=== PATIENT | male | born 1945 | race Caucasian/White ===

== ENCOUNTER → 2017-11-23 | Outpatient (CLI) | payer OTHER ==
[~2017-11-23] MED LIST: FLUMAZENIL 0.5 MG/5 ML VIAL. IV; LIDOCAINE WITH 8.4% SOD BICARB 3 ML DISP.SYRIN. IJ; MIDAZOLAM HCL/PF 5 MG/5 ML VIAL.; NALOXONE 0.4 MG/ML VIAL.; fentaNYL PF VIAL 250 MCG/5 ML VIAL
[2017-11-23 07:33] LABS: ADD MAN DIFF? NO
[2017-11-23 07:36] LABS: BASO # 0.1 x10^3/uL (0.0-0.2); BASO % 1 % (0-3); EOS # 0.5 x10^3/uL (0.0-0.7); EOS % 5 % (0-3); HEMATOCRIT 37.1 % (39.0-53.0); HEMOGLOBIN 12.4 g/dL (13.0-17.5); LYMPH # 2.4 x10^3/uL (1.0-4.8); LYMPH % 22 % (24-48); MEAN CORPUSCULAR HEMOGLOBIN 33 pg (25-35); MEAN CORPUSCULAR HGB CONC 34 g/dL (31-37); MEAN CORPUSCULAR VOLUME 97 fL (79-100); MONO # 1.2 x10^3/uL (0.0-1.1); MONO % 11 % (0-9); NEUT # 6.8 x10^3uL (1.8-7.7); NEUT % 62 % (31-73); PLATELET COUNT 284 x10^3/uL (140-400); RED BLOOD COUNT 3.82 x10^6/uL (4.30-5.70); RED CELL DISTRIBUTION WIDTH 13.6 % (11.5-14.5); WHITE BLOOD COUNT 10.9 x10^3/uL (4.0-11.0)
[2017-11-23 07:45] LABS: INR 1.2 (0.8-1.1); PROTHROMBIN TIME PATIENT 14.7 SEC (11.7-14.0)
[2017-11-23] MEDS: fentaNYL PF VIAL 250 MCG/5 ML VIAL IV (08:45)
[2017-11-23] MEDS: MIDAZOLAM HCL/PF 5 MG/5 ML VIAL. IV (08:45)
[2017-11-23] MEDS: LIDOCAINE WITH 8.4% SOD BICARB 3 ML DISP.SYRIN. IJ (08:45)
== END | disposition home or self-care (01) ==
LOC: INTRAD 06:39
DX: D47.2 Monoclonal gammopathy (principal); E78.00 Pure hypercholesterolemia, unspecified; I10 Essential (primary) hypertension; F17.200 Nicotine dependence, unspecified, uncomplicated; Z98.890 Other specified postprocedural states
CPT/HCPCS: 36415; 38222; 77012; 77075; 85025; 85610; 88184; 88185; 88237; 99152; J2250; J3010

== ENCOUNTER → 2018-01-09 | Outpatient (CLI) | payer OTHER | END | disposition home or self-care (01) | LOC: KCIC MAMMO 08:31 | DX: N63.20 Unspecified lump in the left breast, unspecified quadrant (principal) | CPT/HCPCS: 77066 ==

== ENCOUNTER → 2018-01-16 | Outpatient (CLI) | payer OTHER | END | disposition home or self-care (01) | LOC: KCIC 11:22 | DX: M16.12 Unilateral primary osteoarthritis, left hip (principal); M11.262 Other chondrocalcinosis, left knee; M25.462 Effusion, left knee | CPT/HCPCS: 73562 ==

== ENCOUNTER 2018-02-13 18:25 | Emergency (ER) | payer OTHER ==
[2018-02-13 20:45] LABS: ADD MAN DIFF? NO
[2018-02-13 20:51] LABS: BASO # 0.1 x10^3/uL (0.0-0.2); BASO % 1 % (0-3); EOS # 0.6 x10^3/uL (0.0-0.7); EOS % 4 % (0-3); HEMATOCRIT 36.9 % (39.0-53.0); HEMOGLOBIN 12.4 g/dL (13.0-17.5); LYMPH # 2.6 x10^3/uL (1.0-4.8); LYMPH % 18 % (24-48); MEAN CORPUSCULAR HEMOGLOBIN 32 pg (25-35); MEAN CORPUSCULAR HGB CONC 34 g/dL (31-37); MEAN CORPUSCULAR VOLUME 95 fL (79-100); MONO # 1.5 x10^3/uL (0.0-1.1); MONO % 10 % (0-9); NEUT # 9.7 x10^3uL (1.8-7.7); NEUT % 67 % (31-73); PLATELET COUNT 273 x10^3/uL (140-400); RED CELL DISTRIBUTION WIDTH 14.4 % (11.5-14.5); WHITE BLOOD COUNT 14.5 x10^3/uL (4.0-11.0)
[2018-02-13 20:58] LABS: ANION GAP 15 (6-14); BLOOD UREA NITROGEN 76 mg/dL (8-26); BUN/CREATININE RATIO 14 (6-20); CALCIUM 8.7 mg/dL (8.5-10.1); CARBON DIOXIDE 24 mmol/L (21-32); CHLORIDE 104 mmol/L (98-107); CREATININE 5.3 mg/dL (0.7-1.3); GFR 10.7; GLUCOSE 100 mg/dL (70-99); POTASSIUM 4.2 mmol/L (3.5-5.1); SODIUM 143 mmol/L (136-145)
[2018-02-13 21:03] LABS: ALBUMIN 3.3 g/dL (3.4-5.0); ALBUMIN/GLOBULIN RATIO 0.8 (1.0-1.7); ALK PHOS 138 U/L (46-116); ALT (SGPT) 33 U/L (16-63); AST (SGOT) 22 U/L (15-37); LIPASE 86 U/L (73-393); TOTAL BILIRUBIN 0.6 mg/dL (0.2-1.0); TOTAL PROTEIN 7.5 g/dL (6.4-8.2)
[2018-02-13] MEDS: DOCUSATE SODIUM 283 MG/5 ML ENEMA. PR ×2 (21:39→23:05)
[2018-02-13] MEDS: PEG 3350/NA SULF,BICARB,CL/KCL 4,000 ML SOLUTION. PO (22:32)
== END 2018-02-14 00:20 | disposition home or self-care (01) ==
LOC: ER 02-14 00:20
DX: K59.00 Constipation, unspecified (principal); I13.10 Hypertensive heart and chronic kidney disease without heart failure, with stage 1 through stage 4 chronic kidney disease, or unspecified chronic kidney disease; I25.2 Old myocardial infarction; N18.4 Chronic kidney disease, stage 4 (severe); E78.00 Pure hypercholesterolemia, unspecified; Z90.49 Acquired absence of other specified parts of digestive tract; Z95.5 Presence of coronary angioplasty implant and graft
CPT/HCPCS: 36415; 74022; 80053; 83690; 85025; 99285-25

== ENCOUNTER → 2018-04-16 | Outpatient (CLI) | payer OTHER | END | disposition home or self-care (01) | LOC: KCIC CT 09:58 | DX: N40.0 Benign prostatic hyperplasia without lower urinary tract symptoms (principal); M43.28 Fusion of spine, sacral and sacrococcygeal region; K80.80 Other cholelithiasis without obstruction; I13.10 Hypertensive heart and chronic kidney disease without heart failure, with stage 1 through stage 4 chronic kidney disease, or unspecified chronic kidney disease; N18.4 Chronic kidney disease, stage 4 (severe); E78.00 Pure hypercholesterolemia, unspecified | CPT/HCPCS: 74176 ==

== ENCOUNTER 2018-04-23 10:21 | Day surgery (SDC) | payer OTHER ==
[~2018-04-23 10:21] MED LIST changes: -FLUMAZENIL 0.5 MG/5 ML VIAL. IV; +LIDOCAINE 1% PF 2 ML VIAL. ID; -LIDOCAINE WITH 8.4% SOD BICARB 3 ML DISP.SYRIN. IJ; -MIDAZOLAM HCL/PF 5 MG/5 ML VIAL.; +MORPHINE SULFATE 2 MG/ML DISP.SYRIN. IV; -NALOXONE 0.4 MG/ML VIAL.; +ONDANSETRON PF 4 MG/2 ML VIAL. IV; +PROCHLORPERAZINE 10 MG/2 ML VIAL. IV; +fentaNYL PF VIAL 100 MCG/2 ML VIAL IV; -fentaNYL PF VIAL 250 MCG/5 ML VIAL
[2018-04-23] MEDS ORDERED: PROPOFOL 20 ML IV (10:51)
[2018-04-23] MEDS ORDERED: LIDOCAINE 2% PF Vial for OR 5 ML VIAL. (10:51)
[2018-04-23] MEDS ORDERED: ROCURONIUM 50 MG/5 ML VIAL. (10:52)
[2018-04-23] MEDS ORDERED: fentaNYL PF VIAL 100 MCG/2 ML VIAL (10:52)
[2018-04-23] MEDS ORDERED: DEXAMETHASONE SOD PHOS 20 MG/5 ML VIAL. (10:57)
[2018-04-23] MEDS ORDERED: ONDANSETRON PF 4 MG/2 ML VIAL. (10:57)
[2018-04-23] MEDS: IV NORMAL SALINE 1000ML BAG 1,000 ML IV (11:19)
[2018-04-23] MEDS ORDERED: EPINEPHrine 1 MG/ML VIAL (12:55)
[2018-04-23] MEDS: HEPARIN SODIUM 1,000 UNIT in IV NORMAL SALINE 100ML 100 ML IRR (12:58)
[2018-04-23] MEDS ORDERED: NEOSTIGMINE METHYLSULFATE 5 MG/5 ML SYRINGE. (13:21)
[2018-04-23] MEDS ORDERED: GLYCOPYRROLATE 1 MG/5 ML VIAL. (13:21)
[2018-04-23] MEDS ORDERED: DESFLURANE 31 TO 60 MINUTES IH (13:24)
[2018-04-23] MEDS: HYDROcodone/APAP 5/325MG 1 TAB TABLET PO (14:34)
== END 2018-04-23 15:47 | disposition home or self-care (01) ==
LOC: SURG 10:21
DX: I12.9 Hypertensive chronic kidney disease with stage 1 through stage 4 chronic kidney disease, or unspecified chronic kidney disease (principal); N18.4 Chronic kidney disease, stage 4 (severe); M19.90 Unspecified osteoarthritis, unspecified site; I25.10 Atherosclerotic heart disease of native coronary artery without angina pectoris; I25.2 Old myocardial infarction; G47.33 Obstructive sleep apnea (adult) (pediatric); N25.81 Secondary hyperparathyroidism of renal origin; Z90.49 Acquired absence of other specified parts of digestive tract; Z98.890 Other specified postprocedural states; Z79.82 Long term (current) use of aspirin; Z79.899 Other long term (current) drug therapy; Z80.3 Family history of malignant neoplasm of breast; Z80.41 Family history of malignant neoplasm of ovary; Z80.59 Family history of malignant neoplasm of other urinary tract organ; Z82.49 Family history of ischemic heart disease and other diseases of the circulatory system; Z87.891 Personal history of nicotine dependence; Z95.5 Presence of coronary angioplasty implant and graft; E78.00 Pure hypercholesterolemia, unspecified; Z72.89 Other problems related to lifestyle
CPT/HCPCS: 49324; A7015; J0171; J0690; J1100; J1644; J2405; J2704; J2710; J3010; J3490

== ENCOUNTER → 2018-04-23 | Outpatient (CLI) | payer OTHER | END | disposition home or self-care (01) | LOC: RAD 15:18 | DX: I13.10 Hypertensive heart and chronic kidney disease without heart failure, with stage 1 through stage 4 chronic kidney disease, or unspecified chronic kidney disease (principal); N18.3 Chronic kidney disease, stage 3 (moderate); E78.00 Pure hypercholesterolemia, unspecified; I25.2 Old myocardial infarction | CPT/HCPCS: 71046 ==

== ENCOUNTER 2018-08-25 10:28 | Emergency (ER) | payer OTHER ==
[~2018-08-25] VITALS: Ht 176.8 cm; Wt 79.4 kg
[~2018-08-25 10:28] MED LIST changes: +AMLO5TAB7 PO; +ASPI-630 PO; +ASPI325T8 PO; +ATOR20TA58 PO; +CALC200T3 PO; +CALC667T PO; +CINA30TA2 PO; +HYDR-971 PO; -LIDOCAINE 1% PF 2 ML VIAL. ID; +LOSA25TA5 PO; +METO25TA4 PO; +METO50TA6 PO; -MORPHINE SULFATE 2 MG/ML DISP.SYRIN. IV; -ONDANSETRON PF 4 MG/2 ML VIAL. IV; +PATI8.4P PO; -PROCHLORPERAZINE 10 MG/2 ML VIAL. IV; +SIMV20TA3 PO; +SODI650T PO; -fentaNYL PF VIAL 100 MCG/2 ML VIAL IV
--- NOTE | 2018-08-25 11:10 | PHYS DOC ---
Past Medical History Past Medical History: High Cholesterol, Heart Disease, Hypertension, [place], Renal Failure, Other Additional Past Medical Histor: abdominal stent for AAA, stent placement after NH Past Surgical History: Appendectomy Additional Past Surgical Histo: heart stent, AAA stent, orthoscopic knees Alcohol Use: None Drug Use: None Adult General Chief Complaint Chief Complaint: ELBOW PROBLEM HPI HPI Patient is a 72 year old mode presents to the ER for evaluation of right elbow pain. Patient reports mechanical fall 2 days ago in a grocery store. Patient reports progressive swelling and pain to right elbow. Patient reports decreased range of motion. Pain is sharp, 5-6 out of 10, worse with movement. No radiation. No distal numbness or tingling. Patient with history of end-stage renal disease on peritoneal dialysis. He lives with his spouse. no head trauma. Patient takes daily aspirin. Review of Systems Review of Systems Constitutional: Denies fever or chills [] Eyes: Denies change in visual acuity, redness, or eye pain [] HENT: Denies nasal congestion or sore throat [] Respiratory: Denies cough or shortness of breath [] Cardiovascular: no chest pain, no orthopnea, no lower extremity edema. GI: Denies abdominal pain, nausea, vomiting, bloody stools or diarrhea [] : Denies dysuria or hematuria [] Musculoskeletal: no back pain, right joint pain present. Integument: Denies rash or skin lesions [] Neurologic: Denies headache, focal weakness or sensory changes [] Endocrine: Denies polyuria or polydipsia [] All other systems were reviewed and found to be within normal limits, except as documented in this note. Allergies Allergies Allergies Coded Allergies Type Severity Reaction Last Updated Verified No Known Drug Allergies 04/23/18 No Physical Exam Physical Exam Constitutional: Well developed, well nourished, mild distress, appears stated age. HENT: Normocephalic, atraumatic, Eyes: PERRLA, EOMI, Neck: no stridor. [] Cardiovascular:Heart rate regular rhythm, no murmur [] Lungs & Thorax: Bilateral breath sounds clear to auscultation [] Abdomen: Bowel sounds normal, soft, no tenderness, no masses, no pulsatile masses. [] Skin: Warm, dry, no erythema, no rash. [] Extremities: moderate swelling to right elbow. Moderately decreased range of motion of right elbow secondary to pain. Distal range of motion of right wrist and hand intact. Radial pulse +2 out of 4. Hand motion intact with thumbs up, peace sign and a okay. Distal sensation intact Neurologic: Alert and oriented X 3, no focal deficits noted. [] Psychologic: Affect normal, judgement normal, mood normal. [] Current Patient Data Vital Signs Vital Signs Date Time Temp Pulse Resp B/P (MAP) Pulse Ox O2 Delivery O2 Flow Rate FiO2 08/25/18 10:40 97.6 64 18 150/72 (98) 99 Room Air 97.6 EKG EKG [] Radiology/Procedures Radiology/Procedures Elbow XR IMPRESSION: Thin cortical lucency of the distal humerus on the lateral view. Cannot exclude acute nondisplaced fracture. Consider CT for further evaluation. Electronically signed by: Doni Schulte MD (08/25/2018 11:42 AM) [facility][] Course & Med Decision Making Course & Med Decision Making Pertinent Labs and Imaging studies reviewed. (See chart for details) []1230: x-ray as above with questionable distal humerus fracture. Patient with swelling and decreased range of motion Will treat with splint and outpatient follow-up. Discussed x-ray radiology reading with the patient. Advised close PCP follow-up for outpatient ETT. Also referred to or so. Patient is declining narcotic in the ER. Will give short course of narcotics for pain control at home. Patient lives with his spouse and feels safe at home with the splint. post -splint exam with distal cap refill present and appropriate placement.. ER return precautions given. Patient verbalized understanding. All questions answered. Dragon Disclaimer Dragon Disclaimer This electronic medical record was generated, in whole or in part, using a voice recognition dictation system. Departure Departure Impression: Primary Impression: Elbow fracture Additional Impression: Humeral distal fracture Disposition: 01 HOME, SELF-CARE Referrals: MARISELA ARIZMENDI MD (PCP) RON [place] MD Patient Instructions: Cast or Splint Care, Elbow Fracture, Distal Humerus with [facility] Additional Instructions: Thank you for coming to [facility]. Please repeat the attached handouts. Please follow-up with your primary care physician. Return to the ER if your symptoms worsen or you have any other concerns.please take the pain medication as prescribed. You have a possible distal humerus fracture near your elbow. Please keep the splint on. You need a outpatient follow-up CT scan to confirm the fracture. Please follow-up with the referral orthopedist and your primary care doctor early next week. Scripts Hydrocodone/Apap 5-325 (NORCO 5-325 TABLET) 1 Each Tablet 1-2 EACH PO PRN Q6HRS PRN for PAIN, #15 as needed for pain Prov: BONG CUELLAR DO 08/25/18 Problem Qualifiers BONG CUELLAR DO Aug 25, 2018 11:10
--- NOTE | 2018-08-25 11:45 | RAD ---
RIGHT ELBOW AP LATERAL AND OBLIQUE Clinical Indication: RIGHT POSTERIOR ELBOW PAIN AFTER FALL X2 DAYS AGO. UNABLE TO FULLY EXTEND ARM Comparison: None. Findings: There is thin cortical lucency of the distal humerus on the lateral view. Question large joint effusion. No anterior sail sign is identified. Medial epicondyle enthesopathy. There is no radiopaque foreign body. There is mild soft tissue swelling posterior and medial to the elbow. IMPRESSION: Thin cortical lucency of the distal humerus on the lateral view. Cannot exclude acute nondisplaced fracture. Consider CT for further evaluation. Electronically signed by: Doni Schulte MD (08/25/2018 11:42 AM) [facility]
[2018-08-25] MEDS ORDERED: HYDR-971 PO (12:27)
[2018-08-25 13:57] VITALS: BP 178/80
== END 2018-08-25 14:20 | disposition home or self-care (01) ==
LOC: ER 10:28
DX: S42.441A Displaced fracture (avulsion) of medial epicondyle of right humerus, initial encounter for closed fracture (principal); I13.11 Hypertensive heart and chronic kidney disease without heart failure, with stage 5 chronic kidney disease, or end stage renal disease; N18.6 End stage renal disease; Z99.2 Dependence on renal dialysis; I25.2 Old myocardial infarction; E78.00 Pure hypercholesterolemia, unspecified; Z95.5 Presence of coronary angioplasty implant and graft; Z90.89 Acquired absence of other organs; Z98.890 Other specified postprocedural states; W18.39XA Other fall on same level, initial encounter; Y93.89 Activity, other specified; Y92.512 Supermarket, store or market as the place of occurrence of the external cause; Y99.8 Other external cause status
CPT/HCPCS: 29105; 73080; 99284-25

== ENCOUNTER → 2018-09-03 | Outpatient (CLI) | payer OTHER ==
[2018-08-25 13:57] VITALS: BP 178/80
--- NOTE | 2018-09-03 13:37 | KCIC ---
EXAM: CT RIGHT ELBOW DATE: 09/03/2018 11:30 AM COMPARISON: Radiographs 08/25/2018 INDICATION: Equivocal fracture on prior radiograph TECHNIQUE: Non-union protocol completed through the affected site without IV contrast. 2-D reformatted sagittal and coronal images were created at the CT console workstation. FINDINGS: The previously seen lucency seen on prior radiograph is not definitively identified on this CT and therefore is likely artifactual. No associated periosteal reaction or marrow sclerosis is seen to suggest evolving fracture. No significant elbow joint effusion is noted. Normal muscle bulk without fatty atrophy. IMPRESSION: 1. Lucency on prior radiograph through the distal humerus is not definitively seen on today's CT and therefore most likely artifactual. 2. No evidence for acute fracture or dislocation. No right elbow joint effusion. Electronically signed by: Troy Jamison MD (09/03/2018 1:33 PM) [facility]
--- NOTE | 2018-09-03 15:06 | KCIC ---
3 views of the right shoulder without comparison for shoulder pain. FINDINGS: There is no fracture, dislocation, or acute osseous abnormality of the right shoulder. Mild glenohumeral osteoarthritis is noted. There is also mild arthritis of the acromioclavicular joint. Numerous calcified granulomata are seen throughout the right lung. IMPRESSION: 1. No acute osseous abnormality of the right shoulder. 2. Osteoarthritis as described. Electronically signed by: Chin Reinoso MD (09/03/2018 3:03 PM) [facility]
== END | disposition home or self-care (01) ==
LOC: KCIC CT 11:16
PROVIDERS: ATTEND Nurse Practitioner Family
DX: M19.011 Primary osteoarthritis, right shoulder (principal); M25.521 Pain in right elbow
CPT/HCPCS: 73030; 73200

== ENCOUNTER → 2018-09-11 | Outpatient (CLI) | payer OTHER ==
[2018-08-25 13:57] VITALS: BP 178/80
--- NOTE | 2018-09-11 16:43 | KCIC ---
Indication: Bilateral wrist pain status post fall TECHNIQUE: Multiple views of the bilateral breasts COMPARISON: None FINDINGS: Left side: No acute fracture or dislocation. Mild distal radioulnar joint arthritis. No soft tissue abnormality. Right hand: No acute fracture or dislocation. No soft tissue abnormality. IMPRESSION: As above. Electronically signed by: Dallin Cosby DO (09/11/2018 4:39 PM) [facility]
== END | disposition home or self-care (01) ==
LOC: KCIC 11:29
PROVIDERS: ATTEND Nurse Practitioner Family
DX: M19.032 Primary osteoarthritis, left wrist (principal); W19.XXXD Unspecified fall, subsequent encounter
CPT/HCPCS: 73100

== ENCOUNTER 2019-01-14 14:28 | Inpatient (IN) | payer OTHER ==
[~2019-01-14] VITALS: Ht 177.8 cm; Wt 89.4 kg
[~2019-01-14 14:28] MED LIST changes: +AMLO5TAB10 PO; -AMLO5TAB7 PO; -CALC667T PO; +CALC667T4 PO; +HYDR-3164 PO; -HYDR-971 PO; -LOSA25TA5 PO; +LOSA25TA54 PO
[2019-01-14 14:57] LABS: BASO # 0.1 x10^3/uL (0.0-0.2); BASO % 1 % (0-3); EOS # 0.1 x10^3/uL (0.0-0.7); EOS % 1 % (0-3); HEMATOCRIT 31.4 % (39.0-53.0); HEMOGLOBIN 10.3 g/dL (13.0-17.5); LYMPH # 3.5 x10^3/uL (1.0-4.8); LYMPH % 21 % (24-48); MEAN CORPUSCULAR HEMOGLOBIN 33 pg (25-35); MEAN CORPUSCULAR HGB CONC 33 g/dL (31-37); MEAN CORPUSCULAR VOLUME 101 fL (79-100); MONO # 3.5 x10^3/uL (0.0-1.1); MONO % 21 % (0-9); NEUT # 9.4 x10^3uL (1.8-7.7); NEUT % 56 % (31-73); PLATELET COUNT 193 x10^3/uL (140-400); RED BLOOD COUNT 3.11 x10^6/uL (4.30-5.70); RED CELL DISTRIBUTION WIDTH 16.5 % (11.5-14.5); WHITE BLOOD COUNT 16.6 x10^3/uL (4.0-11.0)
[2019-01-14] MEDS: ONDANSETRON PF 4 MG/2 ML VIAL. IM ONE (15:00)
--- NOTE | 2019-01-14 15:23 | PHYS DOC ---
Past Medical History Past Medical History: High Cholesterol, Heart Disease, Hypertension, [place], Renal Failure, Other Additional Past Medical Histor: abdominal stent for AAA, stent placement after [place] Past Surgical History: Appendectomy Additional Past Surgical Histo: heart stent, AAA stent, orthoscopic knees, Peritoneal dialysis catheter. Alcohol Use: None Drug Use: None Adult General Chief Complaint Chief Complaint: HYPOTENSION HPI HPI Patient is a 73 year old ma patient with history of end stage renal disease on home peritoneal dialysis sent from his primary care physician office because of hypotension. Patient had episodes of dizziness since he was started on dialysis on June 2018 and was admitted at [facility] multiple times recently. Patient was seen by his primary care physician for posthospital follow -up and according to primary care physician had blood sugar of 52/34 with confusion and significant emergency room for evaluation. Patient is alert and oriented and denies chest pain, shortness of breath, focal neuro deficit, new weakness or changes in his condition. Patient complaining of nausea last night. Review of Systems Review of Systems Constitutional: Denies fever or chills , reports generalized weakness[] Eyes: Denies change in visual acuity, redness, or eye pain [] HENT: Denies nasal congestion or sore throat [] Respiratory: Denies cough or shortness of breath [] Cardiovascular: No additional information not addressed in HPI [] GI: Denies abdominal pain, nausea, vomiting, bloody stools or diarrhea [] : Denies dysuria or hematuria [] Musculoskeletal: Denies back pain or joint pain [] Integument: Denies rash or skin lesions [] Neurologic: Denies headache, focal weakness or sensory changes [] Endocrine: Denies polyuria or polydipsia [] All other systems were reviewed and found to be within normal limits, except as documented in this note. Current Medications Current Medications Current Medications Medications (Trade) Dose Ordered Sig/Conrad Start Time Stop Time Status Last Admin Dose Admin Ondansetron HCl (Zofran) 4 mg 1X ONCE 01/14/19 15:45 01/14/19 15:46 DC 01/14/19 15:47 4 MG Allergies Allergies Allergies Coded Allergies Type Severity Reaction Last Updated Verified No Known Drug Allergies 04/23/18 No Physical Exam Physical Exam Constitutional: Well developed, mild acute distress, non-toxic appearance. [] HENT: Normocephalic, atraumatic, oropharynx moist, no oral exudates, nose normal. [] Eyes: PERRLA, EOMI, conjunctiva normal, no discharge. [] Neck: Normal range of motion, no tenderness, supple, no stridor. [] Cardiovascular:Heart rate regular rhythm, no murmur [] Lungs & Thorax: Bilateral breath sounds clear to auscultation [] Abdomen: Bowel sounds normal, soft, no tenderness, no masses, no pulsatile masses. [] Skin: Warm, dry, no erythema, no rash. [] Back: No tenderness, no CVA tenderness. [] Extremities: No tenderness, no cyanosis, no clubbing, ROM intact, bilateral lower extremity 1+ edema[] Neurologic: Alert and oriented X 3, normal motor function, normal sensory function, no focal deficits noted. [] Psychologic: Affect normal, judgement normal, mood normal. [] Current Patient Data Vital Signs Vital Signs Date Time Temp Pulse Resp B/P (MAP) Pulse Ox O2 Delivery O2 Flow Rate FiO2 01/14/19 16:43 98.6 70 16 141/68 (92) 93 Room Air 98.6 Lab Values Laboratory Tests Test 01/14/19 14:44 01/14/19 15:30 White Blood Count 16.6 x10^3/uL (4.0-11.0) H Red Blood Count 3.11 x10^6/uL (4.30-5.70) L Hemoglobin 10.3 g/dL (13.0-17.5) L Hematocrit 31.4 % (39.0-53.0) L Mean Corpuscular Volume 101 fL (79-100) H Mean Corpuscular Hemoglobin 33 pg (25-35) Mean Corpuscular Hemoglobin Concent 33 g/dL (31-37) Red Cell Distribution Width 16.5 % (11.5-14.5) H Platelet Count 193 x10^3/uL (140-400) Neutrophils (%) (Auto) 56 % (31-73) Lymphocytes (%) (Auto) 21 % (24-48) L Monocytes (%) (Auto) 21 % (0-9) H Eosinophils (%) (Auto) 1 % (0-3) Basophils (%) (Auto) 1 % (0-3) Neutrophils # (Auto) 9.4 x10^3uL (1.8-7.7) H Lymphocytes # (Auto) 3.5 x10^3/uL (1.0-4.8) Monocytes # (Auto) 3.5 x10^3/uL (0.0-1.1) H Eosinophils # (Auto) 0.1 x10^3/uL (0.0-0.7) Basophils # (Auto) 0.1 x10^3/uL (0.0-0.2) Segmented Neutrophils % 60 % (35-66) Band Neutrophils % 2 % (0-9) Lymphocytes % 22 % (24-48) L Monocytes % 15 % (0-10) H Eosinophils % 1 % (0-5) Toxic Granulation Slight Platelet Estimate Adequate (ADEQUATE) Large Platelets Present Polychromasia Slight Poikilocytosis Mod Anisocytosis Slight Target Cells Few Segura-Tibes Bodies Devika Cells Present Acanthocytes (Spur Cells) Few Schistocytes Few Prothrombin Time 24.2 SEC (11.7-14.0) H Prothrombin Time INR 2.2 (0.8-1.1) H Sodium Level 133 mmol/L (136-145) L Potassium Level 3.6 mmol/L (3.5-5.1) Chloride Level 92 mmol/L (98-107) L Carbon Dioxide Level 19 mmol/L (21-32) L Anion Gap 22 (6-14) H Blood Urea Nitrogen 80 mg/dL (8-26) H Creatinine 13.6 mg/dL (0.7-1.3) H Estimated GFR (Cockcroft-Gault) 3.6 BUN/Creatinine Ratio 6 (6-20) Glucose Level 72 mg/dL (70-99) Calcium Level 8.7 mg/dL (8.5-10.1) Magnesium Level 2.3 mg/dL (1.8-2.4) Total Bilirubin 1.8 mg/dL (0.2-1.0) H Aspartate Amino Transferase (AST) 49 U/L (15-37) H Alanine Aminotransferase (ALT) 25 U/L (16-63) Alkaline Phosphatase 457 U/L (46-116) H Troponin I Quantitative 0.114 ng/mL (0.000-0.055) Total Protein 5.1 g/dL (6.4-8.2) L Albumin 1.8 g/dL (3.4-5.0) L Albumin/Globulin Ratio 0.5 (1.0-1.7) L Lipase 352 U/L (73-393) Laboratory Tests 01/14/19 14:44 Laboratory Tests 01/14/19 15:30 EKG EKG EKG interpreted by me. EKG at 1529 showed normal sinus rhythm at rate of 80, PVCs, low voltage QRS, T wave abnormality in anterior leads, no acute ST and T- wave abnormalities. Radiology/Procedures Radiology/Procedures [facility] [address] [place] [address] IMAGING REPORT Signed PATIENT: AUGUSTO WEEKS ACCOUNT: [id number] : 1945 LOCATION: ER AGE: 73 SEX: M EXAM STATUS: REG ER ORD. PHYSICIAN: RUSTY NICHOLS MD REASON: generalized weakness,hypotension. PROCEDURE: PORTABLE CHEST 1V EXAM: Chest, single view. HISTORY: Hypotension. COMPARISON: 04/23/2018 FINDINGS: A frontal view of the chest is obtained. There is no infiltrate, pleural effusion or pneumothorax. The heart is normal in size for portable technique. There are multiple calcified granulomas. There is lucency along the lateral right thorax due to a skinfold. IMPRESSION: No acute pulmonary finding. Electronically signed by: Julienne Camejo MD (01/14/2019 3:30 PM) [facility] DICTATED and SIGNED BY: JULIENNE CAMEJO MD DATE: 01/14/191528 Course & Med Decision Making Course & Med Decision Making Pertinent Labs and Imaging studies reviewed. (See chart for details) Evaluation of patient in ER showed 73-year-old male patient sent from primary care physician office because of hypertension. Patient had blood pressure of 70s over 40s without altered level of consciousness or fever or tachycardia. Patient had one episode of a small amount of vomiting in ER that improved with Zofran. Plan to admit patient to hospitalist consulted central office operator supervisor per request of primary care physician. Patient gave not have IV fluids while he was in ER. Dragon Disclaimer Dragon Disclaimer This electronic medical record was generated, in whole or in part, using a voice recognition dictation system. Departure Departure Impression: Primary Impression: Hypotension Additional Impressions: Chronic kidney disease with end stage renal failure on dialysis Nausea and vomiting Generalized weakness Disposition: 09 ADMITTED INPATIENT (at 1516) Admitting Physician: Kayla Brown (accepted admission at 1515) Condition: GUARDED Referrals: MARISELA ARIZMENDI MD (PCP) Problem Qualifiers RUSTY NICHOLS MD Jan 14, 2019 15:23
--- NOTE | 2019-01-14 15:33 | RAD ---
EXAM: Chest, single view. HISTORY: Hypotension. COMPARISON: 04/23/2018 FINDINGS: A frontal view of the chest is obtained. There is no infiltrate, pleural effusion or pneumothorax. The heart is normal in size for portable technique. There are multiple calcified granulomas. There is lucency along the lateral right thorax due to a skinfold. IMPRESSION: No acute pulmonary finding. Electronically signed by: Julienne Palacio MD (01/14/2019 3:30 PM) [place] [id number]
[2019-01-14] MEDS ORDERED: ONDANSETRON PF 4 MG/2 ML VIAL. IM ONE (15:45)
[2019-01-14] MEDS ORDERED: ONDANSETRON PF 4 MG/2 ML VIAL. IV ONE (15:45)
[2019-01-14 15:53] LABS: % BANDS 2 % (0-9); % EOS 1 % (0-5); % LYMPHS 22 % (24-48); % MONOS 15 % (0-10); % SEGS 60 % (35-66); PLT ESTIMATE ADEQUATE (ADEQUATE)
[2019-01-14 15:57] LABS: ANISOCYTOSIS SLIGHT; POIKILOCYTOSIS MOD; POLYCHROMASIA SLIGHT; TARGET CELLS FEW
[2019-01-14 15:58] LABS: ACANTHOCYTES FEW; SCHISTOCYTES FEW
[2019-01-14 15:59] LABS: BURR CELLS PRESENT; TOXIC GRANULATION SLIGHT
[2019-01-14 15:59] LABS: PROTHROMBIN TIME PATIENT 24.2 SEC (11.7-14.0)
[2019-01-14 16:31] LABS: ALBUMIN 1.8 g/dL (3.4-5.0); ALBUMIN/GLOBULIN RATIO 0.5 (1.0-1.7); CALCIUM 8.7 mg/dL (8.5-10.1); CREATININE 13.6 mg/dL (0.7-1.3); GFR 3.6; MAGNESIUM 2.3 mg/dL (1.8-2.4); POTASSIUM 3.6 mmol/L (3.5-5.1); TOTAL BILIRUBIN 1.8 mg/dL (0.2-1.0); TOTAL PROTEIN 5.1 g/dL (6.4-8.2)
--- NOTE | 2019-01-14 16:35 | EKG ---
[facility] [address] [place] [address] Test Date: 2019-01-14 Test Time: 15:29:06 Pat Name: AUGUSTO WEEKS Department: Room: Gender: M Nut Grinder: : 1945 Requested By: RUSTY NICHOLS Order Number: [id number] Reading MD: Laureano Glez MD Measurements Intervals [place] Rate: 80 P: 74 VT: 170 QRS: 42 QRSD: 94 T: 34 QT: 430 QTc: 500 Interpretive Statements SINUS RHYTHM PVC Electronically Signed On 01-15-2019 7:06:04 BILINGUAL MEDICAL ASSISTANT by Laureano Glez MD
--- NOTE | 2019-01-14 17:21 | HP ---
ADMIT DATE: 01/14/2019 CHIEF COMPLAINT: Hypotension, dizziness, nausea and vomiting. HISTORY OF PRESENT ILLNESS: The patient is a pleasant 73-year-old male who is on peritoneal dialysis. Basically, he has been at [facility] getting an opinion about his chronic diseases that seemed to be progressing. I think he saw his primary care doctor today, although I am not clear on that. Basically, his pressures were in the 50s. He was told to go to the ER. Here in the ER, his pressure is 78/40. I have discussed the case with the ER physician. The patient's is also here. She would like us to have admitted him and provide a second opinion as to why he is so symptomatic. He does describe his symptoms as agonizing and rated 10/10. We are going to admit the patient and consult Nephrology. PAST MEDICAL AND SURGICAL HISTORY: Hyperlipidemia, coronary artery disease, peritoneal dialysis secondary to end-stage renal disease, hypertension, myocardial infarction, abdominal stents for AAA, cardiac stent, appendectomy and orthopedic surgery on the knees. ALLERGIES: None. FAMILY HISTORY: Hypertension and diabetes. SOCIAL HISTORY: Does not drink, smoke or take drugs. He is . MEDICATIONS: Reviewed, please refer to the MRAD. He is on atorvastatin, metoprolol, amlodipine, losartan, aspirin, hydrocodone, calcium, sodium bicarbonate and Sensipar. REVIEW OF SYSTEMS: GENERAL: No history of weight change, weakness or fevers. SKIN: No bruising, hair changes or rashes. EYES: No blurred, double or loss of vision. NOSE AND THROAT: No history of nosebleeds, hoarseness or sore throat. HEART: No history of palpitations, chest pain or shortness of breath on exertion. LUNGS: Denies cough, hemoptysis, wheezing or shortness of breath. GASTROINTESTINAL: Denies changes in appetite, nausea, vomiting, diarrhea or constipation. GENITOURINARY: No history of frequency, urgency, hesitancy or nocturia. NEUROLOGIC: Complains of dizziness. Denies history of numbness, tingling, tremor or weakness. PSYCHIATRIC: No history of panic, anxiety or depression. ENDOCRINE: No history of heat or cold intolerance, polyuria or polydipsia. EXTREMITIES: Denies muscle weakness, joint pain, pain on walking or stiffness. PHYSICAL EXAMINATION: VITAL SIGNS: Temperature afebrile, pulse 98, respirations 18, blood pressure 78/44. GENERAL: He is alert, weak. His is present. HEART: Normal S1 and S2. LUNGS: Clear. ABDOMEN: Soft. EXTREMITIES: 1+ edema. SKIN: No rashes. ENDOCRINE: No thyromegaly. LYMPHATICS: No cervical nodes. HEMATOPOIETIC: No bruising. LABORATORY DATA: Electrolytes are pending. White count 16.6, hemoglobin 10.3 and platelets 193. DIAGNOSTIC DATA: Chest x-ray, no acute findings. ASSESSMENT AND PLAN: Hypotension, dizziness, leukocytosis, anemia, nausea, vomiting in an elderly male with the above noted comorbidities. The patient has been admitted. I consulted Nephrology. We are going to give him a gentle bolus of 500 mL of normal saline and see if that helps. Frequent labs, PT, OT and home meds. DVT prophylaxis. Full code. Prognosis is guarded. SIMONE BAIRD DO DR: IJEOMA/faraz JOB#: [id number] / [id number]
--- NOTE | 2019-01-14 18:20 | NUR ---
The patient, AUGUSTO WEEKS, 73 y/o, M admitted by SIMONE BAIRD III, DO, was given written information regarding hospital policies, unit procedures and contact persons. Valuables were checked and left with .
[2019-01-14 19:00] VITALS: BP 83/41
[2019-01-14] MEDS ORDERED: SEVE800T9 PO (20:39)
[2019-01-14] MEDS ORDERED: AMMO225L8 TP (20:39)
[2019-01-14] MEDS ORDERED: CALC500T31 PO (20:39)
[2019-01-14] MEDS ORDERED: TRIA15CR TP (20:39)
[2019-01-14] MEDS ORDERED: PANT40GR PO (20:39)
[2019-01-14] MEDS ORDERED: CALCIUM CARBON (20:44)
[2019-01-14 23:00] VITALS: BP 81/41
[2019-01-15 03:00] VITALS: BP 77/40
[2019-01-15 07:00] VITALS: BP 83/32
--- NOTE | 2019-01-15 08:37 | PDOC ---
PROGRESS NOTES Chief Complaint Chief Complaint Hypotension Dizziness Leukocytosis Anemia Nausea and vomiting History of Present Illness History of Present Illness 73-year-old male who is on peritoneal dialysis. Came to ED with blood pressures were in the 50s. In ED his pressure is 78/40. He does describe his symptoms as agonizing and rated 10/10. Feeling only slightly better. BP a bit better with gentle IVF. He is concerned about his heart murmur Plan: Abdominal pain - less likely to be peritonitis, possibly from his vomiting has diaphragmatic tension. Consulted nephrology ESRD on PD - he is anuric. Have d/w nephrology if IV contrast is necessary he would have to convert to HD temporarily in house Cardiology consulted for his murmur / Hypotension - might be ok for midodrine Vitals Vitals Vital Signs Date Time Temp Pulse Resp B/P (MAP) Pulse Ox O2 Delivery O2 Flow Rate FiO2 01/15/19 07:00 98.2 75 18 83/32 (49) 95 Room Air 98.2 Physical Exam General: Alert Lungs: Clear Labs LABS Laboratory Tests Test 01/14/19 14:44 01/14/19 15:30 01/15/19 01:30 White Blood Count 16.6 x10^3/uL (4.0-11.0) Red Blood Count 3.11 x10^6/uL (4.30-5.70) Hemoglobin 10.3 g/dL (13.0-17.5) Hematocrit 31.4 % (39.0-53.0) Mean Corpuscular Volume 101 fL (79-100) Mean Corpuscular Hemoglobin 33 pg (25-35) Mean Corpuscular Hemoglobin Concent 33 g/dL (31-37) Red Cell Distribution Width 16.5 % (11.5-14.5) Platelet Count 193 x10^3/uL (140-400) Neutrophils (%) (Auto) 56 % (31-73) Lymphocytes (%) (Auto) 21 % (24-48) Monocytes (%) (Auto) 21 % (0-9) Eosinophils (%) (Auto) 1 % (0-3) Basophils (%) (Auto) 1 % (0-3) Neutrophils # (Auto) 9.4 x10^3uL (1.8-7.7) Lymphocytes # (Auto) 3.5 x10^3/uL (1.0-4.8) Monocytes # (Auto) 3.5 x10^3/uL (0.0-1.1) Eosinophils # (Auto) 0.1 x10^3/uL (0.0-0.7) Basophils # (Auto) 0.1 x10^3/uL (0.0-0.2) Segmented Neutrophils % 60 % (35-66) Band Neutrophils % 2 % (0-9) Lymphocytes % 22 % (24-48) Monocytes % 15 % (0-10) Eosinophils % 1 % (0-5) Toxic Granulation Slight Platelet Estimate Adequate (ADEQUATE) Large Platelets Present Polychromasia Slight Poikilocytosis Mod Anisocytosis Slight Target Cells Few Segura-[place] Bodies [place] Cells Present Acanthocytes Few Schistocytes Few Prothrombin Time 24.2 SEC (11.7-14.0) Prothromb Time International Ratio 2.2 (0.8-1.1) Sodium Level 133 mmol/L (136-145) Potassium Level 3.6 mmol/L (3.5-5.1) Chloride Level 92 mmol/L (98-107) Carbon Dioxide Level 19 mmol/L (21-32) Anion Gap 22 (6-14) Blood Urea Nitrogen 80 mg/dL (8-26) Creatinine 13.6 mg/dL (0.7-1.3) Estimated GFR (Cockcroft-Gault) 3.6 BUN/Creatinine Ratio 6 (6-20) Glucose Level 72 mg/dL (70-99) Lactic Acid Level 7.4 mmol/L (0.4-2.0) 4.7 mmol/L (0.4-2.0) Calcium Level 8.7 mg/dL (8.5-10.1) Magnesium Level 2.3 mg/dL (1.8-2.4) Total Bilirubin 1.8 mg/dL (0.2-1.0) Aspartate Amino Transf (AST/SGOT) 49 U/L (15-37) Alanine Aminotransferase (ALT/SGPT) 25 U/L (16-63) Alkaline Phosphatase 457 U/L (46-116) Creatine Kinase 98 U/L (39-308) Creatine Kinase MB (Mass) 3.7 ng/mL (0.0-3.6) Creatine Kinase MB Relative Index 3.8 % (0-4) Troponin I Quantitative 0.114 ng/mL (0.000-0.055) ON-Toh-A-Type Natriuretic Peptide 42153 pg/mL (0-449) Total Protein 5.1 g/dL (6.4-8.2) Albumin 1.8 g/dL (3.4-5.0) Albumin/Globulin Ratio 0.5 (1.0-1.7) Lipase 352 U/L (73-393) Assessment and Plan Assessmemt and Plan Problems Medical Problems: (1) Chronic kidney disease with end stage renal failure on dialysis Status: Acute (2) Generalized weakness Status: Acute (3) Hypotension Status: Acute (4) Nausea and vomiting Status: Acute Comment Review of Relevant I have reviewed the following items ethan (where applicable) has been applied. Labs Laboratory Tests Test 01/14/19 14:44 01/14/19 15:30 01/15/19 01:30 White Blood Count 16.6 x10^3/uL (4.0-11.0) Red Blood Count 3.11 x10^6/uL (4.30-5.70) Hemoglobin 10.3 g/dL (13.0-17.5) Hematocrit 31.4 % (39.0-53.0) Mean Corpuscular Volume 101 fL (79-100) Mean Corpuscular Hemoglobin 33 pg (25-35) Mean Corpuscular Hemoglobin Concent 33 g/dL (31-37) Red Cell Distribution Width 16.5 % (11.5-14.5) Platelet Count 193 x10^3/uL (140-400) Neutrophils (%) (Auto) 56 % (31-73) Lymphocytes (%) (Auto) 21 % (24-48) Monocytes (%) (Auto) 21 % (0-9) Eosinophils (%) (Auto) 1 % (0-3) Basophils (%) (Auto) 1 % (0-3) Neutrophils # (Auto) 9.4 x10^3uL (1.8-7.7) Lymphocytes # (Auto) 3.5 x10^3/uL (1.0-4.8) Monocytes # (Auto) 3.5 x10^3/uL (0.0-1.1) Eosinophils # (Auto) 0.1 x10^3/uL (0.0-0.7) Basophils # (Auto) 0.1 x10^3/uL (0.0-0.2) Segmented Neutrophils % 60 % (35-66) Band Neutrophils % 2 % (0-9) Lymphocytes % 22 % (24-48) Monocytes % 15 % (0-10) Eosinophils % 1 % (0-5) Toxic Granulation Slight Platelet Estimate Adequate (ADEQUATE) Large Platelets Present Polychromasia Slight Poikilocytosis Mod Anisocytosis Slight Target Cells Few Segura-[place] Bodies [place] Cells Present Acanthocytes Few Schistocytes Few Prothrombin Time 24.2 SEC (11.7-14.0) Prothromb Time International Ratio 2.2 (0.8-1.1) Sodium Level 133 mmol/L (136-145) Potassium Level 3.6 mmol/L (3.5-5.1) Chloride Level 92 mmol/L (98-107) Carbon Dioxide Level 19 mmol/L (21-32) Anion Gap 22 (6-14) Blood Urea Nitrogen 80 mg/dL (8-26) Creatinine 13.6 mg/dL (0.7-1.3) Estimated GFR (Cockcroft-Gault) 3.6 BUN/Creatinine Ratio 6 (6-20) Glucose Level 72 mg/dL (70-99) Lactic Acid Level 7.4 mmol/L (0.4-2.0) 4.7 mmol/L (0.4-2.0) Calcium Level 8.7 mg/dL (8.5-10.1) Magnesium Level 2.3 mg/dL (1.8-2.4) Total Bilirubin 1.8 mg/dL (0.2-1.0) Aspartate Amino Transf (AST/SGOT) 49 U/L (15-37) Alanine Aminotransferase (ALT/SGPT) 25 U/L (16-63) Alkaline Phosphatase 457 U/L (46-116) Creatine Kinase 98 U/L (39-308) Creatine Kinase MB (Mass) 3.7 ng/mL (0.0-3.6) Creatine Kinase MB Relative Index 3.8 % (0-4) Troponin I Quantitative 0.114 ng/mL (0.000-0.055) PH-Eoo-R-Type Natriuretic Peptide 95423 pg/mL (0-449) Total Protein 5.1 g/dL (6.4-8.2) Albumin 1.8 g/dL (3.4-5.0) Albumin/Globulin Ratio 0.5 (1.0-1.7) Lipase 352 U/L (73-393) Laboratory Tests Test 01/14/19 14:44 01/14/19 15:30 01/15/19 01:30 White Blood Count 16.6 x10^3/uL (4.0-11.0) Red Blood Count 3.11 x10^6/uL (4.30-5.70) Hemoglobin 10.3 g/dL (13.0-17.5) Hematocrit 31.4 % (39.0-53.0) Mean Corpuscular Volume 101 fL (79-100) Mean Corpuscular Hemoglobin 33 pg (25-35) Mean Corpuscular Hemoglobin Concent 33 g/dL (31-37) Red Cell Distribution Width 16.5 % (11.5-14.5) Platelet Count 193 x10^3/uL (140-400) Neutrophils (%) (Auto) 56 % (31-73) Lymphocytes (%) (Auto) 21 % (24-48) Monocytes (%) (Auto) 21 % (0-9) Eosinophils (%) (Auto) 1 % (0-3) Basophils (%) (Auto) 1 % (0-3) Neutrophils # (Auto) 9.4 x10^3uL (1.8-7.7) Lymphocytes # (Auto) 3.5 x10^3/uL (1.0-4.8) Monocytes # (Auto) 3.5 x10^3/uL (0.0-1.1) Eosinophils # (Auto) 0.1 x10^3/uL (0.0-0.7) Basophils # (Auto) 0.1 x10^3/uL (0.0-0.2) Segmented Neutrophils % 60 % (35-66) Band Neutrophils % 2 % (0-9) Lymphocytes % 22 % (24-48) Monocytes % 15 % (0-10) Eosinophils % 1 % (0-5) Toxic Granulation Slight Platelet Estimate Adequate (ADEQUATE) Large Platelets Present Polychromasia Slight Poikilocytosis Mod Anisocytosis Slight Target Cells Few [place] Bodies [place] Cells Present Acanthocytes Few Schistocytes Few Prothrombin Time 24.2 SEC (11.7-14.0) Prothromb Time International Ratio 2.2 (0.8-1.1) Sodium Level 133 mmol/L (136-145) Potassium Level 3.6 mmol/L (3.5-5.1) Chloride Level 92 mmol/L (98-107) Carbon Dioxide Level 19 mmol/L (21-32) Anion Gap 22 (6-14) Blood Urea Nitrogen 80 mg/dL (8-26) Creatinine 13.6 mg/dL (0.7-1.3) Estimated GFR (Cockcroft-Gault) 3.6 BUN/Creatinine Ratio 6 (6-20) Glucose Level 72 mg/dL (70-99) Lactic Acid Level 7.4 mmol/L (0.4-2.0) 4.7 mmol/L (0.4-2.0) Calcium Level 8.7 mg/dL (8.5-10.1) Magnesium Level 2.3 mg/dL (1.8-2.4) Total Bilirubin 1.8 mg/dL (0.2-1.0) Aspartate Amino Transf (AST/SGOT) 49 U/L (15-37) Alanine Aminotransferase (ALT/SGPT) 25 U/L (16-63) Alkaline Phosphatase 457 U/L (46-116) Creatine Kinase 98 U/L (39-308) Creatine Kinase MB (Mass) 3.7 ng/mL (0.0-3.6) Creatine Kinase MB Relative Index 3.8 % (0-4) Troponin I Quantitative 0.114 ng/mL (0.000-0.055) MO-Ydj-J-Type Natriuretic Peptide 53685 pg/mL (0-449) Total Protein 5.1 g/dL (6.4-8.2) Albumin 1.8 g/dL (3.4-5.0) Albumin/Globulin Ratio 0.5 (1.0-1.7) Lipase 352 U/L (73-393) Medications Current Medications Ondansetron HCl (Zofran) 4 mg 1X ONCE IM ; Start 01/14/19 at 15:00; Stop at 15:01; Status Cancel Ondansetron HCl (Zofran) 4 mg 1X ONCE IM ; Start 01/14/19 at 15:45; Stop at 15:46; Status Cancel Ondansetron HCl (Zofran) 4 mg 1X ONCE IV Last administered on 01/14/19at 15:47; Start 01/14/19 at 15:45; Stop 01/14/19 at 15:46; Status DC Gentamicin Sulfate (Garamycin) 1 olu DAILY TP ; Start 01/15/19 at 09:00 Active Scripts Active [place] 5-325 Tablet (Acetaminophen/Hydrocodone Bitart) 1 Each Tablet 1-2 Each PO PRN Q6HRS PRN as needed for pain Reported [calcium carbon] Triamcinolone Acetonide 0.5% Cream (Triamcinolone Acetonide) 15 Gm Cream..g. 1 Olu TP BID Renvela (Sevelamer Carbonate) 800 Mg Tablet 2 Tab PO TID Protonix (Pantoprazole Sodium) 40 Mg Granpkt.dr 40 Mg PO DAILY Calcium Carbonate 500 Mg Tablet 5,000 Mg PO TIDWMEALS Skin Treatment (Ammonium Lactate) 225 Gm Lotion 225 Gm TP BID Aspirin 81 Mg Tab.chew 1 Tab PO DAILY Atorvastatin Calcium 20 Mg Tablet 1 Tab PO QHS Sodium Bicarbonate 650 Mg Tablet 1,950 Mg PO TIDWMEALS Vitals/I & O Vital Sign - Last 24 Hours 01/14/19 01/14/19 01/14/19 01/14/19 15:00 15:45 15:50 16:30 Pulse 94 82 81 82 Pulse Ox 98 97 100 100 01/14/19 01/14/19 01/14/19 01/14/19 16:43 19:00 20:00 23:00 Temp 98.6 98.0 98.3 98.6 98.0 98.3 Pulse 70 83 86 Resp 16 17 18 B/P (MAP) 141/68 (92) 83/41 (55) 81/41 (54) Pulse Ox 93 97 98 O2 Delivery Room Air Room Air Room Air Room Air 01/15/19 01/15/19 03:00 07:00 Temp 98.1 98.2 98.1 98.2 Pulse 83 75 Resp 18 18 B/P (MAP) 77/40 (52) 83/32 (49) Pulse Ox 96 95 O2 Delivery Room Air Room Air Intake and Output 01/14/19 01/14/19 01/15/19 15:00 23:00 07:00 Intake Total 30 ml Balance 30 ml RIFFEL,CHRISTOPHER S MD Jan 15, 2019 08:37
[2019-01-15] MEDS ORDERED: GENTAMICIN 0.1% TOPICAL OINTMENT 15GM TUBE. TP SCH (09:00)
[2019-01-15] MEDS: TRIAMCINOLONE ACETONIDE 0.1% TOPICAL CREAM 15GM TUBE. TP SCH ×2 (10:00→20:55)
[2019-01-15] MEDS: AMMONIUM LACTATE 12% TOPICAL LOTION 226GM BOTTLE. TP SCH ×2 (10:00→20:55)
--- NOTE | 2019-01-15 10:08 | PDOC2 ---
CONSULT Date of Consult Date of Consult DATE: 01/15/19 TIME: 09:41 Reason for Consult Reason for Consult: ESRD on PD Source Source: Chart review, Patient History of Present Illness Reason for Visit: Patient is a 73 year old ma patient with history of end stage renal disease on peritoneal dialysis (Dr. Tomlinson) sent from his primary care physician office because of hypotension. Patient had episodes of dizziness since he was started on dialysis on June 2018. He has been admitted at [facility] multiple times recently. Patient was seen by his primary care physician for posthospital follow-up with confusion He denies chest pain, shortness of breath, focal neuro deficit, new weakness or changes in his condition. Hew as having nausea, Vomiting x1 in ED Denies any abdominal pain , states PD fluid has been clear. No issues with PD. He doesnt have LBF When I asked him about the murmur - he reports he has seen a Card approx - 1 week back had JOANNA done as OP (doesnt remember name of Card)- states he has Aortic stenosis. Pt states his BP fluctuates a lot from very low to high. He denies taking any Antihypertensive s . He doesnt hv RRF Currently denies any complaints Current Problem List Problem List Problems Medical Problems: (1) Chronic kidney disease with end stage renal failure on dialysis Status: Acute (2) Generalized weakness Status: Acute (3) Hypotension Status: Acute (4) Nausea and vomiting Status: Acute Current Medications Current Medications Current Medications Ondansetron HCl (Zofran) 4 mg 1X ONCE IM ; Start 01/14/19 at 15:00; Stop at 15:01; Status Cancel Ondansetron HCl (Zofran) 4 mg 1X ONCE IM ; Start 01/14/19 at 15:45; Stop at 15:46; Status Cancel Ondansetron HCl (Zofran) 4 mg 1X ONCE IV Last administered on 01/14/19at 15:47; Start 01/14/19 at 15:45; Stop 01/14/19 at 15:46; Status DC Gentamicin Sulfate (Garamycin) 1 olu DAILY TP ; Start 01/15/19 at 09:00 Lactic Acid (Lac-Hydrin) 1 olu BID TP ; Start 01/15/19 at 10:00 Aspirin (Children'S Aspirin) 81 mg DAILY PO ; Start 01/15/19 at 10:00 Atorvastatin Calcium (Lipitor) 20 mg QHS PO ; Start 01/15/19 at 21:00 Calcium Carbonate/ Glycine (Oscal) 500 mg TIDWMEALS PO ; Start 01/15/19 at 12:00 Acetaminophen/ Hydrocodone Bitart (Lortab 5/325) 1 tab PRN Q6HRS PRN PO PAIN; Start 01/15/19 at 08:45 Sevelamer Carbonate (Renvela) 1,600 mg TID PO ; Start 01/15/19 at 09:00 Sodium Bicarbonate (Sodium Bicarbonate) 1,950 mg TIDWMEALS PO ; Start 01/15/19 at 12:00 Pantoprazole Sodium (Protonix) 40 mg DAILYAC PO ; Start 01/15/19 at 10:00 Triamcinolone Acetonide (Kenalog) 1 olu BID TP ; Start 01/15/19 at 10:00 Active Scripts Active [place] 5-325 Tablet (Acetaminophen/Hydrocodone Bitart) 1 Each Tablet 1-2 Each PO PRN Q6HRS PRN as needed for pain Reported [calcium carbon] Triamcinolone Acetonide 0.5% Cream (Triamcinolone Acetonide) 15 Gm Cream..g. 1 Olu TP BID Renvela (Sevelamer Carbonate) 800 Mg Tablet 2 Tab PO TID Protonix (Pantoprazole Sodium) 40 Mg Granpkt.dr 40 Mg PO DAILY Calcium Carbonate 500 Mg Tablet 5,000 Mg PO TIDWMEALS Skin Treatment (Ammonium Lactate) 225 Gm Lotion 225 Gm TP BID Aspirin 81 Mg Tab.chew 1 Tab PO DAILY Atorvastatin Calcium 20 Mg Tablet 1 Tab PO QHS Sodium Bicarbonate 650 Mg Tablet 1,950 Mg PO TIDWMEALS Allergies Allergies: Coded Allergies: No Known Drug Allergies (Unverified , 04/23/18) ROS Review of System As per HPI Physical Exam Physical Exam GEN: NAD HEEN: OM moist NECK: Supple CVS: S1S2 , Murmur ++ RESP: CTA Bilat, No use of acc Muscles GI: BS + ve, NT, PD catheter in Place : No CVA tenderness, No Suprapubic Tenderness, No [place] Neuro- AXOx 3, grossly normal Skin No rash Vital Signs Vital Signs Date Time Temp Pulse Resp B/P (MAP) Pulse Ox O2 Delivery O2 Flow Rate FiO2 01/15/19 07:00 98.2 75 18 83/32 (49) 95 Room Air 98.2 Assessment & Plan ESRD- On PD since Jun [address] Tomlinson No issues with PD , Check PD fluid for cell count No Vol Overload Continue as per Home prescription Hypotension- Chronic , Intermittent Lactic acid elevated, Alk Phos High, elevated WBC Abnormal peripheral smear noted Dw primary Aortic stenosis - Seen by card recently- JOANNA done- moderate Aortic stenosis Consult cardiology- Dw Dr. Holley Aortoiiliac stent graft is identified with the yurok aorta measuring 4.1 x 4.3 cm Discussed with Pt and Dr. Holley Labs Labs Laboratory Tests Test 01/14/19 14:44 01/14/19 15:30 01/15/19 01:30 White Blood Count 16.6 x10^3/uL (4.0-11.0) Red Blood Count 3.11 x10^6/uL (4.30-5.70) Hemoglobin 10.3 g/dL (13.0-17.5) Hematocrit 31.4 % (39.0-53.0) Mean Corpuscular Volume 101 fL (79-100) Mean Corpuscular Hemoglobin 33 pg (25-35) Mean Corpuscular Hemoglobin Concent 33 g/dL (31-37) Red Cell Distribution Width 16.5 % (11.5-14.5) Platelet Count 193 x10^3/uL (140-400) Neutrophils (%) (Auto) 56 % (31-73) Lymphocytes (%) (Auto) 21 % (24-48) Monocytes (%) (Auto) 21 % (0-9) Eosinophils (%) (Auto) 1 % (0-3) Basophils (%) (Auto) 1 % (0-3) Neutrophils # (Auto) 9.4 x10^3uL (1.8-7.7) Lymphocytes # (Auto) 3.5 x10^3/uL (1.0-4.8) Monocytes # (Auto) 3.5 x10^3/uL (0.0-1.1) Eosinophils # (Auto) 0.1 x10^3/uL (0.0-0.7) Basophils # (Auto) 0.1 x10^3/uL (0.0-0.2) Segmented Neutrophils % 60 % (35-66) Band Neutrophils % 2 % (0-9) Lymphocytes % 22 % (24-48) Monocytes % 15 % (0-10) Eosinophils % 1 % (0-5) Toxic Granulation Slight Platelet Estimate Adequate (ADEQUATE) Large Platelets Present Polychromasia Slight Poikilocytosis Mod Anisocytosis Slight Target Cells Few Segura-[place] Bodies [place] Cells Present Acanthocytes Few Schistocytes Few Prothrombin Time 24.2 SEC (11.7-14.0) Prothromb Time International Ratio 2.2 (0.8-1.1) Sodium Level 133 mmol/L (136-145) Potassium Level 3.6 mmol/L (3.5-5.1) Chloride Level 92 mmol/L (98-107) Carbon Dioxide Level 19 mmol/L (21-32) Anion Gap 22 (6-14) Blood Urea Nitrogen 80 mg/dL (8-26) Creatinine 13.6 mg/dL (0.7-1.3) Estimated GFR (Cockcroft-Gault) 3.6 BUN/Creatinine Ratio 6 (6-20) Glucose Level 72 mg/dL (70-99) Lactic Acid Level 7.4 mmol/L (0.4-2.0) 4.7 mmol/L (0.4-2.0) Calcium Level 8.7 mg/dL (8.5-10.1) Magnesium Level 2.3 mg/dL (1.8-2.4) Total Bilirubin 1.8 mg/dL (0.2-1.0) Aspartate Amino Transf (AST/SGOT) 49 U/L (15-37) Alanine Aminotransferase (ALT/SGPT) 25 U/L (16-63) Alkaline Phosphatase 457 U/L (46-116) Creatine Kinase 98 U/L (39-308) Creatine Kinase MB (Mass) 3.7 ng/mL (0.0-3.6) Creatine Kinase MB Relative Index 3.8 % (0-4) Troponin I Quantitative 0.114 ng/mL (0.000-0.055) IJ-Dnk-M-Type Natriuretic Peptide 80833 pg/mL (0-449) Total Protein 5.1 g/dL (6.4-8.2) Albumin 1.8 g/dL (3.4-5.0) Albumin/Globulin Ratio 0.5 (1.0-1.7) Lipase 352 U/L (73-393) Laboratory Tests Test 01/14/19 14:44 01/14/19 15:30 01/15/19 01:30 White Blood Count 16.6 x10^3/uL (4.0-11.0) Red Blood Count 3.11 x10^6/uL (4.30-5.70) Hemoglobin 10.3 g/dL (13.0-17.5) Hematocrit 31.4 % (39.0-53.0) Mean Corpuscular Volume 101 fL (79-100) Mean Corpuscular Hemoglobin 33 pg (25-35) Mean Corpuscular Hemoglobin Concent 33 g/dL (31-37) Red Cell Distribution Width 16.5 % (11.5-14.5) Platelet Count 193 x10^3/uL (140-400) Neutrophils (%) (Auto) 56 % (31-73) Lymphocytes (%) (Auto) 21 % (24-48) Monocytes (%) (Auto) 21 % (0-9) Eosinophils (%) (Auto) 1 % (0-3) Basophils (%) (Auto) 1 % (0-3) Neutrophils # (Auto) 9.4 x10^3uL (1.8-7.7) Lymphocytes # (Auto) 3.5 x10^3/uL (1.0-4.8) Monocytes # (Auto) 3.5 x10^3/uL (0.0-1.1) Eosinophils # (Auto) 0.1 x10^3/uL (0.0-0.7) Basophils # (Auto) 0.1 x10^3/uL (0.0-0.2) Segmented Neutrophils % 60 % (35-66) Band Neutrophils % 2 % (0-9) Lymphocytes % 22 % (24-48) Monocytes % 15 % (0-10) Eosinophils % 1 % (0-5) Toxic Granulation Slight Platelet Estimate Adequate (ADEQUATE) Large Platelets Present Polychromasia Slight Poikilocytosis Mod Anisocytosis Slight Target Cells Few Segura-Backus Bodies [place] Cells Present Acanthocytes Few Schistocytes Few Prothrombin Time 24.2 SEC (11.7-14.0) Prothromb Time International Ratio 2.2 (0.8-1.1) Sodium Level 133 mmol/L (136-145) Potassium Level 3.6 mmol/L (3.5-5.1) Chloride Level 92 mmol/L (98-107) Carbon Dioxide Level 19 mmol/L (21-32) Anion Gap 22 (6-14) Blood Urea Nitrogen 80 mg/dL (8-26) Creatinine 13.6 mg/dL (0.7-1.3) Estimated GFR (Cockcroft-Gault) 3.6 BUN/Creatinine Ratio 6 (6-20) Glucose Level 72 mg/dL (70-99) Lactic Acid Level 7.4 mmol/L (0.4-2.0) 4.7 mmol/L (0.4-2.0) Calcium Level 8.7 mg/dL (8.5-10.1) Magnesium Level 2.3 mg/dL (1.8-2.4) Total Bilirubin 1.8 mg/dL (0.2-1.0) Aspartate Amino Transf (AST/SGOT) 49 U/L (15-37) Alanine Aminotransferase (ALT/SGPT) 25 U/L (16-63) Alkaline Phosphatase 457 U/L (46-116) Creatine Kinase 98 U/L (39-308) Creatine Kinase MB (Mass) 3.7 ng/mL (0.0-3.6) Creatine Kinase MB Relative Index 3.8 % (0-4) Troponin I Quantitative 0.114 ng/mL (0.000-0.055) GV-Smx-H-Type Natriuretic Peptide 54534 pg/mL (0-449) Total Protein 5.1 g/dL (6.4-8.2) Albumin 1.8 g/dL (3.4-5.0) Albumin/Globulin Ratio 0.5 (1.0-1.7) Lipase 352 U/L (73-393) Review All relevant outside records, renal labs, imaging studies, telemetry/EKG's were reviewed. Images Images CT scan 2018-- 1. Liver is borderline enlarged measuring 19.8 cm in craniocaudal dimension. Consideration may be given for a Oskar's lobe. 2. Trace perihepatic ascites. Trace pericholecystic fluid with cholelithiasis. Correlate for signs and symptoms of acute cholecystitis. Further evaluation with HIDA may be of benefit as clinically warranted. 3. Aortobiiliac stent graft is identified with the yurok aorta measuring 4.1 x 4.3 cm. Noncontrast examination is limited in evaluation for endoleak. 4. No evidence for obstructive uropathy. 5. Mild prostatomegaly. Recommend correlation with prostate specific antigen. JUDSON GUZMAN MD Jan 15, 2019 10:08
[2019-01-15] MEDS: PANTOPRAZOLE 40 MG TABLET.DR. PO SCH (10:15)
[2019-01-15] MEDS: SEVELAMER CARBONATE 800 MG TABLET. PO SCH ×3 (10:15→20:53)
[2019-01-15] MEDS: ASPIRIN CHEWABLE 81 MG TABLET. PO SCH (10:15)
[2019-01-15] MEDS: HYDROcodone/APAP 5/325MG 1 TAB TABLET PO PRN (10:20)
--- NOTE | 2019-01-15 10:45 | NUR ---
SW following pt for anticipated dc needs. Chart reviewed. Pt lives at home with legal guardian and on PD. No SW/DC needs indicated at this time. Will continue to evaluate.
[2019-01-15 11:02] VITALS: BP 74/40
--- NOTE | 2019-01-15 11:47 | PDOC2 ---
ROSIE WELSH CONCRETE TILE MACHINE OPERATOR 01/15/19 1147: CARDIAC CONSULT DATE OF CONSULT Date of Consult DATE: 01/15/19 TIME: 11:33 REASON FOR CONSULT Reason for Consult: Hypotension REFERRING PHYSICIAN Referring Physician: Meche SOURCE Source: Chart review, Patient HISTORY OF PRESENT ILLNESS HISTORY OF PRESENT ILLNESS This is a pleasant 73 yo male admitted for complains of low BP. He was seen in her PCPs office where he was noted with BP manually of 52/30. He did lose about 800 ml per his PD yesterday per staff repor. He has been going in [facility] in the last 2 months with also noted hypotension and dizzy spells. He is significant for and was being evaluated for TAVR at [facility]. He was told that via JOANNA this was moderate rather than severe. He was discharge recently and still upon DC from [facility] he continues to have dizzy spells and low BP and has been getting worse. He also vomited last night with dark red but has been noting some blood in her mouth as she has been accidentally biting his tongue more lately. His BP meds have been totally discontinued due to his low BP. Presently he feels ok and on reverse Trendelenburg. No associated palpitations , vertigo. PAST MEDICAL HISTORY Cardiovascular: CAD, HTN, CA, Aortic stenosis, Other (AAA) Pulmonary: Other (DAVIDA with past CPAP) Musculoskeletal: Osteoarthritis Rheumatologic: Other (MGUS) Renal/: Chronic renal failure ( with PD use ), Benign prostatic enlarg. Endocrine: Hyperparathyroidism (secondary) Dermatology: Eczema PAST SURGICAL HISTORY Past Surgical History: Appendectomy, Arthroscopy (left knee), Other (AAA repair in 2005; back surgery, coronary stent placement in 2005) FAMILY HISTORY Family History noncontributory to CV SOCIAL HISTORY Smoke: Quit ALCOHOL: none Drugs: None Lives: with Family CURRENT MEDICATIONS CURRENT MEDICATIONS Current Medications Medications (Trade) Dose Ordered Sig/Conrad Route PRN Reason Start Time Stop Time Status Last Admin Dose Admin Ondansetron HCl (Zofran) 4 mg 1X ONCE IV 01/14/19 15:45 01/14/19 15:46 DC 01/14/19 15:47 Aspirin (Children'S Aspirin) 81 mg DAILY PO 01/15/19 10:00 01/15/19 10:15 Acetaminophen/ Hydrocodone Bitart (Lortab 5/325) 1 tab PRN Q6HRS PRN PO PAIN 01/15/19 08:45 01/15/19 10:20 Sevelamer Carbonate (Renvela) 1,600 mg TID PO 01/15/19 09:00 01/15/19 10:15 Pantoprazole Sodium (Protonix) 40 mg DAILYAC PO 01/15/19 10:00 01/15/19 10:15 ALLERGIES ALLERGIES: Coded Allergies: No Known Drug Allergies (Unverified , 04/23/18) ROS Review of System 14 point ROS evaluated with pertinent positives noted per HPI PHYSICAL EXAM General: Alert, Oriented X3, Cooperative, No acute distress HEENT: Atraumatic, Mucous membr. moist/pink Lungs: Clear to auscultation, Normal air movement Heart: Regular rate (SR), Other (CORINNE 5/6 systolic murmur ) Abdomen: Soft Extremities: No cyanosis, No edema Skin: No breakdown, No significant lesion Neuro: Normal speech, Sensation intact Psych/Mental Status: Mental status NL, Mood NL MUSCULOSKELETAL: Osteoarthritic changes both hands VITALS VITALS Vital Signs Date Time Temp Pulse Resp B/P (MAP) Pulse Ox O2 Delivery O2 Flow Rate FiO2 01/15/19 11:02 98.2 76 20 74/40 (51) 96 Room Air 98.2 LABS Lab: Laboratory Tests Test 01/14/19 14:44 01/14/19 15:30 01/15/19 01:30 01/15/19 08:45 White Blood Count 16.6 x10^3/uL (4.0-11.0) Red Blood Count 3.11 x10^6/uL (4.30-5.70) Hemoglobin 10.3 g/dL (13.0-17.5) Hematocrit 31.4 % (39.0-53.0) Mean Corpuscular Volume 101 fL (79-100) Mean Corpuscular Hemoglobin 33 pg (25-35) Mean Corpuscular Hemoglobin Concent 33 g/dL (31-37) Red Cell Distribution Width 16.5 % (11.5-14.5) Platelet Count 193 x10^3/uL (140-400) Neutrophils (%) (Auto) 56 % (31-73) Lymphocytes (%) (Auto) 21 % (24-48) Monocytes (%) (Auto) 21 % (0-9) Eosinophils (%) (Auto) 1 % (0-3) Basophils (%) (Auto) 1 % (0-3) Neutrophils # (Auto) 9.4 x10^3uL (1.8-7.7) Lymphocytes # (Auto) 3.5 x10^3/uL (1.0-4.8) Monocytes # (Auto) 3.5 x10^3/uL (0.0-1.1) Eosinophils # (Auto) 0.1 x10^3/uL (0.0-0.7) Basophils # (Auto) 0.1 x10^3/uL (0.0-0.2) Segmented Neutrophils % 60 % (35-66) Band Neutrophils % 2 % (0-9) Lymphocytes % 22 % (24-48) Monocytes % 15 % (0-10) Eosinophils % 1 % (0-5) Toxic Granulation Slight Platelet Estimate Adequate (ADEQUATE) Large Platelets Present Polychromasia Slight Poikilocytosis Mod Anisocytosis Slight Target Cells Few Seg[place] Bodies [place] Cells Present Acanthocytes Few Schistocytes Few Prothrombin Time 24.2 SEC (11.7-14.0) Prothromb Time International Ratio 2.2 (0.8-1.1) Sodium Level 133 mmol/L (136-145) Potassium Level 3.6 mmol/L (3.5-5.1) Chloride Level 92 mmol/L (98-107) Carbon Dioxide Level 19 mmol/L (21-32) Anion Gap 22 (6-14) Blood Urea Nitrogen 80 mg/dL (8-26) Creatinine 13.6 mg/dL (0.7-1.3) Estimated GFR (Cockcroft-Gault) 3.6 BUN/Creatinine Ratio 6 (6-20) Glucose Level 72 mg/dL (70-99) Lactic Acid Level 7.4 mmol/L (0.4-2.0) 4.7 mmol/L (0.4-2.0) 4.2 mmol/L (0.4-2.0) Calcium Level 8.7 mg/dL (8.5-10.1) Magnesium Level 2.3 mg/dL (1.8-2.4) Total Bilirubin 1.8 mg/dL (0.2-1.0) Aspartate Amino Transf (AST/SGOT) 49 U/L (15-37) Alanine Aminotransferase (ALT/SGPT) 25 U/L (16-63) Alkaline Phosphatase 457 U/L (46-116) Creatine Kinase 98 U/L (39-308) Creatine Kinase MB (Mass) 3.7 ng/mL (0.0-3.6) Creatine Kinase MB Relative Index 3.8 % (0-4) Troponin I Quantitative 0.114 ng/mL (0.000-0.055) 0.217 ng/mL (0.000-0.055) TD-Xww-V-Type Natriuretic Peptide 76567 pg/mL (0-449) Total Protein 5.1 g/dL (6.4-8.2) Albumin 1.8 g/dL (3.4-5.0) Albumin/Globulin Ratio 0.5 (1.0-1.7) Lipase 352 U/L (73-393) Lactate Dehydrogenase 222 U/L (85-227) ASSESSMENT/PLAN ASSESSMENT/PLAN 1. Hypotension: acidosis hypoalbuminemia, contributing 2. Vomiting/leukocytosis: GI eval 3. : Being considered for TAVR reportedly not a candidate due to moderate reading via JOANNA 4. Metabolic acidosis 5. Elevated troponin: peaked at 0.2, demand mediated, type 2 with above culprits. no CP nor SOA 6. Coagulopathy: INR 2.2 7. Macrocytic anemia 8. ESRD: PD 9. Protein malnutrition 10. CAD: stents in the past 11. Hx of HTN 12. Hx of AAA with repair Recommendations 1. TTE, PD and IVF per nephrology 2. Start on midodrine. Obtain last JOANNA record CARISSA URBINA MD 01/15/19 1414: CARDIAC CONSULT ASSESSMENT/PLAN ASSESSMENT/PLAN Pt. seen and examined. Agree with above BELL RINGER note. His dizziness appears to be more neuropathic in nature/orthostatic. He is off all his antihypertensives. Consider low dose midodrine. His symptoms do not appear to be related to his heart valve which by exam appears to be severely stenosed and by echo is moderate to severely stenosed. Defer valve w/u to his primary regional coordinator at [facility]. ROSIE WELSH APRN Jan 15, 2019 11:47 CARISSA URBINA MD Jan 15, 2019 14:14
[2019-01-15] MEDS: IPRATRPIUM/ALBUTEROL 0.5/2.5MG 3 ML NEBU. NEB SCH ×3 (11:58→19:40)
--- NOTE | 2019-01-15 13:21 | CARD ---
MR#: [id number] Date of Study: 01/15/2019 Ordering Physician: ROSIE WELSH, Referring Physician: SIMONE BAIRD Tech: Madiha Pringle RDCS APPROVED REPORT EXAM: Two-dimensional and M-mode echocardiogram with Doppler and color Doppler. Other Information Quality : Good INDICATION Aortic Valve Disease Hypotension 2D DIMENSIONS RVDd2.4 (2.9-3.5cm)Left Atrium(2D)3.8 (1.6-4.0cm) IVSd1.3 (0.7-1.1cm)Aortic Root(2D)3.4 (2.0-3.7cm) LVDd5.2 (3.9-5.9cm)LVOT Diameter2.0 (1.8-2.4cm) PWd1.1 (0.7-1.1cm)LVDs3.3 (2.5-4.0cm) FS (%) 37.7 %SV88.9 ml LVEF(%)67.4 (>50%) Aortic Valve AoV Peak Abhi.382.7cm/sAoV VTI89.0cm AO Peak GR.58.6mmHgLVOT VTI 25.71cm AO Mean GR.38mmHgAVA (VTI)0.99cm2 Mitral Valve MV E Ebvtlgds40.7cm/sMV DECEL [id number] MV A Ackcopie270.1cm/sE/A Ratio0.7 TDI Lateral E' P. V7.72cm/sMedial E' P. V5.21cm/s E/Lateral E'9.3E/Medial E'13.8 Tricuspid Valve TR P. Quyodsmi696kc/sRAP XOGFUJYF6psXq TR Peak Gr.89xsOlKABR10oqIi Pulmonary Vein S1 Pkfmnuek04.0cm/sS2 Ihqsvaxc92.82cm/s D2 Mnnqclif25.8cm/s LEFT VENTRICLE The left ventricle is normal size. There is mild concentric left ventricular hypertrophy. The left ve ntricular systolic function is normal and the ejection fraction is within normal range. The Ejection Fraction is 55-60%. There is normal LV segmental wall motion. Transmitral Doppler flow pattern is Gra de I-abnormal relaxation pattern. RIGHT VENTRICLE The right ventricle is normal size. The right ventricular systolic function is normal. ATRIA The left atrium is mildly dilated. The right atrium size is normal. The interatrial septum is intact with no evidence for an atrial septal defect or patent foramen ovale as noted on 2-D or Doppler imagi ng. AORTIC VALVE The aortic valve is severely calcified and displays decreased opening. Doppler and Color Flow reveale d trace aortic regurgitation. Calculated aortic valve area is 0.99 cm2 with maximum pressure gradient of 59 mmHg and mean pressure gradient of 38 mmHg. Doppler and color-flow analysis revealed severe ao rtic stenosis. MITRAL VALVE The mitral valve is calcified but opens well. There is no evidence of mitral valve prolapse. There is no mitral valve stenosis. Doppler and Color-flow revealed mild mitral regurgitation. TRICUSPID VALVE The tricuspid valve is normal in structure and function. Doppler and Color Flow revealed trace tricus pid regurgitation. There is mild pulmonary hypertension. The PA pressure was estimated at 39 mmHg. Th ere is no tricuspid valve stenosis. PULMONIC VALVE The pulmonic valve is not well visualized. Doppler and Color Flow revealed no pulmonic valvular regur gitation. There is no pulmonic valvular stenosis. GREAT VESSELS The aortic root is normal in size. The ascending aorta is not well seen. The IVC is normal in size an d collapses >50% with inspiration. PERICARDIAL EFFUSION There is no evidence of significant pericardial effusion. Critical Notification Critical Value: No <Conclusion> There is mild concentric left ventricular hypertrophy. The left ventricular systolic function is normal and the ejection fraction is within normal range. Th e Ejection Fraction is 55-60%. The aortic valve is severely calcified and displays decreased opening. Calculated aortic valve area i s 0.99 cm2 with maximum pressure gradient of 59 mmHg and mean pressure gradient of 38 mmHg. Doppler a nd color-flow analysis revealed severe aortic stenosis. Doppler and Color Flow revealed trace tricuspid regurgitation. There is mild pulmonary hypertension. The PA pressure was estimated at 39 mmHg. Signed by : Laureano Glez, Electronically Approved : 01/15/2019 13:20:27
--- NOTE | 2019-01-15 13:27 | PDOC2 ---
GI CONSULT Reason For Consult: Elevated bilirubin, dark tarry stools HPI: HPI: 73 y/o male sent to ER from PCP's office for hypotension. Seen today in his room w/ and son present. H/o aortic stenosis w/ recent hospitalization @ [facility] to [facility] for surgery. Details are unclear, but apparently he has been biting his cheeks accidentally while chewing since November. Has some bleeding sometimes. Vomited blood awhile ago (?before went to [facility]) and then recently had some nausea and vomited "black" yesterday. Since then, reports having 2-3 formed black stools yesterday and one this morning. H/o GERD controlled w/ pantoprazole QD. No dysphagia. Typically no n/v. No abd pain. No diarrhea or constipation. No hematochezia. Gradual decreased appetite over time. No weight loss. Asked about previous EGD - might have had JOANNA @ [facility] but his son said "they also said they'd do an upper GI." It's unclear whether this was performed and his suggests we check [facility] records. Had a colonoscopy at some point, recalls no significant findings. Says he was told he had gallstones @ [facility] but "they need to figure out my heart first." Denies pancreas or liver history. On past imaging here - cholelithiasis noted along w/ borderline hepatomegaly. Takes ASA. Labs: Hgb 10.3, MCV 101, RDW 16.5, INR 2.2, plt WNL, bili 1.8, AST 49, ALT 25, Alk Phos 547, elevated BNP and lactic acid, Cr 13.4 (ESRD on PD), BUN 80. PMH: PMH: CAD, HTN, LA, , AAA, DAVIDA, OA, ESRD, BPH, eczema, GERD, cholelithiasis partial omentectomy, appendectomy, AAA repair, left knee arthroscopy, back surgery, PD cath placement, bone marrow biopsy, coronary stent FH: Family History: No pertinent hx Social History: Smoke: Quit ALCOHOL: none Drugs: None ROS: GEN: Denies fevers, chills, sweats HEENT: Denies blurred vision, sore throat CV: Denies chest pain RESP: Denies shortness of air, cough GI: Per HPI : Denies hematuria, dysuria ENDO: Denies weight changes NEURO: Denies confusion, dizziness MSK: +weakness SKIN: Denies jaundice, pruritus Vitals: Vitals: Vital Signs Date Time Temp Pulse Resp B/P (MAP) Pulse Ox O2 Delivery O2 Flow Rate FiO2 01/15/19 12:01 97 Room Air 01/15/19 11:20 16 01/15/19 11:02 98.2 76 74/40 (51) 98.2 Labs: Labs: Laboratory Tests Test 01/14/19 14:44 01/14/19 15:30 01/15/19 01:30 01/15/19 08:45 White Blood Count 16.6 x10^3/uL (4.0-11.0) Red Blood Count 3.11 x10^6/uL (4.30-5.70) Hemoglobin 10.3 g/dL (13.0-17.5) Hematocrit 31.4 % (39.0-53.0) Mean Corpuscular Volume 101 fL (79-100) Mean Corpuscular Hemoglobin 33 pg (25-35) Mean Corpuscular Hemoglobin Concent 33 g/dL (31-37) Red Cell Distribution Width 16.5 % (11.5-14.5) Platelet Count 193 x10^3/uL (140-400) Neutrophils (%) (Auto) 56 % (31-73) Lymphocytes (%) (Auto) 21 % (24-48) Monocytes (%) (Auto) 21 % (0-9) Eosinophils (%) (Auto) 1 % (0-3) Basophils (%) (Auto) 1 % (0-3) Neutrophils # (Auto) 9.4 x10^3uL (1.8-7.7) Lymphocytes # (Auto) 3.5 x10^3/uL (1.0-4.8) Monocytes # (Auto) 3.5 x10^3/uL (0.0-1.1) Eosinophils # (Auto) 0.1 x10^3/uL (0.0-0.7) Basophils # (Auto) 0.1 x10^3/uL (0.0-0.2) Segmented Neutrophils % 60 % (35-66) Band Neutrophils % 2 % (0-9) Lymphocytes % 22 % (24-48) Monocytes % 15 % (0-10) Eosinophils % 1 % (0-5) Toxic Granulation Slight Platelet Estimate Adequate (ADEQUATE) Large Platelets Present Polychromasia Slight Poikilocytosis Mod Anisocytosis Slight Target Cells Few [place]ura[place] Bodies [place] Cells Present Acanthocytes Few Schistocytes Few Prothrombin Time 24.2 SEC (11.7-14.0) Prothromb Time International Ratio 2.2 (0.8-1.1) Sodium Level 133 mmol/L (136-145) Potassium Level 3.6 mmol/L (3.5-5.1) Chloride Level 92 mmol/L (98-107) Carbon Dioxide Level 19 mmol/L (21-32) Anion Gap 22 (6-14) Blood Urea Nitrogen 80 mg/dL (8-26) Creatinine 13.6 mg/dL (0.7-1.3) Estimated GFR (Cockcroft-Gault) 3.6 BUN/Creatinine Ratio 6 (6-20) Glucose Level 72 mg/dL (70-99) Lactic Acid Level 7.4 mmol/L (0.4-2.0) 4.7 mmol/L (0.4-2.0) 4.2 mmol/L (0.4-2.0) Calcium Level 8.7 mg/dL (8.5-10.1) Magnesium Level 2.3 mg/dL (1.8-2.4) Total Bilirubin 1.8 mg/dL (0.2-1.0) Aspartate Amino Transf (AST/SGOT) 49 U/L (15-37) Alanine Aminotransferase (ALT/SGPT) 25 U/L (16-63) Alkaline Phosphatase 457 U/L (46-116) Creatine Kinase 98 U/L (39-308) Creatine Kinase MB (Mass) 3.7 ng/mL (0.0-3.6) Creatine Kinase MB Relative Index 3.8 % (0-4) Troponin I Quantitative 0.114 ng/mL (0.000-0.055) 0.217 ng/mL (0.000-0.055) VE-Owq-W-Type Natriuretic Peptide 16303 pg/mL (0-449) Total Protein 5.1 g/dL (6.4-8.2) Albumin 1.8 g/dL (3.4-5.0) Albumin/Globulin Ratio 0.5 (1.0-1.7) Lipase 352 U/L (73-393) Lactate Dehydrogenase 222 U/L (85-227) Allergies: Coded Allergies: No Known Drug Allergies (Unverified , 04/23/18) Medications: Current Medications Medications (Trade) Dose Ordered Sig/Conrad Route PRN Reason Start Time Stop Time Status Last Admin Dose Admin Ondansetron HCl (Zofran) 4 mg 1X ONCE IV 01/14/19 15:45 01/14/19 15:46 DC 01/14/19 15:47 Aspirin (Children'S Aspirin) 81 mg DAILY PO 01/15/19 10:00 01/15/19 10:15 Acetaminophen/ Hydrocodone Bitart (Lortab 5/325) 1 tab PRN Q6HRS PRN PO PAIN 01/15/19 08:45 01/15/19 10:20 Sevelamer Carbonate (Renvela) 1,600 mg TID PO 01/15/19 09:00 01/15/19 10:15 Pantoprazole Sodium (Protonix) 40 mg DAILYAC PO 01/15/19 10:00 01/15/19 10:15 Albuterol/ Ipratropium (Duoneb) 3 ml RTQID NEB 01/15/19 12:00 01/15/19 11:58 Imaging: Imaging: CXR 01/14/19 IMPRESSION: No acute pulmonary finding. Echocardiogram pending PE: GEN: NAD, eating jello HEENT: Atraumatic, PERRL LUNGS: CTAB anteriorly HEART: RRR +loud murm ABD: NABS, S/ND/NT, PD cath left side EXTREMITY: No edema SKIN: No rashes, no jaundice NEURO/PSYCH: A & O 3 A/P: A/P: Hypotension, lactic acidosis ?coffee-ground emesis, black stools GERD - on PPI CRC screen - unclear timing Cholelithiasis Hepatomegaly - borderline on CT last year Macrocytic anemia, coagulopathy, elevated bili and Alk Phos CAD, , ESRD -- Check iron profile, also note orders for fecal occult. Agree w/ PPI. Will attempt to review [facility] records - ?recent EGD Check abd US. INA DAHL Jan 15, 2019 13:27
[2019-01-15] MEDS: CALCIUM CARBONATE 500 MG TABLET PO SCH ×2 (13:46→16:53)
[2019-01-15] MEDS: SODIUM BICARBONATE 650 MG TABLET. PO SCH ×2 (13:46→16:53)
[2019-01-15] MEDS: ACETAMINOPHEN 500 MG TABLET PO PRN (13:46)
[2019-01-15] MEDS: MIDODRINE 2.5 MG TABLET PO SCH ×2 (14:00→16:53)
[2019-01-15 15:09] VITALS: BP 104/51
--- NOTE | 2019-01-15 16:06 | NUR ---
[facility] JOANNA from 12/25/18: Left ventricular systolic function is normal. Estimated ejection fraction 60-65%. Right ventricular global systolic function is normal. No thrombus visualized in the left atrial appendage. A patent foramen ovale is not demonstrated by color Doppler. There is moderate aortic stenosis. The peak velocity is 3.96m/s. No other significant valvular abnormalities.
[2019-01-15 19:00] VITALS: BP 87/42
[2019-01-15] MEDS: ATORVASTATIN CALCIUM 20 MG TABLET PO SCH (20:53)
[2019-01-15 21:59] LABS: BF SOURCE PERIT DIALYSATE
[2019-01-15 22:00] LABS: BF CLARITY CLEAR; BF COLOR STRAW; BF RBC COUNT 31 /cmm (Not Established); BF WBC COUNT 3 /cmm (Not Established)
[2019-01-15 22:58] VITALS: BP 82/39
[2019-01-16 03:00] VITALS: BP 77/43
--- NOTE | 2019-01-16 05:25 | RAD ---
Complete abdominal ultrasound dated 01/15/2019. No comparison available. Clinical data indication: Elevated liver function test. FINDINGS: Liver is of somewhat heterogeneous increased echogenicity appears slightly nodular in contour. No apparent hepatic mass. Biliary tree normal in caliber. Common bile duct measures 5 mm. Gallbladder is collapsed and not well evaluated. Echogenic foci within the lumen consistent with small stones. There is suspected mild wall thickening measuring about 6 mm. Right kidney measures 10.1 cm in length. Left kidney measures 10.2 cm in length. Both kidneys are somewhat echogenic. No hydronephrosis. Spleen is homogeneous in echogenicity and measures about 12 cm longitudinal dimension. Limited visualized portions of pancreas aorta and IVC unremarkable. Small amount of ascites. IMPRESSION: 1. Heterogeneous increased echogenicity of the liver with nodular contour, suspicious for cirrhosis. 2. Small amount of ascites. 3. Cholelithiasis. 4. Diffuse gallbladder wall thickening, nonspecific. This could be a manifestation of hepatocellular disease. Cholecystitis considered less likely. Electronically signed by: Luis York MD (01/16/2019 5:21 AM) [facility]
[2019-01-16] MEDS: MIDODRINE 2.5 MG TABLET PO SCH ×2 (06:15→09:50)
[2019-01-16] MEDS: PANTOPRAZOLE 40 MG TABLET.DR. PO SCH (06:16)
[2019-01-16 07:00] VITALS: BP 88/45
[2019-01-16] MEDS: IPRATRPIUM/ALBUTEROL 0.5/2.5MG 3 ML NEBU. NEB SCH ×4 (07:21→19:33)
[2019-01-16] MEDS: SODIUM BICARBONATE 650 MG TABLET. PO SCH ×3 (08:00→16:52)
[2019-01-16] MEDS: GENTAMICIN 0.1% TOPICAL OINTMENT 15GM TUBE. TP SCH (09:00)
[2019-01-16] MEDS: TRIAMCINOLONE ACETONIDE 0.1% TOPICAL CREAM 15GM TUBE. TP SCH ×2 (09:00→20:25)
[2019-01-16] MEDS: AMMONIUM LACTATE 12% TOPICAL LOTION 226GM BOTTLE. TP SCH ×2 (09:00→20:25)
--- NOTE | 2019-01-16 09:45 | PDOC ---
SUBJECTIVE ROS Sleeping, Comfortable OBJECTIVE Vital Signs Vital Signs Date Time Temp Pulse Resp B/P (MAP) Pulse Ox O2 Delivery O2 Flow Rate FiO2 01/16/19 07:22 95 Room Air 01/16/19 07:00 98.4 74 18 88/45 (59) 98.4 I & 0 Intake and Output 01/16/19 07:00 Intake Total 780 ml Output Total 0 ml Balance 780 ml Intake Oral 780 ml Output Urine Total 0 ml # Bowel Movements 1 PHYSICAL EXAM Physical Exam GEN: NAD HEEN: OM moist NECK: Supple CVS: S1S2 , Murmur ++ RESP: CTA Bilat, No use of acc Muscles GI: BS + ve, NT, PD catheter in Place : No CVA tenderness, No Suprapubic Tenderness, No [place]eda Neuro- AXOx 3, grossly normal Skin No rash DIAGNOSIS/ASSESSMENT Assessment & Plan ESRD- On PD since Jun [address] Tomlinson No issues with PD ,no peritonitis No Vol Overload Continue as per Home prescription (UF [id number]) Hypotension- Chronic , Intermittent Lactic acid elevated, Alk Phos High, elevated WBC Abnormal peripheral smear noted ? consider CT(with Contrast if deemed necessary ) - defer to GI Aortic stenosis - Seen by card recently- JOANNA done- moderate Aortic stenosis Consult cardiology- Dw Dr. Holley Aortoiiliac stent graft is identified with the paimiut aorta measuring 4.1 x 4.3 cm Discussed with Pt and RN COMMENT/RELEVANT DATA Meds Current Medications Medications (Trade) Dose Ordered Sig/Conrad Start Time Stop Time Status Last Admin Dose Admin Acetaminophen (Tylenol) 1,000 mg PRN Q6HRS PRN 01/15/19 11:15 01/15/19 13:46 1,000 MG Acetaminophen/ Hydrocodone Bitart (Lortab 5/325) 1 tab PRN Q6HRS PRN 01/15/19 08:45 01/15/19 10:20 1 TAB Albuterol/ Ipratropium (Duoneb) 3 ml RTQID 01/15/19 12:00 01/16/19 07:21 3 ML Aspirin (Children'S Aspirin) 81 mg DAILY 01/15/19 10:00 01/15/19 10:15 81 MG Atorvastatin Calcium (Lipitor) 20 mg QHS 01/15/19 21:00 01/15/19 20:53 20 MG Calcium Carbonate/ Glycine (Oscal) 500 mg TIDWMEALS 01/15/19 12:00 01/15/19 16:53 500 MG Gentamicin Sulfate (Garamycin) 1 betty DAILY 01/16/19 09:00 Lactic Acid (Lac-Hydrin) 1 betty BID 01/15/19 10:00 01/15/19 20:55 1 BETTY Midodrine (Proamatine) 2.5 mg [id number] 01/15/19 14:00 01/16/19 06:15 2.5 MG Ondansetron HCl (Zofran) 4 mg 1X ONCE 01/14/19 15:45 01/14/19 15:46 DC 01/14/19 15:47 4 MG Pantoprazole Sodium (Protonix) 40 mg DAILYAC 01/15/19 10:00 01/16/19 06:16 40 MG Sevelamer Carbonate (Renvela) 1,600 mg TID 01/15/19 09:00 01/15/19 20:53 1,600 MG Sodium Bicarbonate (Sodium Bicarbonate) 1,950 mg TIDWMEALS 01/15/19 12:00 01/15/19 16:53 1,950 MG Triamcinolone Acetonide (Kenalog) 1 betty BID 01/15/19 10:00 01/15/19 20:55 1 BETTY Lab Laboratory Tests Test 01/15/19 12:40 01/15/19 17:00 01/15/19 17:55 Lactic Acid Level 3.2 mmol/L (0.4-2.0) 2.8 mmol/L (0.4-2.0) Troponin I Quantitative 0.218 ng/mL (0.000-0.055) Body Fluid Source Perit dialysate Body Fluid Color Straw Body Fluid Clarity Clear Body Fluid Nucleated Cells 3 /cmm (Not Established) Body Fluid Total RBCs Counted 31 /cmm (Not Established) Results All relevant outside records, renal labs, imaging studies, telemetry/EKG's were reviewed. JUDSON GUZMAN MD Jan 16, 2019 09:45
[2019-01-16] MEDS: SEVELAMER CARBONATE 800 MG TABLET. PO SCH ×3 (09:50→20:24)
[2019-01-16] MEDS: ACETAMINOPHEN 500 MG TABLET PO PRN (09:50)
[2019-01-16] MEDS: CALCIUM CARBONATE 500 MG TABLET PO SCH ×3 (09:50→16:49)
[2019-01-16] MEDS: ASPIRIN CHEWABLE 81 MG TABLET. PO SCH (09:51)
--- NOTE | 2019-01-16 10:40 | PDOC ---
CARDIO Progress Notes Date and Time Date of Service 01/16/2019 Time of Evaluation 1010 Subjective Subjective: No Chest Pain, No shortness of breath, No Palpitations, Other (got up OOB yesterday with no dizziness or feeling like passing out. ) Vitals Vitals Vital Signs Date Time Temp Pulse Resp B/P (MAP) Pulse Ox O2 Delivery O2 Flow Rate FiO2 01/16/19 09:50 74 88/45 01/16/19 07:22 95 Room Air 01/16/19 07:00 98.4 18 98.4 Weight Weight [ ] Input and Output Intake and Output Intake and Output 01/16/19 07:00 Intake Total 780 ml Output Total 0 ml Balance 780 ml Intake Oral 780 ml Output Urine Total 0 ml # Bowel Movements 1 Laboratory Labs Laboratory Tests Test 01/15/19 12:40 01/15/19 17:00 01/15/19 17:55 Lactic Acid Level 3.2 mmol/L (0.4-2.0) 2.8 mmol/L (0.4-2.0) Troponin I Quantitative 0.218 ng/mL (0.000-0.055) Body Fluid Source Perit dialysate Body Fluid Color Straw Body Fluid Clarity Clear Body Fluid Nucleated Cells 3 /cmm (Not Established) Body Fluid Total RBCs Counted 31 /cmm (Not Established) Microbiology Micro Microbiology 01/14/19 Blood Culture - Preliminary, Resulted NO GROWTH AFTER 1 DAY Physical Exam HEENT: Neck Supple W Full Motion Chest: Symmetric LUNGS: Clear to Auscultation Heart: S1S2, RRR (SR) Abdomen: Soft N/T, Other (distended) Extremities: No Calf Tenderness Neurology: alert, oriented, follow commands Assessment Assessment 1. Hypotension/presyncope: orthostasis with underlying acidosis/uremia/ hypoalbuminemia contributing. BP slightly improved with midodrine. 2. Vomiting/leukocytosis: none further 3. : Being considered for TAVR reportedly not a candidate due to moderate reading via JOANNA. Severe per f/u TTE 4. Metabolic acidosis 5. Elevated troponin: peaked at 0.2, demand mediated, type 2 with above culprits. no CP nor SOA 6. Coagulopathy: INR 2.2. Possible cirrhosis per sono. GI following 7. Macrocytic anemia 8. ESRD: PD 9. Protein malnutrition 10. CAD: stents in the past, clinically stable. 11. Hx of HTN 12. Hx of AAA with repair Recommendations 1. PD per nephrology. No antiHTN meds. Continue midodrine 2. Defer valve w/u to his primary rattling machine tender at [facility]. 3. Supportive care. ROSIE WELSH APRN Jan 16, 2019 10:40
[2019-01-16 11:00] VITALS: BP 65/32
[2019-01-16 12:12] LABS: HEMATOCRIT 25.8 % (39.0-53.0); HEMOGLOBIN 8.7 g/dL (13.0-17.5); RED BLOOD COUNT 2.57 x10^6/uL (4.30-5.70); RED CELL DISTRIBUTION WIDTH 15.7 % (11.5-14.5); WHITE BLOOD COUNT 17.2 x10^3/uL (4.0-11.0)
[2019-01-16 12:21] LABS: PROTHROMBIN TIME PATIENT 23.7 SEC (11.7-14.0)
--- NOTE | 2019-01-16 12:22 | PDOC ---
Subjective: Subjective: Doing okay - has been "sleeping like a log today." Objective: Objective: D/w RN - CT suggested. Vital Signs: Vital Signs Date Time Temp Pulse Resp B/P (MAP) Pulse Ox O2 Delivery O2 Flow Rate FiO2 01/16/19 11:11 Room Air 01/16/19 09:50 74 88/45 01/16/19 07:22 95 01/16/19 07:00 98.4 18 98.4 Labs: Laboratory Tests Test 01/15/19 12:40 01/15/19 17:00 01/15/19 17:55 01/16/19 12:00 Lactic Acid Level 3.2 mmol/L 2.8 mmol/L Troponin I Quantitative 0.218 ng/mL Body Fluid Source Perit dialysate Body Fluid Color Straw Body Fluid Clarity Clear Body Fluid Nucleated Cells 3 /cmm Body Fluid Total RBCs Counted 31 /cmm White Blood Count 17.2 x10^3/uL Red Blood Count 2.57 x10^6/uL Hemoglobin 8.7 g/dL Hematocrit 25.8 % Mean Corpuscular Volume 100 fL Mean Corpuscular Hemoglobin 34 pg Mean Corpuscular Hemoglobin Concent 34 g/dL Red Cell Distribution Width 15.7 % Platelet Count 140 x10^3/uL BLOOD CULTURE Preliminary NO GROWTH AFTER 1 DAY Imaging: Abd US IMPRESSION: 1. Heterogeneous increased echogenicity of the liver with nodular contour, suspicious for cirrhosis. 2. Small amount of ascites. 3. Cholelithiasis. 4. Diffuse gallbladder wall thickening, nonspecific. This could be a manifestation of hepatocellular disease. Cholecystitis considered less likely. Echo <Conclusion> There is mild concentric left ventricular hypertrophy. The left ventricular systolic function is normal and the ejection fraction is within normal range. The Ejection Fraction is 55-60%. The aortic valve is severely calcified and displays decreased opening. Calculated aortic valve area is 0.99 cm2 with maximum pressure gradient of 59 mmHg and mean pressure gradient of 38 mmHg. Doppler and color-flow analysis revealed severe aortic stenosis. Doppler and Color Flow revealed trace tricuspid regurgitation. There is mild pulmonary hypertension. The PA pressure was estimated at 39 mmHg. PE: GEN: NAD, was asleep LUNGS: room air HEART: RRR +murm ABD: non-tender, soft, PD cath NEURO/PSYCH: A & O 3 A/P: Hypotension, ESRD on PD ?coffee-ground emesis, black stools - no recurrence Anemia - iron studies c/w chronic disease Cirrhosis, elevated Alk Phos, coagulopathy -- ?PBC - AMA pending, await this. Continue PPI. INA DAHL Jan 16, 2019 12:22
[2019-01-16 12:34] LABS: CALCIUM 8.3 mg/dL (8.5-10.1); CREATININE 13.8 mg/dL (0.7-1.3); GFR 3.5; MAGNESIUM 2.5 mg/dL (1.8-2.4); POTASSIUM 3.6 mmol/L (3.5-5.1)
[2019-01-16] MEDS: MIDODRINE 5 MG TABLET PO SCH ×2 (14:22→16:49)
--- NOTE | 2019-01-16 14:25 | RAD ---
PQRS Compliance statement: One or more of the following individualized dose reduction techniques were utilized for this examination: 1. Automated exposure control. 2. Adjustment of the mA and/or kV according to patient size. 3. Use of iterative reconstruction technique. Indication:CIRRHOSIS, ? VARICES, NON CONTRAST PER ORDER, DIALYSIS PT, PRIOR SENT TECHNIQUE: CT abdomen none without IV contrast with multiplanar reformats. COMPARISON: 04/16/2018 FINDINGS: Limited evaluation of solid and vascular abdominal organs due to lack of IV contrast. Heart is normal in size. No pericardial or pleural effusion. Calcified pleural plaque is seen in the posterior right lower lobe. 3 mm nodule in the right middle lobe (series 2 image 2). Liver is not enlarged. No appreciable surface nodularity of the liver seen. Spleen is nonenlarged. Gallstones noted. Gallbladder nondistended. Noncontrast appearance of the pancreas is within normal limits. Left adrenal gland demonstrating diffuse thickening likely secondary to adenomatous hyperplasia. Right adrenal gland within normal limits. Small volume perihepatic ascites. Punctate nonobstructing right renal stone. No definite lesion in the left kidney measuring 1.7 cm, stable from previous exam. Tortuous abdominal aorta with aortobiiliac stent grafts. Minimal interval decrease in the size of infrarenal abdominal aortic aneurysm sac measuring 4.4 x 4.0 cm, previously 4.5 x 4.4 cm. No enlarged retroperitoneal lymph nodes. Visualized bowel is within normal limits. Tip of the dialysis catheter is in the right lower quadrant. Edema is seen in the ascending colon. No anterior abdominal wall varices seen. No significant perigastric or perisplenic varices. No suspicious bony lesion. Multilevel degenerative disc disease in the spine. IMPRESSION: Limited evaluation of vasculature and solid organs due to lack of IV contrast. 1. No appreciable morphologic changes of cirrhosis. 2. Small amount of perihepatic ascites, nonspecific. 3. Slight interval decrease in the size of infrarenal aneurysmal sac status post aortobiiliac stent grafts. 4. Cholelithiasis without imaging evidence of acute cholecystitis. Electronically signed by: Dallin Cosby DO (01/16/2019 2:22 PM) [id number]
[2019-01-16 15:00] VITALS: BP 69/40
--- NOTE | 2019-01-16 17:10 | PDOC ---
PROGRESS NOTES Chief Complaint Chief Complaint Hypotension Dizziness Leukocytosis Anemia Nausea and vomiting History of aortic stenosis: Being considered for TAVR reportedly not a candidate due to moderate reading via JOANNA. Severe per f/u TTE Metabolic acidosis Elevated troponin: peaked at 0.2, demand mediated, type 2 with above culprits. no CP nor SOA Coagulopathy: INR 2.2. Macrocytic anemia ESRD: PD Protein malnutrition CAD: stents in the past, clinically stable. Hx of HTN Hx of AAA with repair History of Present Illness History of Present Illness 73-year-old male who is on peritoneal dialysis. Came to ED with blood pressures were in the 50s. In ED his pressure is 78/40. Improved Feeling only slightly better. BP a bit better with gentle IVF. He is concerned about his heart murmur resassurance provided, faint murmur Plan: Abdominal pain - less likely to be peritonitis, possibly from his vomiting has diaphragmatic tension. No rebound tenderness non surgical abdomen. ESRD on PD - he is anuric. Have d/w nephrology if IV contrast is necessary he would have to convert to HD temporarily in house Cardiology consulted for his murmur 02/16 Hypotension - on midodrine Vitals Vitals Vital Signs Date Time Temp Pulse Resp B/P (MAP) Pulse Ox O2 Delivery O2 Flow Rate FiO2 01/16/19 16:49 76 65/32 01/16/19 11:11 Room Air 01/16/19 11:00 98.0 18 96 98.0 Physical Exam General: Alert Heart: Regular rate (SR), Other (CORINNE 5/6 systolic murmur ) Lungs: Clear Abdomen: Soft Extremities: No cyanosis, No edema Skin: No breakdown, No significant lesion Labs LABS Laboratory Tests Test 01/15/19 17:55 01/16/19 12:00 Body Fluid Source Perit dialysate Body Fluid Color Straw Body Fluid Clarity Clear Body Fluid Nucleated Cells 3 /cmm (Not Established) Body Fluid Total RBCs Counted 31 /cmm (Not Established) White Blood Count 17.2 x10^3/uL (4.0-11.0) Red Blood Count 2.57 x10^6/uL (4.30-5.70) Hemoglobin 8.7 g/dL (13.0-17.5) Hematocrit 25.8 % (39.0-53.0) Mean Corpuscular Volume 100 fL (79-100) Mean Corpuscular Hemoglobin 34 pg (25-35) Mean Corpuscular Hemoglobin Concent 34 g/dL (31-37) Red Cell Distribution Width 15.7 % (11.5-14.5) Platelet Count 140 x10^3/uL (140-400) Prothrombin Time 23.7 SEC (11.7-14.0) Prothromb Time International Ratio 2.1 (0.8-1.1) Sodium Level 137 mmol/L (136-145) Potassium Level 3.6 mmol/L (3.5-5.1) Chloride Level 96 mmol/L (98-107) Carbon Dioxide Level 25 mmol/L (21-32) Anion Gap 16 (6-14) Blood Urea Nitrogen 81 mg/dL (8-26) Creatinine 13.8 mg/dL (0.7-1.3) Estimated GFR (Cockcroft-Gault) 3.5 Glucose Level 112 mg/dL (70-99) Calcium Level 8.3 mg/dL (8.5-10.1) Magnesium Level 2.5 mg/dL (1.8-2.4) Troponin I Quantitative 0.203 ng/mL (0.000-0.055) Assessment and Plan Assessmemt and Plan Problems Medical Problems: (1) Chronic kidney disease with end stage renal failure on dialysis Status: Acute (2) Generalized weakness Status: Acute (3) Hypotension Status: Acute (4) Nausea and vomiting Status: Acute Comment Review of Relevant I have reviewed the following items ethan (where applicable) has been applied. Labs Laboratory Tests Test 01/15/19 01:30 01/15/19 08:45 01/15/19 12:40 01/15/19 17:00 Lactic Acid Level 4.7 mmol/L (0.4-2.0) 4.2 mmol/L (0.4-2.0) 3.2 mmol/L (0.4-2.0) 2.8 mmol/L (0.4-2.0) Iron Level 45 ug/dL (65-175) Total Iron Binding Capacity 169 ug/dL (250-450) Iron Saturation 27 % (15-34) Lactate Dehydrogenase 222 U/L (85-227) Troponin I Quantitative 0.217 ng/mL (0.000-0.055) 0.218 ng/mL (0.000-0.055) Test 01/15/19 17:55 01/16/19 12:00 Body Fluid Source Perit dialysate Body Fluid Color Straw Body Fluid Clarity Clear Body Fluid Nucleated Cells 3 /cmm (Not Established) Body Fluid Total RBCs Counted 31 /cmm (Not Established) White Blood Count 17.2 x10^3/uL (4.0-11.0) Red Blood Count 2.57 x10^6/uL (4.30-5.70) Hemoglobin 8.7 g/dL (13.0-17.5) Hematocrit 25.8 % (39.0-53.0) Mean Corpuscular Volume 100 fL (79-100) Mean Corpuscular Hemoglobin 34 pg (25-35) Mean Corpuscular Hemoglobin Concent 34 g/dL (31-37) Red Cell Distribution Width 15.7 % (11.5-14.5) Platelet Count 140 x10^3/uL (140-400) Prothrombin Time 23.7 SEC (11.7-14.0) Prothromb Time International Ratio 2.1 (0.8-1.1) Sodium Level 137 mmol/L (136-145) Potassium Level 3.6 mmol/L (3.5-5.1) Chloride Level 96 mmol/L (98-107) Carbon Dioxide Level 25 mmol/L (21-32) Anion Gap 16 (6-14) Blood Urea Nitrogen 81 mg/dL (8-26) Creatinine 13.8 mg/dL (0.7-1.3) Estimated GFR (Cockcroft-Gault) 3.5 Glucose Level 112 mg/dL (70-99) Calcium Level 8.3 mg/dL (8.5-10.1) Magnesium Level 2.5 mg/dL (1.8-2.4) Troponin I Quantitative 0.203 ng/mL (0.000-0.055) Laboratory Tests Test 01/15/19 17:55 01/16/19 12:00 Body Fluid Source Perit dialysate Body Fluid Color Straw Body Fluid Clarity Clear Body Fluid Nucleated Cells 3 /cmm (Not Established) Body Fluid Total RBCs Counted 31 /cmm (Not Established) White Blood Count 17.2 x10^3/uL (4.0-11.0) Red Blood Count 2.57 x10^6/uL (4.30-5.70) Hemoglobin 8.7 g/dL (13.0-17.5) Hematocrit 25.8 % (39.0-53.0) Mean Corpuscular Volume 100 fL (79-100) Mean Corpuscular Hemoglobin 34 pg (25-35) Mean Corpuscular Hemoglobin Concent 34 g/dL (31-37) Red Cell Distribution Width 15.7 % (11.5-14.5) Platelet Count 140 x10^3/uL (140-400) Prothrombin Time 23.7 SEC (11.7-14.0) Prothromb Time International Ratio 2.1 (0.8-1.1) Sodium Level 137 mmol/L (136-145) Potassium Level 3.6 mmol/L (3.5-5.1) Chloride Level 96 mmol/L (98-107) Carbon Dioxide Level 25 mmol/L (21-32) Anion Gap 16 (6-14) Blood Urea Nitrogen 81 mg/dL (8-26) Creatinine 13.8 mg/dL (0.7-1.3) Estimated GFR (Cockcroft-Gault) 3.5 Glucose Level 112 mg/dL (70-99) Calcium Level 8.3 mg/dL (8.5-10.1) Magnesium Level 2.5 mg/dL (1.8-2.4) Troponin I Quantitative 0.203 ng/mL (0.000-0.055) Microbiology 01/14/19 Blood Culture - Preliminary, Resulted NO GROWTH AFTER 2 DAYS Medications Current Medications Ondansetron HCl (Zofran) 4 mg 1X ONCE IM ; Start 01/14/19 at 15:00; Stop at 15:01; Status Cancel Ondansetron HCl (Zofran) 4 mg 1X ONCE IM ; Start 01/14/19 at 15:45; Stop at 15:46; Status Cancel Ondansetron HCl (Zofran) 4 mg 1X ONCE IV Last administered on 01/14/19at 15:47; Start 01/14/19 at 15:45; Stop 01/14/19 at 15:46; Status DC Gentamicin Sulfate (Garamycin) 1 olu DAILY TP ; Start 01/15/19 at 09:00; Stop 01/15/19 at 13:52; Status DC Lactic Acid (Lac-Hydrin) 1 olu BID TP Last administered on 01/15/19 20:55; Start 01/15/19 at 10:00 Aspirin (Children'S Aspirin) 81 mg DAILY PO Last administered on 01/16/19 09:51 ; Start 01/15/19 at 10:00 Atorvastatin Calcium (Lipitor) 20 mg QHS PO Last administered on 01/15/19 20:53 ; Start 01/15/19 at 21:00 Calcium Carbonate/ Glycine (Oscal) 500 mg TIDWMEALS PO Last administered on 01/16 16:49; Start 01/15/19 at 12:00 Acetaminophen/ Hydrocodone Bitart (Lortab 5/325) 1 tab PRN Q6HRS PRN PO MODERATE TO SEVERE PAIN Last administered on 01/15/19 10:20; Start 01/15/19 at 08 :45 Sevelamer Carbonate (Renvela) 1,600 mg TID PO Last administered on 01/16/19 14: 22; Start 01/15/19 at 09:00 Sodium Bicarbonate (Sodium Bicarbonate) 1,950 mg TIDWMEALS PO Last administered on 01/16/19 16:52; Start 01/15/19 at 12:00 Pantoprazole Sodium (Protonix) 40 mg DAILYAC PO Last administered on 01/16/19 06:16; Start 01/15/19 at 10:00 Triamcinolone Acetonide (Kenalog) 1 olu BID TP Last administered on 01/15/19 20 :55; Start 01/15/19 at 10:00 Albuterol/ Ipratropium (Duoneb) 3 ml RTQID NEB Last administered on 01/16/19 11 :11; Start 01/15/19 at 12:00 Acetaminophen (Tylenol) 1,000 mg PRN Q6HRS PRN PO mild pain Last administered on 01/16/19 09:50; Start 01/15/19 at 11:15 Midodrine (Proamatine) 2.5 mg [id number] PO Last administered on 01/16/19 09:50; Start 01/15/19 at 14:00; Stop 01/16/19 at 10:34; Status DC Gentamicin Sulfate (Garamycin) 1 olu DAILY TP ; Start 01/16/19 at 09:00 Midodrine (Proamatine) 5 mg [id number] PO Last administered on 01/16/19at 16:49; Start 01/16/19 at 13:00 Active Scripts Active [place] 5-325 Tablet (Acetaminophen/Hydrocodone Bitart) 1 Each Tablet 1-2 Each PO PRN Q6HRS PRN as needed for pain Reported [calcium carbon] Triamcinolone Acetonide 0.5% Cream (Triamcinolone Acetonide) 15 Gm Cream..g. 1 Olu TP BID Renvela (Sevelamer Carbonate) 800 Mg Tablet 2 Tab PO TID Protonix (Pantoprazole Sodium) 40 Mg Granpkt.dr 40 Mg PO DAILY Calcium Carbonate 500 Mg Tablet 5,000 Mg PO TIDWMEALS Skin Treatment (Ammonium Lactate) 225 Gm Lotion 225 Gm TP BID Aspirin 81 Mg Tab.chew 1 Tab PO DAILY Atorvastatin Calcium 20 Mg Tablet 1 Tab PO QHS Sodium Bicarbonate 650 Mg Tablet 1,950 Mg PO TIDWMEALS Vitals/I & O Vital Sign - Last 24 Hours 01/15/19 01/15/19 01/15/19 01/15/19 19:00 19:40 20:00 22:58 Temp 97.8 98.5 97.8 98.5 Pulse 72 76 Resp 18 18 B/P (MAP) 87/42 (57) 82/39 (53) Pulse Ox 97 94 O2 Delivery Room Air Room Air Room Air Room Air 01/16/19 01/16/19 01/16/19 01/16/19 03:00 06:15 07:00 07:22 Temp 98.4 98.4 98.4 98.4 Pulse 74 74 74 Resp 18 18 B/P (MAP) 77/43 (54) 77/43 88/45 (59) Pulse Ox 100 100 95 O2 Delivery Room Air Room Air Room Air 01/16/19 01/16/19 01/16/19 01/16/19 08:00 09:50 11:00 11:11 Temp 98.0 98.0 Pulse 74 76 Resp 18 B/P (MAP) 88/45 65/32 (43) Pulse Ox 96 O2 Delivery Room Air Room Air Room Air 01/16/19 01/16/19 14:22 16:49 Pulse 76 76 B/P (MAP) 65/32 65/32 Intake and Output 01/15/19 01/15/19 01/16/19 15:00 23:00 07:00 Intake Total 420 ml 360 ml 0 ml Output Total 0 ml Balance 420 ml 360 ml 0 ml Nutrition Consultation Dietary Evaluation: Recommendations by RD: Increase Calorie Intake, Protein supplementation Comments: Recommend vanilla Nepro milk shake @ lunch for increased calorie and protein intake as pt. has diminished appetite Expected Outcomes/Goals: P.O. intake to meet >75% estimated needs Malnutrition Findings: Body Fat Depletion (Non Severe: Mild Depletion Weight Status: Overweight NEGRO HILL MD Jan 16, 2019 17:10
[2019-01-16 19:00] VITALS: BP 102/34
[2019-01-16] MEDS: ATORVASTATIN CALCIUM 20 MG TABLET PO SCH (20:24)
[2019-01-16] MEDS: HYDROcodone/APAP 5/325MG 1 TAB TABLET PO PRN (20:25)
[2019-01-16 23:00] VITALS: BP 87/41
[2019-01-17] VITALS (18 sets, daily range): BP systolic 62–147; BP diastolic 30–114
[2019-01-17] MEDS: MIDODRINE 5 MG TABLET PO SCH ×4 (06:36→18:00)
[2019-01-17] MEDS: PANTOPRAZOLE 40 MG TABLET.DR. PO SCH (07:30)
[2019-01-17] MEDS: IPRATRPIUM/ALBUTEROL 0.5/2.5MG 3 ML NEBU. NEB SCH ×4 (07:56→19:58)
[2019-01-17] MEDS: CALCIUM CARBONATE 500 MG TABLET PO SCH ×3 (08:00→17:28)
[2019-01-17] MEDS: SODIUM BICARBONATE 650 MG TABLET. PO SCH ×3 (08:00→17:28)
--- NOTE | 2019-01-17 08:14 | NUR ---
Chart review done. Pt admitted w/ hypotension. Spoke w/ RN who feels BP continues to be too low at this time. However,feels pt weak and would benefit from PT/OT Eval and Treat once BP stabilizes. Please order when appropriate. Addendum: 01/17/19 at 0815 by IRA SHERMAN OT Amended: Links added.
[2019-01-17] MEDS: TRIAMCINOLONE ACETONIDE 0.1% TOPICAL CREAM 15GM TUBE. TP SCH ×2 (08:24→21:00)
[2019-01-17] MEDS: GENTAMICIN 0.1% TOPICAL OINTMENT 15GM TUBE. TP SCH ×2 (08:24→18:46)
[2019-01-17] MEDS: ASPIRIN CHEWABLE 81 MG TABLET. PO SCH (08:24)
[2019-01-17] MEDS: SEVELAMER CARBONATE 800 MG TABLET. PO SCH ×4 (08:24→20:35)
[2019-01-17] MEDS: AMMONIUM LACTATE 12% TOPICAL LOTION 226GM BOTTLE. TP SCH ×2 (08:25→21:00)
--- NOTE | 2019-01-17 08:25 | NUR ---
Nursing note: Pt experiencing change in mental status. A+O to self only, slow to respond, confused. Pt attempting to get out of bed, but forgets where he wanted to go. During breakfast, pt was unable to feed himself. this is a decline from yesterday. Pt was assisted with setting up his tray. Pt holding food inside cheek, difficult time swallowing. Pt then vomited. Tray removed from room. NPO as of now. Will contact provider for orders. Will continue to monitor.
--- NOTE | 2019-01-17 08:56 | NUR ---
SW following pt. Pt home from spouse. Rehab Screen recommends PT/OT eval and Tx order once BP is stabilized. Will continue to follow.
--- NOTE | 2019-01-17 13:49 | PDOC ---
SUBJECTIVE ROS Sleeping , opens eyes as per RN altered mental status. A+O to self only, slow to respond, confused. During breakfast, pt was unable to feed himself BP very low , was unable to do PD last night OBJECTIVE Vital Signs Vital Signs Date Time Temp Pulse Resp B/P (MAP) Pulse Ox O2 Delivery O2 Flow Rate FiO2 01/17/19 11:00 98.0 87 16 62/30 (41) 93 Room Air 98.0 I & 0 Intake and Output 01/17/19 07:00 Intake Total 900 ml Balance 900 ml Intake Oral 900 ml # Voids 2 PHYSICAL EXAM Physical Exam GEN: sleeping, opes eyes HEEN: OM moist NECK: Supple CVS: S1S2 , Murmur ++ RESP: CTA Bilat, No use of acc Muscles GI: BS + ve, NT, PD catheter in Place : No CVA tenderness, No Suprapubic Tenderness, No [place] Neuro- confused Skin No rash DIAGNOSIS/ASSESSMENT Assessment & Plan ESRD- On PD since Jun [address] Tomlinson No issues with PD ,no peritonitis No Vol Overload Continue as per Home prescription (UF [id number]) Held PD last night due to severe hypotension BMP not done, will order Hypotension- Chronic , Intermittent Lactic acid elevated, Alk Phos High, elevated WBC Abnormal peripheral smear noted CT without contrast done May need to work up for adrenal Insufficiency ,ID consult, rule out Amyloidosis Aortic stenosis - Seen by card as OP recently- JOANNA done- moderate Aortic stenosis Card on board Aortoiiliac stent graft is identified with the [place] aorta measuring 4.1 x 4.3 Discussed with RN COMMENT/RELEVANT DATA Meds Current Medications Medications (Trade) Dose Ordered Sig/Conrad Start Time Stop Time Status Last Admin Dose Admin Acetaminophen (Tylenol) 1,000 mg PRN Q6HRS PRN 01/15/19 11:15 01/16/19 09:50 1,000 MG Acetaminophen/ Hydrocodone Bitart (Lortab 5/325) 1 tab PRN Q6HRS PRN 01/15/19 08:45 01/16/19 20:25 1 TAB Albuterol/ Ipratropium (Duoneb) 3 ml RTQID 01/15/19 12:00 01/17/19 07:56 3 ML Aspirin (Children'S Aspirin) 81 mg DAILY 01/15/19 10:00 01/16/19 09:51 81 MG Atorvastatin Calcium (Lipitor) 20 mg QHS 01/15/19 21:00 01/16/19 20:24 20 MG Calcium Carbonate/ Glycine (Oscal) 500 mg TIDWMEALS 01/15/19 12:00 01/16/19 16:49 500 MG Gentamicin Sulfate (Garamycin) 1 betty DAILY 01/16/19 09:00 Lactic Acid (Lac-Hydrin) 1 betty BID 01/15/19 10:00 01/16/19 20:25 1 BETTY Midodrine (Proamatine) 5 mg [id number] 01/16/19 13:00 01/17/19 06:36 5 MG Ondansetron HCl (Zofran) 4 mg 1X ONCE 01/14/19 15:45 01/14/19 15:46 DC 01/14/19 15:47 4 MG Pantoprazole Sodium (Protonix) 40 mg DAILYAC 01/15/19 10:00 01/16/19 06:16 40 MG Sevelamer Carbonate (Renvela) 1,600 mg TID 01/15/19 09:00 01/16/19 20:24 1,600 MG Sodium Bicarbonate (Sodium Bicarbonate) 1,950 mg TIDWMEALS 01/15/19 12:00 01/16/19 16:52 1,950 MG Triamcinolone Acetonide (Kenalog) 1 betty BID 01/15/19 10:00 01/15/19 20:55 1 BETTY Lab Laboratory Tests Test 01/16/19 18:10 01/17/19 09:45 Lactic Acid Level 3.0 mmol/L (0.4-2.0) 12.3 mmol/L (0.4-2.0) Ammonia 181 mcmol/L (11-34) Results All relevant outside records, renal labs, imaging studies, telemetry/EKG's were reviewed. JUDSON GUZMAN MD Jan 17, 2019 13:49
[2019-01-17 13:59] LABS: CALCIUM 9.2 mg/dL (8.5-10.1); CREATININE 15.6 mg/dL (0.7-1.3); GFR 3.1; POTASSIUM 4.6 mmol/L (3.5-5.1)
--- NOTE | 2019-01-17 14:09 | PDOC ---
Objective: Objective: Reviewed chart, transferred to ICU. Vital Signs: Vital Signs Date Time Temp Pulse Resp B/P (MAP) Pulse Ox O2 Delivery O2 Flow Rate FiO2 01/17/19 11:00 98.0 87 16 62/30 (41) 93 Room Air 98.0 Labs: Laboratory Tests Test 01/16/19 18:10 01/17/19 09:45 Lactic Acid Level 3.0 mmol/L 12.3 mmol/L Ammonia 181 mcmol/L ANAEROBIC-AEROBIC CULTURE PENDING ANAEROBIC RES 1 PENDING AEROBIC CULT PENDING AEROBIC RES 1 PENDING GRAM STAIN Final Final report GRAM STAIN RES 1 Final Comment No white blood cells seen. GRAM STAIN RES 2 Final No organisms seen Performed at: [facility] - [facility] [id number] [facility] [address], [place], [place] [id number] Marine Reporter: ROBERT Hare MD, Phone: [phone] Imaging: HAND II CUTTER Bedside Swallow Eval Bedside swallow eval completed. See full rpt in interventions section. IMPRESSIONS: Functional oropharyngeal swallow. Unclear re: etiology of coughing incident. Would consider potential contribution of behavioral factors. Anticipate safe intake on rec'd diet. May require staff supervision at meals until mental status clears. RECOMMENDATIONS: Resume regular diet w/thin liquids. Staff supervision w/meals until mental status improves. Meds whole or crushed as carlito. DW RN Cat. CT abd IMPRESSION: Limited evaluation of vasculature and solid organs due to lack of IV contrast. 1. No appreciable morphologic changes of cirrhosis. 2. Small amount of perihepatic ascites, nonspecific. 3. Slight interval decrease in the size of infrarenal aneurysmal sac status post aortobiiliac stent grafts. 4. Cholelithiasis without imaging evidence of acute cholecystitis. PE: GEN: NAD LUNGS: room air HEART: +murm ABD: non-tender NEURO/PSYCH: probably confused A/P: Hypotension, , ESRD on PD, ACD Chronic liver disease, hyperammonemia - AMA pending -- ?PBC Ordered lactulose. Continue support. INA DAHL Jan 17, 2019 14:09
--- NOTE | 2019-01-17 14:12 | PDOC ---
CARDIOLOGY PROGRESS NOTE SUBJECTIVE: Overnight has had significant hypotension. Midodrine has not improved BP. Possible sepsis syndrome developing but no clear source identified. OBJECTIVE: Vital SIgns: Vital Signs Date Time Temp Pulse Resp B/P (MAP) Pulse Ox O2 Delivery O2 Flow Rate FiO2 01/17/19 11:00 98.0 87 16 62/30 (41) 93 Room Air 98.0 I & O Intake and Output 01/17/19 07:00 Intake Total 900 ml Balance 900 ml Intake Oral 900 ml # Voids 2 Objective: Gen: He is somnolent and confused. Normal heart tones. Lungs with rhonchi soft abdomen no edema. appears volume depleted. non-focal neuro exam CURRENT MEDICATIONS: aspirin, atorvastatin DIAGNOSTIC TESTING: Labs reviewed. Lactate markedly elevated, ? due to hypotension and renal failure versus sepsis ASSESSMENT: 1. Severe aortic stenosis. 2. Hypotension - DDx is broad but this appears to be mostly neurogenic, cannot rule out some component of valvular disease. ?adrenal insufficiency versus amyloid (per nephro) PLAN: 1. Would recommend transfer to ICU, start pressor therapy, improve BP and consider PD/HD 2. Further w/u for amyloid/adrenal insuff per PCP and nephrology 3. ID has been consulted per nephrology 4. Discussed with Dr. Nowak. She has spoken to primary nephro at [facility]. Supportive care. CARISSA URBINA MD Jan 17, 2019 14:12
--- NOTE | 2019-01-17 14:39 | NUR ---
Pt transferred to ICU room 116 for hypotension, per cardiology. Report called to ICU nurse Jayson. Family notified. Provider notified.
[2019-01-17] MEDS ORDERED: DEXTROSE 50% 25 GM / 50ML DISP.SYRIN. IV ONE ×3 (14:45→17:15)
[2019-01-17] MEDS: NOREPINEPHRIN 8MG/250ML PREMIX 250 ML IV PRN (14:45)
[2019-01-17] MEDS ORDERED: PIP/TAZO PER PHARMACY MC PRN (16:00)
[2019-01-17 16:01] LABS: BASO # 0.1 x10^3/uL (0.0-0.2); BASO % 1 % (0-3); EOS % 0 % (0-3); HEMATOCRIT 31.9 % (39.0-53.0); HEMOGLOBIN 10.1 g/dL (13.0-17.5); LYMPH # 1.8 x10^3/uL (1.0-4.8); LYMPH % 10 % (24-48); MEAN CORPUSCULAR HEMOGLOBIN 34 pg (25-35); MEAN CORPUSCULAR HGB CONC 32 g/dL (31-37); MEAN CORPUSCULAR VOLUME 105 fL (79-100); MONO # 1.3 x10^3/uL (0.0-1.1); MONO % 7 % (0-9); NEUT % 82 % (31-73); PLATELET COUNT 141 x10^3/uL (140-400); RED BLOOD COUNT 3.03 x10^6/uL (4.30-5.70); RED CELL DISTRIBUTION WIDTH 17.8 % (11.5-14.5); WHITE BLOOD COUNT 18.2 x10^3/uL (4.0-11.0)
[2019-01-17 16:10] LABS: CALCIUM 9.5 mg/dL (8.5-10.1); POTASSIUM 3.9 mmol/L (3.5-5.1)
[2019-01-17] MEDS: PIPERACILLIN/TAZOBACTAM 2.25 GM in IV NORMAL SALINE 50ML 50 ML IV SCH ×2 (16:20→23:37)
[2019-01-17] MEDS: LACTULOSE 20 GM/30 ML SOLUTION. PO SCH ×2 (16:20→20:35)
[2019-01-17 16:25] LABS: ALBUMIN 1.6 g/dL (3.4-5.0); ALBUMIN/GLOBULIN RATIO 0.4 (1.0-1.7); TOTAL PROTEIN 5.4 g/dL (6.4-8.2)
[2019-01-17] MEDS: IV DEXTROSE 5 %-0.45 % NACL 1,000 ML IV SCH (16:30)
--- NOTE | 2019-01-17 16:31 | NUR ---
Call received from Nemesio in the lab for critical lactic acid of 18.1. Results given to Jayson CEDILLO to notify doctor
[2019-01-17 17:47] LABS: % BANDS 5 % (0-9); % LYMPHS 5 % (24-48); % MONOS 2 % (0-10); % SEGS 88 % (35-66)
[2019-01-17 17:48] LABS: PLT ESTIMATE ADEQUATE (ADEQUATE)
[2019-01-17 17:52] LABS: TARGET CELLS FEW
[2019-01-17 17:53] LABS: ACANTHOCYTES MOD; BURR CELLS MOD; OVALOCYTES FEW; SCHISTOCYTES OCC
[2019-01-17 17:54] LABS: ANISOCYTOSIS SLIGHT; POIKILOCYTOSIS SLIGHT; POLYCHROMASIA MOD
[2019-01-17] MEDS ORDERED: IV NORMAL SALINE 1000ML BAG 1,000 ML IV ONE (18:00)
[2019-01-17] MEDS ORDERED: VANCOMYCIN 2 GM in IV NORMAL SALINE 500ML BAG 500 ML IV ONE (18:00)
--- NOTE | 2019-01-17 18:13 | PDOC ---
Infectious Disease Note Vital Signs: Vital Signs Vital Signs Date Time Temp Pulse Resp B/P (MAP) Pulse Ox O2 Delivery O2 Flow Rate FiO2 01/17/19 11:00 98.0 87 16 62/30 (41) 93 Room Air 98.0 Medications: Inpatient Meds: Current Medications Medications (Trade) Dose Ordered Sig/Conrad Start Time Stop Time Status Last Admin Dose Admin Acetaminophen (Tylenol) 1,000 mg PRN Q6HRS PRN 01/15/19 11:15 01/16/19 09:50 1,000 MG Acetaminophen/ Hydrocodone Bitart (Lortab 5/325) 1 tab PRN Q6HRS PRN 01/15/19 08:45 01/16/19 20:25 1 TAB Albuterol/ Ipratropium (Duoneb) 3 ml RTQID 01/15/19 12:00 01/17/19 07:56 3 ML Aspirin (Children'S Aspirin) 81 mg DAILY 01/15/19 10:00 01/16/19 09:51 81 MG Atorvastatin Calcium (Lipitor) 20 mg QHS 01/15/19 21:00 01/16/19 20:24 20 MG Calcium Carbonate/ Glycine (Oscal) 500 mg TIDWMEALS 01/15/19 12:00 01/16/19 16:49 500 MG Dextrose (Dextrose 50%-Water Syringe) 25 gm 1X ONCE 01/17/19 17:15 01/17/19 17:16 DC 01/17/19 17:14 25 GM Dextrose/Sodium Chloride 1,000 ml @ 50 mls/hr Q20H 01/17/19 16:30 01/17/19 16:30 50 MLS/HR Gentamicin Sulfate (Garamycin) 1 betty DAILY 01/16/19 09:00 Lactic Acid (Lac-Hydrin) 1 betty BID 01/15/19 10:00 01/16/19 20:25 1 BETTY Lactulose (Lactulose) 20 gm TID 01/17/19 14:15 01/17/19 16:20 20 GM Midodrine (Proamatine) 5 mg [id number] 01/16/19 13:00 01/17/19 06:36 5 MG Norepinephrine Bitartrate 250 ml @ 1.875 mls/ hr CONT PRN 01/17/19 14:30 01/17/19 14:45 9.375 MLS/HR Ondansetron HCl (Zofran) 4 mg 1X ONCE 01/14/19 15:45 01/14/19 15:46 DC 01/14/19 15:47 4 MG Pantoprazole Sodium (Protonix) 40 mg DAILYAC 01/15/19 10:00 01/16/19 06:16 40 MG Piperacillin Sod/ Tazobactam Sod (Zosyn Per Pharmacy) 1 each PRN DAILY PRN 01/17/19 16:00 Piperacillin Sod/ Tazobactam Sod 2.25 gm/Sodium Chloride 50 ml @ 100 mls/hr Q8HRS 01/17/19 17:00 01/17/19 16:20 100 MLS/HR Sevelamer Carbonate (Renvela) 1,600 mg TID 01/15/19 09:00 01/16/19 20:24 1,600 MG Sodium Bicarbonate (Sodium Bicarbonate) 1,950 mg TIDWMEALS 01/15/19 12:00 01/16/19 16:52 1,950 MG Sodium Chloride 1,000 ml @ 1,000 mls/hr 1X ONCE 01/17/19 18:00 01/17/19 18:59 01/17/19 17:00 1,000 MLS/HR Triamcinolone Acetonide (Kenalog) 1 ebtty BID 01/15/19 10:00 01/15/19 20:55 1 BETTY Vancomycin HCl (Vanco Per Pharmacy) 1 each PRN DAILY PRN 01/17/19 18:00 Vancomycin HCl 2 gm/Sodium Chloride 500 ml @ 250 mls/hr 1X ONCE 01/17/19 18:00 01/17/19 19:59 Labs: Lab Laboratory Tests Test 01/17/19 09:45 01/17/19 15:13 01/17/19 15:40 01/17/19 16:01 Sodium Level 138 mmol/L (136-145) 137 mmol/L (136-145) Potassium Level 4.6 mmol/L (3.5-5.1) 3.9 mmol/L (3.5-5.1) Chloride Level 96 mmol/L (98-107) 95 mmol/L (98-107) Carbon Dioxide Level 17 mmol/L (21-32) 12 mmol/L (21-32) Anion Gap 25 (6-14) 30 (6-14) Blood Urea Nitrogen 94 mg/dL (8-26) 96 mg/dL (8-26) Creatinine 15.6 mg/dL (0.7-1.3) 16.0 mg/dL (0.7-1.3) Estimated GFR (Cockcroft-Gault) 3.1 3.0 Glucose Level 51 mg/dL (70-99) 90 mg/dL (70-99) Lactic Acid Level 12.3 mmol/L (0.4-2.0) 18.1 mmol/L (0.4-2.0) Calcium Level 9.2 mg/dL (8.5-10.1) 9.5 mg/dL (8.5-10.1) Ammonia 181 mcmol/L (11-34) Glucose (Fingerstick) 64 mg/dL (70-99) 54 mg/dL (70-99) White Blood Count 18.2 x10^3/uL (4.0-11.0) Red Blood Count 3.03 x10^6/uL (4.30-5.70) Hemoglobin 10.1 g/dL (13.0-17.5) Hematocrit 31.9 % (39.0-53.0) Mean Corpuscular Volume 105 fL (79-100) Mean Corpuscular Hemoglobin 34 pg (25-35) Mean Corpuscular Hemoglobin Concent 32 g/dL (31-37) Red Cell Distribution Width 17.8 % (11.5-14.5) Platelet Count 141 x10^3/uL (140-400) Neutrophils (%) (Auto) 82 % (31-73) Lymphocytes (%) (Auto) 10 % (24-48) Monocytes (%) (Auto) 7 % (0-9) Eosinophils (%) (Auto) 0 % (0-3) Basophils (%) (Auto) 1 % (0-3) Neutrophils # (Auto) 15.0 x10^3uL (1.8-7.7) Lymphocytes # (Auto) 1.8 x10^3/uL (1.0-4.8) Monocytes # (Auto) 1.3 x10^3/uL (0.0-1.1) Eosinophils # (Auto) 0.0 x10^3/uL (0.0-0.7) Basophils # (Auto) 0.1 x10^3/uL (0.0-0.2) Segmented Neutrophils % 88 % (35-66) Band Neutrophils % 5 % (0-9) Lymphocytes % 5 % (24-48) Monocytes % 2 % (0-10) Platelet Estimate Adequate (ADEQUATE) Large Platelets Occ Giant Platelets Polychromasia Mod Poikilocytosis Slight Anisocytosis Slight Microcytosis Target Cells Few Ovalocytes Few [place] Cells Mod Acanthocytes Mod Schistocytes Occ BUN/Creatinine Ratio 6 (6-20) Total Bilirubin 2.0 mg/dL (0.2-1.0) Aspartate Amino Transf (AST/SGOT) 84 U/L (15-37) Alanine Aminotransferase (ALT/SGPT) 27 U/L (16-63) Alkaline Phosphatase 549 U/L (46-116) Total Protein 5.4 g/dL (6.4-8.2) Albumin 1.6 g/dL (3.4-5.0) Albumin/Globulin Ratio 0.4 (1.0-1.7) Test 01/17/19 17:02 01/17/19 17:46 Glucose (Fingerstick) 60 mg/dL (70-99) 106 mg/dL (70-99) Objective: Assessment: Pt seen and examined IMP: Hypotension Lactic acidosis ,Leucocytosis ? sepsis vs noninfectious Hypoglycemia Aortic stenosis ESRD on PD Abn LFTs, hyperammonemia Metabolic encephalopathy Plan: Plan of Care Empiric renal dosing of zosyn. IV Vanc per pharmacy F/U C/S Cont supportive care F/U Labs in am D/W RN Thank you KAJAL CHOW MD Jan 17, 2019 18:13
--- NOTE | 2019-01-17 18:54 | PDOC ---
PROGRESS NOTES Chief Complaint Chief Complaint Hypotension which was somewhat improved early in the day but continued to trenc down to levels where he has been before Lactic acid elevation without evidence of toxicity Severe hypoglycemia Dizziness Leukocytosis Anemia of chronic disease Nausea and vomiting History of aortic stenosis: Being considered for TAVR reportedly not a candidate due to moderate reading via JOANNA. Severe per f/u TTE Metabolic acidosis Elevated troponin: peaked at 0.2, demand mediated, type 2 with above culprits. no CP nor SOA Coagulopathy: INR 2.2. Macrocytic anemia ESRD: PD moderate to severe Protein malnutrition CAD: stents in the past, clinically stable. Hx of HTN Hx of AAA with repair History of Present Illness History of Present Illness Patient little bit more lethargic compared to yesterday. The patient seems to be uremic since he did not have peritoneal dialysis due to hypotension. Transient elevation off blood pressure was comforting at the beginning of the day but unfortunately the patient continued to trend down and he is a lactic acid was 12 unlikely this is an infectious problem patient is not experiencing cough abdominal pain think about spontaneous bacterial peritonitis abdomen exam is. Benign no other source of infection is appreciated. Patient did have a hypoglycemic event which could have played also a role in his lethargy. Patient moved to the ICU for higher level of care Vitals Vitals Vital Signs Date Time Temp Pulse Resp B/P (MAP) Pulse Ox O2 Delivery O2 Flow Rate FiO2 01/17/19 15:00 97.3 102 16 124/52 (76) Nasal Cannula 2.0 97.3 01/17/19 11:00 93 Physical Exam General: No acute distress, Other (somewhat lethargic but still responding to questions appropriately during my encounter) Heart: Regular rate (SR), Other (CORINNE 5/6 systolic murmur ) Lungs: Clear Abdomen: Soft Extremities: No cyanosis, No edema Skin: No breakdown, No significant lesion Labs LABS Laboratory Tests Test 01/17/19 09:45 01/17/19 15:13 01/17/19 15:40 01/17/19 16:01 Sodium Level 138 mmol/L (136-145) 137 mmol/L (136-145) Potassium Level 4.6 mmol/L (3.5-5.1) 3.9 mmol/L (3.5-5.1) Chloride Level 96 mmol/L (98-107) 95 mmol/L (98-107) Carbon Dioxide Level 17 mmol/L (21-32) 12 mmol/L (21-32) Anion Gap 25 (6-14) 30 (6-14) Blood Urea Nitrogen 94 mg/dL (8-26) 96 mg/dL (8-26) Creatinine 15.6 mg/dL (0.7-1.3) 16.0 mg/dL (0.7-1.3) Estimated GFR (Cockcroft-Gault) 3.1 3.0 Glucose Level 51 mg/dL (70-99) 90 mg/dL (70-99) Lactic Acid Level 12.3 mmol/L (0.4-2.0) 18.1 mmol/L (0.4-2.0) Calcium Level 9.2 mg/dL (8.5-10.1) 9.5 mg/dL (8.5-10.1) Ammonia 181 mcmol/L (11-34) Glucose (Fingerstick) 64 mg/dL (70-99) 54 mg/dL (70-99) White Blood Count 18.2 x10^3/uL (4.0-11.0) Red Blood Count 3.03 x10^6/uL (4.30-5.70) Hemoglobin 10.1 g/dL (13.0-17.5) Hematocrit 31.9 % (39.0-53.0) Mean Corpuscular Volume 105 fL (79-100) Mean Corpuscular Hemoglobin 34 pg (25-35) Mean Corpuscular Hemoglobin Concent 32 g/dL (31-37) Red Cell Distribution Width 17.8 % (11.5-14.5) Platelet Count 141 x10^3/uL (140-400) Neutrophils (%) (Auto) 82 % (31-73) Lymphocytes (%) (Auto) 10 % (24-48) Monocytes (%) (Auto) 7 % (0-9) Eosinophils (%) (Auto) 0 % (0-3) Basophils (%) (Auto) 1 % (0-3) Neutrophils # (Auto) 15.0 x10^3uL (1.8-7.7) Lymphocytes # (Auto) 1.8 x10^3/uL (1.0-4.8) Monocytes # (Auto) 1.3 x10^3/uL (0.0-1.1) Eosinophils # (Auto) 0.0 x10^3/uL (0.0-0.7) Basophils # (Auto) 0.1 x10^3/uL (0.0-0.2) Segmented Neutrophils % 88 % (35-66) Band Neutrophils % 5 % (0-9) Lymphocytes % 5 % (24-48) Monocytes % 2 % (0-10) Platelet Estimate Adequate (ADEQUATE) Large Platelets Occ Giant Platelets Polychromasia Mod Poikilocytosis Slight Anisocytosis Slight Microcytosis Target Cells Few Ovalocytes Few [place] Cells Mod Acanthocytes Mod Schistocytes Occ BUN/Creatinine Ratio 6 (6-20) Total Bilirubin 2.0 mg/dL (0.2-1.0) Aspartate Amino Transf (AST/SGOT) 84 U/L (15-37) Alanine Aminotransferase (ALT/SGPT) 27 U/L (16-63) Alkaline Phosphatase 549 U/L (46-116) Total Protein 5.4 g/dL (6.4-8.2) Albumin 1.6 g/dL (3.4-5.0) Albumin/Globulin Ratio 0.4 (1.0-1.7) Test 01/17/19 17:02 01/17/19 17:46 Glucose (Fingerstick) 60 mg/dL (70-99) 106 mg/dL (70-99) Assessment and Plan Assessmemt and Plan Problems Medical Problems: (1) Chronic kidney disease with end stage renal failure on dialysis Status: Acute (2) Generalized weakness Status: Acute (3) Hypotension Status: Acute (4) Nausea and vomiting Status: Acute Comment Review of Relevant I have reviewed the following items ethan (where applicable) has been applied. Labs Laboratory Tests Test 01/16/19 12:00 01/16/19 18:10 01/17/19 09:45 01/17/19 15:13 White Blood Count 17.2 x10^3/uL (4.0-11.0) Red Blood Count 2.57 x10^6/uL (4.30-5.70) Hemoglobin 8.7 g/dL (13.0-17.5) Hematocrit 25.8 % (39.0-53.0) Mean Corpuscular Volume 100 fL (79-100) Mean Corpuscular Hemoglobin 34 pg (25-35) Mean Corpuscular Hemoglobin Concent 34 g/dL (31-37) Red Cell Distribution Width 15.7 % (11.5-14.5) Platelet Count 140 x10^3/uL (140-400) Prothrombin Time 23.7 SEC (11.7-14.0) Prothromb Time International Ratio 2.1 (0.8-1.1) Sodium Level 137 mmol/L (136-145) 138 mmol/L (136-145) Potassium Level 3.6 mmol/L (3.5-5.1) 4.6 mmol/L (3.5-5.1) Chloride Level 96 mmol/L (98-107) 96 mmol/L (98-107) Carbon Dioxide Level 25 mmol/L (21-32) 17 mmol/L (21-32) Anion Gap 16 (6-14) 25 (6-14) Blood Urea Nitrogen 81 mg/dL (8-26) 94 mg/dL (8-26) Creatinine 13.8 mg/dL (0.7-1.3) 15.6 mg/dL (0.7-1.3) Estimated GFR (Cockcroft-Gault) 3.5 3.1 Glucose Level 112 mg/dL (70-99) 51 mg/dL (70-99) Calcium Level 8.3 mg/dL (8.5-10.1) 9.2 mg/dL (8.5-10.1) Magnesium Level 2.5 mg/dL (1.8-2.4) Troponin I Quantitative 0.203 ng/mL (0.000-0.055) Lactic Acid Level 3.0 mmol/L (0.4-2.0) 12.3 mmol/L (0.4-2.0) Ammonia 181 mcmol/L (11-34) Glucose (Fingerstick) 64 mg/dL (70-99) Test 01/17/19 15:40 01/17/19 16:01 01/17/19 17:02 01/17/19 17:46 White Blood Count 18.2 x10^3/uL (4.0-11.0) Red Blood Count 3.03 x10^6/uL (4.30-5.70) Hemoglobin 10.1 g/dL (13.0-17.5) Hematocrit 31.9 % (39.0-53.0) Mean Corpuscular Volume 105 fL (79-100) Mean Corpuscular Hemoglobin 34 pg (25-35) Mean Corpuscular Hemoglobin Concent 32 g/dL (31-37) Red Cell Distribution Width 17.8 % (11.5-14.5) Platelet Count 141 x10^3/uL (140-400) Neutrophils (%) (Auto) 82 % (31-73) Lymphocytes (%) (Auto) 10 % (24-48) Monocytes (%) (Auto) 7 % (0-9) Eosinophils (%) (Auto) 0 % (0-3) Basophils (%) (Auto) 1 % (0-3) Neutrophils # (Auto) 15.0 x10^3uL (1.8-7.7) Lymphocytes # (Auto) 1.8 x10^3/uL (1.0-4.8) Monocytes # (Auto) 1.3 x10^3/uL (0.0-1.1) Eosinophils # (Auto) 0.0 x10^3/uL (0.0-0.7) Basophils # (Auto) 0.1 x10^3/uL (0.0-0.2) Segmented Neutrophils % 88 % (35-66) Band Neutrophils % 5 % (0-9) Lymphocytes % 5 % (24-48) Monocytes % 2 % (0-10) Platelet Estimate Adequate (ADEQUATE) Large Platelets Occ Giant Platelets Polychromasia Mod Poikilocytosis Slight Anisocytosis Slight Microcytosis Target Cells Few Ovalocytes Few [place] Cells Mod Acanthocytes Mod Schistocytes Occ Sodium Level 137 mmol/L (136-145) Potassium Level 3.9 mmol/L (3.5-5.1) Chloride Level 95 mmol/L (98-107) Carbon Dioxide Level 12 mmol/L (21-32) Anion Gap 30 (6-14) Blood Urea Nitrogen 96 mg/dL (8-26) Creatinine 16.0 mg/dL (0.7-1.3) Estimated GFR (Cockcroft-Gault) 3.0 BUN/Creatinine Ratio 6 (6-20) Glucose Level 90 mg/dL (70-99) Lactic Acid Level 18.1 mmol/L (0.4-2.0) Calcium Level 9.5 mg/dL (8.5-10.1) Total Bilirubin 2.0 mg/dL (0.2-1.0) Aspartate Amino Transf (AST/SGOT) 84 U/L (15-37) Alanine Aminotransferase (ALT/SGPT) 27 U/L (16-63) Alkaline Phosphatase 549 U/L (46-116) Total Protein 5.4 g/dL (6.4-8.2) Albumin 1.6 g/dL (3.4-5.0) Albumin/Globulin Ratio 0.4 (1.0-1.7) Glucose (Fingerstick) 54 mg/dL (70-99) 60 mg/dL (70-99) 106 mg/dL (70-99) Laboratory Tests Test 01/17/19 09:45 01/17/19 15:13 01/17/19 15:40 01/17/19 16:01 Sodium Level 138 mmol/L (136-145) 137 mmol/L (136-145) Potassium Level 4.6 mmol/L (3.5-5.1) 3.9 mmol/L (3.5-5.1) Chloride Level 96 mmol/L (98-107) 95 mmol/L (98-107) Carbon Dioxide Level 17 mmol/L (21-32) 12 mmol/L (21-32) Anion Gap 25 (6-14) 30 (6-14) Blood Urea Nitrogen 94 mg/dL (8-26) 96 mg/dL (8-26) Creatinine 15.6 mg/dL (0.7-1.3) 16.0 mg/dL (0.7-1.3) Estimated GFR (Cockcroft-Gault) 3.1 3.0 Glucose Level 51 mg/dL (70-99) 90 mg/dL (70-99) Lactic Acid Level 12.3 mmol/L (0.4-2.0) 18.1 mmol/L (0.4-2.0) Calcium Level 9.2 mg/dL (8.5-10.1) 9.5 mg/dL (8.5-10.1) Ammonia 181 mcmol/L (11-34) Glucose (Fingerstick) 64 mg/dL (70-99) 54 mg/dL (70-99) White Blood Count 18.2 x10^3/uL (4.0-11.0) Red Blood Count 3.03 x10^6/uL (4.30-5.70) Hemoglobin 10.1 g/dL (13.0-17.5) Hematocrit 31.9 % (39.0-53.0) Mean Corpuscular Volume 105 fL (79-100) Mean Corpuscular Hemoglobin 34 pg (25-35) Mean Corpuscular Hemoglobin Concent 32 g/dL (31-37) Red Cell Distribution Width 17.8 % (11.5-14.5) Platelet Count 141 x10^3/uL (140-400) Neutrophils (%) (Auto) 82 % (31-73) Lymphocytes (%) (Auto) 10 % (24-48) Monocytes (%) (Auto) 7 % (0-9) Eosinophils (%) (Auto) 0 % (0-3) Basophils (%) (Auto) 1 % (0-3) Neutrophils # (Auto) 15.0 x10^3uL (1.8-7.7) Lymphocytes # (Auto) 1.8 x10^3/uL (1.0-4.8) Monocytes # (Auto) 1.3 x10^3/uL (0.0-1.1) Eosinophils # (Auto) 0.0 x10^3/uL (0.0-0.7) Basophils # (Auto) 0.1 x10^3/uL (0.0-0.2) Segmented Neutrophils % 88 % (35-66) Band Neutrophils % 5 % (0-9) Lymphocytes % 5 % (24-48) Monocytes % 2 % (0-10) Platelet Estimate Adequate (ADEQUATE) Large Platelets Occ Giant Platelets Polychromasia Mod Poikilocytosis Slight Anisocytosis Slight Microcytosis Target Cells Few Ovalocytes Few Devika Cells Mod Acanthocytes Mod Schistocytes Occ BUN/Creatinine Ratio 6 (6-20) Total Bilirubin 2.0 mg/dL (0.2-1.0) Aspartate Amino Transf (AST/SGOT) 84 U/L (15-37) Alanine Aminotransferase (ALT/SGPT) 27 U/L (16-63) Alkaline Phosphatase 549 U/L (46-116) Total Protein 5.4 g/dL (6.4-8.2) Albumin 1.6 g/dL (3.4-5.0) Albumin/Globulin Ratio 0.4 (1.0-1.7) Test 01/17/19 17:02 01/17/19 17:46 Glucose (Fingerstick) 60 mg/dL (70-99) 106 mg/dL (70-99) Microbiology 01/14/19 Blood Culture - Preliminary, Resulted NO GROWTH AFTER 3 DAYS 01/15/19 Anaerobic/Aerobic Culture, Resulted Pending 01/15/19 Anaerobic Culture Result 1 (LAURIE), Resulted Pending 01/15/19 Aerobic Culture, Resulted Pending 01/15/19 Aerobic Culture Result 1 (LAURIE), Resulted Pending 01/15/19 Gram Stain - Final, Resulted 01/15/19 Gram Stain Result 1 (LAURIE) - Final, Resulted 01/15/19 Gram Stain Result 2 (LAURIE) - Final, Resulted Medications Current Medications Ondansetron HCl (Zofran) 4 mg 1X ONCE IM ; Start 01/14/19 at 15:00; Stop at 15:01; Status Cancel Ondansetron HCl (Zofran) 4 mg 1X ONCE IM ; Start 01/14/19 at 15:45; Stop at 15:46; Status Cancel Ondansetron HCl (Zofran) 4 mg 1X ONCE IV Last administered on 01/14/19at 15:47; Start 01/14/19 at 15:45; Stop 01/14/19 at 15:46; Status DC Gentamicin Sulfate (Garamycin) 1 olu DAILY TP ; Start 01/15/19 at 09:00; Stop 01/15/19 at 13:52; Status DC Lactic Acid (Lac-Hydrin) 1 olu BID TP Last administered on 01/16/19at 20:25; Start 01/15/19 at 10:00 Aspirin (Children'S Aspirin) 81 mg DAILY PO Last administered on 01/16/19at 09:51 ; Start 01/15/19 at 10:00 Atorvastatin Calcium (Lipitor) 20 mg QHS PO Last administered on 01/16/19at 20:24 ; Start 01/15/19 at 21:00 Calcium Carbonate/ Glycine (Oscal) 500 mg TIDWMEALS PO Last administered on 01/16at 16:49; Start 01/15/19 at 12:00 Acetaminophen/ Hydrocodone Bitart (Lortab 5/325) 1 tab PRN Q6HRS PRN PO MODERATE TO SEVERE PAIN Last administered on 01/16/19 20:25; Start 01/15/19 at 08 :45 Sevelamer Carbonate (Renvela) 1,600 mg TID PO Last administered on 01/16/19 20: 24; Start 01/15/19 at 09:00 Sodium Bicarbonate (Sodium Bicarbonate) 1,950 mg TIDWMEALS PO Last administered on 01/16/19 16:52; Start 01/15/19 at 12:00 Pantoprazole Sodium (Protonix) 40 mg DAILYAC PO Last administered on 01/16/19 06:16; Start 01/15/19 at 10:00 Triamcinolone Acetonide (Kenalog) 1 olu BID TP Last administered on 01/15/19 20 :55; Start 01/15/19 at 10:00 Albuterol/ Ipratropium (Duoneb) 3 ml RTQID NEB Last administered on 01/17/19 07 :56; Start 01/15/19 at 12:00 Acetaminophen (Tylenol) 1,000 mg PRN Q6HRS PRN PO mild pain Last administered on 01/16/19 09:50; Start 01/15/19 at 11:15 Midodrine (Proamatine) 2.5 mg [id number] PO Last administered on 01/16/19 09:50; Start 01/15/19 at 14:00; Stop 01/16/19 at 10:34; Status DC Gentamicin Sulfate (Garamycin) 1 olu DAILY TP Last administered on 01/17/19 18: 46; Start 01/16/19 at 09:00 Midodrine (Proamatine) 5 mg [id number] PO Last administered on 01/17/19 06:36; Start 01/16/19 at 13:00 Lactulose (Lactulose) 20 gm TID PO Last administered on 01/17/19 16:20; Start 01/17/19 at 14:15 Norepinephrine Bitartrate 250 ml @ 1.875 mls/ hr CONT PRN IV SEE I/O RECORD Last administered on 01/17/19 14:45; Start 01/17/19 at 14:30 Dextrose (Dextrose 50%-Water Syringe) 25 gm 1X ONCE IV Last administered on 3/ 7/19at 14:45; Start 01/17/19 at 14:45; Stop 01/17/19 at 14:46; Status DC Dextrose (Dextrose 50%-Water Syringe) 25 gm 1X ONCE IV Last administered on 01/17/19at 15:15; Start 01/17/19 at 15:30; Stop 01/17/19 at 15:31; Status DC Piperacillin Sod/ Tazobactam Sod (Zosyn Per Pharmacy) 1 each PRN DAILY PRN MC SEE COMMENTS; Start 01/17/19 at 16:00 Piperacillin Sod/ Tazobactam Sod 2.25 gm/Sodium Chloride 50 ml @ 100 mls/hr Q8HRS IV Last administered on 01/17/19at 16:20; Start 01/17/19 at 17:00 Dextrose/Sodium Chloride 1,000 ml @ 50 mls/hr Q20H IV Last administered on 01/17at 16:30; Start 01/17/19 at 16:30 Dextrose (Dextrose 50%-Water Syringe) 25 gm 1X ONCE IV Last administered on 01/17/19at 17:14; Start 01/17/19 at 17:15; Stop 01/17/19 at 17:16; Status DC Vancomycin HCl (Vanco Per Pharmacy) 1 each PRN DAILY PRN MC SEE COMMENTS; Start 01/17/19 at 18:00 Sodium Chloride 1,000 ml @ 1,000 mls/hr 1X ONCE IV Last administered on at 17:00; Start 01/17/19 at 18:00; Stop 01/17/19 at 18:59 Vancomycin HCl 2 gm/Sodium Chloride 500 ml @ 250 mls/hr 1X ONCE IV ; Start 01/17/19 at 18:00; Stop 01/17/19 at 19:59 Active Scripts Active [place] 5-325 Tablet (Acetaminophen/Hydrocodone Bitart) 1 Each Tablet 1-2 Each PO PRN Q6HRS PRN as needed for pain Reported [calcium carbon] Triamcinolone Acetonide 0.5% Cream (Triamcinolone Acetonide) 15 Gm Cream..g. 1 Olu TP BID Renvela (Sevelamer Carbonate) 800 Mg Tablet 2 Tab PO TID Protonix (Pantoprazole Sodium) 40 Mg Granpkt.dr 40 Mg PO DAILY Calcium Carbonate 500 Mg Tablet 5,000 Mg PO TIDWMEALS Skin Treatment (Ammonium Lactate) 225 Gm Lotion 225 Gm TP BID Aspirin 81 Mg Tab.chew 1 Tab PO DAILY Atorvastatin Calcium 20 Mg Tablet 1 Tab PO QHS Sodium Bicarbonate 650 Mg Tablet 1,950 Mg PO TIDWMEALS Vitals/I & O Vital Sign - Last 24 Hours 01/16/19 01/16/19 01/16/19 01/16/19 19:00 19:34 20:00 20:25 Temp 98.0 98.0 Pulse 106 Resp 20 18 B/P (MAP) 102/34 (56) Pulse Ox 96 O2 Delivery Room Air Room Air Room Air Room Air 01/16/19 01/16/19 01/17/19 01/17/19 23:00 23:00 03:07 06:36 Temp 98.0 98.0 97.9 98.0 98.0 97.9 Pulse 76 76 75 75 Resp 20 20 20 B/P (MAP) 87/41 (56) 87/41 (56) 69/39 (49) 69/39 Pulse Ox 98 98 93 O2 Delivery Room Air Room Air Room Air 01/17/19 01/17/19 01/17/19 01/17/19 07:00 07:56 08:00 11:00 Temp 98.2 98.0 98.2 98.0 Pulse 80 87 Resp 16 16 B/P (MAP) 147/114 (125) 62/30 (41) Pulse Ox 97 93 O2 Delivery Room Air Room Air Room Air Room Air 01/17/19 15:00 Temp 97.3 97.3 Pulse 102 Resp 16 B/P (MAP) 124/52 (76) O2 Delivery Nasal Cannula O2 Flow Rate 2.0 Intake and Output 01/16/19 01/16/19 01/17/19 14:59 22:59 06:59 Intake Total 600 ml 300 ml Balance 600 ml 300 ml Nutrition Consultation Dietary Evaluation: Recommendations by RD: Increase Calorie Intake, Protein supplementation Comments: Recommend vanilla Nepro milk shake @ lunch for increased calorie and protein intake as pt. has diminished appetite Expected Outcomes/Goals: P.O. intake to meet >75% estimated needs Malnutrition Findings: Body Fat Depletion (Non Severe: Mild Depletion Weight Status: Overweight NEGRO HILL MD Jan 17, 2019 18:54
--- NOTE | 2019-01-17 19:00 | NUR ---
Patient transfer from [facility] at 1445 for hypotension and AMS. Telephone report received from Abimbola Cardoza. Patient arrived to floor SBP in the 60's levo started at 5mcg/min and titrated up to 10mcg/min to keep MAP greater than 65. Patient was also hypoglycemic, blood sugar didn't register on glucometer. Administered a total of 4 ampules of 50% dextrose and started D5 0.45 NS to run at 55ml/hr. Patients 1000hr lactic acid was 12. Sepsis protocol was initiated, blood cultures x2 along with repeat lactic acid. ID was consulted and ordered ABX. Decision was made by nephrology not to do fluid resuscitation bc of ESRD. Repeat lactic was 18, notified ID, orders received.
[2019-01-17] MEDS: VANCOMYCIN PER PHARMACY MC PRN (20:20)
--- NOTE | 2019-01-17 20:21 | NUR ---
Pharmacy Vancomycin Dosing Note S:Consulted to monitor and dose vancomycin started 01/17/19. O:ABTS,AUGUSTO Guevara is a 73 year old M with sepsis. Height: 5 feet, 10 inches Weight: 79.9 kg Dosing Weight: Other Antibiotics: ZOSYN 2.25G IV Q8HRS LABS: Last BUN: 96 Last Creatinine: 16 Creatinine Clearance: ESRD on PD Last WBC: 18.2 Last Procalcitonin: - Tmax (past 24 hours): 99.2 Microbiology: PD FLUID CX: PENDING I/O: 780/output not documented; 2 voids A: Patient requires vancomycin for sepsis, goal level 15-20 mcg/ml. He is ESRD on PD, however PD was held last night due to hypotension. He is currently admitted to ICU requiring pressors. Will give loading dose tonight and reassess timing of level tomorrow when his status is more known. P: 1. Give Vancomycin 2000 mg IV x 1 dose 2. Follow up level to be determined by dialysis plan on 01/18/19 3. Pharmacy will continue to monitor, follow and adjust therapy as needed. EDWARD MCGRATH RPH, 01/17/192020
[2019-01-17] MEDS: MICAFUNGIN 100 MG in IV DEXTROSE 5% 100ML 100 ML IV SCH (20:35)
[2019-01-17] MEDS: ATORVASTATIN CALCIUM 20 MG TABLET PO SCH (21:06)
[2019-01-18] VITALS (37 sets, daily range): BP systolic 72–161; BP diastolic 36–110
[2019-01-18] MEDS: NOREPINEPHRIN 8MG/250ML PREMIX 250 ML IV PRN ×4 (01:16→23:09)
[2019-01-18] MEDS: PIPERACILLIN/TAZOBACTAM 2.25 GM in IV NORMAL SALINE 50ML 50 ML IV SCH ×3 (06:30→21:38)
[2019-01-18] MEDS: IV NORMAL SALINE 1000ML BAG 1,000 ML IV SCH ×2 (06:45→11:24)
[2019-01-18] MEDS: MIDODRINE 5 MG TABLET PO SCH ×3 (07:00→18:00)
[2019-01-18] MEDS ORDERED: DEXTROSE 50% 25 GM / 50ML DISP.SYRIN. IV ONE ×5 (07:00→17:45)
[2019-01-18 07:16] LABS: BASO # 0.1 x10^3/uL (0.0-0.2); BASO % 0 % (0-3); EOS # 0.2 x10^3/uL (0.0-0.7); EOS % 1 % (0-3); HEMATOCRIT 32.3 % (39.0-53.0); HEMOGLOBIN 10.8 g/dL (13.0-17.5); LYMPH # 2.4 x10^3/uL (1.0-4.8); LYMPH % 9 % (24-48); MEAN CORPUSCULAR HEMOGLOBIN 34 pg (25-35); MEAN CORPUSCULAR HGB CONC 33 g/dL (31-37); MEAN CORPUSCULAR VOLUME 102 fL (79-100); MONO # 4.2 x10^3/uL (0.0-1.1); MONO % 15 % (0-9); NEUT # 21.7 x10^3uL (1.8-7.7); NEUT % 76 % (31-73); PLATELET COUNT 134 x10^3/uL (140-400); RED BLOOD COUNT 3.16 x10^6/uL (4.30-5.70); RED CELL DISTRIBUTION WIDTH 17.3 % (11.5-14.5); WHITE BLOOD COUNT 28.6 x10^3/uL (4.0-11.0)
[2019-01-18 07:25] LABS: PROTHROMBIN TIME PATIENT 27.7 SEC (11.7-14.0)
[2019-01-18] MEDS: PANTOPRAZOLE 40 MG TABLET.DR. PO SCH (07:30)
[2019-01-18 07:43] LABS: CALCIUM 9.5 mg/dL (8.5-10.1); CREATININE 14.8 mg/dL (0.7-1.3); GFR 3.3; POTASSIUM 4.2 mmol/L (3.5-5.1)
[2019-01-18 07:48] LABS: ALBUMIN 1.6 g/dL (3.4-5.0); ALBUMIN/GLOBULIN RATIO 0.4 (1.0-1.7); TOTAL BILIRUBIN 2.3 mg/dL (0.2-1.0); TOTAL PROTEIN 5.4 g/dL (6.4-8.2)
--- NOTE | 2019-01-18 07:50 | PDOC ---
Infectious Disease Note Subjective: Subjective pt condition has further deteriorated now on levophed at 22 mcg,BP around 90's on O2 2L/NC worsening leucocytosis at 28 K lactic acid still at 9 somewhat confused denies any complaints underwent PD last night denies any f/c/n/v/d/abdo pain//headache ROS: ROS limited D/W RN Vital Signs: Vital Signs Vital Signs Date Time Temp Pulse Resp B/P (MAP) Pulse Ox O2 Delivery O2 Flow Rate FiO2 01/18/19 06:00 105 14 90/55 (67) 97 Nasal Cannula 2.0 01/18/19 04:00 99.9 99.9 Physical Exam: PHYSICAL EXAM GEN: sleeping, opens eyes ,answers a few questions HEENT no conjunc petechia, mild conjunc irritation NECK: Supple CVS: S1S2 , systolic murmur + RESP: clear bilaterally GI: BS + Nondistended, nontender, PD catheter in Place ,clear : No marcelino, no cva tenderness Neuro: Confused ,moves all 4 ext Derm: No gen rash PIV looks ok Medications: Inpatient Meds: Current Medications Medications (Trade) Dose Ordered Sig/Conrad Start Time Stop Time Status Last Admin Dose Admin Acetaminophen (Tylenol) 1,000 mg PRN Q6HRS PRN 01/15/19 11:15 01/16/19 09:50 1,000 MG Acetaminophen/ Hydrocodone Bitart (Lortab 5/325) 1 tab PRN Q6HRS PRN 01/15/19 08:45 01/16/19 20:25 1 TAB Albuterol/ Ipratropium (Duoneb) 3 ml RTQID 01/15/19 12:00 01/17/19 19:58 3 ML Aspirin (Children'S Aspirin) 81 mg DAILY 01/15/19 10:00 01/16/19 09:51 81 MG Atorvastatin Calcium (Lipitor) 20 mg QHS 01/15/19 21:00 01/17/19 21:06 20 MG Calcium Carbonate/ Glycine (Oscal) 500 mg TIDWMEALS 01/15/19 12:00 01/16/19 16:49 500 MG Dextrose (Dextrose 50%-Water Syringe) 25 gm 1X ONCE 01/18/19 07:00 01/18/19 07:08 DC Dextrose/Sodium Chloride 1,000 ml @ 50 mls/hr Q20H 01/17/19 16:30 01/17/19 16:30 50 MLS/HR Gentamicin Sulfate (Garamycin) 1 betty DAILY 01/16/19 09:00 01/17/19 18:46 1 BETTY Lactic Acid (Lac-Hydrin) 1 betty BID 01/15/19 10:00 01/16/19 20:25 1 BETTY Lactulose (Lactulose) 20 gm TID 01/17/19 14:15 01/17/19 20:35 20 GM Micafungin Sodium 100 mg/Dextrose 100 ml @ 100 mls/hr Q24H 01/17/19 20:00 01/17/19 20:35 100 MLS/HR Midodrine (Proamatine) 5 mg [id number] 01/16/19 13:00 01/17/19 06:36 5 MG Norepinephrine Bitartrate 250 ml @ 1.875 mls/ hr CONT PRN 01/17/19 14:30 01/18/19 01:16 28.125 MLS/HR Ondansetron HCl (Zofran) 4 mg 1X ONCE 01/14/19 15:45 01/14/19 15:46 DC 01/14/19 15:47 4 MG Pantoprazole Sodium (Protonix) 40 mg DAILYAC 01/15/19 10:00 01/16/19 06:16 40 MG Piperacillin Sod/ Tazobactam Sod (Zosyn Per Pharmacy) 1 each PRN DAILY PRN 01/17/19 16:00 Piperacillin Sod/ Tazobactam Sod 2.25 gm/Sodium Chloride 50 ml @ 100 mls/hr Q8HRS 01/17/19 17:00 01/18/19 06:30 100 MLS/HR Sevelamer Carbonate (Renvela) 1,600 mg TID 01/15/19 09:00 01/17/19 20:35 1,600 MG Sodium Bicarbonate (Sodium Bicarbonate) 1,950 mg TIDWMEALS 01/15/19 12:00 01/16/19 16:52 1,950 MG Sodium Chloride 1,000 ml @ 100 mls/hr Q10H 01/18/19 06:45 01/18/19 06:45 100 MLS/HR Triamcinolone Acetonide (Kenalog) 1 betty BID 3/5/19 10:00 01/15/19 20:55 1 BETTY Vancomycin HCl (Vanco Per Pharmacy) 1 each PRN DAILY PRN 01/17/19 18:00 01/17/19 20:20 1 EACH Vancomycin HCl 2 gm/Sodium Chloride 500 ml @ 250 mls/hr 1X ONCE 01/17/19 18:00 01/17/19 19:59 DC 01/17/19 18:50 250 MLS/HR Labs: Lab Laboratory Tests Test 01/17/19 09:45 01/17/19 15:13 01/17/19 15:40 01/17/19 16:01 Sodium Level 138 mmol/L (136-145) 137 mmol/L (136-145) Potassium Level 4.6 mmol/L (3.5-5.1) 3.9 mmol/L (3.5-5.1) Chloride Level 96 mmol/L (98-107) 95 mmol/L (98-107) Carbon Dioxide Level 17 mmol/L (21-32) 12 mmol/L (21-32) Anion Gap 25 (6-14) 30 (6-14) Blood Urea Nitrogen 94 mg/dL (8-26) 96 mg/dL (8-26) Creatinine 15.6 mg/dL (0.7-1.3) 16.0 mg/dL (0.7-1.3) Estimated GFR (Cockcroft-Gault) 3.1 3.0 Glucose Level 51 mg/dL (70-99) 90 mg/dL (70-99) Lactic Acid Level 12.3 mmol/L (0.4-2.0) 18.1 mmol/L (0.4-2.0) Calcium Level 9.2 mg/dL (8.5-10.1) 9.5 mg/dL (8.5-10.1) Ammonia 181 mcmol/L (11-34) Glucose (Fingerstick) 64 mg/dL (70-99) 54 mg/dL (70-99) White Blood Count 18.2 x10^3/uL (4.0-11.0) Red Blood Count 3.03 x10^6/uL (4.30-5.70) Hemoglobin 10.1 g/dL (13.0-17.5) Hematocrit 31.9 % (39.0-53.0) Mean Corpuscular Volume 105 fL (79-100) Mean Corpuscular Hemoglobin 34 pg (25-35) Mean Corpuscular Hemoglobin Concent 32 g/dL (31-37) Red Cell Distribution Width 17.8 % (11.5-14.5) Platelet Count 141 x10^3/uL (140-400) Neutrophils (%) (Auto) 82 % (31-73) Lymphocytes (%) (Auto) 10 % (24-48) Monocytes (%) (Auto) 7 % (0-9) Eosinophils (%) (Auto) 0 % (0-3) Basophils (%) (Auto) 1 % (0-3) Neutrophils # (Auto) 15.0 x10^3uL (1.8-7.7) Lymphocytes # (Auto) 1.8 x10^3/uL (1.0-4.8) Monocytes # (Auto) 1.3 x10^3/uL (0.0-1.1) Eosinophils # (Auto) 0.0 x10^3/uL (0.0-0.7) Basophils # (Auto) 0.1 x10^3/uL (0.0-0.2) Segmented Neutrophils % 88 % (35-66) Band Neutrophils % 5 % (0-9) Lymphocytes % 5 % (24-48) Monocytes % 2 % (0-10) Platelet Estimate Adequate (ADEQUATE) Large Platelets Occ Giant Platelets Polychromasia Mod Poikilocytosis Slight Anisocytosis Slight Microcytosis Target Cells Few Ovalocytes Few Devika Cells Mod Acanthocytes Mod Schistocytes Occ BUN/Creatinine Ratio 6 (6-20) Total Bilirubin 2.0 mg/dL (0.2-1.0) Aspartate Amino Transf (AST/SGOT) 84 U/L (15-37) Alanine Aminotransferase (ALT/SGPT) 27 U/L (16-63) Alkaline Phosphatase 549 U/L (46-116) Total Protein 5.4 g/dL (6.4-8.2) Albumin 1.6 g/dL (3.4-5.0) Albumin/Globulin Ratio 0.4 (1.0-1.7) Cortisol PM Sample 25.6 ug/dL (3.1-16.7) Test 01/17/19 17:02 01/17/19 17:46 01/17/19 19:59 01/18/19 06:55 Glucose (Fingerstick) 60 mg/dL (70-99) 106 mg/dL (70-99) 95 mg/dL (70-99) White Blood Count 28.6 x10^3/uL (4.0-11.0) Red Blood Count 3.16 x10^6/uL (4.30-5.70) Hemoglobin 10.8 g/dL (13.0-17.5) Hematocrit 32.3 % (39.0-53.0) Mean Corpuscular Volume 102 fL (79-100) Mean Corpuscular Hemoglobin 34 pg (25-35) Mean Corpuscular Hemoglobin Concent 33 g/dL (31-37) Red Cell Distribution Width 17.3 % (11.5-14.5) Platelet Count 134 x10^3/uL (140-400) Neutrophils (%) (Auto) 76 % (31-73) Lymphocytes (%) (Auto) 9 % (24-48) Monocytes (%) (Auto) 15 % (0-9) Eosinophils (%) (Auto) 1 % (0-3) Basophils (%) (Auto) 0 % (0-3) Neutrophils # (Auto) 21.7 x10^3uL (1.8-7.7) Lymphocytes # (Auto) 2.4 x10^3/uL (1.0-4.8) Monocytes # (Auto) 4.2 x10^3/uL (0.0-1.1) Eosinophils # (Auto) 0.2 x10^3/uL (0.0-0.7) Basophils # (Auto) 0.1 x10^3/uL (0.0-0.2) Prothrombin Time 27.7 SEC (11.7-14.0) Prothromb Time International Ratio 2.6 (0.8-1.1) Test 01/18/19 07:04 01/18/19 07:33 Glucose (Fingerstick) 66 mg/dL (70-99) 74 mg/dL (70-99) Objective: Assessment: Pt in multiorgan failure transferred to ICU on 01/17 Hypotension not responding to midodrine since admission , now worse Lactic acidosis ,Leucocytosis ? sepsis vs noninfectious ? source GI PD fluid neg ? ischemic colitis Hypoglycemia requiring D5 drip Severe Aortic stenosis ESRD on PD Abn LFTs, hyperammonemia Metabolic encephalopathy Anemia of ESRD Thrombocytopenia Plan: Plan of Care Empiric renal dosing of zosyn. 01/17 IV Vanc per pharmacy 01/17 Micafungin 01/17 CT Chest/abdo and pelvis with contrast Consider Gen Surgery consult , could be a component of ischemia F/U C/S F/U Labs in am Cont supportive care Condition critical D/W RN and KAJAL Campbell MD Jan 18, 2019 07:50
[2019-01-18] MEDS: SODIUM BICARBONATE 650 MG TABLET. PO SCH ×3 (08:00→17:00)
[2019-01-18] MEDS: CALCIUM CARBONATE 500 MG TABLET PO SCH ×3 (08:00→17:31)
[2019-01-18] MEDS: IPRATRPIUM/ALBUTEROL 0.5/2.5MG 3 ML NEBU. NEB SCH ×4 (08:07→19:44)
[2019-01-18] MEDS ORDERED: IOHEXOL 300 MG/ML 100ML VIAL. IV ONE (08:15)
[2019-01-18] MEDS ORDERED: CONTRAST GIVEN. MC PRN ×2 (08:15→12:00)
--- NOTE | 2019-01-18 08:26 | PDOC2 ---
CARMENCITABOLA Aldo CUSTOMS BROKER 01/18/19 0826: CONSULT Date of Consult Date of Consult DATE: 01/18/19 TIME: 08:20 Reason for Consult Reason for Consult: concern for ischemic bowel Referring Physician Referring Physician: Dr Brown Identification/Chief Complaint Chief Complaint hypotension Source Source: Chart review, Patient History of Present Illness Reason for Visit: Admitted with hypotension, multiple comorbidities --including CRF, HTN, NH, CAD Became increasingly hypotensive requiring pressor support, leukocytosis, lactic acidosis, confusion Denies abdominal pain on exam on lactulose-multiple stools yesterday Past Medical History Cardiovascular: CAD, HTN, NH, Aortic stenosis, Other (AAA) Pulmonary: Other (DAVIDA with past CPAP) Musculoskeletal: Osteoarthritis Rheumatologic: Other (MGUS) Renal/: Chronic renal failure ( with PD use ), Benign prostatic enlarg. Endocrine: Hyperparathyroidism (secondary) Dermatology: Eczema Past Surgical History Past Surgical History: Appendectomy, Arthroscopy (left knee), Other (AAA repair in 2005; back surgery, coronary stent placement in 2005) Family History Family History: Diabetes, Hypertension Social History Quit ALCOHOL: none Drugs: None Lives: with Family Current Problem List Problem List Problems Medical Problems: (1) Chronic kidney disease with end stage renal failure on dialysis Status: Acute (2) Generalized weakness Status: Acute (3) Hypotension Status: Acute (4) Nausea and vomiting Status: Acute Current Medications Current Medications Current Medications Ondansetron HCl (Zofran) 4 mg 1X ONCE IM ; Start 01/14/19 at 15:00; Stop at 15:01; Status Cancel Ondansetron HCl (Zofran) 4 mg 1X ONCE IM ; Start 01/14/19 at 15:45; Stop at 15:46; Status Cancel Ondansetron HCl (Zofran) 4 mg 1X ONCE IV Last administered on 01/14/19at 15:47; Start 01/14/19 at 15:45; Stop 01/14/19 at 15:46; Status DC Gentamicin Sulfate (Garamycin) 1 olu DAILY TP ; Start 01/15/19 at 09:00; Stop 01/15/19 at 13:52; Status DC Lactic Acid (Lac-Hydrin) 1 olu BID TP Last administered on 01/16/19at 20:25; Start 01/15/19 at 10:00 Aspirin (Children'S Aspirin) 81 mg DAILY PO Last administered on 01/16/19 09:51 ; Start 01/15/19 at 10:00 Atorvastatin Calcium (Lipitor) 20 mg QHS PO Last administered on 01/17/19 21:06 ; Start 01/15/19 at 21:00 Calcium Carbonate/ Glycine (Oscal) 500 mg TIDWMEALS PO Last administered on 01/16 16:49; Start 01/15/19 at 12:00 Acetaminophen/ Hydrocodone Bitart (Lortab 5/325) 1 tab PRN Q6HRS PRN PO MODERATE TO SEVERE PAIN Last administered on 01/16/19 20:25; Start 01/15/19 at 08 :45 Sevelamer Carbonate (Renvela) 1,600 mg TID PO Last administered on 01/17/19 20: 35; Start 01/15/19 at 09:00 Sodium Bicarbonate (Sodium Bicarbonate) 1,950 mg TIDWMEALS PO Last administered on 01/16/19 16:52; Start 01/15/19 at 12:00 Pantoprazole Sodium (Protonix) 40 mg DAILYAC PO Last administered on 01/16/19 06:16; Start 01/15/19 at 10:00 Triamcinolone Acetonide (Kenalog) 1 olu BID TP Last administered on 01/15/19 20 :55; Start 01/15/19 at 10:00 Albuterol/ Ipratropium (Duoneb) 3 ml RTQID NEB Last administered on 01/18/19 08 :07; Start 01/15/19 at 12:00 Acetaminophen (Tylenol) 1,000 mg PRN Q6HRS PRN PO mild pain Last administered on 01/16/19 09:50; Start 01/15/19 at 11:15 Midodrine (Proamatine) 2.5 mg [id number] PO Last administered on 01/16/19 09:50; Start 01/15/19 at 14:00; Stop 01/16/19 at 10:34; Status DC Gentamicin Sulfate (Garamycin) 1 olu DAILY TP Last administered on 01/17/19 18: 46; Start 01/16/19 at 09:00 Midodrine (Proamatine) 5 mg [id number] PO Last administered on 01/17/19 06:36; Start 01/16/19 at 13:00 Lactulose (Lactulose) 20 gm TID PO Last administered on 01/17/19 20:35; Start 01/17/19 at 14:15 Norepinephrine Bitartrate 250 ml @ 1.875 mls/ hr CONT PRN IV SEE I/O RECORD Last administered on 01/18/19 01:16; Start 01/17/19 at 14:30 Dextrose (Dextrose 50%-Water Syringe) 25 gm 1X ONCE IV Last administered on 14:45; Start 01/17/19 at 14:45; Stop 01/17/19 at 14:46; Status DC Dextrose (Dextrose 50%-Water Syringe) 25 gm 1X ONCE IV Last administered on 15:15; Start 01/17/19 at 15:30; Stop 01/17/19 at 15:31; Status DC Piperacillin Sod/ Tazobactam Sod (Zosyn Per Pharmacy) 1 each PRN DAILY PRN MC SEE COMMENTS; Start 01/17/19 at 16:00 Piperacillin Sod/ Tazobactam Sod 2.25 gm/Sodium Chloride 50 ml @ 100 mls/hr Q8HRS IV Last administered on 01/18/19 06:30; Start 01/17/19 at 17:00 Dextrose/Sodium Chloride 1,000 ml @ 50 mls/hr Q20H IV Last administered on 01/17 16:30; Start 01/17/19 at 16:30 Dextrose (Dextrose 50%-Water Syringe) 25 gm 1X ONCE IV Last administered on 01/17/19at 17:14; Start 01/17/19 at 17:15; Stop 01/17/19 at 17:16; Status DC Vancomycin HCl (Vanco Per Pharmacy) 1 each PRN DAILY PRN MC SEE COMMENTS Last administered on 01/17/19 20:20; Start 01/17/19 at 18:00 Sodium Chloride 1,000 ml @ 1,000 mls/hr 1X ONCE IV Last administered on 17:00; Start 01/17/19 at 18:00; Stop 01/17/19 at 18:59; Status DC Vancomycin HCl 2 gm/Sodium Chloride 500 ml @ 250 mls/hr 1X ONCE IV Last administered on 01/17/19at 18:50; Start 01/17/19 at 18:00; Stop 01/17/19 at 19:59; Status DC Micafungin Sodium 100 mg/Dextrose 100 ml @ 100 mls/hr Q24H IV Last administered on 01/17/19at 20:35; Start 01/17/19 at 20:00 Sodium Chloride 1,000 ml @ 100 mls/hr Q10H IV Last administered on 01/18/19at 06 :45; Start 01/18/19 at 06:45 Dextrose (Dextrose 50%-Water Syringe) 25 gm 1X ONCE IV Last administered on 01/18/19at 07:00; Start 01/18/19 at 07:00; Stop 01/18/19 at 07:08; Status DC Iohexol (Omnipaque 300 Mg/ml) 75 ml 1X ONCE IV ; Start 01/18/19 at 08:15; Stop 01/18/19 at 08:16; Status DC Info (CONTRAST GIVEN -- Rx MONITORING) 1 each PRN DAILY PRN MC SEE COMMENTS; Start 01/18/19 at 08:15; Stop 01/20/19 at 08:14 Active Scripts Active [place] 5-325 Tablet (Acetaminophen/Hydrocodone Bitart) 1 Each Tablet 1-2 Each PO PRN Q6HRS PRN as needed for pain Reported [calcium carbon] Triamcinolone Acetonide 0.5% Cream (Triamcinolone Acetonide) 15 Gm Cream..g. 1 Olu TP BID Renvela (Sevelamer Carbonate) 800 Mg Tablet 2 Tab PO TID Protonix (Pantoprazole Sodium) 40 Mg Granpkt.dr 40 Mg PO DAILY Calcium Carbonate 500 Mg Tablet 5,000 Mg PO TIDWMEALS Skin Treatment (Ammonium Lactate) 225 Gm Lotion 225 Gm TP BID Aspirin 81 Mg Tab.chew 1 Tab PO DAILY Atorvastatin Calcium 20 Mg Tablet 1 Tab PO QHS Sodium Bicarbonate 650 Mg Tablet 1,950 Mg PO TIDWMEALS Allergies Allergies: Coded Allergies: No Known Drug Allergies (Unverified , 04/23/18) ROS General: YES: Fatigue; No: Chills PSYCHOLOGICAL ROS: No: Anxiety, Depression Eyes: No Blurry vision, No Double vision HEENT: No: Heacaches, Sore Throat Hematological and Lymphatic: YES: Bleeding Problems, Brusing Respiratory: No: Cough, Shortness of breath Cardiovascular: No Chest Pain, No Palpitations Gastrointestinal: Yes Other (see hpi) Genitourinary: No Dysuria, No Hematuria Musculoskeletal: Yes Muscular Weakness; No Joint Pain Neurological: Yes Confusion; No Numbness/Tingling Skin: No Pruritus, No Rash Physical Exam General: Cooperative, No acute distress, Other (some confusion) HEENT: PERRLA, Mucous membr. moist/pink Lungs: Clear to auscultation, Normal air movement Heart: Normal S1, Normal S2 Abdomen: Soft, Other (mild TTP around Pd cath, no guarding or rebound, ND) Extremities: No cyanosis Skin: No rashes, No breakdown Neuro: Normal speech, Sensation intact Vitals VITALS Vital Signs Date Time Temp Pulse Resp B/P (MAP) Pulse Ox O2 Delivery O2 Flow Rate FiO2 01/18/19 06:00 105 14 90/55 (67) 97 Nasal Cannula 2.0 01/18/19 04:00 99.9 99.9 Labs Labs Laboratory Tests Test 01/16/19 12:00 01/16/19 18:10 01/17/19 09:45 01/17/19 15:13 White Blood Count 17.2 x10^3/uL (4.0-11.0) Red Blood Count 2.57 x10^6/uL (4.30-5.70) Hemoglobin 8.7 g/dL (13.0-17.5) Hematocrit 25.8 % (39.0-53.0) Mean Corpuscular Volume 100 fL (79-100) Mean Corpuscular Hemoglobin 34 pg (25-35) Mean Corpuscular Hemoglobin Concent 34 g/dL (31-37) Red Cell Distribution Width 15.7 % (11.5-14.5) Platelet Count 140 x10^3/uL (140-400) Prothrombin Time 23.7 SEC (11.7-14.0) Prothromb Time International Ratio 2.1 (0.8-1.1) Sodium Level 137 mmol/L (136-145) 138 mmol/L (136-145) Potassium Level 3.6 mmol/L (3.5-5.1) 4.6 mmol/L (3.5-5.1) Chloride Level 96 mmol/L (98-107) 96 mmol/L (98-107) Carbon Dioxide Level 25 mmol/L (21-32) 17 mmol/L (21-32) Anion Gap 16 (6-14) 25 (6-14) Blood Urea Nitrogen 81 mg/dL (8-26) 94 mg/dL (8-26) Creatinine 13.8 mg/dL (0.7-1.3) 15.6 mg/dL (0.7-1.3) Estimated GFR (Cockcroft-Gault) 3.5 3.1 Glucose Level 112 mg/dL (70-99) 51 mg/dL (70-99) Calcium Level 8.3 mg/dL (8.5-10.1) 9.2 mg/dL (8.5-10.1) Magnesium Level 2.5 mg/dL (1.8-2.4) Troponin I Quantitative 0.203 ng/mL (0.000-0.055) Lactic Acid Level 3.0 mmol/L (0.4-2.0) 12.3 mmol/L (0.4-2.0) Ammonia 181 mcmol/L (11-34) Glucose (Fingerstick) 64 mg/dL (70-99) Test 01/17/19 15:40 01/17/19 16:01 01/17/19 17:02 01/17/19 17:46 White Blood Count 18.2 x10^3/uL (4.0-11.0) Red Blood Count 3.03 x10^6/uL (4.30-5.70) Hemoglobin 10.1 g/dL (13.0-17.5) Hematocrit 31.9 % (39.0-53.0) Mean Corpuscular Volume 105 fL (79-100) Mean Corpuscular Hemoglobin 34 pg (25-35) Mean Corpuscular Hemoglobin Concent 32 g/dL (31-37) Red Cell Distribution Width 17.8 % (11.5-14.5) Platelet Count 141 x10^3/uL (140-400) Neutrophils (%) (Auto) 82 % (31-73) Lymphocytes (%) (Auto) 10 % (24-48) Monocytes (%) (Auto) 7 % (0-9) Eosinophils (%) (Auto) 0 % (0-3) Basophils (%) (Auto) 1 % (0-3) Neutrophils # (Auto) 15.0 x10^3uL (1.8-7.7) Lymphocytes # (Auto) 1.8 x10^3/uL (1.0-4.8) Monocytes # (Auto) 1.3 x10^3/uL (0.0-1.1) Eosinophils # (Auto) 0.0 x10^3/uL (0.0-0.7) Basophils # (Auto) 0.1 x10^3/uL (0.0-0.2) Segmented Neutrophils % 88 % (35-66) Band Neutrophils % 5 % (0-9) Lymphocytes % 5 % (24-48) Monocytes % 2 % (0-10) Platelet Estimate Adequate (ADEQUATE) Large Platelets Occ Giant Platelets Polychromasia Mod Poikilocytosis Slight Anisocytosis Slight Microcytosis Target Cells Few Ovalocytes Few Faxon Cells Mod Acanthocytes Mod Schistocytes Occ Sodium Level 137 mmol/L (136-145) Potassium Level 3.9 mmol/L (3.5-5.1) Chloride Level 95 mmol/L (98-107) Carbon Dioxide Level 12 mmol/L (21-32) Anion Gap 30 (6-14) Blood Urea Nitrogen 96 mg/dL (8-26) Creatinine 16.0 mg/dL (0.7-1.3) Estimated GFR (Cockcroft-Gault) 3.0 BUN/Creatinine Ratio 6 (6-20) Glucose Level 90 mg/dL (70-99) Lactic Acid Level 18.1 mmol/L (0.4-2.0) Calcium Level 9.5 mg/dL (8.5-10.1) Total Bilirubin 2.0 mg/dL (0.2-1.0) Aspartate Amino Transf (AST/SGOT) 84 U/L (15-37) Alanine Aminotransferase (ALT/SGPT) 27 U/L (16-63) Alkaline Phosphatase 549 U/L (46-116) Total Protein 5.4 g/dL (6.4-8.2) Albumin 1.6 g/dL (3.4-5.0) Albumin/Globulin Ratio 0.4 (1.0-1.7) Cortisol PM Sample 25.6 ug/dL (3.1-16.7) Glucose (Fingerstick) 54 mg/dL (70-99) 60 mg/dL (70-99) 106 mg/dL (70-99) Test 01/17/19 19:59 01/18/19 06:55 01/18/19 07:04 01/18/19 07:33 Glucose (Fingerstick) 95 mg/dL (70-99) 66 mg/dL (70-99) 74 mg/dL (70-99) White Blood Count 28.6 x10^3/uL (4.0-11.0) Red Blood Count 3.16 x10^6/uL (4.30-5.70) Hemoglobin 10.8 g/dL (13.0-17.5) Hematocrit 32.3 % (39.0-53.0) Mean Corpuscular Volume 102 fL (79-100) Mean Corpuscular Hemoglobin 34 pg (25-35) Mean Corpuscular Hemoglobin Concent 33 g/dL (31-37) Red Cell Distribution Width 17.3 % (11.5-14.5) Platelet Count 134 x10^3/uL (140-400) Neutrophils (%) (Auto) 76 % (31-73) Lymphocytes (%) (Auto) 9 % (24-48) Monocytes (%) (Auto) 15 % (0-9) Eosinophils (%) (Auto) 1 % (0-3) Basophils (%) (Auto) 0 % (0-3) Neutrophils # (Auto) 21.7 x10^3uL (1.8-7.7) Lymphocytes # (Auto) 2.4 x10^3/uL (1.0-4.8) Monocytes # (Auto) 4.2 x10^3/uL (0.0-1.1) Eosinophils # (Auto) 0.2 x10^3/uL (0.0-0.7) Basophils # (Auto) 0.1 x10^3/uL (0.0-0.2) Prothrombin Time 27.7 SEC (11.7-14.0) Prothromb Time International Ratio 2.6 (0.8-1.1) Sodium Level 137 mmol/L (136-145) Potassium Level 4.2 mmol/L (3.5-5.1) Chloride Level 94 mmol/L (98-107) Carbon Dioxide Level 18 mmol/L (21-32) Anion Gap 25 (6-14) Blood Urea Nitrogen 91 mg/dL (8-26) Creatinine 14.8 mg/dL (0.7-1.3) Estimated GFR (Cockcroft-Gault) 3.3 BUN/Creatinine Ratio 6 (6-20) Glucose Level 77 mg/dL (70-99) Lactic Acid Level 9.5 mmol/L (0.4-2.0) Calcium Level 9.5 mg/dL (8.5-10.1) Total Bilirubin 2.3 mg/dL (0.2-1.0) Aspartate Amino Transf (AST/SGOT) 294 U/L (15-37) Alanine Aminotransferase (ALT/SGPT) 71 U/L (16-63) Alkaline Phosphatase 457 U/L (46-116) Total Protein 5.4 g/dL (6.4-8.2) Albumin 1.6 g/dL (3.4-5.0) Albumin/Globulin Ratio 0.4 (1.0-1.7) Laboratory Tests Test 01/17/19 09:45 01/17/19 15:13 01/17/19 15:40 01/17/19 16:01 Sodium Level 138 mmol/L (136-145) 137 mmol/L (136-145) Potassium Level 4.6 mmol/L (3.5-5.1) 3.9 mmol/L (3.5-5.1) Chloride Level 96 mmol/L (98-107) 95 mmol/L (98-107) Carbon Dioxide Level 17 mmol/L (21-32) 12 mmol/L (21-32) Anion Gap 25 (6-14) 30 (6-14) Blood Urea Nitrogen 94 mg/dL (8-26) 96 mg/dL (8-26) Creatinine 15.6 mg/dL (0.7-1.3) 16.0 mg/dL (0.7-1.3) Estimated GFR (Cockcroft-Gault) 3.1 3.0 Glucose Level 51 mg/dL (70-99) 90 mg/dL (70-99) Lactic Acid Level 12.3 mmol/L (0.4-2.0) 18.1 mmol/L (0.4-2.0) Calcium Level 9.2 mg/dL (8.5-10.1) 9.5 mg/dL (8.5-10.1) Ammonia 181 mcmol/L (11-34) Glucose (Fingerstick) 64 mg/dL (70-99) 54 mg/dL (70-99) White Blood Count 18.2 x10^3/uL (4.0-11.0) Red Blood Count 3.03 x10^6/uL (4.30-5.70) Hemoglobin 10.1 g/dL (13.0-17.5) Hematocrit 31.9 % (39.0-53.0) Mean Corpuscular Volume 105 fL (79-100) Mean Corpuscular Hemoglobin 34 pg (25-35) Mean Corpuscular Hemoglobin Concent 32 g/dL (31-37) Red Cell Distribution Width 17.8 % (11.5-14.5) Platelet Count 141 x10^3/uL (140-400) Neutrophils (%) (Auto) 82 % (31-73) Lymphocytes (%) (Auto) 10 % (24-48) Monocytes (%) (Auto) 7 % (0-9) Eosinophils (%) (Auto) 0 % (0-3) Basophils (%) (Auto) 1 % (0-3) Neutrophils # (Auto) 15.0 x10^3uL (1.8-7.7) Lymphocytes # (Auto) 1.8 x10^3/uL (1.0-4.8) Monocytes # (Auto) 1.3 x10^3/uL (0.0-1.1) Eosinophils # (Auto) 0.0 x10^3/uL (0.0-0.7) Basophils # (Auto) 0.1 x10^3/uL (0.0-0.2) Segmented Neutrophils % 88 % (35-66) Band Neutrophils % 5 % (0-9) Lymphocytes % 5 % (24-48) Monocytes % 2 % (0-10) Platelet Estimate Adequate (ADEQUATE) Large Platelets Occ Giant Platelets Polychromasia Mod Poikilocytosis Slight Anisocytosis Slight Microcytosis Target Cells Few Ovalocytes Few Faxon Cells Mod Acanthocytes Mod Schistocytes Occ BUN/Creatinine Ratio 6 (6-20) Total Bilirubin 2.0 mg/dL (0.2-1.0) Aspartate Amino Transf (AST/SGOT) 84 U/L (15-37) Alanine Aminotransferase (ALT/SGPT) 27 U/L (16-63) Alkaline Phosphatase 549 U/L (46-116) Total Protein 5.4 g/dL (6.4-8.2) Albumin 1.6 g/dL (3.4-5.0) Albumin/Globulin Ratio 0.4 (1.0-1.7) Cortisol PM Sample 25.6 ug/dL (3.1-16.7) Test 01/17/19 17:02 01/17/19 17:46 01/17/19 19:59 01/18/19 06:55 Glucose (Fingerstick) 60 mg/dL (70-99) 106 mg/dL (70-99) 95 mg/dL (70-99) White Blood Count 28.6 x10^3/uL (4.0-11.0) Red Blood Count 3.16 x10^6/uL (4.30-5.70) Hemoglobin 10.8 g/dL (13.0-17.5) Hematocrit 32.3 % (39.0-53.0) Mean Corpuscular Volume 102 fL (79-100) Mean Corpuscular Hemoglobin 34 pg (25-35) Mean Corpuscular Hemoglobin Concent 33 g/dL (31-37) Red Cell Distribution Width 17.3 % (11.5-14.5) Platelet Count 134 x10^3/uL (140-400) Neutrophils (%) (Auto) 76 % (31-73) Lymphocytes (%) (Auto) 9 % (24-48) Monocytes (%) (Auto) 15 % (0-9) Eosinophils (%) (Auto) 1 % (0-3) Basophils (%) (Auto) 0 % (0-3) Neutrophils # (Auto) 21.7 x10^3uL (1.8-7.7) Lymphocytes # (Auto) 2.4 x10^3/uL (1.0-4.8) Monocytes # (Auto) 4.2 x10^3/uL (0.0-1.1) Eosinophils # (Auto) 0.2 x10^3/uL (0.0-0.7) Basophils # (Auto) 0.1 x10^3/uL (0.0-0.2) Prothrombin Time 27.7 SEC (11.7-14.0) Prothromb Time International Ratio 2.6 (0.8-1.1) Sodium Level 137 mmol/L (136-145) Potassium Level 4.2 mmol/L (3.5-5.1) Chloride Level 94 mmol/L (98-107) Carbon Dioxide Level 18 mmol/L (21-32) Anion Gap 25 (6-14) Blood Urea Nitrogen 91 mg/dL (8-26) Creatinine 14.8 mg/dL (0.7-1.3) Estimated GFR (Cockcroft-Gault) 3.3 BUN/Creatinine Ratio 6 (6-20) Glucose Level 77 mg/dL (70-99) Lactic Acid Level 9.5 mmol/L (0.4-2.0) Calcium Level 9.5 mg/dL (8.5-10.1) Total Bilirubin 2.3 mg/dL (0.2-1.0) Aspartate Amino Transf (AST/SGOT) 294 U/L (15-37) Alanine Aminotransferase (ALT/SGPT) 71 U/L (16-63) Alkaline Phosphatase 457 U/L (46-116) Total Protein 5.4 g/dL (6.4-8.2) Albumin 1.6 g/dL (3.4-5.0) Albumin/Globulin Ratio 0.4 (1.0-1.7) Test 01/18/19 07:04 01/18/19 07:33 Glucose (Fingerstick) 66 mg/dL (70-99) 74 mg/dL (70-99) Assessment/Plan Assessment/Plan hypotension, leukocytosis, confusion, lactic acidosis no abdominal findings on CT, benign abdominal exam multiple comorbidities will review with LOLITA Castillo MD 01/18/19 8832: CONSULT Assessment/Plan Assessment/Plan Patient seen and examined by me currently resting comfortably in bed just back from a CT scan is passing stool he denies any abdominal pain nausea or vomiting although was reported he did vomit once prior to going to CT scanner. His abdomen is soft nondistended with normal active bowel sounds nontender to palpation peroneal dialysis catheter in place no abdominal wall cellulitis. CT from yesterday was reviewed showed cholelithiasis no thickened bowel wall no dilated bowel no signs or symptoms of ischemic bowel. Metabolic acidosis likely due to his renal failure leukocytosis of unknown origin patient is afebrile. At this time and does not appear to be an intra-abdominal issue will follow up on repeated CT scan from today with contrast. Agree with Winifred assessment and plan BOLA TSE APRN Jan 18, 2019 08:26 LOLITA SANCHEZ MD Jan 18, 2019 09:14
[2019-01-18] MEDS: LACTULOSE 20 GM/30 ML SOLUTION. PO SCH (09:00)
[2019-01-18] MEDS: TRIAMCINOLONE ACETONIDE 0.1% TOPICAL CREAM 15GM TUBE. TP SCH ×2 (09:00→21:00)
[2019-01-18] MEDS: SEVELAMER CARBONATE 800 MG TABLET. PO SCH ×3 (09:00→21:00)
[2019-01-18] MEDS: ASPIRIN CHEWABLE 81 MG TABLET. PO SCH (09:00)
[2019-01-18] MEDS: AMMONIUM LACTATE 12% TOPICAL LOTION 226GM BOTTLE. TP SCH ×2 (09:00→21:00)
--- NOTE | 2019-01-18 09:12 | RAD ---
CT scan of the chest abdomen and pelvis with contrast 01/18/2019 CLINICAL HISTORY: Leukocytosis and lactic acidosis. TECHNIQUE: After the intravenous administration of 75 cc of Omnipaque 300, contiguous, 5 mm axial sections were obtained through the chest abdomen and pelvis. One or more of the following individualized dose reduction techniques were utilized for this study: 1. Automated exposure control. 2. Adjustment of the mA and/or kV according to patient size. 3. Use of iterative reconstruction technique. FINDINGS: Comparison is made to a portable chest radiograph dated 01/14/[address] scan of the abdomen dated 01/16/2019. Atherosclerotic calcification of the thoracic aorta and its branches is noted. The thoracic aorta is tortuous but tapers normally. Extensive coronary artery calcifications are seen. The heart is normal in size. Bilateral gynecomastia is noted. Calcified granulomas are seen scattered throughout both lungs. Calcified pleural plaques are seen posterior to the right lower lobe. Minimal dependent subsegmental atelectasis is seen involving both lungs. No pneumothorax or pleural effusion is seen. Areas of scarring are seen involving the apices of both lungs, right greater than left. No area of consolidation is noted. The liver is enlarged measuring 21.2 cm in length. The liver has a nodular contour and is heterogeneous suggestive of cirrhosis. The spleen is normal in size. The pancreas, right adrenal gland and kidneys are within normal limits. A 2.2 cm nodule is seen involving the left adrenal gland. This likely represents an adrenal adenoma. It is unchanged. Atherosclerotic calcification of the abdominal aorta is seen. The abdominal aorta is ectatic. A stent graft extends from the abdominal aorta to the common iliac arteries. A peritoneal dialysis catheter extends into the peritoneal space within the inferior pelvis. A [id number] amount of free fluid surrounds the liver. There is no evidence of bowel obstruction. Images through pelvis demonstrate the urinary bladder distended with urine. The prostate gland is enlarged likely related to BPH. A moderate amount of free fluid is seen within the pelvis. Degenerative changes are seen involving thoracic and throughout the lumbar spine and both hips. IMPRESSION: No acute abnormality is seen. Electronically signed by: Shoaib Willis MD (01/18/2019 9:09 AM) [id number]
--- NOTE | 2019-01-18 09:13 | CONS ---
DATE OF CONSULTATION: 01/17/2019 REFERRING PHYSICIAN: Dr. Amin. REASON FOR CONSULTATION: Sepsis. HISTORY OF PRESENT ILLNESS: A 73-year-old male with history of end-stage renal disease on home peritoneal dialysis, was sent from his primary care physician's office due to hypotension on 01/14/2019. The patient had episodes of dizziness, which had started since he was started on dialysis in 06/2018 and had been hospitalized at [facility] multiple times in the past. The patient was also found to have hypoglycemia with confusion. Did have some nausea prior to admission. GI was consulted. Cardiology is consulted due to aortic stenosis. The patient had PD fluid done, which showed 3 wbc's and 31 rbc's, otherwise clear. The patient had a white count on admission was elevated at 16.6 with hemoglobin of 10.3 and neutrophil percent of 56. The patient had a lactate, which was elevated at 7.4 and then came down to 2.8 on 01/15/2019, but then today was elevated at 12.3 and now is 18.1. The patient's blood sugar was 51. He is currently transferred to the ICU and received 500 mL bolus of IV fluids. He is awaiting a dialysis session. His sugars were still low at 64, so he is on D5W at this time. The patient had ammonia level done, which is elevated at 181. His LFTs are elevated at total bilirubin of 2.0, AST of 84, ALT 27, alkaline phosphatase of 549 and albumin is 1.6. Repeat Blood cultures are done, which are pending at this time. The patient states he does not make any urine. Chest x-ray on admission shows no acute cardiopulmonary abnormality. Ultrasound of the abdomen showed heterogenous increased echogenicity of the liver with nodular contour suspicious for cirrhosis, small amount of ascites, cholelithiasis, diffuse gallbladder wall thickening nonspecific. This could be a manifestation of hepatocellular disease. Cholecystitis is considered less likely. The patient had CT of the abdomen without contrast done yesterday, which showed no appreciable morphologic changes of cirrhosis, small amount of perihepatic ascites nonspecific, slight increase in infrarenal aneurysmal sac, status post aortobiiliac stent graft, cholelithiasis without changes suggestive of acute cholecystitis. The patient is not on any antibiotics .Due hypotension, confusion, lactic acidosis and leukocytosis there was a concern about ongoing sepsis, so ID has been consulted. Midodrine did not improve his blood pressure as above. Workup for adrenal insufficiency versus amyloidosis is pending at this time. Pt is seen in ICU. He is lethargic, sleepy but arousable. The patient denied any fevers, chills, headache,sore throat ,eye pain or ear pain, runny nose, nausea, vomiting abdominal pain , sob, cough, chest pain, chest pain with deep breathing. Apetite is ok. He denies taking any antibiotics before admission. He denies any recent procedure. He denies any recent travel. He denies any sick contact. Per chart he was recently dc from [facility].Pt was not able to give me any details. NO family is at bedside. D/W RN.Awaiting PD session this evening.Upon arrival to ICU he has been started on levophed 2 mcg. PAST MEDICAL HISTORY: Chronic kidney disease with end-stage renal disease on peritoneal dialysis, aortic stenosis, hyperlipidemia, coronary artery disease, hypertension, myocardial infarction, abdominal stents for AAA, cardiac stent, appendectomy, orthopedic surgery on the knees. REVIEW OF SYSTEMS: Negative for fevers, chills, nausea, vomiting, headache, runny nose, ear pain or drainage, neck pain, shortness of breath, cough, abdominal pain, nausea, vomiting, diarrhea, rash or joint pain. The patient is anuric. Denies being on any antibiotics prior to admission. SOCIAL HISTORY: Denies smoking, ETOH or illicit drug use. Lives with his . ALLERGIES: No known drug allergies. CURRENT MEDICATIONS: I started him on empiric IV Zosyn ,vancomycin per pharmacy just now,Micafungin.Also on Levophed, lactulose, midodrine, gentamicin , zinc sulfate ointment, Lipitor, albuterol, sodium carbonate, calcium carbonate, acetaminophen, triamcinolone acetonide, pantoprazole, aspirin, Lac-Hydrin, sevelamer and hydrocodone. PAST SURGICAL HISTORY: Partial omentectomy, appendectomy, AAA repair, left knee arthroscopy, back surgery, PD cath placement, bone marrow biopsy and coronary stent. FAMILY HISTORY: As per HPI. PHYSICAL EXAMINATION: VITAL SIGNS: Temperature 98, pulse 87, respiratory rate 16, blood pressure 162/30, oxygen saturation 93% on room air. Currently, the patient is on 2 liters O2. GENERAL: Alert, tired appearing male, cooperative, in no acute distress, slow in answering questions. HEENT: Normocephalic, atraumatic. Anicteric. Slight irritation of the eyelids. No purulence seen No conjunctival petechia. NECK: Supple. LUNGS: Clear bilaterally anteriorly. HEART: S1, S2. Loud systolic murmur. ABDOMEN: Soft and nontender. PD cath, left side, clear liquid. No rebound, no guarding. EXTREMITIES: No edema, no cyanosis. DERM: Warm, dry, no generalized rash. Multiple bruises in bilateral upper extremities. NEUROLOGIC: Alert and oriented x 3 and slow in answering questions. Grossly nonfocal. PIV looks ok LABORATORY DATA: WBC 18.2, hemoglobin 10.1, hematocrit 31.9, MCV 105, platelets 141, neutrophil 82%, bands 5, lymphocytes 5. Sodium 137, potassium 3.9, chloride 95, bicarbonate 12, BUN 96, creatinine 16 and glucose 54. Lactate 18.1, calcium 9.5, total bilirubin 2.0, AST 84, ALT 27, alkaline phosphatase 549, ammonia 181, albumin 1.6. Troponin 0.203. Peritoneal dialysis fluid nucleated cells 3, fluid total rbc's 31. INR 2.1. Micro blood culture 01/14/2019 negative so far. On 01/17/2019 done, peritoneal fluid, no WBC seen, negative. IMAGIN. Chest x-ray as above. 2. Ultrasound as above. 3. Abdominal CT as above. IMPRESSION: 1. Hypotension appears multifactorial with underlying severe aortic stenosis, end-stage renal disease on PD. Failed midodrine treatment.Cannot rule out underlying infection though there is no localizing signs of symptoms except for hypotension which he has had prior to this admission since last June 2018 when he was admitted to [facility] per pt, though he could not give me details.Abdominal CT done 01/16 noted. BC on admission negative from 01/14/2019. 2. Leukocytosis, rule out infection, could be reactive. 3. Lactic acidosis, very high level 4. End-stage renal disease, on PD. 5. Hyperlipidemia. 6. Metabolic acidosis. 7. Chronic liver disease, hyperammonemia. 8. AAA, status post stent. 9. Hypoglycemia. 10. Protein-calorie malnutrition. 11. Severe Aortic stenosis RECOMMENDATIONS: 1. We will start empiric Zosyn and IV vancomycin, renal dosing,Micafungin 2. Follow up labs in am and cultures/ susceptibility results.Cortisol is pending. 3. Renal team, Cardiology team, GI team is following. 4. May need further imaging if continues to have hypotension and lactic acidosis as could be from noninfectious etiology also including ischemic bowel Consider General surgery consult. 5. Condition Critical.Prognosis poor Discussed with RN. Thank you, Dr. Amin for consulting Infectious Disease to participate in this patient's care. If you have any questions, do not hesitate to contact me. KAJAL CHOW MD DR: KANDACE/faraz JOB#: [id number] / [id number] [place]
[2019-01-18] MEDS ORDERED: MIDAZOLAM HCL/PF 5 MG/5 ML VIAL. ONE (09:25)
[2019-01-18] MEDS ORDERED: fentaNYL PF VIAL 100 MCG/2 ML VIAL ONE (09:25)
[2019-01-18] MEDS ORDERED: fentaNYL PF VIAL 100 MCG/2 ML VIAL IV PRN (09:30)
[2019-01-18] MEDS ORDERED: MIDAZOLAM HCL/PF 5 MG/5 ML VIAL. IV ONE (09:30)
--- NOTE | 2019-01-18 10:00 | NUR ---
Procedure note: Versed 1mg and fent 50mcg IV given per order of Dr Kaba.
--- NOTE | 2019-01-18 10:14 | PDOC ---
SUBJECTIVE ROS Was Mildly confused this am but more alert as per RN OBJECTIVE Vital Signs Vital Signs Date Time Temp Pulse Resp B/P (MAP) Pulse Ox O2 Delivery O2 Flow Rate FiO2 01/18/19 08:05 99 Nasal Cannula 2.0 01/18/19 06:00 105 14 90/55 (67) 01/18/19 04:00 99.9 99.9 I & 0 Intake and Output 01/18/19 07:00 Intake Total 1119 ml Balance 1119 ml Intake Oral 0 ml IV Total 1119 ml # Bowel Movements 4 PHYSICAL EXAM Physical Exam GEN: NAD HEEN: OM moist NECK: Supple CVS: S1S2 , Murmur ++ RESP: CTA Bilat, No use of acc Muscles GI: BS + ve, NT, PD catheter in Place : No CVA tenderness, No Suprapubic Tenderness, No Ojeda Skin No rash DIAGNOSIS/ASSESSMENT Assessment & Plan ESRD- On PD since Jun [address] Tomlinson no peritonitis, No Vol Overload Continue as per Home prescription K Normal, Bicarb Mildly low, Monitor Hypotension- has been hospitalized and worked up at [facility] in past as well Not responding to midodrine Lactic acid elevated, Alk Phos High, elevated WBC CT with contrast this am , no acute findings ID consulted Consult Hem/onc-? Amyloidosis Aortic stenosis - Seen by card as OP recently- JOANNA done- moderate Aortic stenosis Card on board Aortoiiliac stent graft is identified with the hoopa aorta measuring 4.1 x 4.3 Discussed with RN, Primary, Dr. Treadwell and Dr. Tomlinson COMMENT/RELEVANT DATA Meds Current Medications Medications (Trade) Dose Ordered Sig/Conrad Start Time Stop Time Status Last Admin Dose Admin Acetaminophen (Tylenol) 1,000 mg PRN Q6HRS PRN 01/15/19 11:15 01/16/19 09:50 1,000 MG Acetaminophen/ Hydrocodone Bitart (Lortab 5/325) 1 tab PRN Q6HRS PRN 01/15/19 08:45 01/16/19 20:25 1 TAB Albuterol/ Ipratropium (Duoneb) 3 ml RTQID 01/15/19 12:00 01/18/19 08:07 3 ML Aspirin (Children'S Aspirin) 81 mg DAILY 01/15/19 10:00 01/16/19 09:51 81 MG Atorvastatin Calcium (Lipitor) 20 mg QHS 01/15/19 21:00 01/17/19 21:06 20 MG Calcium Carbonate/ Glycine (Oscal) 500 mg TIDWMEALS 01/15/19 12:00 01/16/19 16:49 500 MG Dextrose (Dextrose 50%-Water Syringe) 25 gm 1X ONCE 01/18/19 07:00 01/18/19 07:08 DC 01/18/19 07:00 25 GM Dextrose/Sodium Chloride 1,000 ml @ 50 mls/hr Q20H 01/17/19 16:30 01/17/19 16:30 50 MLS/HR Fentanyl Citrate (Fentanyl 2ml Vial) 100 mcg STK-MED ONCE 01/18/19 09:25 01/18/19 09:26 DC Gentamicin Sulfate (Garamycin) 1 betty DAILY 01/16/19 09:00 01/17/19 18:46 1 BETTY Info (CONTRAST GIVEN -- Rx MONITORING) 1 each PRN DAILY PRN 01/18/19 08:15 01/20/19 08:14 Iohexol (Omnipaque 300 Mg/ml) 75 ml 1X ONCE 01/18/19 08:15 01/18/19 08:16 DC Lactic Acid (Lac-Hydrin) 1 betty BID 01/15/19 10:00 01/16/19 20:25 1 BETTY Lactulose (Lactulose) 20 gm TID 01/17/19 14:15 01/17/19 20:35 20 GM Micafungin Sodium 100 mg/Dextrose 100 ml @ 100 mls/hr Q24H 01/17/19 20:00 01/17/19 20:35 100 MLS/HR Midazolam HCl (Versed) 5 mg STK-MED ONCE 01/18/19 09:25 01/18/19 09:26 DC Midodrine (Proamatine) 5 mg [id number] 01/16/19 13:00 01/17/19 06:36 5 MG Norepinephrine Bitartrate 250 ml @ 1.875 mls/ hr CONT PRN 01/17/19 14:30 01/18/19 09:14 41.25 MLS/HR Ondansetron HCl (Zofran) 4 mg 1X ONCE 01/14/19 15:45 01/14/19 15:46 DC 01/14/19 15:47 4 MG Pantoprazole Sodium (Protonix) 40 mg DAILYAC 01/15/19 10:00 01/16/19 06:16 40 MG Piperacillin Sod/ Tazobactam Sod (Zosyn Per Pharmacy) 1 each PRN DAILY PRN 01/17/19 16:00 Piperacillin Sod/ Tazobactam Sod 2.25 gm/Sodium Chloride 50 ml @ 100 mls/hr Q8HRS 01/17/19 17:00 01/18/19 06:30 100 MLS/HR Sevelamer Carbonate (Renvela) 1,600 mg TID 01/15/19 09:00 01/17/19 20:35 1,600 MG Sodium Bicarbonate (Sodium Bicarbonate) 1,950 mg TIDWMEALS 01/15/19 12:00 01/16/19 16:52 1,950 MG Sodium Chloride 1,000 ml @ 100 mls/hr Q10H 01/18/19 06:45 01/18/19 06:45 100 MLS/HR Triamcinolone Acetonide (Kenalog) 1 betty BID 01/15/19 10:00 01/15/19 20:55 1 BETTY Vancomycin HCl (Vanco Per Pharmacy) 1 each PRN DAILY PRN 01/17/19 18:00 01/17/19 20:20 1 EACH Vancomycin HCl 2 gm/Sodium Chloride 500 ml @ 250 mls/hr 1X ONCE 01/17/19 18:00 01/17/19 19:59 DC 01/17/19 18:50 250 MLS/HR Lab Laboratory Tests Test 01/17/19 15:13 01/17/19 15:40 01/17/19 16:01 01/17/19 17:02 Glucose (Fingerstick) 64 mg/dL (70-99) 54 mg/dL (70-99) 60 mg/dL (70-99) White Blood Count 18.2 x10^3/uL (4.0-11.0) Red Blood Count 3.03 x10^6/uL (4.30-5.70) Hemoglobin 10.1 g/dL (13.0-17.5) Hematocrit 31.9 % (39.0-53.0) Mean Corpuscular Volume 105 fL (79-100) Mean Corpuscular Hemoglobin 34 pg (25-35) Mean Corpuscular Hemoglobin Concent 32 g/dL (31-37) Red Cell Distribution Width 17.8 % (11.5-14.5) Platelet Count 141 x10^3/uL (140-400) Neutrophils (%) (Auto) 82 % (31-73) Lymphocytes (%) (Auto) 10 % (24-48) Monocytes (%) (Auto) 7 % (0-9) Eosinophils (%) (Auto) 0 % (0-3) Basophils (%) (Auto) 1 % (0-3) Neutrophils # (Auto) 15.0 x10^3uL (1.8-7.7) Lymphocytes # (Auto) 1.8 x10^3/uL (1.0-4.8) Monocytes # (Auto) 1.3 x10^3/uL (0.0-1.1) Eosinophils # (Auto) 0.0 x10^3/uL (0.0-0.7) Basophils # (Auto) 0.1 x10^3/uL (0.0-0.2) Segmented Neutrophils % 88 % (35-66) Band Neutrophils % 5 % (0-9) Lymphocytes % 5 % (24-48) Monocytes % 2 % (0-10) Platelet Estimate Adequate (ADEQUATE) Large Platelets Occ Giant Platelets Polychromasia Mod Poikilocytosis Slight Anisocytosis Slight Microcytosis Target Cells Few Ovalocytes Few Devika Cells Mod Acanthocytes Mod Schistocytes Occ Sodium Level 137 mmol/L (136-145) Potassium Level 3.9 mmol/L (3.5-5.1) Chloride Level 95 mmol/L (98-107) Carbon Dioxide Level 12 mmol/L (21-32) Anion Gap 30 (6-14) Blood Urea Nitrogen 96 mg/dL (8-26) Creatinine 16.0 mg/dL (0.7-1.3) Estimated GFR (Cockcroft-Gault) 3.0 BUN/Creatinine Ratio 6 (6-20) Glucose Level 90 mg/dL (70-99) Lactic Acid Level 18.1 mmol/L (0.4-2.0) Calcium Level 9.5 mg/dL (8.5-10.1) Total Bilirubin 2.0 mg/dL (0.2-1.0) Aspartate Amino Transf (AST/SGOT) 84 U/L (15-37) Alanine Aminotransferase (ALT/SGPT) 27 U/L (16-63) Alkaline Phosphatase 549 U/L (46-116) Total Protein 5.4 g/dL (6.4-8.2) Albumin 1.6 g/dL (3.4-5.0) Albumin/Globulin Ratio 0.4 (1.0-1.7) Cortisol PM Sample 25.6 ug/dL (3.1-16.7) Test 01/17/19 17:46 01/17/19 19:59 01/18/19 06:55 01/18/19 07:04 Glucose (Fingerstick) 106 mg/dL (70-99) 95 mg/dL (70-99) 66 mg/dL (70-99) White Blood Count 28.6 x10^3/uL (4.0-11.0) Red Blood Count 3.16 x10^6/uL (4.30-5.70) Hemoglobin 10.8 g/dL (13.0-17.5) Hematocrit 32.3 % (39.0-53.0) Mean Corpuscular Volume 102 fL (79-100) Mean Corpuscular Hemoglobin 34 pg (25-35) Mean Corpuscular Hemoglobin Concent 33 g/dL (31-37) Red Cell Distribution Width 17.3 % (11.5-14.5) Platelet Count 134 x10^3/uL (140-400) Neutrophils (%) (Auto) 76 % (31-73) Lymphocytes (%) (Auto) 9 % (24-48) Monocytes (%) (Auto) 15 % (0-9) Eosinophils (%) (Auto) 1 % (0-3) Basophils (%) (Auto) 0 % (0-3) Neutrophils # (Auto) 21.7 x10^3uL (1.8-7.7) Lymphocytes # (Auto) 2.4 x10^3/uL (1.0-4.8) Monocytes # (Auto) 4.2 x10^3/uL (0.0-1.1) Eosinophils # (Auto) 0.2 x10^3/uL (0.0-0.7) Basophils # (Auto) 0.1 x10^3/uL (0.0-0.2) Prothrombin Time 27.7 SEC (11.7-14.0) Prothromb Time International Ratio 2.6 (0.8-1.1) Sodium Level 137 mmol/L (136-145) Potassium Level 4.2 mmol/L (3.5-5.1) Chloride Level 94 mmol/L (98-107) Carbon Dioxide Level 18 mmol/L (21-32) Anion Gap 25 (6-14) Blood Urea Nitrogen 91 mg/dL (8-26) Creatinine 14.8 mg/dL (0.7-1.3) Estimated GFR (Cockcroft-Gault) 3.3 BUN/Creatinine Ratio 6 (6-20) Glucose Level 77 mg/dL (70-99) Lactic Acid Level 9.5 mmol/L (0.4-2.0) Calcium Level 9.5 mg/dL (8.5-10.1) Phosphorus Level 12.5 mg/dL (2.6-4.7) Total Bilirubin 2.3 mg/dL (0.2-1.0) Aspartate Amino Transf (AST/SGOT) 294 U/L (15-37) Alanine Aminotransferase (ALT/SGPT) 71 U/L (16-63) Alkaline Phosphatase 457 U/L (46-116) Total Protein 5.4 g/dL (6.4-8.2) Albumin 1.6 g/dL (3.4-5.0) Albumin/Globulin Ratio 0.4 (1.0-1.7) Test 01/18/19 07:33 Glucose (Fingerstick) 74 mg/dL (70-99) Results All relevant outside records, renal labs, imaging studies, telemetry/EKG's were reviewed. JUDSON GUZMAN MD Jan 18, 2019 10:14
[2019-01-18] MEDS ORDERED: IV NORMAL SALINE 500ML BAG 500 ML IV ONE ×3 (10:15→12:30)
--- NOTE | 2019-01-18 10:21 | NUR ---
SS following up with discharge planning. Pt transferred to ICU. Palliative Care consulted. No PT/OT at this time. SS will continue to follow for discharge planning.
--- NOTE | 2019-01-18 10:30 | RAD ---
Indication:CENTRAL LINE PLACEMENT TECHNIQUE:Portable AP chest X-ray COMPARISON:01/14/2019 FINDINGS: Interval placement of right IJ catheter with its tip in the right atrium. Heart is normal in size. Bilateral scattered calcified granulomas are seen. No pneumothorax or pleural effusion. Visualized bony thorax within normal limits. IMPRESSION: Tip of the right IJ catheter is slightly past cavoatrial junction. No pneumothorax. Electronically signed by: Dallin Cosby DO (01/18/2019 10:27 AM) [id number]
[2019-01-18 10:47] LABS: BASE EXCESS ABG -10 mmol/L (-3-3); HCO3 ABG 15 mmol/L (21-28); PCO2 ABG 28 mmHg (35-46); PO2 ABG 105 mmHg (65-108); SAT O2 ABG 96 % (92-99)
[2019-01-18] MEDS ORDERED: ONDANSETRON PF 4 MG/2 ML VIAL. IV PRN (11:00)
--- NOTE | 2019-01-18 11:04 | PDOC ---
Objective: Objective: Reviewed w/ RN - confused, having lots of stools. Vital Signs: Vital Signs Date Time Temp Pulse Resp B/P (MAP) Pulse Ox O2 Delivery O2 Flow Rate FiO2 01/18/19 10:44 99 Nasal Cannula 2.0 01/18/19 10:42 16 01/18/19 06:00 105 90/55 (67) 01/18/19 04:00 99.9 99.9 Labs: Laboratory Tests Test 01/17/19 15:13 01/17/19 15:40 01/17/19 16:01 01/17/19 17:02 Glucose (Fingerstick) 64 mg/dL 54 mg/dL 60 mg/dL White Blood Count 18.2 x10^3/uL Red Blood Count 3.03 x10^6/uL Hemoglobin 10.1 g/dL Hematocrit 31.9 % Mean Corpuscular Volume 105 fL Mean Corpuscular Hemoglobin 34 pg Mean Corpuscular Hemoglobin Concent 32 g/dL Red Cell Distribution Width 17.8 % Platelet Count 141 x10^3/uL Neutrophils (%) (Auto) 82 % Lymphocytes (%) (Auto) 10 % Monocytes (%) (Auto) 7 % Eosinophils (%) (Auto) 0 % Basophils (%) (Auto) 1 % Neutrophils # (Auto) 15.0 x10^3uL Lymphocytes # (Auto) 1.8 x10^3/uL Monocytes # (Auto) 1.3 x10^3/uL Eosinophils # (Auto) 0.0 x10^3/uL Basophils # (Auto) 0.1 x10^3/uL Segmented Neutrophils % 88 % Band Neutrophils % 5 % Lymphocytes % 5 % Monocytes % 2 % Platelet Estimate Adequate Large Platelets Occ Giant Platelets Polychromasia Mod Poikilocytosis Slight Anisocytosis Slight Microcytosis Target Cells Few Ovalocytes Few Dveika Cells Mod Acanthocytes Mod Schistocytes Occ Sodium Level 137 mmol/L Potassium Level 3.9 mmol/L Chloride Level 95 mmol/L Carbon Dioxide Level 12 mmol/L Anion Gap 30 Blood Urea Nitrogen 96 mg/dL Creatinine 16.0 mg/dL Estimated GFR (Cockcroft-Gault) 3.0 BUN/Creatinine Ratio 6 Glucose Level 90 mg/dL Lactic Acid Level 18.1 mmol/L Calcium Level 9.5 mg/dL Total Bilirubin 2.0 mg/dL Aspartate Amino Transf (AST/SGOT) 84 U/L Alanine Aminotransferase (ALT/SGPT) 27 U/L Alkaline Phosphatase 549 U/L Total Protein 5.4 g/dL Albumin 1.6 g/dL Albumin/Globulin Ratio 0.4 Cortisol PM Sample 25.6 ug/dL Test 01/17/19 17:46 01/17/19 19:59 01/18/19 06:55 01/18/19 07:04 Glucose (Fingerstick) 106 mg/dL 95 mg/dL 66 mg/dL White Blood Count 28.6 x10^3/uL Red Blood Count 3.16 x10^6/uL Hemoglobin 10.8 g/dL Hematocrit 32.3 % Mean Corpuscular Volume 102 fL Mean Corpuscular Hemoglobin 34 pg Mean Corpuscular Hemoglobin Concent 33 g/dL Red Cell Distribution Width 17.3 % Platelet Count 134 x10^3/uL Neutrophils (%) (Auto) 76 % Lymphocytes (%) (Auto) 9 % Monocytes (%) (Auto) 15 % Eosinophils (%) (Auto) 1 % Basophils (%) (Auto) 0 % Neutrophils # (Auto) 21.7 x10^3uL Lymphocytes # (Auto) 2.4 x10^3/uL Monocytes # (Auto) 4.2 x10^3/uL Eosinophils # (Auto) 0.2 x10^3/uL Basophils # (Auto) 0.1 x10^3/uL Prothrombin Time 27.7 SEC Prothromb Time International Ratio 2.6 Sodium Level 137 mmol/L Potassium Level 4.2 mmol/L Chloride Level 94 mmol/L Carbon Dioxide Level 18 mmol/L Anion Gap 25 Blood Urea Nitrogen 91 mg/dL Creatinine 14.8 mg/dL Estimated GFR (Cockcroft-Gault) 3.3 BUN/Creatinine Ratio 6 Glucose Level 77 mg/dL Lactic Acid Level 9.5 mmol/L Calcium Level 9.5 mg/dL Phosphorus Level 12.5 mg/dL Total Bilirubin 2.3 mg/dL Aspartate Amino Transf (AST/SGOT) 294 U/L Alanine Aminotransferase (ALT/SGPT) 71 U/L Alkaline Phosphatase 457 U/L Total Protein 5.4 g/dL Albumin 1.6 g/dL Albumin/Globulin Ratio 0.4 Test 01/18/19 07:33 Glucose (Fingerstick) 74 mg/dL Imaging: C/A/P CT IMPRESSION: No acute abnormality is seen. PE: having central line placed A/P: Leukocytosis, lactic acidosis Hypotension, , ESRD on PD, ACD Chronic liver disease, hyperammonemia - etiology unclear, AMA normal -- Can back off on lactulose w/ significant stooling. Will review w/ Dr. Zavala. INA DAHL Jan 18, 2019 11:04
[2019-01-18] MEDS ORDERED: LACTULOSE 20 GM/30 ML SOLUTION. PO PRN (11:15)
--- NOTE | 2019-01-18 11:20 | PDOC ---
PROGRESS NOTES Chief Complaint Chief Complaint Hypotension which was somewhat improved early in the day but continued to trend down to levels where he has been before Lactic acid elevation without evidence of toxicity Severe hypoglycemia Dizziness Leukocytosis Anemia of chronic disease Nausea and vomiting History of aortic stenosis: Being considered for TAVR reportedly not a candidate due to moderate reading via JOANNA. Severe per f/u TTE Metabolic acidosis Elevated troponin: peaked at 0.2, demand mediated, type 2 with above culprits. no CP nor SOA Coagulopathy: INR 2.2. Macrocytic anemia ESRD: PD (Cr of 14.8) moderate to severe Protein malnutrition CAD: stents in the past, clinically stable. Hx of HTN Hx of AAA with repair History of Present Illness History of Present Illness Patient was seen and examined in the ICU. Discussed with Dr. Nowak. Discussed with son and . Discussed with nurse. Per family, patient and family wish to put him DNR status. Patient is hypotensive, despite pressors, with systolic blood pressure 83-99. Central line placed - no pneumothorax per chest X ray. White count elevated at 28.6. Vitals Vitals Vital Signs Date Time Temp Pulse Resp B/P (MAP) Pulse Ox O2 Delivery O2 Flow Rate FiO2 01/18/19 10:44 99 Nasal Cannula 2.0 01/18/19 10:42 16 01/18/19 06:00 105 90/55 (67) 01/18/19 04:00 99.9 99.9 Physical Exam Physical Exam GEN: sleeping, opens eyes ,answers a few questions HEENT no conjunc petechia, mild conjunc irritation NECK: Supple CVS: S1S2 , systolic murmur + RESP: clear bilaterally GI: BS + Nondistended, nontender, PD catheter in Place ,clear : No marcelino, no cva tenderness Neuro: Confused ,moves all 4 ext Derm: No gen rash PIV looks ok General: severe distress, Other (confused) Heart: Normal S1, Normal S2 Lungs: Clear Abdomen: Normal bowel sounds, Soft, No masses Extremities: No clubbing, No cyanosis, No edema Skin: No rashes, No breakdown, No significant lesion Labs LABS Laboratory Tests Test 01/17/19 15:13 01/17/19 15:40 01/17/19 16:01 01/17/19 17:02 Glucose (Fingerstick) 64 mg/dL (70-99) 54 mg/dL (70-99) 60 mg/dL (70-99) White Blood Count 18.2 x10^3/uL (4.0-11.0) Red Blood Count 3.03 x10^6/uL (4.30-5.70) Hemoglobin 10.1 g/dL (13.0-17.5) Hematocrit 31.9 % (39.0-53.0) Mean Corpuscular Volume 105 fL (79-100) Mean Corpuscular Hemoglobin 34 pg (25-35) Mean Corpuscular Hemoglobin Concent 32 g/dL (31-37) Red Cell Distribution Width 17.8 % (11.5-14.5) Platelet Count 141 x10^3/uL (140-400) Neutrophils (%) (Auto) 82 % (31-73) Lymphocytes (%) (Auto) 10 % (24-48) Monocytes (%) (Auto) 7 % (0-9) Eosinophils (%) (Auto) 0 % (0-3) Basophils (%) (Auto) 1 % (0-3) Neutrophils # (Auto) 15.0 x10^3uL (1.8-7.7) Lymphocytes # (Auto) 1.8 x10^3/uL (1.0-4.8) Monocytes # (Auto) 1.3 x10^3/uL (0.0-1.1) Eosinophils # (Auto) 0.0 x10^3/uL (0.0-0.7) Basophils # (Auto) 0.1 x10^3/uL (0.0-0.2) Segmented Neutrophils % 88 % (35-66) Band Neutrophils % 5 % (0-9) Lymphocytes % 5 % (24-48) Monocytes % 2 % (0-10) Platelet Estimate Adequate (ADEQUATE) Large Platelets Occ Giant Platelets Polychromasia Mod Poikilocytosis Slight Anisocytosis Slight Microcytosis Target Cells Few Ovalocytes Few Granville Cells Mod Acanthocytes Mod Schistocytes Occ Sodium Level 137 mmol/L (136-145) Potassium Level 3.9 mmol/L (3.5-5.1) Chloride Level 95 mmol/L (98-107) Carbon Dioxide Level 12 mmol/L (21-32) Anion Gap 30 (6-14) Blood Urea Nitrogen 96 mg/dL (8-26) Creatinine 16.0 mg/dL (0.7-1.3) Estimated GFR (Cockcroft-Gault) 3.0 BUN/Creatinine Ratio 6 (6-20) Glucose Level 90 mg/dL (70-99) Lactic Acid Level 18.1 mmol/L (0.4-2.0) Calcium Level 9.5 mg/dL (8.5-10.1) Total Bilirubin 2.0 mg/dL (0.2-1.0) Aspartate Amino Transf (AST/SGOT) 84 U/L (15-37) Alanine Aminotransferase (ALT/SGPT) 27 U/L (16-63) Alkaline Phosphatase 549 U/L (46-116) Total Protein 5.4 g/dL (6.4-8.2) Albumin 1.6 g/dL (3.4-5.0) Albumin/Globulin Ratio 0.4 (1.0-1.7) Cortisol PM Sample 25.6 ug/dL (3.1-16.7) Test 01/17/19 17:46 01/17/19 19:59 01/18/19 06:55 01/18/19 07:04 Glucose (Fingerstick) 106 mg/dL (70-99) 95 mg/dL (70-99) 66 mg/dL (70-99) White Blood Count 28.6 x10^3/uL (4.0-11.0) Red Blood Count 3.16 x10^6/uL (4.30-5.70) Hemoglobin 10.8 g/dL (13.0-17.5) Hematocrit 32.3 % (39.0-53.0) Mean Corpuscular Volume 102 fL (79-100) Mean Corpuscular Hemoglobin 34 pg (25-35) Mean Corpuscular Hemoglobin Concent 33 g/dL (31-37) Red Cell Distribution Width 17.3 % (11.5-14.5) Platelet Count 134 x10^3/uL (140-400) Neutrophils (%) (Auto) 76 % (31-73) Lymphocytes (%) (Auto) 9 % (24-48) Monocytes (%) (Auto) 15 % (0-9) Eosinophils (%) (Auto) 1 % (0-3) Basophils (%) (Auto) 0 % (0-3) Neutrophils # (Auto) 21.7 x10^3uL (1.8-7.7) Lymphocytes # (Auto) 2.4 x10^3/uL (1.0-4.8) Monocytes # (Auto) 4.2 x10^3/uL (0.0-1.1) Eosinophils # (Auto) 0.2 x10^3/uL (0.0-0.7) Basophils # (Auto) 0.1 x10^3/uL (0.0-0.2) Prothrombin Time 27.7 SEC (11.7-14.0) Prothromb Time International Ratio 2.6 (0.8-1.1) Sodium Level 137 mmol/L (136-145) Potassium Level 4.2 mmol/L (3.5-5.1) Chloride Level 94 mmol/L (98-107) Carbon Dioxide Level 18 mmol/L (21-32) Anion Gap 25 (6-14) Blood Urea Nitrogen 91 mg/dL (8-26) Creatinine 14.8 mg/dL (0.7-1.3) Estimated GFR (Cockcroft-Gault) 3.3 BUN/Creatinine Ratio 6 (6-20) Glucose Level 77 mg/dL (70-99) Lactic Acid Level 9.5 mmol/L (0.4-2.0) Calcium Level 9.5 mg/dL (8.5-10.1) Phosphorus Level 12.5 mg/dL (2.6-4.7) Total Bilirubin 2.3 mg/dL (0.2-1.0) Aspartate Amino Transf (AST/SGOT) 294 U/L (15-37) Alanine Aminotransferase (ALT/SGPT) 71 U/L (16-63) Alkaline Phosphatase 457 U/L (46-116) Total Protein 5.4 g/dL (6.4-8.2) Albumin 1.6 g/dL (3.4-5.0) Albumin/Globulin Ratio 0.4 (1.0-1.7) Test 01/18/19 07:33 Glucose (Fingerstick) 74 mg/dL (70-99) Review of Systems Review of Systems Unable to obtain Assessment and Plan Assessmemt and Plan Problems Medical Problems: (1) Chronic kidney disease with end stage renal failure on dialysis Status: Acute (2) Generalized weakness Status: Acute (3) Hypotension Status: Acute (4) Nausea and vomiting Status: Acute Assessment: Hypotension which was somewhat improved early in the day but continued to trend down to levels where he has been before Lactic acid elevation without evidence of toxicity Meets SIRS criteria Severe hypoglycemia Dizziness Leukocytosis Anemia of chronic disease Nausea and vomiting History of aortic stenosis: Being considered for TAVR reportedly not a candidate due to moderate reading via JOANNA. Severe per f/u TTE Metabolic acidosis Elevated troponin: peaked at 0.2, demand mediated, type 2 with above culprits. no CP nor SOA Coagulopathy: INR 2.2. Macrocytic anemia ESRD: PD (Cr of 14.8) moderate to severe Protein malnutrition CAD: stents in the past, clinically stable. Hx of HTN Hx of AAA with repair Plan: Monitor in the ICU Pressors to stabilize blood pressure Micafungin, vancomycin, zosyn Appreciate subspecialty input Monitor vitals and labs DVT prophylaxis Prognosis guarded Total time 31 mintes Comment Review of Relevant I have reviewed the following items ethan (where applicable) has been applied. Labs Laboratory Tests Test 01/16/19 12:00 01/16/19 18:10 01/17/19 09:45 01/17/19 15:13 White Blood Count 17.2 x10^3/uL (4.0-11.0) Red Blood Count 2.57 x10^6/uL (4.30-5.70) Hemoglobin 8.7 g/dL (13.0-17.5) Hematocrit 25.8 % (39.0-53.0) Mean Corpuscular Volume 100 fL (79-100) Mean Corpuscular Hemoglobin 34 pg (25-35) Mean Corpuscular Hemoglobin Concent 34 g/dL (31-37) Red Cell Distribution Width 15.7 % (11.5-14.5) Platelet Count 140 x10^3/uL (140-400) Prothrombin Time 23.7 SEC (11.7-14.0) Prothromb Time International Ratio 2.1 (0.8-1.1) Sodium Level 137 mmol/L (136-145) 138 mmol/L (136-145) Potassium Level 3.6 mmol/L (3.5-5.1) 4.6 mmol/L (3.5-5.1) Chloride Level 96 mmol/L (98-107) 96 mmol/L (98-107) Carbon Dioxide Level 25 mmol/L (21-32) 17 mmol/L (21-32) Anion Gap 16 (6-14) 25 (6-14) Blood Urea Nitrogen 81 mg/dL (8-26) 94 mg/dL (8-26) Creatinine 13.8 mg/dL (0.7-1.3) 15.6 mg/dL (0.7-1.3) Estimated GFR (Cockcroft-Gault) 3.5 3.1 Glucose Level 112 mg/dL (70-99) 51 mg/dL (70-99) Calcium Level 8.3 mg/dL (8.5-10.1) 9.2 mg/dL (8.5-10.1) Magnesium Level 2.5 mg/dL (1.8-2.4) Troponin I Quantitative 0.203 ng/mL (0.000-0.055) Lactic Acid Level 3.0 mmol/L (0.4-2.0) 12.3 mmol/L (0.4-2.0) Ammonia 181 mcmol/L (11-34) Glucose (Fingerstick) 64 mg/dL (70-99) Test 01/17/19 15:40 01/17/19 16:01 01/17/19 17:02 01/17/19 17:46 White Blood Count 18.2 x10^3/uL (4.0-11.0) Red Blood Count 3.03 x10^6/uL (4.30-5.70) Hemoglobin 10.1 g/dL (13.0-17.5) Hematocrit 31.9 % (39.0-53.0) Mean Corpuscular Volume 105 fL (79-100) Mean Corpuscular Hemoglobin 34 pg (25-35) Mean Corpuscular Hemoglobin Concent 32 g/dL (31-37) Red Cell Distribution Width 17.8 % (11.5-14.5) Platelet Count 141 x10^3/uL (140-400) Neutrophils (%) (Auto) 82 % (31-73) Lymphocytes (%) (Auto) 10 % (24-48) Monocytes (%) (Auto) 7 % (0-9) Eosinophils (%) (Auto) 0 % (0-3) Basophils (%) (Auto) 1 % (0-3) Neutrophils # (Auto) 15.0 x10^3uL (1.8-7.7) Lymphocytes # (Auto) 1.8 x10^3/uL (1.0-4.8) Monocytes # (Auto) 1.3 x10^3/uL (0.0-1.1) Eosinophils # (Auto) 0.0 x10^3/uL (0.0-0.7) Basophils # (Auto) 0.1 x10^3/uL (0.0-0.2) Segmented Neutrophils % 88 % (35-66) Band Neutrophils % 5 % (0-9) Lymphocytes % 5 % (24-48) Monocytes % 2 % (0-10) Platelet Estimate Adequate (ADEQUATE) Large Platelets Occ Giant Platelets Polychromasia Mod Poikilocytosis Slight Anisocytosis Slight Microcytosis Target Cells Few Ovalocytes Few Devika Cells Mod Acanthocytes Mod Schistocytes Occ Sodium Level 137 mmol/L (136-145) Potassium Level 3.9 mmol/L (3.5-5.1) Chloride Level 95 mmol/L (98-107) Carbon Dioxide Level 12 mmol/L (21-32) Anion Gap 30 (6-14) Blood Urea Nitrogen 96 mg/dL (8-26) Creatinine 16.0 mg/dL (0.7-1.3) Estimated GFR (Cockcroft-Gault) 3.0 BUN/Creatinine Ratio 6 (6-20) Glucose Level 90 mg/dL (70-99) Lactic Acid Level 18.1 mmol/L (0.4-2.0) Calcium Level 9.5 mg/dL (8.5-10.1) Total Bilirubin 2.0 mg/dL (0.2-1.0) Aspartate Amino Transf (AST/SGOT) 84 U/L (15-37) Alanine Aminotransferase (ALT/SGPT) 27 U/L (16-63) Alkaline Phosphatase 549 U/L (46-116) Total Protein 5.4 g/dL (6.4-8.2) Albumin 1.6 g/dL (3.4-5.0) Albumin/Globulin Ratio 0.4 (1.0-1.7) Cortisol PM Sample 25.6 ug/dL (3.1-16.7) Glucose (Fingerstick) 54 mg/dL (70-99) 60 mg/dL (70-99) 106 mg/dL (70-99) Test 01/17/19 19:59 01/18/19 06:55 01/18/19 07:04 01/18/19 07:33 Glucose (Fingerstick) 95 mg/dL (70-99) 66 mg/dL (70-99) 74 mg/dL (70-99) White Blood Count 28.6 x10^3/uL (4.0-11.0) Red Blood Count 3.16 x10^6/uL (4.30-5.70) Hemoglobin 10.8 g/dL (13.0-17.5) Hematocrit 32.3 % (39.0-53.0) Mean Corpuscular Volume 102 fL (79-100) Mean Corpuscular Hemoglobin 34 pg (25-35) Mean Corpuscular Hemoglobin Concent 33 g/dL (31-37) Red Cell Distribution Width 17.3 % (11.5-14.5) Platelet Count 134 x10^3/uL (140-400) Neutrophils (%) (Auto) 76 % (31-73) Lymphocytes (%) (Auto) 9 % (24-48) Monocytes (%) (Auto) 15 % (0-9) Eosinophils (%) (Auto) 1 % (0-3) Basophils (%) (Auto) 0 % (0-3) Neutrophils # (Auto) 21.7 x10^3uL (1.8-7.7) Lymphocytes # (Auto) 2.4 x10^3/uL (1.0-4.8) Monocytes # (Auto) 4.2 x10^3/uL (0.0-1.1) Eosinophils # (Auto) 0.2 x10^3/uL (0.0-0.7) Basophils # (Auto) 0.1 x10^3/uL (0.0-0.2) Prothrombin Time 27.7 SEC (11.7-14.0) Prothromb Time International Ratio 2.6 (0.8-1.1) Sodium Level 137 mmol/L (136-145) Potassium Level 4.2 mmol/L (3.5-5.1) Chloride Level 94 mmol/L (98-107) Carbon Dioxide Level 18 mmol/L (21-32) Anion Gap 25 (6-14) Blood Urea Nitrogen 91 mg/dL (8-26) Creatinine 14.8 mg/dL (0.7-1.3) Estimated GFR (Cockcroft-Gault) 3.3 BUN/Creatinine Ratio 6 (6-20) Glucose Level 77 mg/dL (70-99) Lactic Acid Level 9.5 mmol/L (0.4-2.0) Calcium Level 9.5 mg/dL (8.5-10.1) Phosphorus Level 12.5 mg/dL (2.6-4.7) Total Bilirubin 2.3 mg/dL (0.2-1.0) Aspartate Amino Transf (AST/SGOT) 294 U/L (15-37) Alanine Aminotransferase (ALT/SGPT) 71 U/L (16-63) Alkaline Phosphatase 457 U/L (46-116) Total Protein 5.4 g/dL (6.4-8.2) Albumin 1.6 g/dL (3.4-5.0) Albumin/Globulin Ratio 0.4 (1.0-1.7) Laboratory Tests Test 01/17/19 15:13 01/17/19 15:40 01/17/19 16:01 01/17/19 17:02 Glucose (Fingerstick) 64 mg/dL (70-99) 54 mg/dL (70-99) 60 mg/dL (70-99) White Blood Count 18.2 x10^3/uL (4.0-11.0) Red Blood Count 3.03 x10^6/uL (4.30-5.70) Hemoglobin 10.1 g/dL (13.0-17.5) Hematocrit 31.9 % (39.0-53.0) Mean Corpuscular Volume 105 fL (79-100) Mean Corpuscular Hemoglobin 34 pg (25-35) Mean Corpuscular Hemoglobin Concent 32 g/dL (31-37) Red Cell Distribution Width 17.8 % (11.5-14.5) Platelet Count 141 x10^3/uL (140-400) Neutrophils (%) (Auto) 82 % (31-73) Lymphocytes (%) (Auto) 10 % (24-48) Monocytes (%) (Auto) 7 % (0-9) Eosinophils (%) (Auto) 0 % (0-3) Basophils (%) (Auto) 1 % (0-3) Neutrophils # (Auto) 15.0 x10^3uL (1.8-7.7) Lymphocytes # (Auto) 1.8 x10^3/uL (1.0-4.8) Monocytes # (Auto) 1.3 x10^3/uL (0.0-1.1) Eosinophils # (Auto) 0.0 x10^3/uL (0.0-0.7) Basophils # (Auto) 0.1 x10^3/uL (0.0-0.2) Segmented Neutrophils % 88 % (35-66) Band Neutrophils % 5 % (0-9) Lymphocytes % 5 % (24-48) Monocytes % 2 % (0-10) Platelet Estimate Adequate (ADEQUATE) Large Platelets Occ Giant Platelets Polychromasia Mod Poikilocytosis Slight Anisocytosis Slight Microcytosis Target Cells Few Ovalocytes Few [place]ville Cells Mod Acanthocytes Mod Schistocytes Occ Sodium Level 137 mmol/L (136-145) Potassium Level 3.9 mmol/L (3.5-5.1) Chloride Level 95 mmol/L (98-107) Carbon Dioxide Level 12 mmol/L (21-32) Anion Gap 30 (6-14) Blood Urea Nitrogen 96 mg/dL (8-26) Creatinine 16.0 mg/dL (0.7-1.3) Estimated GFR (Cockcroft-Gault) 3.0 BUN/Creatinine Ratio 6 (6-20) Glucose Level 90 mg/dL (70-99) Lactic Acid Level 18.1 mmol/L (0.4-2.0) Calcium Level 9.5 mg/dL (8.5-10.1) Total Bilirubin 2.0 mg/dL (0.2-1.0) Aspartate Amino Transf (AST/SGOT) 84 U/L (15-37) Alanine Aminotransferase (ALT/SGPT) 27 U/L (16-63) Alkaline Phosphatase 549 U/L (46-116) Total Protein 5.4 g/dL (6.4-8.2) Albumin 1.6 g/dL (3.4-5.0) Albumin/Globulin Ratio 0.4 (1.0-1.7) Cortisol PM Sample 25.6 ug/dL (3.1-16.7) Test 01/17/19 17:46 01/17/19 19:59 01/18/19 06:55 01/18/19 07:04 Glucose (Fingerstick) 106 mg/dL (70-99) 95 mg/dL (70-99) 66 mg/dL (70-99) White Blood Count 28.6 x10^3/uL (4.0-11.0) Red Blood Count 3.16 x10^6/uL (4.30-5.70) Hemoglobin 10.8 g/dL (13.0-17.5) Hematocrit 32.3 % (39.0-53.0) Mean Corpuscular Volume 102 fL (79-100) Mean Corpuscular Hemoglobin 34 pg (25-35) Mean Corpuscular Hemoglobin Concent 33 g/dL (31-37) Red Cell Distribution Width 17.3 % (11.5-14.5) Platelet Count 134 x10^3/uL (140-400) Neutrophils (%) (Auto) 76 % (31-73) Lymphocytes (%) (Auto) 9 % (24-48) Monocytes (%) (Auto) 15 % (0-9) Eosinophils (%) (Auto) 1 % (0-3) Basophils (%) (Auto) 0 % (0-3) Neutrophils # (Auto) 21.7 x10^3uL (1.8-7.7) Lymphocytes # (Auto) 2.4 x10^3/uL (1.0-4.8) Monocytes # (Auto) 4.2 x10^3/uL (0.0-1.1) Eosinophils # (Auto) 0.2 x10^3/uL (0.0-0.7) Basophils # (Auto) 0.1 x10^3/uL (0.0-0.2) Prothrombin Time 27.7 SEC (11.7-14.0) Prothromb Time International Ratio 2.6 (0.8-1.1) Sodium Level 137 mmol/L (136-145) Potassium Level 4.2 mmol/L (3.5-5.1) Chloride Level 94 mmol/L (98-107) Carbon Dioxide Level 18 mmol/L (21-32) Anion Gap 25 (6-14) Blood Urea Nitrogen 91 mg/dL (8-26) Creatinine 14.8 mg/dL (0.7-1.3) Estimated GFR (Cockcroft-Gault) 3.3 BUN/Creatinine Ratio 6 (6-20) Glucose Level 77 mg/dL (70-99) Lactic Acid Level 9.5 mmol/L (0.4-2.0) Calcium Level 9.5 mg/dL (8.5-10.1) Phosphorus Level 12.5 mg/dL (2.6-4.7) Total Bilirubin 2.3 mg/dL (0.2-1.0) Aspartate Amino Transf (AST/SGOT) 294 U/L (15-37) Alanine Aminotransferase (ALT/SGPT) 71 U/L (16-63) Alkaline Phosphatase 457 U/L (46-116) Total Protein 5.4 g/dL (6.4-8.2) Albumin 1.6 g/dL (3.4-5.0) Albumin/Globulin Ratio 0.4 (1.0-1.7) Test 01/18/19 07:33 Glucose (Fingerstick) 74 mg/dL (70-99) Microbiology 01/14/19 Blood Culture - Preliminary, Resulted NO GROWTH AFTER 3 DAYS 01/15/19 Anaerobic/Aerobic Culture, Resulted Pending 01/15/19 Anaerobic Culture Result 1 (LAURIE), Resulted Pending 01/15/19 Aerobic Culture, Resulted Pending 01/15/19 Aerobic Culture Result 1 (LAURIE), Resulted Pending 01/15/19 Gram Stain - Final, Resulted 01/15/19 Gram Stain Result 1 (LAURIE) - Final, Resulted 01/15/19 Gram Stain Result 2 (LAURIE) - Final, Resulted Medications Current Medications Ondansetron HCl (Zofran) 4 mg 1X ONCE IM ; Start 01/14/19 at 15:00; Stop at 15:01; Status Cancel Ondansetron HCl (Zofran) 4 mg 1X ONCE IM ; Start 01/14/19 at 15:45; Stop at 15:46; Status Cancel Ondansetron HCl (Zofran) 4 mg 1X ONCE IV Last administered on 01/14/19at 15:47; Start 01/14/19 at 15:45; Stop 01/14/19 at 15:46; Status DC Gentamicin Sulfate (Garamycin) 1 olu DAILY TP ; Start 01/15/19 at 09:00; Stop 01/15/19 at 13:52; Status DC Lactic Acid (Lac-Hydrin) 1 olu BID TP Last administered on 01/16/19 20:25; Start 01/15/19 at 10:00 Aspirin (Children'S Aspirin) 81 mg DAILY PO Last administered on 01/16/19 09:51 ; Start 01/15/19 at 10:00 Atorvastatin Calcium (Lipitor) 20 mg QHS PO Last administered on 01/17/19 21:06 ; Start 01/15/19 at 21:00 Calcium Carbonate/ Glycine (Oscal) 500 mg TIDWMEALS PO Last administered on 01/16 16:49; Start 01/15/19 at 12:00 Acetaminophen/ Hydrocodone Bitart (Lortab 5/325) 1 tab PRN Q6HRS PRN PO MODERATE TO SEVERE PAIN Last administered on 01/16/19 20:25; Start 01/15/19 at 08 :45 Sevelamer Carbonate (Renvela) 1,600 mg TID PO Last administered on 01/17/19 20: 35; Start 01/15/19 at 09:00 Sodium Bicarbonate (Sodium Bicarbonate) 1,950 mg TIDWMEALS PO Last administered on 01/16/19 16:52; Start 01/15/19 at 12:00 Pantoprazole Sodium (Protonix) 40 mg DAILYAC PO Last administered on 01/16/19 06:16; Start 01/15/19 at 10:00 Triamcinolone Acetonide (Kenalog) 1 olu BID TP Last administered on 01/15/19 20 :55; Start 01/15/19 at 10:00 Albuterol/ Ipratropium (Duoneb) 3 ml RTQID NEB Last administered on 01/18/19 08 :07; Start 01/15/19 at 12:00 Acetaminophen (Tylenol) 1,000 mg PRN Q6HRS PRN PO mild pain Last administered on 01/16/19 09:50; Start 01/15/19 at 11:15 Midodrine (Proamatine) 2.5 mg [id number] PO Last administered on 01/16/19 09:50; Start 01/15/19 at 14:00; Stop 01/16/19 at 10:34; Status DC Gentamicin Sulfate (Garamycin) 1 olu DAILY TP Last administered on 01/17/19 18: 46; Start 01/16/19 at 09:00 Midodrine (Proamatine) 5 mg [id number] PO Last administered on 01/17/19 06:36; Start 01/16/19 at 13:00 Lactulose (Lactulose) 20 gm TID PO Last administered on 01/17/19at 20:35; Start 01/17/19 at 14:15; Stop 01/18/19 at 11:06; Status DC Norepinephrine Bitartrate 250 ml @ 1.875 mls/ hr CONT PRN IV SEE I/O RECORD Last administered on 01/18/19 09:14; Start 01/17/19 at 14:30 Dextrose (Dextrose 50%-Water Syringe) 25 gm 1X ONCE IV Last administered on 14:45; Start 01/17/19 at 14:45; Stop 01/17/19 at 14:46; Status DC Dextrose (Dextrose 50%-Water Syringe) 25 gm 1X ONCE IV Last administered on 01/17/19at 15:15; Start 01/17/19 at 15:30; Stop 01/17/19 at 15:31; Status DC Piperacillin Sod/ Tazobactam Sod (Zosyn Per Pharmacy) 1 each PRN DAILY PRN [facility] SEE COMMENTS; Start 01/17/19 at 16:00 Piperacillin Sod/ Tazobactam Sod 2.25 gm/Sodium Chloride 50 ml @ 100 mls/hr Q8HRS IV Last administered on 01/18/19at 06:30; Start 01/17/19 at 17:00 Dextrose/Sodium Chloride 1,000 ml @ 50 mls/hr Q20H IV Last administered on 01/17 16:30; Start 01/17/19 at 16:30 Dextrose (Dextrose 50%-Water Syringe) 25 gm 1X ONCE IV Last administered on 17:14; Start 01/17/19 at 17:15; Stop 01/17/19 at 17:16; Status DC Vancomycin HCl (Vanco Per Pharmacy) 1 each PRN DAILY PRN MC SEE COMMENTS Last administered on 01/17/19at 20:20; Start 01/17/19 at 18:00 Sodium Chloride 1,000 ml @ 1,000 mls/hr 1X ONCE IV Last administered on at 17:00; Start 01/17/19 at 18:00; Stop 01/17/19 at 18:59; Status DC Vancomycin HCl 2 gm/Sodium Chloride 500 ml @ 250 mls/hr 1X ONCE IV Last administered on 01/17/19at 18:50; Start 01/17/19 at 18:00; Stop 01/17/19 at 19:59; Status DC Micafungin Sodium 100 mg/Dextrose 100 ml @ 100 mls/hr Q24H IV Last administered on 01/17/19at 20:35; Start 01/17/19 at 20:00 Sodium Chloride 1,000 ml @ 100 mls/hr Q10H IV Last administered on 01/18/19at 06 :45; Start 01/18/19 at 06:45 Dextrose (Dextrose 50%-Water Syringe) 25 gm 1X ONCE IV Last administered on 01/18/19at 07:00; Start 01/18/19 at 07:00; Stop 01/18/19 at 07:08; Status DC Iohexol (Omnipaque 300 Mg/ml) 75 ml 1X ONCE IV ; Start 01/18/19 at 08:15; Stop 01/18/19 at 08:16; Status DC Info (CONTRAST GIVEN -- Rx MONITORING) 1 each PRN DAILY PRN [facility] SEE COMMENTS; Start 01/18/19 at 08:15; Stop 01/20/19 at 08:14 Fentanyl Citrate (Fentanyl 2ml Vial) 50 mcg PRN Q2HR PRN IV PAIN Last administered on 01/18/19at 10:07; Start 01/18/19 at 09:30 Midazolam HCl (Versed) 5 mg 1X ONCE IV Last administered on 01/18/19at 10:05; Start 01/18/19 at 09:30; Stop 01/18/19 at 09:31; Status DC Midazolam HCl (Versed) 5 mg STK-MED ONCE .ROUTE ; Start 01/18/19 at 09:25; Stop 01/18/19 at 09:26; Status DC Fentanyl Citrate (Fentanyl 2ml Vial) 100 mcg STK-MED ONCE .ROUTE ; Start at 09:25; Stop 01/18/19 at 09:26; Status DC Sodium Chloride 500 ml @ 500 mls/hr 1X ONCE IV Last administered on 01/18/19at 10:34; Start 01/18/19 at 10:15; Stop 01/18/19 at 11:14 Dobutamine HCl/ Dextrose 250 ml @ 5.939 mls/ hr CONT PRN IV SEE I/O RECORD Last administered on 01/18/19at 10:34; Start 01/18/19 at 10:15 Ondansetron HCl (Zofran) 4 mg PRN Q6HRS PRN IV NAUSEA/VOMITING; Start 01/18/19 at 11:00 Lactulose (Lactulose) 20 gm PRN TID PRN PO confusion/elevated ammonia; Start at 11:15 Active Scripts Active [place] 5-325 Tablet (Acetaminophen/Hydrocodone Bitart) 1 Each Tablet 1-2 Each PO PRN Q6HRS PRN as needed for pain Reported [calcium carbon] Triamcinolone Acetonide 0.5% Cream (Triamcinolone Acetonide) 15 Gm Cream..g. 1 Olu TP BID Renvela (Sevelamer Carbonate) 800 Mg Tablet 2 Tab PO TID Protonix (Pantoprazole Sodium) 40 Mg Granpkt.dr 40 Mg PO DAILY Calcium Carbonate 500 Mg Tablet 5,000 Mg PO TIDWMEALS Skin Treatment (Ammonium Lactate) 225 Gm Lotion 225 Gm TP BID Aspirin 81 Mg Tab.chew 1 Tab PO DAILY Atorvastatin Calcium 20 Mg Tablet 1 Tab PO QHS Sodium Bicarbonate 650 Mg Tablet 1,950 Mg PO TIDWMEALS Vitals/I & O Vital Sign - Last 24 Hours 01/17/19 01/17/19 01/17/19 01/17/19 14:45 15:00 15:15 15:30 Temp 97.3 97.3 Pulse 102 110 112 Resp 16 B/P (MAP) 124/52 (76) 110/58 (75) 109/56 (73) O2 Delivery Nasal Cannula Nasal Cannula O2 Flow Rate 2.0 2.0 01/17/19 01/17/19 01/17/19 01/17/19 15:45 16:00 16:00 16:30 Temp 99.2 99.2 Pulse 114 110 112 Resp 18 20 B/P (MAP) 118/61 (80) 100/57 (71) 69/49 (56) Pulse Ox 100 100 O2 Delivery Nasal Cannula Nasal Cannula Nasal Cannula O2 Flow Rate 2.0 2.0 2.0 01/17/19 01/17/19 01/17/19 01/17/19 16:45 17:00 17:15 18:00 Pulse 106 108 112 106 Resp 18 20 20 18 B/P (MAP) 99/40 (59) 85/44 (58) 102/46 (64) 106/47 (66) Pulse Ox 100 92 100 100 O2 Delivery Nasal Cannula Nasal Cannula Nasal Cannula Nasal Cannula O2 Flow Rate 2.0 2.0 2.0 2.0 01/17/19 01/17/19 01/17/19 01/17/19 18:30 19:42 20:00 20:00 Temp 100.4 100.4 Pulse 112 108 Resp 18 15 B/P (MAP) 108/47 (67) 102/80 (87) Pulse Ox 100 100 92 O2 Delivery Nasal Cannula Nasal Cannula Nasal Cannula Nasal Cannula O2 Flow Rate 2.0 2.0 2.0 2.0 01/17/19 01/17/19 01/17/19 01/18/19 21:00 22:00 23:00 00:00 Temp 99.5 99.5 Pulse 112 108 104 101 Resp 12 16 15 13 B/P (MAP) 108/46 (66) 99/49 (66) 94/51 (65) 119/47 (71) Pulse Ox 98 97 99 99 O2 Delivery Nasal Cannula Nasal Cannula Nasal Cannula Nasal Cannula O2 Flow Rate 2.0 2.0 2.0 2.0 01/18/19 01/18/19 01/18/19 01/18/19 01:00 02:00 03:00 04:00 Temp 99.9 99.9 Pulse 102 96 100 101 Resp 14 16 20 24 B/P (MAP) 101/52 (68) 87/45 (59) 83/45 (58) 99/49 (66) Pulse Ox 100 99 96 98 O2 Delivery Nasal Cannula Nasal Cannula Nasal Cannula Nasal Cannula O2 Flow Rate 2.0 2.0 2.0 2.0 01/18/19 01/18/19 01/18/19 01/18/19 05:00 06:00 08:05 10:07 Pulse 106 105 Resp 15 14 16 B/P (MAP) 93/43 (60) 90/55 (67) Pulse Ox 98 97 99 O2 Delivery Nasal Cannula Nasal Cannula Nasal Cannula Nasal Cannula O2 Flow Rate 2.0 2.0 2.0 01/18/19 01/18/19 10:42 10:44 Resp 16 Pulse Ox 100 99 O2 Delivery Nasal Cannula Nasal Cannula O2 Flow Rate 2.0 2.0 Intake and Output 01/17/19 01/17/19 01/18/19 15:00 23:00 07:00 Intake Total 0 ml 1119 ml Balance 0 ml 1119 ml Nutrition Consultation Dietary Evaluation: Recommendations by RD: Increase Calorie Intake, Protein supplementation Comments: Recommend vanilla Nepro milk shake @ lunch for increased calorie and protein intake as pt. has diminished appetite Expected Outcomes/Goals: P.O. intake to meet >75% estimated needs Malnutrition Findings: Body Fat Depletion (Non Severe: Mild Depletion Weight Status: Overweight SIMONE BAIRD III DO Jan 18, 2019 11:19
--- NOTE | 2019-01-18 11:48 | NUR ---
OK to use central line per Dr Kaba
[2019-01-18] MEDS ORDERED: IOHEXOL 350 MG/ML 100 ML VIAL. IV ONE (12:00)
[2019-01-18] MEDS: IV DEXTROSE 5 %-0.45 % NACL 1,000 ML IV SCH (12:14)
--- NOTE | 2019-01-18 12:17 | PDOC ---
PULMONARY PROGRESS NOTES Vitals Vital Signs Date Time Temp Pulse Resp B/P (MAP) Pulse Ox O2 Delivery O2 Flow Rate FiO2 01/18/19 12:00 Nasal Cannula 2.0 01/18/19 10:44 99 01/18/19 10:42 16 01/18/19 06:00 105 90/55 (67) 01/18/19 04:00 99.9 99.9 Lungs: Clear Labs Laboratory Tests Test 01/16/19 18:10 01/17/19 09:45 01/17/19 15:13 01/17/19 15:40 Lactic Acid Level 3.0 mmol/L (0.4-2.0) 12.3 mmol/L (0.4-2.0) 18.1 mmol/L (0.4-2.0) Sodium Level 138 mmol/L (136-145) 137 mmol/L (136-145) Potassium Level 4.6 mmol/L (3.5-5.1) 3.9 mmol/L (3.5-5.1) Chloride Level 96 mmol/L (98-107) 95 mmol/L (98-107) Carbon Dioxide Level 17 mmol/L (21-32) 12 mmol/L (21-32) Anion Gap 25 (6-14) 30 (6-14) Blood Urea Nitrogen 94 mg/dL (8-26) 96 mg/dL (8-26) Creatinine 15.6 mg/dL (0.7-1.3) 16.0 mg/dL (0.7-1.3) Estimated GFR (Cockcroft-Gault) 3.1 3.0 Glucose Level 51 mg/dL (70-99) 90 mg/dL (70-99) Calcium Level 9.2 mg/dL (8.5-10.1) 9.5 mg/dL (8.5-10.1) Ammonia 181 mcmol/L (11-34) Glucose (Fingerstick) 64 mg/dL (70-99) White Blood Count 18.2 x10^3/uL (4.0-11.0) Red Blood Count 3.03 x10^6/uL (4.30-5.70) Hemoglobin 10.1 g/dL (13.0-17.5) Hematocrit 31.9 % (39.0-53.0) Mean Corpuscular Volume 105 fL (79-100) Mean Corpuscular Hemoglobin 34 pg (25-35) Mean Corpuscular Hemoglobin Concent 32 g/dL (31-37) Red Cell Distribution Width 17.8 % (11.5-14.5) Platelet Count 141 x10^3/uL (140-400) Neutrophils (%) (Auto) 82 % (31-73) Lymphocytes (%) (Auto) 10 % (24-48) Monocytes (%) (Auto) 7 % (0-9) Eosinophils (%) (Auto) 0 % (0-3) Basophils (%) (Auto) 1 % (0-3) Neutrophils # (Auto) 15.0 x10^3uL (1.8-7.7) Lymphocytes # (Auto) 1.8 x10^3/uL (1.0-4.8) Monocytes # (Auto) 1.3 x10^3/uL (0.0-1.1) Eosinophils # (Auto) 0.0 x10^3/uL (0.0-0.7) Basophils # (Auto) 0.1 x10^3/uL (0.0-0.2) Segmented Neutrophils % 88 % (35-66) Band Neutrophils % 5 % (0-9) Lymphocytes % 5 % (24-48) Monocytes % 2 % (0-10) Platelet Estimate Adequate (ADEQUATE) Large Platelets Occ Giant Platelets Polychromasia Mod Poikilocytosis Slight Anisocytosis Slight Microcytosis Target Cells Few Ovalocytes Few Lincoln Cells Mod Acanthocytes Mod Schistocytes Occ BUN/Creatinine Ratio 6 (6-20) Total Bilirubin 2.0 mg/dL (0.2-1.0) Aspartate Amino Transf (AST/SGOT) 84 U/L (15-37) Alanine Aminotransferase (ALT/SGPT) 27 U/L (16-63) Alkaline Phosphatase 549 U/L (46-116) Total Protein 5.4 g/dL (6.4-8.2) Albumin 1.6 g/dL (3.4-5.0) Albumin/Globulin Ratio 0.4 (1.0-1.7) Cortisol PM Sample 25.6 ug/dL (3.1-16.7) Test 01/17/19 16:01 01/17/19 17:02 3/7/19 17:46 01/17/19 19:59 Glucose (Fingerstick) 54 mg/dL (70-99) 60 mg/dL (70-99) 106 mg/dL (70-99) 95 mg/dL (70-99) Test 01/18/19 06:55 01/18/19 07:04 01/18/19 07:33 White Blood Count 28.6 x10^3/uL (4.0-11.0) Red Blood Count 3.16 x10^6/uL (4.30-5.70) Hemoglobin 10.8 g/dL (13.0-17.5) Hematocrit 32.3 % (39.0-53.0) Mean Corpuscular Volume 102 fL (79-100) Mean Corpuscular Hemoglobin 34 pg (25-35) Mean Corpuscular Hemoglobin Concent 33 g/dL (31-37) Red Cell Distribution Width 17.3 % (11.5-14.5) Platelet Count 134 x10^3/uL (140-400) Neutrophils (%) (Auto) 76 % (31-73) Lymphocytes (%) (Auto) 9 % (24-48) Monocytes (%) (Auto) 15 % (0-9) Eosinophils (%) (Auto) 1 % (0-3) Basophils (%) (Auto) 0 % (0-3) Neutrophils # (Auto) 21.7 x10^3uL (1.8-7.7) Lymphocytes # (Auto) 2.4 x10^3/uL (1.0-4.8) Monocytes # (Auto) 4.2 x10^3/uL (0.0-1.1) Eosinophils # (Auto) 0.2 x10^3/uL (0.0-0.7) Basophils # (Auto) 0.1 x10^3/uL (0.0-0.2) Prothrombin Time 27.7 SEC (11.7-14.0) Prothromb Time International Ratio 2.6 (0.8-1.1) Sodium Level 137 mmol/L (136-145) Potassium Level 4.2 mmol/L (3.5-5.1) Chloride Level 94 mmol/L (98-107) Carbon Dioxide Level 18 mmol/L (21-32) Anion Gap 25 (6-14) Blood Urea Nitrogen 91 mg/dL (8-26) Creatinine 14.8 mg/dL (0.7-1.3) Estimated GFR (Cockcroft-Gault) 3.3 BUN/Creatinine Ratio 6 (6-20) Glucose Level 77 mg/dL (70-99) Lactic Acid Level 9.5 mmol/L (0.4-2.0) Calcium Level 9.5 mg/dL (8.5-10.1) Phosphorus Level 12.5 mg/dL (2.6-4.7) Total Bilirubin 2.3 mg/dL (0.2-1.0) Aspartate Amino Transf (AST/SGOT) 294 U/L (15-37) Alanine Aminotransferase (ALT/SGPT) 71 U/L (16-63) Alkaline Phosphatase 457 U/L (46-116) Total Protein 5.4 g/dL (6.4-8.2) Albumin 1.6 g/dL (3.4-5.0) Albumin/Globulin Ratio 0.4 (1.0-1.7) Glucose (Fingerstick) 66 mg/dL (70-99) 74 mg/dL (70-99) Laboratory Tests Test 01/17/19 15:13 01/17/19 15:40 01/17/19 16:01 01/17/19 17:02 Glucose (Fingerstick) 64 mg/dL (70-99) 54 mg/dL (70-99) 60 mg/dL (70-99) White Blood Count 18.2 x10^3/uL (4.0-11.0) Red Blood Count 3.03 x10^6/uL (4.30-5.70) Hemoglobin 10.1 g/dL (13.0-17.5) Hematocrit 31.9 % (39.0-53.0) Mean Corpuscular Volume 105 fL (79-100) Mean Corpuscular Hemoglobin 34 pg (25-35) Mean Corpuscular Hemoglobin Concent 32 g/dL (31-37) Red Cell Distribution Width 17.8 % (11.5-14.5) Platelet Count 141 x10^3/uL (140-400) Neutrophils (%) (Auto) 82 % (31-73) Lymphocytes (%) (Auto) 10 % (24-48) Monocytes (%) (Auto) 7 % (0-9) Eosinophils (%) (Auto) 0 % (0-3) Basophils (%) (Auto) 1 % (0-3) Neutrophils # (Auto) 15.0 x10^3uL (1.8-7.7) Lymphocytes # (Auto) 1.8 x10^3/uL (1.0-4.8) Monocytes # (Auto) 1.3 x10^3/uL (0.0-1.1) Eosinophils # (Auto) 0.0 x10^3/uL (0.0-0.7) Basophils # (Auto) 0.1 x10^3/uL (0.0-0.2) Segmented Neutrophils % 88 % (35-66) Band Neutrophils % 5 % (0-9) Lymphocytes % 5 % (24-48) Monocytes % 2 % (0-10) Platelet Estimate Adequate (ADEQUATE) Large Platelets Occ Giant Platelets Polychromasia Mod Poikilocytosis Slight Anisocytosis Slight Microcytosis Target Cells Few Ovalocytes Few Devika Cells Mod Acanthocytes Mod Schistocytes Occ Sodium Level 137 mmol/L (136-145) Potassium Level 3.9 mmol/L (3.5-5.1) Chloride Level 95 mmol/L (98-107) Carbon Dioxide Level 12 mmol/L (21-32) Anion Gap 30 (6-14) Blood Urea Nitrogen 96 mg/dL (8-26) Creatinine 16.0 mg/dL (0.7-1.3) Estimated GFR (Cockcroft-Gault) 3.0 BUN/Creatinine Ratio 6 (6-20) Glucose Level 90 mg/dL (70-99) Lactic Acid Level 18.1 mmol/L (0.4-2.0) Calcium Level 9.5 mg/dL (8.5-10.1) Total Bilirubin 2.0 mg/dL (0.2-1.0) Aspartate Amino Transf (AST/SGOT) 84 U/L (15-37) Alanine Aminotransferase (ALT/SGPT) 27 U/L (16-63) Alkaline Phosphatase 549 U/L (46-116) Total Protein 5.4 g/dL (6.4-8.2) Albumin 1.6 g/dL (3.4-5.0) Albumin/Globulin Ratio 0.4 (1.0-1.7) Cortisol PM Sample 25.6 ug/dL (3.1-16.7) Test 01/17/19 17:46 01/17/19 19:59 01/18/19 06:55 01/18/19 07:04 Glucose (Fingerstick) 106 mg/dL (70-99) 95 mg/dL (70-99) 66 mg/dL (70-99) White Blood Count 28.6 x10^3/uL (4.0-11.0) Red Blood Count 3.16 x10^6/uL (4.30-5.70) Hemoglobin 10.8 g/dL (13.0-17.5) Hematocrit 32.3 % (39.0-53.0) Mean Corpuscular Volume 102 fL (79-100) Mean Corpuscular Hemoglobin 34 pg (25-35) Mean Corpuscular Hemoglobin Concent 33 g/dL (31-37) Red Cell Distribution Width 17.3 % (11.5-14.5) Platelet Count 134 x10^3/uL (140-400) Neutrophils (%) (Auto) 76 % (31-73) Lymphocytes (%) (Auto) 9 % (24-48) Monocytes (%) (Auto) 15 % (0-9) Eosinophils (%) (Auto) 1 % (0-3) Basophils (%) (Auto) 0 % (0-3) Neutrophils # (Auto) 21.7 x10^3uL (1.8-7.7) Lymphocytes # (Auto) 2.4 x10^3/uL (1.0-4.8) Monocytes # (Auto) 4.2 x10^3/uL (0.0-1.1) Eosinophils # (Auto) 0.2 x10^3/uL (0.0-0.7) Basophils # (Auto) 0.1 x10^3/uL (0.0-0.2) Prothrombin Time 27.7 SEC (11.7-14.0) Prothromb Time International Ratio 2.6 (0.8-1.1) Sodium Level 137 mmol/L (136-145) Potassium Level 4.2 mmol/L (3.5-5.1) Chloride Level 94 mmol/L (98-107) Carbon Dioxide Level 18 mmol/L (21-32) Anion Gap 25 (6-14) Blood Urea Nitrogen 91 mg/dL (8-26) Creatinine 14.8 mg/dL (0.7-1.3) Estimated GFR (Cockcroft-Gault) 3.3 BUN/Creatinine Ratio 6 (6-20) Glucose Level 77 mg/dL (70-99) Lactic Acid Level 9.5 mmol/L (0.4-2.0) Calcium Level 9.5 mg/dL (8.5-10.1) Phosphorus Level 12.5 mg/dL (2.6-4.7) Total Bilirubin 2.3 mg/dL (0.2-1.0) Aspartate Amino Transf (AST/SGOT) 294 U/L (15-37) Alanine Aminotransferase (ALT/SGPT) 71 U/L (16-63) Alkaline Phosphatase 457 U/L (46-116) Total Protein 5.4 g/dL (6.4-8.2) Albumin 1.6 g/dL (3.4-5.0) Albumin/Globulin Ratio 0.4 (1.0-1.7) Test 01/18/19 07:33 Glucose (Fingerstick) 74 mg/dL (70-99) Medications Active Scripts Medications Dose Route/Sig Max Daily Dose Days Date Category Dose Instructions [calcium carbon] 01/14/19 Reported Triamcinolone Acetonide 0.5% Cream (Triamcinolone Acetonide) 15 Gm Cream..g. 1 Olu TP BID 01/14/19 Reported Renvela (Sevelamer Carbonate) 800 Mg Tablet 2 Tab PO TID 01/14/19 Reported Protonix (Pantoprazole Sodium) [address] 40 Mg PO DAILY 01/14/19 Reported Calcium Carbonate 500 Mg Tablet 5,000 Mg PO TIDWMEALS 01/14/19 Reported Skin Treatment (Ammonium Lactate) 225 Gm Lotion 225 Gm TP BID 01/14/19 Reported Bison 5-325 Tablet (Acetaminophen/Hydrocodone Bitart) 1 Each Tablet 1-2 Each PO PRN Q6HRS PRN 08/25/18 Rx as needed for pain Aspirin 81 Mg Tab.chew 1 Tab PO DAILY 04/20/18 Reported Atorvastatin Calcium 20 Mg Tablet 1 Tab PO QHS 04/20/18 Reported Sodium Bicarbonate 650 Mg Tablet 1,950 Mg PO TIDWMEALS 11/23/17 Reported Impression . NOTE DICTATED D/W DR URBINA D/W FAMILY ON SEVERAL OCCASION SEE ORDER WILL RULE OUT PE RULE OUT ACUTE HEPATITIS JESSI WEIR MD Jan 18, 2019 12:17
[2019-01-18] MEDS: VASOPRESSIN 40 UNIT in IV DEXTROSE 5% 100ML 100 ML IV PRN (13:07)
--- NOTE | 2019-01-18 14:09 | NUR ---
At 1408, put levo gtt in IV spreadsheet as 130mcg/min instead of 30 mcg/min. At 1409, placed levo gtt in IV spreadsheet as 30mcg/min
[2019-01-18] MEDS ORDERED: LIDOCAINE WITH 8.4% SOD BICARB 3 ML DISP.SYRIN. ONE ×2 (15:39)
[2019-01-18] MEDS ORDERED: LIDOCAINE WITH 8.4% SOD BICARB 3 ML DISP.SYRIN. INJ ONE (15:45)
--- NOTE | 2019-01-18 15:52 | RAD ---
PQRS Compliance statement: One or more of the following individualized dose reduction techniques were utilized for this examination: 1. Automated exposure control. 2. Adjustment of the mA and/or kV according to patient size. 3. Use of iterative reconstruction technique. Indication:soa; eval for pe; Omni 350, 85ml TECHNIQUE: CT angiogram of the chest with IV contrast with multiplanar MIP reformats. COMPARISON:CT of chest from the same day earlier FINDINGS: Suboptimal PE study due to contrast bolus timing. No central or segmental filling defects in the pulmonary arteries. Evaluation of distal most subsegmental arteries is limited. No large saddle embolus. Mild atherosclerotic disease of the aortic arch and descending aorta. Heart is normal in size. No pericardial or pleural effusion. Coronary artery calcifications. Delayed that trace amount of emphysema is seen in the right neck base, nonspecific. No enlarged axillary, mediastinal or hilar adenopathy. Central airways are patent. Scattered bilateral calcified granulomas. Calcified pleural plaque is seen in the posterior right lower lobe with bibasilar dependent atelectasis. 5 mm subpleural nodular opacity in the right upper lobe (series 3 image 60). Please see dictation on CT abdomen pelvis from the same day for abdominal findings. No suspicious bony lesion. Right IJ catheter is seen with its tip in the SVC. IMPRESSION: 1. Slightly suboptimal PE study due to contrast bolus timing. No central or segmental PE. Evaluation of distal most subsegmental pulmonary arteries is limited. 2. No pneumonia or imaging evidence of acute pulmonary infarct. 3. 5 mm nodular opacity in the right upper lobe. Follow-up CT chest in 6 months without IV contrast recommended. Electronically signed by: Dallin Cosby DO (01/18/2019 3:49 PM) [id number]
--- NOTE | 2019-01-18 16:29 | RAD ---
Procedure: Ultrasound-guided placement of left internal jugular central venous catheter01/18/2019 4:25 PM Clinical Indication: dialysis Discussion: The risks and benefits of the procedure were discussed the patient and/or their public relations representative. Informed consent was obtained. A timeout procedure was performed. All elements of maximal sterile barrier technique including the use of a cap, mask, sterile gown, sterile gloves, large sterile sheet, appropriate hand hygiene, and 2% chlorhexidine for cutaneous antisepsis (or acceptable alternative antiseptic per current guidelines) were followed for this procedure. The patient was prepped and draped in the usual sterile fashion. Ultrasound interrogation of the left neck revealed patency and compressibility of the left internal jugular vein. A 21-gauge micropuncture was then used to gain access to this vein under ultrasound guidance. A hard copy ultrasound image was recorded. A guidewire was advanced centrally. 5 Somali sheath was placed. Over a wire following dilatation, a dual-lumen temporary dialysis catheter was advanced centrally. Catheter was found to flush and aspirate normally. Follow-up chest radiograph demonstrates tip at the cavoatrial junction. Catheter secured in place and a sterile dressing was applied. No immediate complications were identified. Impression: Successful ultrasound-guided placement of left internal jugular temporary dialysis catheter
--- NOTE | 2019-01-18 16:52 | PDOC ---
SARA COMBS [employer] 01/18/19 1651: CARDIO Progress Notes Date and Time Date of Service 01/18/19 Time of Evaluation 1215 Subjective Subjective: No Chest Pain, No shortness of breath, No Palpitations Vitals Vitals Vital Signs Date Time Temp Pulse Resp B/P (MAP) Pulse Ox O2 Delivery O2 Flow Rate FiO2 01/18/19 15:44 99 Nasal Cannula 2.0 01/18/19 14:00 116 16 103/47 (65) 01/18/19 12:00 99.2 99.2 Weight Weight [ ] Input and Output Intake and Output Intake and Output 01/18/19 07:00 Intake Total 1119 ml Balance 1119 ml Intake Oral 0 ml IV Total 1119 ml # Bowel Movements 4 Laboratory Labs Laboratory Tests Test 01/17/19 17:02 01/17/19 17:46 01/17/19 19:59 01/18/19 06:55 Glucose (Fingerstick) 60 mg/dL (70-99) 106 mg/dL (70-99) 95 mg/dL (70-99) White Blood Count 28.6 x10^3/uL (4.0-11.0) Red Blood Count 3.16 x10^6/uL (4.30-5.70) Hemoglobin 10.8 g/dL (13.0-17.5) Hematocrit 32.3 % (39.0-53.0) Mean Corpuscular Volume 102 fL (79-100) Mean Corpuscular Hemoglobin 34 pg (25-35) Mean Corpuscular Hemoglobin Concent 33 g/dL (31-37) Red Cell Distribution Width 17.3 % (11.5-14.5) Platelet Count 134 x10^3/uL (140-400) Neutrophils (%) (Auto) 76 % (31-73) Lymphocytes (%) (Auto) 9 % (24-48) Monocytes (%) (Auto) 15 % (0-9) Eosinophils (%) (Auto) 1 % (0-3) Basophils (%) (Auto) 0 % (0-3) Neutrophils # (Auto) 21.7 x10^3uL (1.8-7.7) Lymphocytes # (Auto) 2.4 x10^3/uL (1.0-4.8) Monocytes # (Auto) 4.2 x10^3/uL (0.0-1.1) Eosinophils # (Auto) 0.2 x10^3/uL (0.0-0.7) Basophils # (Auto) 0.1 x10^3/uL (0.0-0.2) Prothrombin Time 27.7 SEC (11.7-14.0) Prothromb Time International Ratio 2.6 (0.8-1.1) Sodium Level 137 mmol/L (136-145) Potassium Level 4.2 mmol/L (3.5-5.1) Chloride Level 94 mmol/L (98-107) Carbon Dioxide Level 18 mmol/L (21-32) Anion Gap 25 (6-14) Blood Urea Nitrogen 91 mg/dL (8-26) Creatinine 14.8 mg/dL (0.7-1.3) Estimated GFR (Cockcroft-Gault) 3.3 BUN/Creatinine Ratio 6 (6-20) Glucose Level 77 mg/dL (70-99) Lactic Acid Level 9.5 mmol/L (0.4-2.0) Calcium Level 9.5 mg/dL (8.5-10.1) Phosphorus Level 12.5 mg/dL (2.6-4.7) Total Bilirubin 2.3 mg/dL (0.2-1.0) Aspartate Amino Transf (AST/SGOT) 294 U/L (15-37) Alanine Aminotransferase (ALT/SGPT) 71 U/L (16-63) Alkaline Phosphatase 457 U/L (46-116) Total Protein 5.4 g/dL (6.4-8.2) Albumin 1.6 g/dL (3.4-5.0) Albumin/Globulin Ratio 0.4 (1.0-1.7) Procalcitonin 13.07 ng/mL (0.00-0.10) Test 01/18/19 07:04 01/18/19 07:33 01/18/19 14:07 Glucose (Fingerstick) 66 mg/dL (70-99) 74 mg/dL (70-99) Uric Acid 8.9 mg/dL (3.5-7.2) Hepatitis A IgM Antibody Nonreactive (Nonreactive) Hepatitis B Surface Antigen Nonreactive (Nonreactive) Hepatitis B Core IgM Antibody Nonreactive (Nonreactive) Hepatitis C IgG Antibody Nonreactive (Nonreactive) HIV (1&2) Antibody Screen Nonreactive (Nonreactive) Microbiology Micro Microbiology 01/17/19 Blood Culture - Preliminary, Resulted NO GROWTH AFTER 1 DAY 01/15/19 Anaerobic/Aerobic Culture, Resulted Pending 01/15/19 Anaerobic Culture Result 1 (LAURIE), Resulted Pending 01/15/19 Aerobic Culture - Preliminary, Resulted 01/15/19 Aerobic Culture Result 1 (LAURIE) - Preliminary, Resulted 01/15/19 Gram Stain - Final, Resulted 01/15/19 Gram Stain Result 1 (LAURIE) - Final, Resulted 01/15/19 Gram Stain Result 2 (LAURIE) - Final, Resulted Physical Exam HEENT: Neck Supple W Full Motion Chest: Symmetric LUNGS: Clear to Auscultation Heart: S1S2, RRR (SR), murmurs (3/6 systolic murmur ) Abdomen: Soft N/T, Other (distended) Extremities: No Calf Tenderness Neurology: alert, follow commands Assessment Assessment 1. Hypotension; requiring pressor support. s/p fluid bolus this am- BP responded well. On high-dose levo and dobutamine; pressure remains marginal and is tachy 2. Leukocytosis, lactic acidosis, ? sepsis. No clear source. CT abd/pelvis without acute findings 3. Aortic stenosis, severe 4. ESRD on PD; uremic 6. Liver disease, coagulopathy Recommendations Give additional fluid bolus D/c dobutamine. Start vasopressin. Hold statin with elevated LFTs Supportive care CARISSA URBINA MD 01/18/191817: CARDIO Progress Notes Plan Plan Patient seen and examined. Agree with above nurse practitioner note. Severe lactic acidosis and hypotension of unclear etiology without obvious source of infection. Although the patient does have significant aortic stenosis this does not appear to be the culprit of his significant hypotension and lactic acidosis. I had a long discussion today with the patient's family regarding various options to treatment. If a full thorough workup has not revealed any pathology and only residual issue is aortic stenosis and at that time could consider high- risk balloon aortic valvuloplasty but again this is unlikely to be the major continuing factor to his hypotension. We will follow along closely. SARA COMBS APRN Jan 18, 2019 16:51 CARISSA URBINA MD Jan 18, 2019 18:18
[2019-01-18] MEDS ORDERED: IOHEXOL 350 MG/ML 100 ML VIAL. ONE (17:00)
[2019-01-18 17:20] LABS: FIO2 ABG 28
--- NOTE | 2019-01-18 17:35 | RAD ---
Portable chest, 01/18/2019, 4:15 PM: HISTORY: Check central line placement Comparison is made to a study from earlier the same day at 9:58 AM. A left jugular dialysis type catheter has been inserted extending into the superior aspect of the right atrium.. A right jugular central venous catheter remains in place extending into the right atrium. The heart size is normal. There are scattered calcified granulomata in the lungs. No pulmonary consolidation is seen. There is no evidence of pneumothorax or pleural fluid. IMPRESSION: 1. A left jugular dialysis type catheter has been inserted extending into the superior aspect of the right atrium. 2. No other significant change since earlier in the day. Electronically signed by: Jorge A Cordova MD (01/18/2019 5:32 PM) [facility] [place]
[2019-01-18] MEDS: VANCOMYCIN PER PHARMACY MC PRN (17:48)
--- NOTE | 2019-01-18 18:37 | PDOC2 ---
PALLIATIVE CARE Palliative Care Note Palliative Care Consult requested by Dr. Brown to address goals of care. Medical Assessment per medical record Hypotension which was somewhat improved early in the day but continued to trend down to levels where he has been before Lactic acid elevation without evidence of toxicity Severe hypoglycemia Dizziness Leukocytosis Anemia of chronic disease Nausea and vomiting History of aortic stenosis: Being considered for TAVR reportedly not a candidate due to moderate reading via JOANNA. Severe per f/u TTE Metabolic acidosis Elevated troponin: peaked at 0.2, demand mediated, type 2 with above culprits. no CP nor SOA Coagulopathy: INR 2.2. Macrocytic anemia ESRD: PD (Cr of 14.8) moderate to severe Protein malnutrition CAD: stents in the past, clinically stable. Hx of HTN Hx of AAA with repair Spoke with patient's sons. Code Status; DNR/DNI Pressors x2 Plan family meeting Monday INA BLANCO Jan 18, 2019 18:37
[2019-01-18] MEDS: LACTOBACILLUS RHAMNOSUS GG 1 CAPSULE. PO SCH (21:00)
[2019-01-18] MEDS: MICAFUNGIN 100 MG in IV DEXTROSE 5% 100ML 100 ML IV SCH (21:38)
[2019-01-19] VITALS (24 sets, daily range): BP systolic 76–145; BP diastolic 40–103
[2019-01-19] MEDS: IV NORMAL SALINE 1000ML BAG 1,000 ML IV SCH ×3 (02:22→23:38)
--- NOTE | 2019-01-19 02:29 | NUR ---
Nursing Note: Pt bed alarm went off at 0130. Pt sitting at side of bed attempting to get up. Arterial line and Central Line pulled out. Pressure applied. Pt with bloody stool. 2 new PIV started in right arm. Pt continues to be maxed on levo and on vasopressin. Mitts applied. Will monitor closely.
[2019-01-19] MEDS: VASOPRESSIN 40 UNIT in IV DEXTROSE 5% 100ML 100 ML IV PRN ×2 (03:37→22:00)
--- NOTE | 2019-01-19 04:06 | CONS ---
DATE OF CONSULTATION: 01/18/2019 ATTENDING PHYSICIAN: Dr. Brown. REASON FOR CONSULTATION: The patient is seen in pulmonary consultation at the request of Dr. Brown for increasing shortness of air. HISTORY OF PRESENT ILLNESS: The patient is a 73-year-old male with history of end-stage renal disease, on home peritoneal dialysis, was referred to the Emergency Room from primary care doctor's office with hypotension. He was dizzy. He was recently started on dialysis in 06/2018. He was admitted to [facility] on multiple times. He was recently told that he has aortic stenosis. It appears that his aortic stenosis was not that severe. Medical management was recommended. The patient was admitted and initially found to have low blood sugar. He has been seen in consultation for hypotension by the Infectious Disease service. The thinking is that there are no overt signs of sepsis. He did have leukocytosis. He was started on empiric Zosyn and vancomycin. The patient is also being seen in consult by Surgery Department. He had a CT chest, abdomen and pelvis. Abdomen revealed no pathology. He continues to be hypotensive. I was called on him earlier today. I gave him some more fluids. I did start some low dose dobutamine. I also discussed the case with Dr. Glez. The patient is in distress. He is having periods of emesis. He was unable to provide any additional information. PAST MEDICAL HISTORY: Recent diagnosis of aortic stenosis; hypertension; previous myocardial infarction; renal failure, on peritoneal dialysis. PAST SURGICAL HISTORY: Previous abdominal stent for abdominal aortic aneurysm. He has had stent placement after his myocardial infarction, status post appendectomy, arthroscopic surgery and recent peritoneal dialysis catheter placement. ALLERGIES: No known drug allergies. REVIEW OF SYSTEMS: Unobtainable secondary to the patient's condition. CURRENT MEDICATIONS: List was reviewed. PHYSICAL EXAMINATION: VITAL SIGNS: The patient was on multiple pressors. Mean arterial pressure is less than 60. His heart rate was 105, T-max yesterday 100.4. HEENT: Eyes: The sclerae were nonicteric. NECK: Jugular venous distention could not be assessed secondary to body habitus. CHEST: Full expansion. LUNGS: Coarse breath sounds with no wheezes. CARDIOVASCULAR: Regular rate and rhythm with S1 and S2, no S3. ABDOMEN: Soft, nontender, nondistended. EXTREMITIES: No clubbing, cyanosis. Minimal edema. NEUROLOGIC: The patient was awake, alert, following commands. A detailed neuro exam was not performed. LABORATORY DATA: White count 28,000. INR was 2.6. Electrolytes were noted. BUN and creatinine were elevated. Lactic acid level was up to 9.5. It was 18, decreased to 9.5. AST and ALT were elevated. Albumin was markedly low at 1.8. Sodium was low when he presented. Troponin level had bumped up a bit. BNP was elevated. IMPRESSION: 1. Acute respiratory failure, multifactorial. 2. Hypotension. Suspect multifactorial secondary to volume depletion, aortic stenosis, possible sepsis. Rule out pulmonary embolism. 3. Aortic stenosis. Case discussed with Dr. Glez. 4. Renal failure, on peritoneal dialysis. 5. Peripheral vascular disease, status post aortobilateral iliac stent graft. 6. Elevated liver chemistries. 7. Coagulopathy. 8. Metabolic toxic encephalopathy. 9. Hyperlipidemia. 10. Gastroesophageal reflux. 12. Metabolic acidosis secondary to hypoperfusion, possibly sepsis. PLAN: 1. We will continue current support with IV fluids. 2. Pressors. 3. Follow Cardiology input. 4. Obtain CT angiogram to rule out PE. 5. Empiric antibiotics. I do appreciate the privilege in sharing the patient's care. Total cumulative critical care time of 50 minutes. JESSI WEIR MD DR: RICKY/faraz JOB#: [id number] / [id number]
[2019-01-19] MEDS: NOREPINEPHRIN 8MG/250ML PREMIX 250 ML IV PRN ×4 (04:36→22:01)
[2019-01-19 05:12] LABS: ALBUMIN 1.5 g/dL (3.4-5.0); ALBUMIN/GLOBULIN RATIO 0.4 (1.0-1.7); CALCIUM 9.1 mg/dL (8.5-10.1); CREATININE 12.5 mg/dL (0.7-1.3); GFR 3.9; POTASSIUM 3.6 mmol/L (3.5-5.1); TOTAL BILIRUBIN 2.4 mg/dL (0.2-1.0); TOTAL PROTEIN 5.1 g/dL (6.4-8.2)
[2019-01-19 05:19] LABS: BASO # 0.1 x10^3/uL (0.0-0.2); BASO % 0 % (0-3); EOS # 0.2 x10^3/uL (0.0-0.7); EOS % 1 % (0-3); HEMATOCRIT 31.7 % (39.0-53.0); HEMOGLOBIN 10.3 g/dL (13.0-17.5); LYMPH # 2.9 x10^3/uL (1.0-4.8); LYMPH % 9 % (24-48); MEAN CORPUSCULAR HEMOGLOBIN 33 pg (25-35); MEAN CORPUSCULAR HGB CONC 33 g/dL (31-37); MEAN CORPUSCULAR VOLUME 103 fL (79-100); MONO # 5.7 x10^3/uL (0.0-1.1); MONO % 18 % (0-9); NEUT # 23.1 x10^3uL (1.8-7.7); NEUT % 72 % (31-73); PLATELET COUNT 120 x10^3/uL (140-400); RED CELL DISTRIBUTION WIDTH 17.9 % (11.5-14.5)
[2019-01-19 05:20] LABS: MAGNESIUM 2.1 mg/dL (1.8-2.4)
[2019-01-19 05:28] LABS: PHOSPHORUS 10.3 mg/dL (2.6-4.7)
[2019-01-19 05:34] LABS: PROTHROMBIN TIME PATIENT 31.1 SEC (11.7-14.0)
[2019-01-19] MEDS: PIPERACILLIN/TAZOBACTAM 2.25 GM in IV NORMAL SALINE 50ML 50 ML IV SCH ×3 (05:53→21:37)
[2019-01-19] MEDS ORDERED: VANCOMYCIN RANDOM LEVEL. MC ONE (06:00)
--- NOTE | 2019-01-19 06:36 | PDOC ---
PULMONARY PROGRESS NOTES Subjective on levo, patrick, pulled his art line and central line, was agitated, now calm, sob better, no pain Vitals Vital Signs Date Time Temp Pulse Resp B/P (MAP) Pulse Ox O2 Delivery O2 Flow Rate FiO2 01/19/19 06:00 96 18 103/52 (69) 97 Room Air 01/19/19 04:00 98.8 98.8 01/19/19 04:00 2.0 Comments ros as mentioned as above, discussed w rn, other sys otherwise neg General: Alert HEENT: Other (nc at perrl nose throat clear neck no lad, no thyromegaly) Lungs: Crackles Cardiovascular: S1, S2 Abdomen: Soft, Non-tender Neuro Exam: Alert Extremities: No Edema Skin: Warm Labs Laboratory Tests Test 01/17/19 09:45 01/17/19 15:13 01/17/19 15:40 01/17/19 16:01 Sodium Level 138 mmol/L (136-145) 137 mmol/L (136-145) Potassium Level 4.6 mmol/L (3.5-5.1) 3.9 mmol/L (3.5-5.1) Chloride Level 96 mmol/L (98-107) 95 mmol/L (98-107) Carbon Dioxide Level 17 mmol/L (21-32) 12 mmol/L (21-32) Anion Gap 25 (6-14) 30 (6-14) Blood Urea Nitrogen 94 mg/dL (8-26) 96 mg/dL (8-26) Creatinine 15.6 mg/dL (0.7-1.3) 16.0 mg/dL (0.7-1.3) Estimated GFR (Cockcroft-Gault) 3.1 3.0 Glucose Level 51 mg/dL (70-99) 90 mg/dL (70-99) Lactic Acid Level 12.3 mmol/L (0.4-2.0) 18.1 mmol/L (0.4-2.0) Calcium Level 9.2 mg/dL (8.5-10.1) 9.5 mg/dL (8.5-10.1) Ammonia 181 mcmol/L (11-34) Glucose (Fingerstick) 64 mg/dL (70-99) 54 mg/dL (70-99) White Blood Count 18.2 x10^3/uL (4.0-11.0) Red Blood Count 3.03 x10^6/uL (4.30-5.70) Hemoglobin 10.1 g/dL (13.0-17.5) Hematocrit 31.9 % (39.0-53.0) Mean Corpuscular Volume 105 fL (79-100) Mean Corpuscular Hemoglobin 34 pg (25-35) Mean Corpuscular Hemoglobin Concent 32 g/dL (31-37) Red Cell Distribution Width 17.8 % (11.5-14.5) Platelet Count 141 x10^3/uL (140-400) Neutrophils (%) (Auto) 82 % (31-73) Lymphocytes (%) (Auto) 10 % (24-48) Monocytes (%) (Auto) 7 % (0-9) Eosinophils (%) (Auto) 0 % (0-3) Basophils (%) (Auto) 1 % (0-3) Neutrophils # (Auto) 15.0 x10^3uL (1.8-7.7) Lymphocytes # (Auto) 1.8 x10^3/uL (1.0-4.8) Monocytes # (Auto) 1.3 x10^3/uL (0.0-1.1) Eosinophils # (Auto) 0.0 x10^3/uL (0.0-0.7) Basophils # (Auto) 0.1 x10^3/uL (0.0-0.2) Segmented Neutrophils % 88 % (35-66) Band Neutrophils % 5 % (0-9) Lymphocytes % 5 % (24-48) Monocytes % 2 % (0-10) Platelet Estimate Adequate (ADEQUATE) Large Platelets Occ Giant Platelets Polychromasia Mod Poikilocytosis Slight Anisocytosis Slight Microcytosis Target Cells Few Ovalocytes Few Reinbeck Cells Mod Acanthocytes Mod Schistocytes Occ BUN/Creatinine Ratio 6 (6-20) Total Bilirubin 2.0 mg/dL (0.2-1.0) Aspartate Amino Transf (AST/SGOT) 84 U/L (15-37) Alanine Aminotransferase (ALT/SGPT) 27 U/L (16-63) Alkaline Phosphatase 549 U/L (46-116) Total Protein 5.4 g/dL (6.4-8.2) Albumin 1.6 g/dL (3.4-5.0) Albumin/Globulin Ratio 0.4 (1.0-1.7) Cortisol PM Sample 25.6 ug/dL (3.1-16.7) Test 01/17/19 17:02 01/17/19 17:46 01/17/19 19:59 01/18/19 06:55 Glucose (Fingerstick) 60 mg/dL (70-99) 106 mg/dL (70-99) 95 mg/dL (70-99) White Blood Count 28.6 x10^3/uL (4.0-11.0) Red Blood Count 3.16 x10^6/uL (4.30-5.70) Hemoglobin 10.8 g/dL (13.0-17.5) Hematocrit 32.3 % (39.0-53.0) Mean Corpuscular Volume 102 fL (79-100) Mean Corpuscular Hemoglobin 34 pg (25-35) Mean Corpuscular Hemoglobin Concent 33 g/dL (31-37) Red Cell Distribution Width 17.3 % (11.5-14.5) Platelet Count 134 x10^3/uL (140-400) Neutrophils (%) (Auto) 76 % (31-73) Lymphocytes (%) (Auto) 9 % (24-48) Monocytes (%) (Auto) 15 % (0-9) Eosinophils (%) (Auto) 1 % (0-3) Basophils (%) (Auto) 0 % (0-3) Neutrophils # (Auto) 21.7 x10^3uL (1.8-7.7) Lymphocytes # (Auto) 2.4 x10^3/uL (1.0-4.8) Monocytes # (Auto) 4.2 x10^3/uL (0.0-1.1) Eosinophils # (Auto) 0.2 x10^3/uL (0.0-0.7) Basophils # (Auto) 0.1 x10^3/uL (0.0-0.2) Prothrombin Time 27.7 SEC (11.7-14.0) Prothromb Time International Ratio 2.6 (0.8-1.1) Sodium Level 137 mmol/L (136-145) Potassium Level 4.2 mmol/L (3.5-5.1) Chloride Level 94 mmol/L (98-107) Carbon Dioxide Level 18 mmol/L (21-32) Anion Gap 25 (6-14) Blood Urea Nitrogen 91 mg/dL (8-26) Creatinine 14.8 mg/dL (0.7-1.3) Estimated GFR (Cockcroft-Gault) 3.3 BUN/Creatinine Ratio 6 (6-20) Glucose Level 77 mg/dL (70-99) Lactic Acid Level 9.5 mmol/L (0.4-2.0) Calcium Level 9.5 mg/dL (8.5-10.1) Phosphorus Level 12.5 mg/dL (2.6-4.7) Total Bilirubin 2.3 mg/dL (0.2-1.0) Aspartate Amino Transf (AST/SGOT) 294 U/L (15-37) Alanine Aminotransferase (ALT/SGPT) 71 U/L (16-63) Alkaline Phosphatase 457 U/L (46-116) Total Protein 5.4 g/dL (6.4-8.2) Albumin 1.6 g/dL (3.4-5.0) Albumin/Globulin Ratio 0.4 (1.0-1.7) Procalcitonin 13.07 ng/mL (0.00-0.10) Test 01/18/19 07:00 01/18/19 07:04 01/18/19 07:33 01/18/19 11:05 O2 Saturation 96 % (92-99) Arterial Blood pH 7.34 (7.35-7.45) Arterial Blood pCO2 at Patient Temp 28 mmHg (35-46) Arterial Blood pO2 at Patient Temp 105 mmHg (65-108) Arterial Blood HCO3 15 mmol/L (21-28) Arterial Blood Base Excess -10 mmol/L (-3-3) FiO2 28 Glucose (Fingerstick) 66 mg/dL (70-99) 74 mg/dL (70-99) 33 mg/dL (70-99) Test 01/18/19 11:27 01/18/19 13:20 01/18/19 14:07 01/18/19 15:24 Glucose (Fingerstick) 144 mg/dL (70-99) 70 mg/dL (70-99) 58 mg/dL (70-99) Uric Acid 8.9 mg/dL (3.5-7.2) Hepatitis A IgM Antibody Nonreactive (Nonreactive) Hepatitis B Surface Antigen Nonreactive (Nonreactive) Hepatitis B Core IgM Antibody Nonreactive (Nonreactive) Hepatitis C IgG Antibody Nonreactive (Nonreactive) HIV (1&2) Antibody Screen Nonreactive (Nonreactive) Test 01/18/19 17:30 01/18/19 18:22 01/18/19 21:54 01/19/19 04:00 Glucose (Fingerstick) 69 mg/dL (70-99) 139 mg/dL (70-99) 136 mg/dL (70-99) White Blood Count 32.0 x10^3/uL (4.0-11.0) Red Blood Count 3.10 x10^6/uL (4.30-5.70) Hemoglobin 10.3 g/dL (13.0-17.5) Hematocrit 31.7 % (39.0-53.0) Mean Corpuscular Volume 103 fL (79-100) Mean Corpuscular Hemoglobin 33 pg (25-35) Mean Corpuscular Hemoglobin Concent 33 g/dL (31-37) Red Cell Distribution Width 17.9 % (11.5-14.5) Platelet Count 120 x10^3/uL (140-400) Neutrophils (%) (Auto) 72 % (31-73) Lymphocytes (%) (Auto) 9 % (24-48) Monocytes (%) (Auto) 18 % (0-9) Eosinophils (%) (Auto) 1 % (0-3) Basophils (%) (Auto) 0 % (0-3) Neutrophils # (Auto) 23.1 x10^3uL (1.8-7.7) Lymphocytes # (Auto) 2.9 x10^3/uL (1.0-4.8) Monocytes # (Auto) 5.7 x10^3/uL (0.0-1.1) Eosinophils # (Auto) 0.2 x10^3/uL (0.0-0.7) Basophils # (Auto) 0.1 x10^3/uL (0.0-0.2) Prothrombin Time 31.1 SEC (11.7-14.0) Prothromb Time International Ratio 3.0 (0.8-1.1) Sodium Level 136 mmol/L (136-145) Potassium Level 3.6 mmol/L (3.5-5.1) Chloride Level 97 mmol/L (98-107) Carbon Dioxide Level 20 mmol/L (21-32) Anion Gap 19 (6-14) Blood Urea Nitrogen 78 mg/dL (8-26) Creatinine 12.5 mg/dL (0.7-1.3) Estimated GFR (Cockcroft-Gault) 3.9 BUN/Creatinine Ratio 6 (6-20) Glucose Level 120 mg/dL (70-99) Lactic Acid Level 5.3 mmol/L (0.4-2.0) Calcium Level 9.1 mg/dL (8.5-10.1) Phosphorus Level 10.3 mg/dL (2.6-4.7) Magnesium Level 2.1 mg/dL (1.8-2.4) Total Bilirubin 2.4 mg/dL (0.2-1.0) Aspartate Amino Transf (AST/SGOT) 260 U/L (15-37) Alanine Aminotransferase (ALT/SGPT) 79 U/L (16-63) Alkaline Phosphatase 360 U/L (46-116) Ammonia 26 mcmol/L (11-34) Total Protein 5.1 g/dL (6.4-8.2) Albumin 1.5 g/dL (3.4-5.0) Albumin/Globulin Ratio 0.4 (1.0-1.7) Random Vancomycin Level 15.3 mcg/mL Laboratory Tests Test 01/18/19 06:55 01/18/19 07:00 01/18/19 07:04 01/18/19 07:33 White Blood Count 28.6 x10^3/uL (4.0-11.0) Red Blood Count 3.16 x10^6/uL (4.30-5.70) Hemoglobin 10.8 g/dL (13.0-17.5) Hematocrit 32.3 % (39.0-53.0) Mean Corpuscular Volume 102 fL (79-100) Mean Corpuscular Hemoglobin 34 pg (25-35) Mean Corpuscular Hemoglobin Concent 33 g/dL (31-37) Red Cell Distribution Width 17.3 % (11.5-14.5) Platelet Count 134 x10^3/uL (140-400) Neutrophils (%) (Auto) 76 % (31-73) Lymphocytes (%) (Auto) 9 % (24-48) Monocytes (%) (Auto) 15 % (0-9) Eosinophils (%) (Auto) 1 % (0-3) Basophils (%) (Auto) 0 % (0-3) Neutrophils # (Auto) 21.7 x10^3uL (1.8-7.7) Lymphocytes # (Auto) 2.4 x10^3/uL (1.0-4.8) Monocytes # (Auto) 4.2 x10^3/uL (0.0-1.1) Eosinophils # (Auto) 0.2 x10^3/uL (0.0-0.7) Basophils # (Auto) 0.1 x10^3/uL (0.0-0.2) Prothrombin Time 27.7 SEC (11.7-14.0) Prothromb Time International Ratio 2.6 (0.8-1.1) Sodium Level 137 mmol/L (136-145) Potassium Level 4.2 mmol/L (3.5-5.1) Chloride Level 94 mmol/L (98-107) Carbon Dioxide Level 18 mmol/L (21-32) Anion Gap 25 (6-14) Blood Urea Nitrogen 91 mg/dL (8-26) Creatinine 14.8 mg/dL (0.7-1.3) Estimated GFR (Cockcroft-Gault) 3.3 BUN/Creatinine Ratio 6 (6-20) Glucose Level 77 mg/dL (70-99) Lactic Acid Level 9.5 mmol/L (0.4-2.0) Calcium Level 9.5 mg/dL (8.5-10.1) Phosphorus Level 12.5 mg/dL (2.6-4.7) Total Bilirubin 2.3 mg/dL (0.2-1.0) Aspartate Amino Transf (AST/SGOT) 294 U/L (15-37) Alanine Aminotransferase (ALT/SGPT) 71 U/L (16-63) Alkaline Phosphatase 457 U/L (46-116) Total Protein 5.4 g/dL (6.4-8.2) Albumin 1.6 g/dL (3.4-5.0) Albumin/Globulin Ratio 0.4 (1.0-1.7) Procalcitonin 13.07 ng/mL (0.00-0.10) O2 Saturation 96 % (92-99) Arterial Blood pH 7.34 (7.35-7.45) Arterial Blood pCO2 at Patient Temp 28 mmHg (35-46) Arterial Blood pO2 at Patient Temp 105 mmHg (65-108) Arterial Blood HCO3 15 mmol/L (21-28) Arterial Blood Base Excess -10 mmol/L (-3-3) FiO2 28 Glucose (Fingerstick) 66 mg/dL (70-99) 74 mg/dL (70-99) Test 01/18/19 11:05 01/18/19 11:27 01/18/19 13:20 01/18/19 14:07 Glucose (Fingerstick) 33 mg/dL (70-99) 144 mg/dL (70-99) 70 mg/dL (70-99) Uric Acid 8.9 mg/dL (3.5-7.2) Hepatitis A IgM Antibody Nonreactive (Nonreactive) Hepatitis B Surface Antigen Nonreactive (Nonreactive) Hepatitis B Core IgM Antibody Nonreactive (Nonreactive) Hepatitis C IgG Antibody Nonreactive (Nonreactive) HIV (1&2) Antibody Screen Nonreactive (Nonreactive) Test 01/18/19 15:24 01/18/19 17:30 01/18/19 18:22 01/18/19 21:54 Glucose (Fingerstick) 58 mg/dL (70-99) 69 mg/dL (70-99) 139 mg/dL (70-99) 136 mg/dL (70-99) Test 01/19/19 04:00 White Blood Count 32.0 x10^3/uL (4.0-11.0) Red Blood Count 3.10 x10^6/uL (4.30-5.70) Hemoglobin 10.3 g/dL (13.0-17.5) Hematocrit 31.7 % (39.0-53.0) Mean Corpuscular Volume 103 fL (79-100) Mean Corpuscular Hemoglobin 33 pg (25-35) Mean Corpuscular Hemoglobin Concent 33 g/dL (31-37) Red Cell Distribution Width 17.9 % (11.5-14.5) Platelet Count 120 x10^3/uL (140-400) Neutrophils (%) (Auto) 72 % (31-73) Lymphocytes (%) (Auto) 9 % (24-48) Monocytes (%) (Auto) 18 % (0-9) Eosinophils (%) (Auto) 1 % (0-3) Basophils (%) (Auto) 0 % (0-3) Neutrophils # (Auto) 23.1 x10^3uL (1.8-7.7) Lymphocytes # (Auto) 2.9 x10^3/uL (1.0-4.8) Monocytes # (Auto) 5.7 x10^3/uL (0.0-1.1) Eosinophils # (Auto) 0.2 x10^3/uL (0.0-0.7) Basophils # (Auto) 0.1 x10^3/uL (0.0-0.2) Prothrombin Time 31.1 SEC (11.7-14.0) Prothromb Time International Ratio 3.0 (0.8-1.1) Sodium Level 136 mmol/L (136-145) Potassium Level 3.6 mmol/L (3.5-5.1) Chloride Level 97 mmol/L (98-107) Carbon Dioxide Level 20 mmol/L (21-32) Anion Gap 19 (6-14) Blood Urea Nitrogen 78 mg/dL (8-26) Creatinine 12.5 mg/dL (0.7-1.3) Estimated GFR (Cockcroft-Gault) 3.9 BUN/Creatinine Ratio 6 (6-20) Glucose Level 120 mg/dL (70-99) Lactic Acid Level 5.3 mmol/L (0.4-2.0) Calcium Level 9.1 mg/dL (8.5-10.1) Phosphorus Level 10.3 mg/dL (2.6-4.7) Magnesium Level 2.1 mg/dL (1.8-2.4) Total Bilirubin 2.4 mg/dL (0.2-1.0) Aspartate Amino Transf (AST/SGOT) 260 U/L (15-37) Alanine Aminotransferase (ALT/SGPT) 79 U/L (16-63) Alkaline Phosphatase 360 U/L (46-116) Ammonia 26 mcmol/L (11-34) Total Protein 5.1 g/dL (6.4-8.2) Albumin 1.5 g/dL (3.4-5.0) Albumin/Globulin Ratio 0.4 (1.0-1.7) Random Vancomycin Level 15.3 mcg/mL Medications Active Scripts Medications Dose Route/Sig Max Daily Dose Days Date Category Dose Instructions [calcium carbon] 01/14/19 Reported Triamcinolone Acetonide 0.5% Cream (Triamcinolone Acetonide) 15 Gm Cream..g. 1 Olu TP BID 01/14/19 Reported Renvela (Sevelamer Carbonate) 800 Mg Tablet 2 Tab PO TID 01/14/19 Reported Protonix (Pantoprazole Sodium) 40 Mg Granpkt.dr 40 Mg PO DAILY 01/14/19 Reported Calcium Carbonate 500 Mg Tablet 5,000 Mg PO TIDWMEALS 01/14/19 Reported Skin Treatment (Ammonium Lactate) 225 Gm Lotion 225 Gm TP BID 01/14/19 Reported Sanderson 5-325 Tablet (Acetaminophen/Hydrocodone Bitart) 1 Each Tablet 1-2 Each PO PRN Q6HRS PRN 08/25/18 Rx as needed for pain Aspirin 81 Mg Tab.chew 1 Tab PO DAILY 04/20/18 Reported Atorvastatin Calcium 20 Mg Tablet 1 Tab PO QHS 04/20/18 Reported Sodium Bicarbonate 650 Mg Tablet 1,950 Mg PO TIDWMEALS 11/23/17 Reported Comments cxr reviewed, 1. A left jugular dialysis type catheter has been inserted extending into the superior aspect of the right atrium. 2. No other significant change since earlier in the day. ct reviewed, 1. Slightly suboptimal PE study due to contrast bolus timing. No central or segmental PE. Evaluation of distal most subsegmental pulmonary arteries is limited. 2. No pneumonia or imaging evidence of acute pulmonary infarct. 3. 5 mm nodular opacity in the right upper lobe. Follow-up CT chest in 6 months without IV contrast recommended. Impression . IMPRESSION: 1. Acute respiratory failure, multifactorial. 2. Hypotension. Suspect multifactorial secondary to volume depletion, aortic stenosis, possible sepsis. no pulmonary embolism. 3. Aortic stenosis. Case discussed with Dr. Glez. 4. Renal failure, on peritoneal dialysis. 5. Peripheral vascular disease, status post aortobilateral iliac stent graft. 6. Elevated liver chemistries. 7. Coagulopathy. 8. Metabolic toxic encephalopathy. 9. Hyperlipidemia. 10. Gastroesophageal reflux. 12. Metabolic acidosis secondary to hypoperfusion, possibly sepsis. 13. 5 mm nodular opacity in the right upper lobe Plan . PLAN: 1. IV fluids. 2. Pressors to keep map >65, would need central line for pressors. add solucortef 3. Follow Cardiology input. 4. CTA no PE. 5. Empiric antibiotics. i do recommend ID consult 6. BD 7. Dialysis per nephro discussed w ARCHANA Potter MD Jan 19, 2019 06:36
[2019-01-19] MEDS: IPRATRPIUM/ALBUTEROL 0.5/2.5MG 3 ML NEBU. NEB SCH ×4 (08:00→20:26)
[2019-01-19] MEDS: SEVELAMER CARBONATE 800 MG TABLET. PO SCH ×3 (08:33→21:36)
[2019-01-19] MEDS: LACTOBACILLUS RHAMNOSUS GG 1 CAPSULE. PO SCH ×2 (08:33→21:36)
[2019-01-19] MEDS: PANTOPRAZOLE 40 MG TABLET.DR. PO SCH (08:33)
[2019-01-19] MEDS: SODIUM BICARBONATE 650 MG TABLET. PO SCH ×3 (08:33→17:06)
[2019-01-19] MEDS: ASPIRIN CHEWABLE 81 MG TABLET. PO SCH (08:33)
[2019-01-19] MEDS: MIDODRINE 5 MG TABLET PO SCH ×3 (08:35→17:48)
[2019-01-19] MEDS: CALCIUM CARBONATE 500 MG TABLET PO SCH ×3 (08:36→17:04)
[2019-01-19] MEDS: IV DEXTROSE 5 %-0.45 % NACL 1,000 ML IV SCH (08:37)
[2019-01-19] MEDS: TRIAMCINOLONE ACETONIDE 0.1% TOPICAL CREAM 15GM TUBE. TP SCH ×2 (09:00→21:37)
[2019-01-19] MEDS: AMMONIUM LACTATE 12% TOPICAL LOTION 226GM BOTTLE. TP SCH ×2 (09:00→21:37)
[2019-01-19] MEDS: GENTAMICIN 0.1% TOPICAL OINTMENT 15GM TUBE. TP SCH (09:00)
[2019-01-19] MEDS: HYDROCORTISONE SOD SUCC/PF 100 MG/2 ML VIAL. IV SCH ×3 (09:41→21:37)
[2019-01-19] MEDS ORDERED: IV NORMAL SALINE 250ML 250 ML IV ONE (09:45)
--- NOTE | 2019-01-19 10:17 | PDOC ---
CARDIOLOGY PROGRESS NOTE SUBJECTIVE: Overnight noted to have 3/4 positive blood cultures. Remains hypotensive. Intermittently confused. OBJECTIVE: Vital SIgns: AF, 98, 16, 88/78, pox -98% on RA I & O +4L, unclear how much was removed through PD Objective: Appears tired but alert and oriented to self and place persistent severe murmur no edema. abd soft. CURRENT MEDICATIONS: ASA 81mg daily Atorvastatin 20mg daily Levophed and Vasopressin Solucortef DIAGNOSTIC TESTING: Labs noted. Plt 120 Lactate improved. ASSESSMENT: 1. Septic shock, awaiting source and speciation 2. Severe PLAN: 1. Since CT C/A/P negative, will plan for JOANNA on monday to rule out endocarditis. Await ID input. 2. Continue abx. Ok with fluid bolus prn. 3. Wean pressors as tolerated. Supportive care. CARISSA URBINA MD Jan 19, 2019 10:17
--- NOTE | 2019-01-19 10:23 | CONS ---
DATE OF CONSULTATION: 01/18/2019 REQUESTING PHYSICIAN: Dr. Ashleigh Nowak. REASON FOR CONSULTATION: Hypotension and to evaluate for amyloidosis. HISTORY OF PRESENT ILLNESS: The patient is a 73-year-old gentleman who was sent to the hospital because of hypotension. He was admitted to [facility] on 01/14/2019. He has had nausea and vomiting. He was subsequently noted to have worsening hypotension, requiring vasopressors and he is being managed in the ICU. Multiple consultants have seen the patient. I was asked to see the patient to see if there is any evidence of underlying amyloidosis, contributing to his hypotension. The patient has end-stage renal disease due to hypertension and is on peritoneal dialysis. Serum kappa-lambda free light chains were elevated on 10/11/2017 with a kappa light chains at 776 and lambda light chains at 58.6 with a kappa lambda ratio of 13.21. Hence, he underwent further workup with a bone marrow biopsy on 11/23/2017 that revealed only 3% monoclonal plasma cells, suggestive of plasma cell dyscrasia and/or B cell lymphoproliferative disorder such as CLL or SLL. Followup kappa light chains on 11/20/2017 revealed the kappa light chains had improved down to 91.05 and lambda light chain at 5.92 with a ratio of 15.38. [place] light chains on 06/18/2018 were stable at 118.65 with a ratio of 11.04, which was better than before. Serum protein electrophoresis had not revealed any paraprotein. Skeletal survey on 11/23/2017 was negative for lytic lesions. PAST MEDICAL HISTORY: Coronary artery disease; hypertension; myocardial infarction; aortic stenosis; end-stage renal disease, on peritoneal hemodialysis. FAMILY HISTORY: Negative for primary bone marrow disorders. SOCIAL HISTORY: He is an ex-smoker. No alcohol abuse. REVIEW OF SYSTEMS: A 12-point review of system was performed. Pertinent positives are mentioned in the history of present illness. Rest of the system review is negative. PHYSICAL EXAMINATION: GENERAL APPEARANCE: The patient is a 73-year-old gentleman who is not communicative. He is drowsy and lethargic and in no acute cardiorespiratory distress. VITAL SIGNS: Blood pressure 103/47, temperature 99.2. HEENT: Head atraumatic, normocephalic. Eyes: No icterus. NECK: Supple. CHEST: Bilaterally symmetrical. HEART: S1, S2 normal. ABDOMEN: Soft, nontender. CENTRAL NERVOUS SYSTEM: Lethargic, not communicative. PSYCHOLOGIC: Flat affect. MUSCULOSKELETAL: No joint effusions. LABORATORY DATA: WBC 26.8, hemoglobin 10.8, platelet count 134, 5% bands noted. Toxic granulations present in the peripheral smear. Creatinine is 14.8. IMPRESSION AND PLAN: 1. Monoclonal gammopathy of undetermined significance. He has had elevated kappa and lambda light chains since 10/11/2017. The kappa light chains have improved since then with an improvement in the ratio as noted on 06/18/2018. He has also had a bone marrow biopsy on 11/23/2017 that revealed 3% monoclonal plasma cell population and minute CD5 positive monoclonal B cell population by flow cytometry, suggestive of plasma cell dyscrasia or B-cell lymphoproliferative disorder such as chronic lymphocytic leukemia or small lymphocytic lymphoma. However, this is only a minute and indolent. I discussed with the pathologist, Dr. Zhao Desouza, who mentioned that there was no evidence of amyloidosis on histologic examination. Since he had a bone marrow biopsy in 2018, it is unlikely that he would have progressed to significantly worsening disease to cause his current clinical condition. I will go ahead and check kappa light chains and lambda light chains. I discussed in detail with the patient's family. I also discussed with registered nurse. I also discussed with Dr. Ashleigh Nowak. 2. End-stage renal disease. He is on hemodialysis. 3. Hypotension. Continue management in the ICU. CRICKET ECHOLS MD DR: CYNTHIA/faraz JOB#: [id number] / [id number] [place]
--- NOTE | 2019-01-19 10:44 | PDOC ---
SUBJECTIVE ROS Alert Today , propped up in bed OBJECTIVE Vital Signs Vital Signs Date Time Temp Pulse Resp B/P (MAP) Pulse Ox O2 Delivery O2 Flow Rate FiO2 01/19/19 09:00 98 16 88/51 (63) 99 Room Air 01/19/19 08:00 2.0 01/19/19 04:00 98.8 98.8 I & 0 Intake and Output 01/19/19 07:00 Intake Total 4515 ml Balance 4515 ml Intake Oral 0 ml IV Total 4515 ml # Bowel Movements 6 PHYSICAL EXAM Physical Exam GEN: NAD HEEN: OM moist NECK: Supple CVS: S1S2 , Murmur ++ RESP: CTA Bilat, No use of acc Muscles GI: BS + ve, NT, PD catheter in Place : No CVA tenderness, No Suprapubic Tenderness, No Ojeda Skin No rash DIAGNOSIS/ASSESSMENT Assessment & Plan ESRD- On PD since Jun [address] Tomlinson no peritonitis, No Vol Overload Continue as per Home prescription Hypotension- has been hospitalized and worked up at [facility] in past as well CT with contrast this am , no acute findings Septic shock, GRAM POSITIVE COCCI IN CLUSTERS, SUGGESTIVE OF STAPH,? source ID following Aortic stenosis - Seen by card as OP recently- JOANNA done-severe Aortic stenosis Card on board -JOANNA on monday to rule out endocarditis Aortoiiliac stent graft is identified with the benton aorta measuring 4.1 x 4.3 Dw RN and family at bedside COMMENT/RELEVANT DATA Meds Current Medications Medications (Trade) Dose Ordered Sig/Conrad Start Time Stop Time Status Last Admin Dose Admin Acetaminophen (Tylenol) 1,000 mg PRN Q6HRS PRN 01/15/19 11:15 01/16/19 09:50 1,000 MG Acetaminophen/ Hydrocodone Bitart (Lortab 5/325) 1 tab PRN Q6HRS PRN 01/15/19 08:45 01/16/19 20:25 1 TAB Albuterol/ Ipratropium (Duoneb) 3 ml RTQID 01/15/19 12:00 01/19/19 08:00 3 ML Aspirin (Children'S Aspirin) 81 mg DAILY 01/15/19 10:00 01/19/19 08:33 81 MG Atorvastatin Calcium (Lipitor) 20 mg QHS 01/15/19 21:00 01/18/19 16:53 DC 01/17/19 21:06 20 MG Calcium Carbonate/ Glycine (Oscal) 500 mg TIDWMEALS 01/15/19 12:00 01/19/19 08:36 500 MG Dextrose (Dextrose 50%-Water Syringe) 25 gm 1X ONCE 01/18/19 17:45 01/18/19 17:46 DC 01/18/19 17:45 25 GM Dextrose/Sodium Chloride 1,000 ml @ 50 mls/hr Q20H 01/17/19 16:30 01/19/19 08:37 50 MLS/HR Dobutamine HCl/ Dextrose 250 ml @ 5.939 mls/ hr CONT PRN 01/18/19 10:15 01/18/19 12:59 DC 01/18/19 10:34 11.877 MLS/HR Fentanyl Citrate (Fentanyl 2ml Vial) 100 mcg STK-MED ONCE 01/18/19 09:25 01/18/19 09:26 DC Gentamicin Sulfate (Garamycin) 1 betty DAILY 01/16/19 09:00 01/17/19 18:46 1 BETTY Hydrocortisone Sodium Succinate (Solu-CORTEF) 100 mg Q8HRS 01/19/19 10:00 01/19/19 09:41 100 MG Info (CONTRAST GIVEN -- Rx MONITORING) 1 each PRN DAILY PRN 01/18/19 12:00 01/20/19 11:59 Iohexol (Omnipaque 300 Mg/ml) 75 ml 1X ONCE 01/18/19 08:15 01/18/19 08:16 DC Iohexol (Omnipaque 350 Mg/ml) 100 ml STK-MED ONCE 01/18/19 17:00 01/18/19 17:01 DC Lactic Acid (Lac-Hydrin) 1 betty BID 01/15/19 10:00 01/16/19 20:25 1 BETTY Lactobacillus Rhamnosus (Culturelle) 1 cap BID 01/18/19 21:00 01/19/19 08:33 1 CAP Lactulose (Lactulose) 20 gm PRN TID PRN 01/18/19 11:15 Lidocaine/Sodium Bicarbonate (Buffered Lidocaine 1%) 3 ml STK-MED ONCE 01/18/19 15:39 01/18/19 15:40 DC Micafungin Sodium 100 mg/Dextrose 100 ml @ 100 mls/hr Q24H 01/17/19 20:00 01/18/19 21:38 100 MLS/HR Midazolam HCl (Versed) 5 mg STK-MED ONCE 01/18/19 09:25 01/18/19 09:26 DC Midodrine (Proamatine) 5 mg [id number] 01/16/19 13:00 01/19/19 08:35 5 MG Norepinephrine Bitartrate 250 ml @ 1.875 mls/ hr CONT PRN 01/17/19 14:30 01/19/19 04:36 56.25 MLS/HR Ondansetron HCl (Zofran) 4 mg PRN Q6HRS PRN 01/18/19 11:00 01/18/19 11:10 4 MG Pantoprazole Sodium (Protonix) 40 mg DAILYAC 01/15/19 10:00 01/19/19 08:33 40 MG Piperacillin Sod/ Tazobactam Sod (Zosyn Per Pharmacy) 1 each PRN DAILY PRN 01/17/19 16:00 Piperacillin Sod/ Tazobactam Sod 2.25 gm/Sodium Chloride 50 ml @ 100 mls/hr Q8HRS 01/17/19 17:00 01/19/19 05:53 100 MLS/HR Sevelamer Carbonate (Renvela) 1,600 mg TID 01/15/19 09:00 01/19/19 08:33 1,600 MG Sodium Bicarbonate (Sodium Bicarbonate) 1,950 mg TIDWMEALS 01/15/19 12:00 01/19/19 08:33 1,950 MG Sodium Chloride 250 ml @ 250 mls/hr 1X ONCE 01/19/19 09:45 01/19/19 10:44 01/19/19 09:40 250 MLS/HR Triamcinolone Acetonide (Kenalog) 1 betty BID 01/15/19 10:00 01/15/19 20:55 1 BETTY Vancomycin HCl (Vanco Per Pharmacy) 1 each PRN DAILY PRN 01/17/19 18:00 01/18/19 17:48 1 EACH Vancomycin HCl (Vancomycin Random Level) 1 each 1X ONCE 01/19/19 06:00 01/19/19 06:01 DC Vancomycin HCl 2 gm/Sodium Chloride 500 ml @ 250 mls/hr 1X ONCE 01/17/19 18:00 01/17/19 19:59 DC 01/17/19 18:50 250 MLS/HR Vasopressin 40 unit/Dextrose 102 ml @ 6 mls/hr CONT PRN 01/18/19 13:00 01/19/19 03:37 6 MLS/HR Lab Laboratory Tests Test 01/18/19 11:05 01/18/19 11:27 01/18/19 13:20 01/18/19 14:07 Glucose (Fingerstick) 33 mg/dL (70-99) 144 mg/dL (70-99) 70 mg/dL (70-99) Uric Acid 8.9 mg/dL (3.5-7.2) Hepatitis A IgM Antibody Nonreactive (Nonreactive) Hepatitis B Surface Antigen Nonreactive (Nonreactive) Hepatitis B Core IgM Antibody Nonreactive (Nonreactive) Hepatitis C IgG Antibody Nonreactive (Nonreactive) HIV (1&2) Antibody Screen Nonreactive (Nonreactive) Test 01/18/19 15:24 01/18/19 17:30 01/18/19 18:22 01/18/19 21:54 Glucose (Fingerstick) 58 mg/dL (70-99) 69 mg/dL (70-99) 139 mg/dL (70-99) 136 mg/dL (70-99) Test 01/19/19 04:00 White Blood Count 32.0 x10^3/uL (4.0-11.0) Red Blood Count 3.10 x10^6/uL (4.30-5.70) Hemoglobin 10.3 g/dL (13.0-17.5) Hematocrit 31.7 % (39.0-53.0) Mean Corpuscular Volume 103 fL (79-100) Mean Corpuscular Hemoglobin 33 pg (25-35) Mean Corpuscular Hemoglobin Concent 33 g/dL (31-37) Red Cell Distribution Width 17.9 % (11.5-14.5) Platelet Count 120 x10^3/uL (140-400) Neutrophils (%) (Auto) 72 % (31-73) Lymphocytes (%) (Auto) 9 % (24-48) Monocytes (%) (Auto) 18 % (0-9) Eosinophils (%) (Auto) 1 % (0-3) Basophils (%) (Auto) 0 % (0-3) Neutrophils # (Auto) 23.1 x10^3uL (1.8-7.7) Lymphocytes # (Auto) 2.9 x10^3/uL (1.0-4.8) Monocytes # (Auto) 5.7 x10^3/uL (0.0-1.1) Eosinophils # (Auto) 0.2 x10^3/uL (0.0-0.7) Basophils # (Auto) 0.1 x10^3/uL (0.0-0.2) Prothrombin Time 31.1 SEC (11.7-14.0) Prothromb Time International Ratio 3.0 (0.8-1.1) Sodium Level 136 mmol/L (136-145) Potassium Level 3.6 mmol/L (3.5-5.1) Chloride Level 97 mmol/L (98-107) Carbon Dioxide Level 20 mmol/L (21-32) Anion Gap 19 (6-14) Blood Urea Nitrogen 78 mg/dL (8-26) Creatinine 12.5 mg/dL (0.7-1.3) Estimated GFR (Cockcroft-Gault) 3.9 BUN/Creatinine Ratio 6 (6-20) Glucose Level 120 mg/dL (70-99) Lactic Acid Level 5.3 mmol/L (0.4-2.0) Calcium Level 9.1 mg/dL (8.5-10.1) Phosphorus Level 10.3 mg/dL (2.6-4.7) Magnesium Level 2.1 mg/dL (1.8-2.4) Total Bilirubin 2.4 mg/dL (0.2-1.0) Aspartate Amino Transf (AST/SGOT) 260 U/L (15-37) Alanine Aminotransferase (ALT/SGPT) 79 U/L (16-63) Alkaline Phosphatase 360 U/L (46-116) Ammonia 26 mcmol/L (11-34) Total Protein 5.1 g/dL (6.4-8.2) Albumin 1.5 g/dL (3.4-5.0) Albumin/Globulin Ratio 0.4 (1.0-1.7) Random Vancomycin Level 15.3 mcg/mL Results All relevant outside records, renal labs, imaging studies, telemetry/EKG's were reviewed. JUDSON GUZMAN MD Jan 19, 2019 10:44
[2019-01-19] MEDS: VANCOMYCIN PER PHARMACY MC PRN ×2 (11:04→11:09)
--- NOTE | 2019-01-19 11:04 | NUR ---
Pharmacy Vancomycin Dosing Note S: Consulted to monitor and dose vancomycin started 01/17/19. O: ABTS,AUGUSTO Guevara is a 73 year old M with sepsis. Other Antibiotics: ZOSYN 2.25G IV Q8HRS LABS: Last BUN: 78 Last Creatinine: 12.5 Creatinine Clearance: ESRD on PD Last WBC: 32 Last Platelets: Tmax (past 24 hours): 99.1 Microbiology: PD FLUID CX: PENDING I/O: 780/output not documented; 2 voids Drug Levels: Last Random level: 15.3 on 01/19 at 0500 Last dose given 01/17/19 at 1850 A: Patient received vancomycin 2000 mg IV x 1 on 01/17. He is a dialysis patient, currently on peritoneal dialysis each evening. A ~ 36 hr random level today of 15.3 is within goal range for staph bacteremia and sepsis. P: 1. Initiate Vancomycin 1250 mg IV q48h 2. Follow random in 5 days 3. Pharmacy will continue to monitor, follow and adjust therapy as needed. EDWARD MCGRATH [facility], 01/19/19 2408
--- NOTE | 2019-01-19 11:05 | PDOC ---
PROGRESS NOTES Chief Complaint Chief Complaint Hypotension - improving on 2 pressors Gram positive sepsis Lactic acid elevation without evidence of toxicity Severe hypoglycemia Dizziness Leukocytosis - trending up Anemia of chronic disease Nausea and vomiting History of aortic stenosis: Being considered for TAVR reportedly not a candidate due to moderate reading via JOANNA. Severe per f/u TTE Metabolic acidosis Elevated troponin: peaked at 0.2, demand mediated, type 2 with above culprits. no CP nor SOA Coagulopathy: INR 2.2. Macrocytic anemia ESRD: PD (Cr of 14.8) moderate to severe Protein malnutrition CAD: stents in the past, clinically stable. Hx of HTN Hx of AAA with repair History of Present Illness History of Present Illness Patient was seen and examined in the ICU. Patient given PD overnight. Patient is clinically improving and awake but remains on max dose of levophed and vasopressin. Systolic blood pressure 85-115. Patient not verbalizing. Blood cultures positive for gram positive cocci. WBC elevated at 32. Vitals Vitals Vital Signs Date Time Temp Pulse Resp B/P (MAP) Pulse Ox O2 Delivery O2 Flow Rate FiO2 01/19/19 09:00 98 16 88/51 (63) 99 Room Air 01/19/19 08:00 2.0 01/19/19 04:00 98.8 98.8 Physical Exam General: Alert, severe distress, Other (confused, awake, not verbalizing) Heart: Normal S1, Normal S2 Lungs: Crackles Abdomen: Normal bowel sounds, Soft, No masses Extremities: No clubbing, No cyanosis, No edema Skin: No rashes, No breakdown, No significant lesion Labs LABS Laboratory Tests Test 01/18/19 11:05 01/18/19 11:27 01/18/19 13:20 01/18/19 14:07 Glucose (Fingerstick) 33 mg/dL (70-99) 144 mg/dL (70-99) 70 mg/dL (70-99) Uric Acid 8.9 mg/dL (3.5-7.2) Hepatitis A IgM Antibody Nonreactive (Nonreactive) Hepatitis B Surface Antigen Nonreactive (Nonreactive) Hepatitis B Core IgM Antibody Nonreactive (Nonreactive) Hepatitis C IgG Antibody Nonreactive (Nonreactive) HIV (1&2) Antibody Screen Nonreactive (Nonreactive) Test 01/18/19 15:24 01/18/19 17:30 01/18/19 18:22 01/18/19 21:54 Glucose (Fingerstick) 58 mg/dL (70-99) 69 mg/dL (70-99) 139 mg/dL (70-99) 136 mg/dL (70-99) Test 01/19/19 04:00 White Blood Count 32.0 x10^3/uL (4.0-11.0) Red Blood Count 3.10 x10^6/uL (4.30-5.70) Hemoglobin 10.3 g/dL (13.0-17.5) Hematocrit 31.7 % (39.0-53.0) Mean Corpuscular Volume 103 fL (79-100) Mean Corpuscular Hemoglobin 33 pg (25-35) Mean Corpuscular Hemoglobin Concent 33 g/dL (31-37) Red Cell Distribution Width 17.9 % (11.5-14.5) Platelet Count 120 x10^3/uL (140-400) Neutrophils (%) (Auto) 72 % (31-73) Lymphocytes (%) (Auto) 9 % (24-48) Monocytes (%) (Auto) 18 % (0-9) Eosinophils (%) (Auto) 1 % (0-3) Basophils (%) (Auto) 0 % (0-3) Neutrophils # (Auto) 23.1 x10^3uL (1.8-7.7) Lymphocytes # (Auto) 2.9 x10^3/uL (1.0-4.8) Monocytes # (Auto) 5.7 x10^3/uL (0.0-1.1) Eosinophils # (Auto) 0.2 x10^3/uL (0.0-0.7) Basophils # (Auto) 0.1 x10^3/uL (0.0-0.2) Prothrombin Time 31.1 SEC (11.7-14.0) Prothromb Time International Ratio 3.0 (0.8-1.1) Sodium Level 136 mmol/L (136-145) Potassium Level 3.6 mmol/L (3.5-5.1) Chloride Level 97 mmol/L (98-107) Carbon Dioxide Level 20 mmol/L (21-32) Anion Gap 19 (6-14) Blood Urea Nitrogen 78 mg/dL (8-26) Creatinine 12.5 mg/dL (0.7-1.3) Estimated GFR (Cockcroft-Gault) 3.9 BUN/Creatinine Ratio 6 (6-20) Glucose Level 120 mg/dL (70-99) Lactic Acid Level 5.3 mmol/L (0.4-2.0) Calcium Level 9.1 mg/dL (8.5-10.1) Phosphorus Level 10.3 mg/dL (2.6-4.7) Magnesium Level 2.1 mg/dL (1.8-2.4) Total Bilirubin 2.4 mg/dL (0.2-1.0) Aspartate Amino Transf (AST/SGOT) 260 U/L (15-37) Alanine Aminotransferase (ALT/SGPT) 79 U/L (16-63) Alkaline Phosphatase 360 U/L (46-116) Ammonia 26 mcmol/L (11-34) Total Protein 5.1 g/dL (6.4-8.2) Albumin 1.5 g/dL (3.4-5.0) Albumin/Globulin Ratio 0.4 (1.0-1.7) Random Vancomycin Level 15.3 mcg/mL Review of Systems Review of Systems Unable to obtain, patient not verbalizing Assessment and Plan Assessmemt and Plan Problems Medical Problems: (1) Chronic kidney disease with end stage renal failure on dialysis Status: Acute (2) Generalized weakness Status: Acute (3) Hypotension Status: Acute (4) Nausea and vomiting Status: Acute Assessment: Hypotension - improving on 2 pressors Gram positive sepsis Lactic acid elevation without evidence of toxicity Severe hypoglycemia Dizziness Leukocytosis Anemia of chronic disease Nausea and vomiting History of aortic stenosis: Being considered for TAVR reportedly not a candidate due to moderate reading via JOANNA. Severe per f/u TTE Metabolic acidosis Elevated troponin: peaked at 0.2, demand mediated, type 2 with above culprits. no CP nor SOA Coagulopathy: INR 2.2. Macrocytic anemia ESRD: PD (Cr of 14.8) moderate to severe Protein malnutrition CAD: stents in the past, clinically stable. Hx of HTN Hx of AAA with repair Plan: Continue ICU monitoring Hope to wean off pressors if stable Continue peritoneal dialysis Appreciate subspecialty input Continue micafungin, zosyn and vancomycin Monitor respiratory status Review CBC and CMP in the morning Comment Review of Relevant I have reviewed the following items ethan (where applicable) has been applied. Labs Laboratory Tests Test 01/17/19 15:13 01/17/19 15:40 01/17/19 16:01 01/17/19 17:02 Glucose (Fingerstick) 64 mg/dL (70-99) 54 mg/dL (70-99) 60 mg/dL (70-99) White Blood Count 18.2 x10^3/uL (4.0-11.0) Red Blood Count 3.03 x10^6/uL (4.30-5.70) Hemoglobin 10.1 g/dL (13.0-17.5) Hematocrit 31.9 % (39.0-53.0) Mean Corpuscular Volume 105 fL (79-100) Mean Corpuscular Hemoglobin 34 pg (25-35) Mean Corpuscular Hemoglobin Concent 32 g/dL (31-37) Red Cell Distribution Width 17.8 % (11.5-14.5) Platelet Count 141 x10^3/uL (140-400) Neutrophils (%) (Auto) 82 % (31-73) Lymphocytes (%) (Auto) 10 % (24-48) Monocytes (%) (Auto) 7 % (0-9) Eosinophils (%) (Auto) 0 % (0-3) Basophils (%) (Auto) 1 % (0-3) Neutrophils # (Auto) 15.0 x10^3uL (1.8-7.7) Lymphocytes # (Auto) 1.8 x10^3/uL (1.0-4.8) Monocytes # (Auto) 1.3 x10^3/uL (0.0-1.1) Eosinophils # (Auto) 0.0 x10^3/uL (0.0-0.7) Basophils # (Auto) 0.1 x10^3/uL (0.0-0.2) Segmented Neutrophils % 88 % (35-66) Band Neutrophils % 5 % (0-9) Lymphocytes % 5 % (24-48) Monocytes % 2 % (0-10) Platelet Estimate Adequate (ADEQUATE) Large Platelets Occ Giant Platelets Polychromasia Mod Poikilocytosis Slight Anisocytosis Slight Microcytosis Target Cells Few Ovalocytes Few [place] Cells Mod Acanthocytes Mod Schistocytes Occ Sodium Level 137 mmol/L (136-145) Potassium Level 3.9 mmol/L (3.5-5.1) Chloride Level 95 mmol/L (98-107) Carbon Dioxide Level 12 mmol/L (21-32) Anion Gap 30 (6-14) Blood Urea Nitrogen 96 mg/dL (8-26) Creatinine 16.0 mg/dL (0.7-1.3) Estimated GFR (Cockcroft-Gault) 3.0 BUN/Creatinine Ratio 6 (6-20) Glucose Level 90 mg/dL (70-99) Lactic Acid Level 18.1 mmol/L (0.4-2.0) Calcium Level 9.5 mg/dL (8.5-10.1) Total Bilirubin 2.0 mg/dL (0.2-1.0) Aspartate Amino Transf (AST/SGOT) 84 U/L (15-37) Alanine Aminotransferase (ALT/SGPT) 27 U/L (16-63) Alkaline Phosphatase 549 U/L (46-116) Total Protein 5.4 g/dL (6.4-8.2) Albumin 1.6 g/dL (3.4-5.0) Albumin/Globulin Ratio 0.4 (1.0-1.7) Cortisol PM Sample 25.6 ug/dL (3.1-16.7) Test 01/17/19 17:46 01/17/19 19:59 01/18/19 06:55 01/18/19 07:00 Glucose (Fingerstick) 106 mg/dL (70-99) 95 mg/dL (70-99) White Blood Count 28.6 x10^3/uL (4.0-11.0) Red Blood Count 3.16 x10^6/uL (4.30-5.70) Hemoglobin 10.8 g/dL (13.0-17.5) Hematocrit 32.3 % (39.0-53.0) Mean Corpuscular Volume 102 fL (79-100) Mean Corpuscular Hemoglobin 34 pg (25-35) Mean Corpuscular Hemoglobin Concent 33 g/dL (31-37) Red Cell Distribution Width 17.3 % (11.5-14.5) Platelet Count 134 x10^3/uL (140-400) Neutrophils (%) (Auto) 76 % (31-73) Lymphocytes (%) (Auto) 9 % (24-48) Monocytes (%) (Auto) 15 % (0-9) Eosinophils (%) (Auto) 1 % (0-3) Basophils (%) (Auto) 0 % (0-3) Neutrophils # (Auto) 21.7 x10^3uL (1.8-7.7) Lymphocytes # (Auto) 2.4 x10^3/uL (1.0-4.8) Monocytes # (Auto) 4.2 x10^3/uL (0.0-1.1) Eosinophils # (Auto) 0.2 x10^3/uL (0.0-0.7) Basophils # (Auto) 0.1 x10^3/uL (0.0-0.2) Prothrombin Time 27.7 SEC (11.7-14.0) Prothromb Time International Ratio 2.6 (0.8-1.1) Sodium Level 137 mmol/L (136-145) Potassium Level 4.2 mmol/L (3.5-5.1) Chloride Level 94 mmol/L (98-107) Carbon Dioxide Level 18 mmol/L (21-32) Anion Gap 25 (6-14) Blood Urea Nitrogen 91 mg/dL (8-26) Creatinine 14.8 mg/dL (0.7-1.3) Estimated GFR (Cockcroft-Gault) 3.3 BUN/Creatinine Ratio 6 (6-20) Glucose Level 77 mg/dL (70-99) Lactic Acid Level 9.5 mmol/L (0.4-2.0) Calcium Level 9.5 mg/dL (8.5-10.1) Phosphorus Level 12.5 mg/dL (2.6-4.7) Total Bilirubin 2.3 mg/dL (0.2-1.0) Aspartate Amino Transf (AST/SGOT) 294 U/L (15-37) Alanine Aminotransferase (ALT/SGPT) 71 U/L (16-63) Alkaline Phosphatase 457 U/L (46-116) Total Protein 5.4 g/dL (6.4-8.2) Albumin 1.6 g/dL (3.4-5.0) Albumin/Globulin Ratio 0.4 (1.0-1.7) Procalcitonin 13.07 ng/mL (0.00-0.10) O2 Saturation 96 % (92-99) Arterial Blood pH 7.34 (7.35-7.45) Arterial Blood pCO2 at Patient Temp 28 mmHg (35-46) Arterial Blood pO2 at Patient Temp 105 mmHg (65-108) Arterial Blood HCO3 15 mmol/L (21-28) Arterial Blood Base Excess -10 mmol/L (-3-3) FiO2 28 Test 01/18/19 07:04 01/18/19 07:33 01/18/19 11:05 01/18/19 11:27 Glucose (Fingerstick) 66 mg/dL (70-99) 74 mg/dL (70-99) 33 mg/dL (70-99) 144 mg/dL (70-99) Test 01/18/19 13:20 01/18/19 14:07 01/18/19 15:24 01/18/19 17:30 Glucose (Fingerstick) 70 mg/dL (70-99) 58 mg/dL (70-99) 69 mg/dL (70-99) Uric Acid 8.9 mg/dL (3.5-7.2) Hepatitis A IgM Antibody Nonreactive (Nonreactive) Hepatitis B Surface Antigen Nonreactive (Nonreactive) Hepatitis B Core IgM Antibody Nonreactive (Nonreactive) Hepatitis C IgG Antibody Nonreactive (Nonreactive) HIV (1&2) Antibody Screen Nonreactive (Nonreactive) Test 01/18/19 18:22 01/18/19 21:54 01/19/19 04:00 Glucose (Fingerstick) 139 mg/dL (70-99) 136 mg/dL (70-99) White Blood Count 32.0 x10^3/uL (4.0-11.0) Red Blood Count 3.10 x10^6/uL (4.30-5.70) Hemoglobin 10.3 g/dL (13.0-17.5) Hematocrit 31.7 % (39.0-53.0) Mean Corpuscular Volume 103 fL (79-100) Mean Corpuscular Hemoglobin 33 pg (25-35) Mean Corpuscular Hemoglobin Concent 33 g/dL (31-37) Red Cell Distribution Width 17.9 % (11.5-14.5) Platelet Count 120 x10^3/uL (140-400) Neutrophils (%) (Auto) 72 % (31-73) Lymphocytes (%) (Auto) 9 % (24-48) Monocytes (%) (Auto) 18 % (0-9) Eosinophils (%) (Auto) 1 % (0-3) Basophils (%) (Auto) 0 % (0-3) Neutrophils # (Auto) 23.1 x10^3uL (1.8-7.7) Lymphocytes # (Auto) 2.9 x10^3/uL (1.0-4.8) Monocytes # (Auto) 5.7 x10^3/uL (0.0-1.1) Eosinophils # (Auto) 0.2 x10^3/uL (0.0-0.7) Basophils # (Auto) 0.1 x10^3/uL (0.0-0.2) Prothrombin Time 31.1 SEC (11.7-14.0) Prothromb Time International Ratio 3.0 (0.8-1.1) Sodium Level 136 mmol/L (136-145) Potassium Level 3.6 mmol/L (3.5-5.1) Chloride Level 97 mmol/L (98-107) Carbon Dioxide Level 20 mmol/L (21-32) Anion Gap 19 (6-14) Blood Urea Nitrogen 78 mg/dL (8-26) Creatinine 12.5 mg/dL (0.7-1.3) Estimated GFR (Cockcroft-Gault) 3.9 BUN/Creatinine Ratio 6 (6-20) Glucose Level 120 mg/dL (70-99) Lactic Acid Level 5.3 mmol/L (0.4-2.0) Calcium Level 9.1 mg/dL (8.5-10.1) Phosphorus Level 10.3 mg/dL (2.6-4.7) Magnesium Level 2.1 mg/dL (1.8-2.4) Total Bilirubin 2.4 mg/dL (0.2-1.0) Aspartate Amino Transf (AST/SGOT) 260 U/L (15-37) Alanine Aminotransferase (ALT/SGPT) 79 U/L (16-63) Alkaline Phosphatase 360 U/L (46-116) Ammonia 26 mcmol/L (11-34) Total Protein 5.1 g/dL (6.4-8.2) Albumin 1.5 g/dL (3.4-5.0) Albumin/Globulin Ratio 0.4 (1.0-1.7) Random Vancomycin Level 15.3 mcg/mL Laboratory Tests Test 01/18/19 11:05 01/18/19 11:27 01/18/19 13:20 01/18/19 14:07 Glucose (Fingerstick) 33 mg/dL (70-99) 144 mg/dL (70-99) 70 mg/dL (70-99) Uric Acid 8.9 mg/dL (3.5-7.2) Hepatitis A IgM Antibody Nonreactive (Nonreactive) Hepatitis B Surface Antigen Nonreactive (Nonreactive) Hepatitis B Core IgM Antibody Nonreactive (Nonreactive) Hepatitis C IgG Antibody Nonreactive (Nonreactive) HIV (1&2) Antibody Screen Nonreactive (Nonreactive) Test 01/18/19 15:24 01/18/19 17:30 01/18/19 18:22 01/18/19 21:54 Glucose (Fingerstick) 58 mg/dL (70-99) 69 mg/dL (70-99) 139 mg/dL (70-99) 136 mg/dL (70-99) Test 01/19/19 04:00 White Blood Count 32.0 x10^3/uL (4.0-11.0) Red Blood Count 3.10 x10^6/uL (4.30-5.70) Hemoglobin 10.3 g/dL (13.0-17.5) Hematocrit 31.7 % (39.0-53.0) Mean Corpuscular Volume 103 fL (79-100) Mean Corpuscular Hemoglobin 33 pg (25-35) Mean Corpuscular Hemoglobin Concent 33 g/dL (31-37) Red Cell Distribution Width 17.9 % (11.5-14.5) Platelet Count 120 x10^3/uL (140-400) Neutrophils (%) (Auto) 72 % (31-73) Lymphocytes (%) (Auto) 9 % (24-48) Monocytes (%) (Auto) 18 % (0-9) Eosinophils (%) (Auto) 1 % (0-3) Basophils (%) (Auto) 0 % (0-3) Neutrophils # (Auto) 23.1 x10^3uL (1.8-7.7) Lymphocytes # (Auto) 2.9 x10^3/uL (1.0-4.8) Monocytes # (Auto) 5.7 x10^3/uL (0.0-1.1) Eosinophils # (Auto) 0.2 x10^3/uL (0.0-0.7) Basophils # (Auto) 0.1 x10^3/uL (0.0-0.2) Prothrombin Time 31.1 SEC (11.7-14.0) Prothromb Time International Ratio 3.0 (0.8-1.1) Sodium Level 136 mmol/L (136-145) Potassium Level 3.6 mmol/L (3.5-5.1) Chloride Level 97 mmol/L (98-107) Carbon Dioxide Level 20 mmol/L (21-32) Anion Gap 19 (6-14) Blood Urea Nitrogen 78 mg/dL (8-26) Creatinine 12.5 mg/dL (0.7-1.3) Estimated GFR (Cockcroft-Gault) 3.9 BUN/Creatinine Ratio 6 (6-20) Glucose Level 120 mg/dL (70-99) Lactic Acid Level 5.3 mmol/L (0.4-2.0) Calcium Level 9.1 mg/dL (8.5-10.1) Phosphorus Level 10.3 mg/dL (2.6-4.7) Magnesium Level 2.1 mg/dL (1.8-2.4) Total Bilirubin 2.4 mg/dL (0.2-1.0) Aspartate Amino Transf (AST/SGOT) 260 U/L (15-37) Alanine Aminotransferase (ALT/SGPT) 79 U/L (16-63) Alkaline Phosphatase 360 U/L (46-116) Ammonia 26 mcmol/L (11-34) Total Protein 5.1 g/dL (6.4-8.2) Albumin 1.5 g/dL (3.4-5.0) Albumin/Globulin Ratio 0.4 (1.0-1.7) Random Vancomycin Level 15.3 mcg/mL Microbiology 01/17/19 Blood Culture - Final, Complete 01/15/19 Anaerobic/Aerobic Culture, Resulted Pending 01/15/19 Anaerobic Culture Result 1 (LAURIE), Resulted Pending 01/15/19 Aerobic Culture - Preliminary, Resulted 01/15/19 Aerobic Culture Result 1 (LAURIE) - Preliminary, Resulted 01/15/19 Gram Stain - Final, Resulted 01/15/19 Gram Stain Result 1 (LAURIE) - Final, Resulted 01/15/19 Gram Stain Result 2 (LAURIE) - Final, Resulted Medications Current Medications Ondansetron HCl (Zofran) 4 mg 1X ONCE IM ; Start 01/14/19 at 15:00; Stop at 15:01; Status Cancel Ondansetron HCl (Zofran) 4 mg 1X ONCE IM ; Start 01/14/19 at 15:45; Stop at 15:46; Status Cancel Ondansetron HCl (Zofran) 4 mg 1X ONCE IV Last administered on 01/14/19at 15:47; Start 01/14/19 at 15:45; Stop 01/14/19 at 15:46; Status DC Gentamicin Sulfate (Garamycin) 1 olu DAILY TP ; Start 01/15/19 at 09:00; Stop 01/15/19 at 13:52; Status DC Lactic Acid (Lac-Hydrin) 1 olu BID TP Last administered on 01/16/19 20:25; Start 01/15/19 at 10:00 Aspirin (Children'S Aspirin) 81 mg DAILY PO Last administered on 01/19/19 08:33 ; Start 01/15/19 at 10:00 Atorvastatin Calcium (Lipitor) 20 mg QHS PO Last administered on 01/17/19 21:06 ; Start 01/15/19 at 21:00; Stop 01/18/19 at 16:53; Status DC Calcium Carbonate/ Glycine (Oscal) 500 mg TIDWMEALS PO Last administered on 01/19 08:36; Start 01/15/19 at 12:00 Acetaminophen/ Hydrocodone Bitart (Lortab 5/325) 1 tab PRN Q6HRS PRN PO MODERATE TO SEVERE PAIN Last administered on 01/16/19 20:25; Start 01/15/19 at 08 :45 Sevelamer Carbonate (Renvela) 1,600 mg TID PO Last administered on 01/19/19 08: 33; Start 01/15/19 at 09:00 Sodium Bicarbonate (Sodium Bicarbonate) 1,950 mg TIDWMEALS PO Last administered on 01/19/19 08:33; Start 01/15/19 at 12:00 Pantoprazole Sodium (Protonix) 40 mg DAILYAC PO Last administered on 01/19/19 08:33; Start 01/15/19 at 10:00 Triamcinolone Acetonide (Kenalog) 1 olu BID TP Last administered on 01/15/19 20 :55; Start 01/15/19 at 10:00 Albuterol/ Ipratropium (Duoneb) 3 ml RTQID NEB Last administered on 01/19/19 08 :00; Start 01/15/19 at 12:00 Acetaminophen (Tylenol) 1,000 mg PRN Q6HRS PRN PO mild pain Last administered on 01/16/19 09:50; Start 01/15/19 at 11:15 Midodrine (Proamatine) 2.5 mg [id number] PO Last administered on 01/16/19 09:50; Start 01/15/19 at 14:00; Stop 01/16/19 at 10:34; Status DC Gentamicin Sulfate (Garamycin) 1 olu DAILY TP Last administered on 01/17/19 18: 46; Start 01/16/19 at 09:00 Midodrine (Proamatine) 5 mg [id number] PO Last administered on 01/19/19 08:35; Start 01/16/19 at 13:00 Lactulose (Lactulose) 20 gm TID PO Last administered on 01/17/19 20:35; Start 01/17/19 at 14:15; Stop 01/18/19 at 11:06; Status DC Norepinephrine Bitartrate 250 ml @ 1.875 mls/ hr CONT PRN IV SEE I/O RECORD Last administered on 01/19/19 04:36; Start 01/17/19 at 14:30 Dextrose (Dextrose 50%-Water Syringe) 25 gm 1X ONCE IV Last administered on 14:45; Start 01/17/19 at 14:45; Stop 01/17/19 at 14:46; Status DC Dextrose (Dextrose 50%-Water Syringe) 25 gm 1X ONCE IV Last administered on 15:15; Start 01/17/19 at 15:30; Stop 01/17/19 at 15:31; Status DC Piperacillin Sod/ Tazobactam Sod (Zosyn Per Pharmacy) 1 each PRN DAILY PRN MC SEE COMMENTS; Start 01/17/19 at 16:00 Piperacillin Sod/ Tazobactam Sod 2.25 gm/Sodium Chloride 50 ml @ 100 mls/hr Q8HRS IV Last administered on 01/19/19at 05:53; Start 01/17/19 at 17:00 Dextrose/Sodium Chloride 1,000 ml @ 50 mls/hr Q20H IV Last administered on 01/19at 08:37; Start 01/17/19 at 16:30 Dextrose (Dextrose 50%-Water Syringe) 25 gm 1X ONCE IV Last administered on 01/17/19at 17:14; Start 01/17/19 at 17:15; Stop 01/17/19 at 17:16; Status DC Vancomycin HCl (Vanco Per Pharmacy) 1 each PRN DAILY PRN MC SEE COMMENTS Last administered on 01/18/19at 17:48; Start 01/17/19 at 18:00 Sodium Chloride 1,000 ml @ 1,000 mls/hr 1X ONCE IV Last administered on at 17:00; Start 01/17/19 at 18:00; Stop 01/17/19 at 18:59; Status DC Vancomycin HCl 2 gm/Sodium Chloride 500 ml @ 250 mls/hr 1X ONCE IV Last administered on 01/17/19at 18:50; Start 01/17/19 at 18:00; Stop 01/17/19 at 19:59; Status DC Micafungin Sodium 100 mg/Dextrose 100 ml @ 100 mls/hr Q24H IV Last administered on 01/18/19at 21:38; Start 01/17/19 at 20:00 Sodium Chloride 1,000 ml @ 100 mls/hr Q10H IV Last administered on 01/19/19at 02 :22; Start 01/18/19 at 06:45 Dextrose (Dextrose 50%-Water Syringe) 25 gm 1X ONCE IV Last administered on 01/18/19at 07:00; Start 01/18/19 at 07:00; Stop 01/18/19 at 07:08; Status DC Iohexol (Omnipaque 300 Mg/ml) 75 ml 1X ONCE IV ; Start 01/18/19 at 08:15; Stop 01/18/19 at 08:16; Status DC Info (CONTRAST GIVEN -- Rx MONITORING) 1 each PRN DAILY PRN MC SEE COMMENTS; Start 01/18/19 at 08:15; Stop 01/18/19 at 11:56; Status DC Fentanyl Citrate (Fentanyl 2ml Vial) 50 mcg PRN Q2HR PRN IV PAIN Last administered on 01/18/19at 10:07; Start 01/18/19 at 09:30 Midazolam HCl (Versed) 5 mg 1X ONCE IV Last administered on 01/18/19at 10:05; Start 01/18/19 at 09:30; Stop 01/18/19 at 09:31; Status DC Midazolam HCl (Versed) 5 mg STK-MED ONCE .ROUTE ; Start 01/18/19 at 09:25; Stop 01/18/19 at 09:26; Status DC Fentanyl Citrate (Fentanyl 2ml Vial) 100 mcg STK-MED ONCE .ROUTE ; Start at 09:25; Stop 01/18/19 at 09:26; Status DC Sodium Chloride 500 ml @ 500 mls/hr 1X ONCE IV Last administered on 01/18/19at 10:34; Start 01/18/19 at 10:15; Stop 01/18/19 at 11:14; Status DC Dobutamine HCl/ Dextrose 250 ml @ 5.939 mls/ hr CONT PRN IV SEE I/O RECORD Last administered on 01/18/19at 10:34; Start 01/18/19 at 10:15; Stop 01/18/19 at 12: 59; Status DC Ondansetron HCl (Zofran) 4 mg PRN Q6HRS PRN IV NAUSEA/VOMITING Last administered on 01/18/19at 11:10; Start 01/18/19 at 11:00 Lactulose (Lactulose) 20 gm PRN TID PRN PO confusion/elevated ammonia; Start at 11:15 Dextrose (Dextrose 50%-Water Syringe) 25 gm STK-MED ONCE IV ; Start 01/18/19 at 11:08; Stop 01/18/19 at 11:10; Status DC Dextrose (Dextrose 50%-Water Syringe) 25 gm 1X ONCE IV Last administered on 01/18/19at 11:13; Start 01/18/19 at 11:15; Stop 01/18/19 at 11:16; Status DC Sodium Chloride 500 ml @ 500 mls/hr 1X ONCE IV Last administered on 01/18/19at 11:28; Start 01/18/19 at 11:30; Stop 01/18/19 at 12:29; Status DC Lactobacillus Rhamnosus (Culturelle) 1 cap BID PO Last administered on at 08:33; Start 01/18/19 at 21:00 Iohexol (Omnipaque 350 Mg/ml) 90 ml 1X ONCE IV Last administered on 01/18/19at 15:10; Start 01/18/19 at 12:00; Stop 01/18/19 at 12:01; Status DC Info (CONTRAST GIVEN -- Rx MONITORING) 1 each PRN DAILY PRN MC SEE COMMENTS; Start 01/18/19 at 12:00; Stop 01/20/19 at 11:59 Sodium Chloride 500 ml @ 500 mls/hr 1X ONCE IV Last administered on 01/18/19at 12:13; Start 01/18/19 at 12:30; Stop 01/18/19 at 13:29; Status DC Vasopressin 40 unit/Dextrose 102 ml @ 6 mls/hr CONT PRN IV SEE I/O RECORD Last administered on 01/19/19at 03:37; Start 01/18/19 at 13:00 Dextrose (Dextrose 50%-Water Syringe) 25 gm 1X ONCE IV Last administered on 01/18/19at 15:45; Start 01/18/19 at 15:45; Stop 01/18/19 at 15:46; Status DC Lidocaine/Sodium Bicarbonate (Buffered Lidocaine 1%) 3 ml STK-MED ONCE .ROUTE ; Start 01/18/19 at 15:39; Stop 01/18/19 at 15:40; Status DC Lidocaine/Sodium Bicarbonate (Buffered Lidocaine 1%) 3 ml 1X ONCE INJ Last administered on 01/18/19at 15:45; Start 01/18/19 at 15:45; Stop 01/18/19 at 15:46; Status DC Lidocaine/Sodium Bicarbonate (Buffered Lidocaine 1%) 3 ml STK-MED ONCE .ROUTE ; Start 01/18/19 at 15:39; Stop 01/18/19 at 15:40; Status DC Iohexol (Omnipaque 350 Mg/ml) 100 ml STK-MED ONCE .ROUTE ; Start 01/18/19 at 17: 00; Stop 01/18/19 at 17:01; Status DC Dextrose (Dextrose 50%-Water Syringe) 25 gm 1X ONCE IV Last administered on 01/18/19at 17:45; Start 01/18/19 at 17:45; Stop 01/18/19 at 17:46; Status DC Vancomycin HCl (Vancomycin Random Level) 1 each 1X ONCE MC ; Start 01/19/19 at 06:00; Stop 01/19/19 at 06:01; Status DC Sodium Chloride 250 ml @ 250 mls/hr 1X ONCE IV Last administered on 01/19/19at 09:40; Start 01/19/19 at 09:45; Stop 01/19/19 at 10:44; Status DC Hydrocortisone Sodium Succinate (Solu-CORTEF) 100 mg Q8HRS IV Last administered on 01/19/19at 09:41; Start 01/19/19 at 10:00 Vancomycin HCl 1.25 gm/Sodium Chloride 250 ml @ 167 mls/hr Q48H IV ; Start 01/19 at 12:00 Active Scripts Active [place] 5-325 Tablet (Acetaminophen/Hydrocodone Bitart) 1 Each Tablet 1-2 Each PO PRN Q6HRS PRN as needed for pain Reported [calcium carbon] Triamcinolone Acetonide 0.5% Cream (Triamcinolone Acetonide) 15 Gm Cream..g. 1 Olu TP BID Renvela (Sevelamer Carbonate) 800 Mg Tablet 2 Tab PO TID Protonix (Pantoprazole Sodium) 40 Mg Granpkt.dr 40 Mg PO DAILY Calcium Carbonate 500 Mg Tablet 5,000 Mg PO TIDWMEALS Skin Treatment (Ammonium Lactate) 225 Gm Lotion 225 Gm TP BID Aspirin 81 Mg Tab.chew 1 Tab PO DAILY Atorvastatin Calcium 20 Mg Tablet 1 Tab PO QHS Sodium Bicarbonate 650 Mg Tablet 1,950 Mg PO TIDWMEALS Vitals/I & O Vital Sign - Last 24 Hours 01/18/19 01/18/19 01/18/19 01/18/19 11:00 11:15 11:30 11:45 Pulse 114 112 122 123 Resp 16 B/P (MAP) 73/43 (53) 74/36 (49) 90/70 (77) 84/40 (55) Pulse Ox 98 O2 Delivery Nasal Cannula O2 Flow Rate 2.0 3/8/19 3/8/19 3/8/19 3/8/19 12:00 12:00 12:15 12:30 Temp 99.2 99.2 Pulse 125 122 121 Resp 16 B/P (MAP) 78/42 (54) 78/42 (54) 77/36 (50) Pulse Ox 100 O2 Delivery Nasal Cannula Nasal Cannula O2 Flow Rate 2.0 2.0 01/18/19 01/18/19 01/18/19 01/18/19 13:00 14:00 15:00 15:30 Pulse 118 116 102 106 Resp 16 16 14 B/P (MAP) 72/36 (48) 103/47 (65) 78/49 (59) 87/39 (55) Pulse Ox 100 100 98 O2 Delivery Nasal Cannula Nasal Cannula Nasal Cannula O2 Flow Rate 2.0 2.0 01/18/19 01/18/19 01/18/19 01/18/19 15:44 16:00 16:00 16:30 Temp 99.0 99.0 Pulse 106 114 Resp 16 B/P (MAP) 161/110 (127) 96/51 (66) Pulse Ox 99 99 O2 Delivery Nasal Cannula Nasal Cannula Room Air O2 Flow Rate 2.0 2.0 01/18/19 01/18/19 01/18/19 01/18/19 17:00 18:00 19:00 19:33 Pulse 114 114 110 Resp 14 16 16 B/P (MAP) 93/51 (65) 106/53 (70) 110/55 (73) Pulse Ox 95 93 93 95 O2 Delivery Room Air Room Air Room Air Room Air 01/18/19 01/18/19 01/18/19 01/18/19 20:00 20:30 21:00 22:00 Pulse 108 110 110 Resp 18 16 16 B/P (MAP) 104/52 (69) 116/48 (70) 108/46 (66) Pulse Ox 96 94 95 O2 Delivery Room Air Nasal Cannula Room Air Room Air O2 Flow Rate 2.0 01/18/19 01/19/19 01/19/19 01/19/19 23:00 00:00 00:01 01:00 Temp 99.1 99.1 Pulse 110 102 112 Resp 22 16 24 B/P (MAP) 94/40 (58) 106/42 (63) 99/55 (70) Pulse Ox 96 98 94 O2 Delivery Room Air Room Air Nasal Cannula Room Air O2 Flow Rate 2.0 01/19/19 01/19/19 01/19/19 01/19/19 02:30 03:00 04:00 04:00 Temp 98.8 98.8 Pulse 95 96 96 Resp 18 16 23 B/P (MAP) 85/48 (60) 112/48 (69) 110/65 (80) Pulse Ox 96 92 96 O2 Delivery Room Air Room Air Nasal Cannula Room Air O2 Flow Rate 2.0 01/19/19 01/19/19 01/19/19 01/19/19 05:00 06:00 07:00 08:00 Pulse 96 96 95 100 Resp 17 18 15 17 B/P (MAP) 114/51 (72) 103/52 (69) 116/55 (75) 85/45 (58) Pulse Ox 94 97 97 99 O2 Delivery Room Air Room Air Room Air Room Air 01/19/19 01/19/19 01/19/19 01/19/19 08:00 08:01 08:35 09:00 Pulse 100 98 Resp 16 B/P (MAP) 109/48 88/51 (63) Pulse Ox 97 99 O2 Delivery Nasal Cannula Room Air Room Air O2 Flow Rate 2.0 Intake and Output 01/18/19 01/18/19 01/19/19 14:59 22:59 06:59 Intake Total 1290 ml 1799 ml 1426 ml Balance 1290 ml 1799 ml 1426 ml Nutrition Consultation Dietary Evaluation: Recommendations by RD: Increase Calorie Intake, Protein supplementation Comments: Recommend vanilla [place] milk shake @ lunch for increased calorie and protein intake as pt. has diminished appetite Expected Outcomes/Goals: P.O. intake to meet >75% estimated needs Malnutrition Findings: Body Fat Depletion (Non Severe: Mild Depletion Weight Status: Overweight SIMONE BAIRD III DO Jan 19, 2019 11:05
--- NOTE | 2019-01-19 11:58 | PDOC ---
SURGICAL PROGRESS NOTE Subjective Rhett for Dr Booth pt sleeping soundly, I did not wake him d/w his son at the bedside no surgical recs will sign off please call if we can be of help Vital Signs Vital Signs Date Time Temp Pulse Resp B/P (MAP) Pulse Ox O2 Delivery O2 Flow Rate FiO2 01/19/19 11:27 99 Room Air 01/19/19 11:00 95 15 91/54 (66) 01/19/19 08:00 2.0 01/19/19 08:00 98.7 98.7 I&O Intake and Output 01/19/19 07:00 Intake Total 4515 ml Balance 4515 ml Intake Oral 0 ml IV Total 4515 ml # Bowel Movements 6 Labs Laboratory Tests Test 01/17/19 15:13 01/17/19 15:40 01/17/19 16:01 01/17/19 17:02 Glucose (Fingerstick) 64 mg/dL (70-99) 54 mg/dL (70-99) 60 mg/dL (70-99) White Blood Count 18.2 x10^3/uL (4.0-11.0) Red Blood Count 3.03 x10^6/uL (4.30-5.70) Hemoglobin 10.1 g/dL (13.0-17.5) Hematocrit 31.9 % (39.0-53.0) Mean Corpuscular Volume 105 fL (79-100) Mean Corpuscular Hemoglobin 34 pg (25-35) Mean Corpuscular Hemoglobin Concent 32 g/dL (31-37) Red Cell Distribution Width 17.8 % (11.5-14.5) Platelet Count 141 x10^3/uL (140-400) Neutrophils (%) (Auto) 82 % (31-73) Lymphocytes (%) (Auto) 10 % (24-48) Monocytes (%) (Auto) 7 % (0-9) Eosinophils (%) (Auto) 0 % (0-3) Basophils (%) (Auto) 1 % (0-3) Neutrophils # (Auto) 15.0 x10^3uL (1.8-7.7) Lymphocytes # (Auto) 1.8 x10^3/uL (1.0-4.8) Monocytes # (Auto) 1.3 x10^3/uL (0.0-1.1) Eosinophils # (Auto) 0.0 x10^3/uL (0.0-0.7) Basophils # (Auto) 0.1 x10^3/uL (0.0-0.2) Segmented Neutrophils % 88 % (35-66) Band Neutrophils % 5 % (0-9) Lymphocytes % 5 % (24-48) Monocytes % 2 % (0-10) Platelet Estimate Adequate (ADEQUATE) Large Platelets Occ Giant Platelets Polychromasia Mod Poikilocytosis Slight Anisocytosis Slight Microcytosis Target Cells Few Ovalocytes Few [place] Cells Mod Acanthocytes Mod Schistocytes Occ Sodium Level 137 mmol/L (136-145) Potassium Level 3.9 mmol/L (3.5-5.1) Chloride Level 95 mmol/L (98-107) Carbon Dioxide Level 12 mmol/L (21-32) Anion Gap 30 (6-14) Blood Urea Nitrogen 96 mg/dL (8-26) Creatinine 16.0 mg/dL (0.7-1.3) Estimated GFR (Cockcroft-Gault) 3.0 BUN/Creatinine Ratio 6 (6-20) Glucose Level 90 mg/dL (70-99) Lactic Acid Level 18.1 mmol/L (0.4-2.0) Calcium Level 9.5 mg/dL (8.5-10.1) Total Bilirubin 2.0 mg/dL (0.2-1.0) Aspartate Amino Transf (AST/SGOT) 84 U/L (15-37) Alanine Aminotransferase (ALT/SGPT) 27 U/L (16-63) Alkaline Phosphatase 549 U/L (46-116) Total Protein 5.4 g/dL (6.4-8.2) Albumin 1.6 g/dL (3.4-5.0) Albumin/Globulin Ratio 0.4 (1.0-1.7) Cortisol PM Sample 25.6 ug/dL (3.1-16.7) Test 01/17/19 17:46 01/17/19 19:59 01/18/19 06:55 01/18/19 07:00 Glucose (Fingerstick) 106 mg/dL (70-99) 95 mg/dL (70-99) White Blood Count 28.6 x10^3/uL (4.0-11.0) Red Blood Count 3.16 x10^6/uL (4.30-5.70) Hemoglobin 10.8 g/dL (13.0-17.5) Hematocrit 32.3 % (39.0-53.0) Mean Corpuscular Volume 102 fL (79-100) Mean Corpuscular Hemoglobin 34 pg (25-35) Mean Corpuscular Hemoglobin Concent 33 g/dL (31-37) Red Cell Distribution Width 17.3 % (11.5-14.5) Platelet Count 134 x10^3/uL (140-400) Neutrophils (%) (Auto) 76 % (31-73) Lymphocytes (%) (Auto) 9 % (24-48) Monocytes (%) (Auto) 15 % (0-9) Eosinophils (%) (Auto) 1 % (0-3) Basophils (%) (Auto) 0 % (0-3) Neutrophils # (Auto) 21.7 x10^3uL (1.8-7.7) Lymphocytes # (Auto) 2.4 x10^3/uL (1.0-4.8) Monocytes # (Auto) 4.2 x10^3/uL (0.0-1.1) Eosinophils # (Auto) 0.2 x10^3/uL (0.0-0.7) Basophils # (Auto) 0.1 x10^3/uL (0.0-0.2) Prothrombin Time 27.7 SEC (11.7-14.0) Prothromb Time International Ratio 2.6 (0.8-1.1) Sodium Level 137 mmol/L (136-145) Potassium Level 4.2 mmol/L (3.5-5.1) Chloride Level 94 mmol/L (98-107) Carbon Dioxide Level 18 mmol/L (21-32) Anion Gap 25 (6-14) Blood Urea Nitrogen 91 mg/dL (8-26) Creatinine 14.8 mg/dL (0.7-1.3) Estimated GFR (Cockcroft-Gault) 3.3 BUN/Creatinine Ratio 6 (6-20) Glucose Level 77 mg/dL (70-99) Lactic Acid Level 9.5 mmol/L (0.4-2.0) Calcium Level 9.5 mg/dL (8.5-10.1) Phosphorus Level 12.5 mg/dL (2.6-4.7) Total Bilirubin 2.3 mg/dL (0.2-1.0) Aspartate Amino Transf (AST/SGOT) 294 U/L (15-37) Alanine Aminotransferase (ALT/SGPT) 71 U/L (16-63) Alkaline Phosphatase 457 U/L (46-116) Total Protein 5.4 g/dL (6.4-8.2) Albumin 1.6 g/dL (3.4-5.0) Albumin/Globulin Ratio 0.4 (1.0-1.7) Procalcitonin 13.07 ng/mL (0.00-0.10) O2 Saturation 96 % (92-99) Arterial Blood pH 7.34 (7.35-7.45) Arterial Blood pCO2 at Patient Temp 28 mmHg (35-46) Arterial Blood pO2 at Patient Temp 105 mmHg (65-108) Arterial Blood HCO3 15 mmol/L (21-28) Arterial Blood Base Excess -10 mmol/L (-3-3) FiO2 28 Test 01/18/19 07:04 01/18/19 07:33 01/18/19 11:05 01/18/19 11:27 Glucose (Fingerstick) 66 mg/dL (70-99) 74 mg/dL (70-99) 33 mg/dL (70-99) 144 mg/dL (70-99) Test 01/18/19 13:20 01/18/19 14:07 01/18/19 15:24 01/18/19 17:30 Glucose (Fingerstick) 70 mg/dL (70-99) 58 mg/dL (70-99) 69 mg/dL (70-99) Uric Acid 8.9 mg/dL (3.5-7.2) Hepatitis A IgM Antibody Nonreactive (Nonreactive) Hepatitis B Surface Antigen Nonreactive (Nonreactive) Hepatitis B Core IgM Antibody Nonreactive (Nonreactive) Hepatitis C IgG Antibody Nonreactive (Nonreactive) HIV (1&2) Antibody Screen Nonreactive (Nonreactive) Test 01/18/19 18:22 01/18/19 21:54 01/19/19 04:00 Glucose (Fingerstick) 139 mg/dL (70-99) 136 mg/dL (70-99) White Blood Count 32.0 x10^3/uL (4.0-11.0) Red Blood Count 3.10 x10^6/uL (4.30-5.70) Hemoglobin 10.3 g/dL (13.0-17.5) Hematocrit 31.7 % (39.0-53.0) Mean Corpuscular Volume 103 fL (79-100) Mean Corpuscular Hemoglobin 33 pg (25-35) Mean Corpuscular Hemoglobin Concent 33 g/dL (31-37) Red Cell Distribution Width 17.9 % (11.5-14.5) Platelet Count 120 x10^3/uL (140-400) Neutrophils (%) (Auto) 72 % (31-73) Lymphocytes (%) (Auto) 9 % (24-48) Monocytes (%) (Auto) 18 % (0-9) Eosinophils (%) (Auto) 1 % (0-3) Basophils (%) (Auto) 0 % (0-3) Neutrophils # (Auto) 23.1 x10^3uL (1.8-7.7) Lymphocytes # (Auto) 2.9 x10^3/uL (1.0-4.8) Monocytes # (Auto) 5.7 x10^3/uL (0.0-1.1) Eosinophils # (Auto) 0.2 x10^3/uL (0.0-0.7) Basophils # (Auto) 0.1 x10^3/uL (0.0-0.2) Prothrombin Time 31.1 SEC (11.7-14.0) Prothromb Time International Ratio 3.0 (0.8-1.1) Sodium Level 136 mmol/L (136-145) Potassium Level 3.6 mmol/L (3.5-5.1) Chloride Level 97 mmol/L (98-107) Carbon Dioxide Level 20 mmol/L (21-32) Anion Gap 19 (6-14) Blood Urea Nitrogen 78 mg/dL (8-26) Creatinine 12.5 mg/dL (0.7-1.3) Estimated GFR (Cockcroft-Gault) 3.9 BUN/Creatinine Ratio 6 (6-20) Glucose Level 120 mg/dL (70-99) Lactic Acid Level 5.3 mmol/L (0.4-2.0) Calcium Level 9.1 mg/dL (8.5-10.1) Phosphorus Level 10.3 mg/dL (2.6-4.7) Magnesium Level 2.1 mg/dL (1.8-2.4) Total Bilirubin 2.4 mg/dL (0.2-1.0) Aspartate Amino Transf (AST/SGOT) 260 U/L (15-37) Alanine Aminotransferase (ALT/SGPT) 79 U/L (16-63) Alkaline Phosphatase 360 U/L (46-116) Ammonia 26 mcmol/L (11-34) Total Protein 5.1 g/dL (6.4-8.2) Albumin 1.5 g/dL (3.4-5.0) Albumin/Globulin Ratio 0.4 (1.0-1.7) Random Vancomycin Level 15.3 mcg/mL Laboratory Tests Test 01/18/19 13:20 01/18/19 14:07 01/18/19 15:24 01/18/19 17:30 Glucose (Fingerstick) 70 mg/dL (70-99) 58 mg/dL (70-99) 69 mg/dL (70-99) Uric Acid 8.9 mg/dL (3.5-7.2) Hepatitis A IgM Antibody Nonreactive (Nonreactive) Hepatitis B Surface Antigen Nonreactive (Nonreactive) Hepatitis B Core IgM Antibody Nonreactive (Nonreactive) Hepatitis C IgG Antibody Nonreactive (Nonreactive) HIV (1&2) Antibody Screen Nonreactive (Nonreactive) Test 01/18/19 18:22 01/18/19 21:54 01/19/19 04:00 Glucose (Fingerstick) 139 mg/dL (70-99) 136 mg/dL (70-99) White Blood Count 32.0 x10^3/uL (4.0-11.0) Red Blood Count 3.10 x10^6/uL (4.30-5.70) Hemoglobin 10.3 g/dL (13.0-17.5) Hematocrit 31.7 % (39.0-53.0) Mean Corpuscular Volume 103 fL (79-100) Mean Corpuscular Hemoglobin 33 pg (25-35) Mean Corpuscular Hemoglobin Concent 33 g/dL (31-37) Red Cell Distribution Width 17.9 % (11.5-14.5) Platelet Count 120 x10^3/uL (140-400) Neutrophils (%) (Auto) 72 % (31-73) Lymphocytes (%) (Auto) 9 % (24-48) Monocytes (%) (Auto) 18 % (0-9) Eosinophils (%) (Auto) 1 % (0-3) Basophils (%) (Auto) 0 % (0-3) Neutrophils # (Auto) 23.1 x10^3uL (1.8-7.7) Lymphocytes # (Auto) 2.9 x10^3/uL (1.0-4.8) Monocytes # (Auto) 5.7 x10^3/uL (0.0-1.1) Eosinophils # (Auto) 0.2 x10^3/uL (0.0-0.7) Basophils # (Auto) 0.1 x10^3/uL (0.0-0.2) Prothrombin Time 31.1 SEC (11.7-14.0) Prothromb Time International Ratio 3.0 (0.8-1.1) Sodium Level 136 mmol/L (136-145) Potassium Level 3.6 mmol/L (3.5-5.1) Chloride Level 97 mmol/L (98-107) Carbon Dioxide Level 20 mmol/L (21-32) Anion Gap 19 (6-14) Blood Urea Nitrogen 78 mg/dL (8-26) Creatinine 12.5 mg/dL (0.7-1.3) Estimated GFR (Cockcroft-Gault) 3.9 BUN/Creatinine Ratio 6 (6-20) Glucose Level 120 mg/dL (70-99) Lactic Acid Level 5.3 mmol/L (0.4-2.0) Calcium Level 9.1 mg/dL (8.5-10.1) Phosphorus Level 10.3 mg/dL (2.6-4.7) Magnesium Level 2.1 mg/dL (1.8-2.4) Total Bilirubin 2.4 mg/dL (0.2-1.0) Aspartate Amino Transf (AST/SGOT) 260 U/L (15-37) Alanine Aminotransferase (ALT/SGPT) 79 U/L (16-63) Alkaline Phosphatase 360 U/L (46-116) Ammonia 26 mcmol/L (11-34) Total Protein 5.1 g/dL (6.4-8.2) Albumin 1.5 g/dL (3.4-5.0) Albumin/Globulin Ratio 0.4 (1.0-1.7) Random Vancomycin Level 15.3 mcg/mL Problem List Problems Medical Problems: (1) Chronic kidney disease with end stage renal failure on dialysis Status: Acute (2) Generalized weakness Status: Acute (3) Hypotension Status: Acute (4) Nausea and vomiting Status: Acute LYSSA FRAUSTO MD Jan 19, 2019 11:58
[2019-01-19] MEDS ORDERED: VANCOMYCIN 1.25 GM in IV NORMAL SALINE 250ML 250 ML IV SCH (12:00)
--- NOTE | 2019-01-19 12:24 | PDOC ---
Infectious Disease Note Subjective Subjective Feeling alright, watching the ball game he says Denies SOA/CP/N/V/D/pain/chills/aches No fevers last 24 hours Remains on pressor support, max Levophed at 30 mcg and vasopressin ROS ROS per HPI otherwise neg Vital Sign Vital Signs Vital Signs Date Time Temp Pulse Resp B/P (MAP) Pulse Ox O2 Delivery O2 Flow Rate FiO2 01/19/19 11:27 99 Room Air 01/19/19 11:00 95 15 91/54 (66) 01/19/19 08:00 2.0 01/19/19 08:00 98.7 98.7 Physical Exam PHYSICAL EXAM GENERAL: Propped up in bed, sleeping HEENT: No conjunctival petechia. Oral cavity dry, missing teeth. NECK: Supple. LUNGS: Clear bilaterally anteriorly. HEART: S1, S2. Loud systolic murmur. ABDOMEN: Soft and nontender. PD cath, left side EXTREMITIES: No edema, no cyanosis. DERM: Warm, dry, no generalized rash. NEUROLOGIC: Arouses to name, responds appropriately, LIJ/temp HDC (01/18) Labs Lab Laboratory Tests Test 01/18/19 13:20 01/18/19 14:07 01/18/19 15:24 01/18/19 17:30 Glucose (Fingerstick) 70 mg/dL (70-99) 58 mg/dL (70-99) 69 mg/dL (70-99) Uric Acid 8.9 mg/dL (3.5-7.2) Hepatitis A IgM Antibody Nonreactive (Nonreactive) Hepatitis B Surface Antigen Nonreactive (Nonreactive) Hepatitis B Core IgM Antibody Nonreactive (Nonreactive) Hepatitis C IgG Antibody Nonreactive (Nonreactive) HIV (1&2) Antibody Screen Nonreactive (Nonreactive) Test 01/18/19 18:22 01/18/19 21:54 01/19/19 04:00 Glucose (Fingerstick) 139 mg/dL (70-99) 136 mg/dL (70-99) White Blood Count 32.0 x10^3/uL (4.0-11.0) Red Blood Count 3.10 x10^6/uL (4.30-5.70) Hemoglobin 10.3 g/dL (13.0-17.5) Hematocrit 31.7 % (39.0-53.0) Mean Corpuscular Volume 103 fL (79-100) Mean Corpuscular Hemoglobin 33 pg (25-35) Mean Corpuscular Hemoglobin Concent 33 g/dL (31-37) Red Cell Distribution Width 17.9 % (11.5-14.5) Platelet Count 120 x10^3/uL (140-400) Neutrophils (%) (Auto) 72 % (31-73) Lymphocytes (%) (Auto) 9 % (24-48) Monocytes (%) (Auto) 18 % (0-9) Eosinophils (%) (Auto) 1 % (0-3) Basophils (%) (Auto) 0 % (0-3) Neutrophils # (Auto) 23.1 x10^3uL (1.8-7.7) Lymphocytes # (Auto) 2.9 x10^3/uL (1.0-4.8) Monocytes # (Auto) 5.7 x10^3/uL (0.0-1.1) Eosinophils # (Auto) 0.2 x10^3/uL (0.0-0.7) Basophils # (Auto) 0.1 x10^3/uL (0.0-0.2) Prothrombin Time 31.1 SEC (11.7-14.0) Prothromb Time International Ratio 3.0 (0.8-1.1) Sodium Level 136 mmol/L (136-145) Potassium Level 3.6 mmol/L (3.5-5.1) Chloride Level 97 mmol/L (98-107) Carbon Dioxide Level 20 mmol/L (21-32) Anion Gap 19 (6-14) Blood Urea Nitrogen 78 mg/dL (8-26) Creatinine 12.5 mg/dL (0.7-1.3) Estimated GFR (Cockcroft-Gault) 3.9 BUN/Creatinine Ratio 6 (6-20) Glucose Level 120 mg/dL (70-99) Lactic Acid Level 5.3 mmol/L (0.4-2.0) Calcium Level 9.1 mg/dL (8.5-10.1) Phosphorus Level 10.3 mg/dL (2.6-4.7) Magnesium Level 2.1 mg/dL (1.8-2.4) Total Bilirubin 2.4 mg/dL (0.2-1.0) Aspartate Amino Transf (AST/SGOT) 260 U/L (15-37) Alanine Aminotransferase (ALT/SGPT) 79 U/L (16-63) Alkaline Phosphatase 360 U/L (46-116) Ammonia 26 mcmol/L (11-34) Total Protein 5.1 g/dL (6.4-8.2) Albumin 1.5 g/dL (3.4-5.0) Albumin/Globulin Ratio 0.4 (1.0-1.7) Random Vancomycin Level 15.3 mcg/mL Micro 01/17. BLOOD CULTURE Final GRAM POSITIVE COCCI IN CLUSTERS, SUGGESTIVE OF STAPH, IN 3 OF 4 BOTTLES, DRAWN ON 01/17/19. Objective Assessment Septic shock from GPC bacteremia 01/17/2019,source ?? BC negative 01/14/2019 Hypotension POA appears multifactorial with underlying severe aortic stenosis, end-stage renal disease on PD. Failed midodrine treatment. Leukocytosis, trending upwards -CT Chest/abdo and pelvis with contrast - unrevealing -BC GPC reported this am Lactic acidosis, End-stage renal disease, on PD; s/p temp HDC line placement, 01/18. -Peritoneal dialysate, WBC 3. culture no growth Hyperlipidemia. Metabolic acidosis. Chronic liver disease, hyperammonemia, transaminitis AAA, status post stent. Hypoglycemia. Protein-calorie malnutrition. Plan Plan of Care Continue vanc, Zosyn and micafungin add zyvox Awaiting GPC ID/susceptibilities BC repeated this morning No surgical recs Supportive care JOANNA , Cardiology following UA and Urine C/S straight cath D/W family D/W RN Critically ill JIL DAVISON APRN Jan 19, 2019 12:24 KAJAL CHOW MD Jan 19, 2019 14:58
[2019-01-19 15:57] LABS: BILIRUBIN,URINE NEGATIVE (NEG); CLARITY,URINE CLOUDY; COLOR,URINE YELLOW; NITRITE,URINE NEGATIVE (NEG); PROTEIN,URINE >=300 mg/dL (NEG-TRACE); UROBILINOGEN,URINE 0.2 mg/dL (0.2 mg/dL)
[2019-01-19 16:16] LABS: BACTERIA,URINE 0 /HPF (0-FEW); RBC,URINE RARE /HPF (0-2); WBC,URINE 0 /HPF (0-4)
[2019-01-19] MEDS: DAPTOmycin (GENERIC) IVPB 470 MG in IV NORMAL SALINE 50ML 50 ML IV SCH (17:04)
[2019-01-19] MEDS: MICAFUNGIN 100 MG in IV DEXTROSE 5% 100ML 100 ML IV SCH (20:25)
--- NOTE | 2019-01-19 23:22 | NUR ---
Nursing Note: Spoke with Dr. Saab regarding multiple red clotty bowel movements and updated hemoglobin result. Orders for mag citrate in morning.
[2019-01-20] VITALS (29 sets, daily range): BP systolic 64–178; BP diastolic 45–95
[2019-01-20] MEDS: IV DEXTROSE 5 %-0.45 % NACL 1,000 ML IV SCH (04:30)
[2019-01-20] MEDS: NOREPINEPHRIN 8MG/250ML PREMIX 250 ML IV PRN ×3 (04:56→23:16)
[2019-01-20] MEDS: PIPERACILLIN/TAZOBACTAM 2.25 GM in IV NORMAL SALINE 50ML 50 ML IV SCH ×3 (05:34→23:15)
[2019-01-20] MEDS: HYDROCORTISONE SOD SUCC/PF 100 MG/2 ML VIAL. IV SCH ×3 (05:36→21:26)
--- NOTE | 2019-01-20 06:51 | PDOC ---
PULMONARY PROGRESS NOTES Subjective on levo, vaso,iv fluid, has bloody stool, lethargic, had peritoneal dialysis Vitals Vital Signs Date Time Temp Pulse Resp B/P (MAP) Pulse Ox O2 Delivery O2 Flow Rate FiO2 01/20/19 06:00 96 11 109/60 (76) 100 Room Air 01/20/19 03:00 98.3 98.3 01/19/19 08:00 2.0 Comments ros as mentioned as above, discussed w rn, other sys otherwise neg General: Alert HEENT: Other (nc at perrl nose throat clear neck no lad, no thyromegaly) Lungs: Crackles Cardiovascular: S1, S2 Abdomen: Soft, Non-tender Neuro Exam: Alert Extremities: No Edema Skin: Warm Labs Laboratory Tests Test 01/18/19 06:55 01/18/19 07:00 01/18/19 07:04 01/18/19 07:33 White Blood Count 28.6 x10^3/uL (4.0-11.0) Red Blood Count 3.16 x10^6/uL (4.30-5.70) Hemoglobin 10.8 g/dL (13.0-17.5) Hematocrit 32.3 % (39.0-53.0) Mean Corpuscular Volume 102 fL (79-100) Mean Corpuscular Hemoglobin 34 pg (25-35) Mean Corpuscular Hemoglobin Concent 33 g/dL (31-37) Red Cell Distribution Width 17.3 % (11.5-14.5) Platelet Count 134 x10^3/uL (140-400) Neutrophils (%) (Auto) 76 % (31-73) Lymphocytes (%) (Auto) 9 % (24-48) Monocytes (%) (Auto) 15 % (0-9) Eosinophils (%) (Auto) 1 % (0-3) Basophils (%) (Auto) 0 % (0-3) Neutrophils # (Auto) 21.7 x10^3uL (1.8-7.7) Lymphocytes # (Auto) 2.4 x10^3/uL (1.0-4.8) Monocytes # (Auto) 4.2 x10^3/uL (0.0-1.1) Eosinophils # (Auto) 0.2 x10^3/uL (0.0-0.7) Basophils # (Auto) 0.1 x10^3/uL (0.0-0.2) Prothrombin Time 27.7 SEC (11.7-14.0) Prothromb Time International Ratio 2.6 (0.8-1.1) Sodium Level 137 mmol/L (136-145) Potassium Level 4.2 mmol/L (3.5-5.1) Chloride Level 94 mmol/L (98-107) Carbon Dioxide Level 18 mmol/L (21-32) Anion Gap 25 (6-14) Blood Urea Nitrogen 91 mg/dL (8-26) Creatinine 14.8 mg/dL (0.7-1.3) Estimated GFR (Cockcroft-Gault) 3.3 BUN/Creatinine Ratio 6 (6-20) Glucose Level 77 mg/dL (70-99) Lactic Acid Level 9.5 mmol/L (0.4-2.0) Calcium Level 9.5 mg/dL (8.5-10.1) Phosphorus Level 12.5 mg/dL (2.6-4.7) Total Bilirubin 2.3 mg/dL (0.2-1.0) Aspartate Amino Transf (AST/SGOT) 294 U/L (15-37) Alanine Aminotransferase (ALT/SGPT) 71 U/L (16-63) Alkaline Phosphatase 457 U/L (46-116) Total Protein 5.4 g/dL (6.4-8.2) Albumin 1.6 g/dL (3.4-5.0) Albumin/Globulin Ratio 0.4 (1.0-1.7) Procalcitonin 13.07 ng/mL (0.00-0.10) O2 Saturation 96 % (92-99) Arterial Blood pH 7.34 (7.35-7.45) Arterial Blood pCO2 at Patient Temp 28 mmHg (35-46) Arterial Blood pO2 at Patient Temp 105 mmHg (65-108) Arterial Blood HCO3 15 mmol/L (21-28) Arterial Blood Base Excess -10 mmol/L (-3-3) FiO2 28 Glucose (Fingerstick) 66 mg/dL (70-99) 74 mg/dL (70-99) Test 01/18/19 11:05 01/18/19 11:27 01/18/19 13:20 01/18/19 14:07 Glucose (Fingerstick) 33 mg/dL (70-99) 144 mg/dL (70-99) 70 mg/dL (70-99) Uric Acid 8.9 mg/dL (3.5-7.2) Hepatitis A IgM Antibody Nonreactive (Nonreactive) Hepatitis B Surface Antigen Nonreactive (Nonreactive) Hepatitis B Core IgM Antibody Nonreactive (Nonreactive) Hepatitis C IgG Antibody Nonreactive (Nonreactive) HIV (1&2) Antibody Screen Nonreactive (Nonreactive) Test 01/18/19 15:24 01/18/19 17:30 01/18/19 18:22 01/18/19 21:54 Glucose (Fingerstick) 58 mg/dL (70-99) 69 mg/dL (70-99) 139 mg/dL (70-99) 136 mg/dL (70-99) Test 01/19/19 04:00 01/19/19 08:47 01/19/19 12:07 01/19/19 15:30 White Blood Count 32.0 x10^3/uL (4.0-11.0) Red Blood Count 3.10 x10^6/uL (4.30-5.70) Hemoglobin 10.3 g/dL (13.0-17.5) Hematocrit 31.7 % (39.0-53.0) Mean Corpuscular Volume 103 fL (79-100) Mean Corpuscular Hemoglobin 33 pg (25-35) Mean Corpuscular Hemoglobin Concent 33 g/dL (31-37) Red Cell Distribution Width 17.9 % (11.5-14.5) Platelet Count 120 x10^3/uL (140-400) Neutrophils (%) (Auto) 72 % (31-73) Lymphocytes (%) (Auto) 9 % (24-48) Monocytes (%) (Auto) 18 % (0-9) Eosinophils (%) (Auto) 1 % (0-3) Basophils (%) (Auto) 0 % (0-3) Neutrophils # (Auto) 23.1 x10^3uL (1.8-7.7) Lymphocytes # (Auto) 2.9 x10^3/uL (1.0-4.8) Monocytes # (Auto) 5.7 x10^3/uL (0.0-1.1) Eosinophils # (Auto) 0.2 x10^3/uL (0.0-0.7) Basophils # (Auto) 0.1 x10^3/uL (0.0-0.2) Prothrombin Time 31.1 SEC (11.7-14.0) Prothromb Time International Ratio 3.0 (0.8-1.1) Sodium Level 136 mmol/L (136-145) Potassium Level 3.6 mmol/L (3.5-5.1) Chloride Level 97 mmol/L (98-107) Carbon Dioxide Level 20 mmol/L (21-32) Anion Gap 19 (6-14) Blood Urea Nitrogen 78 mg/dL (8-26) Creatinine 12.5 mg/dL (0.7-1.3) Estimated GFR (Cockcroft-Gault) 3.9 BUN/Creatinine Ratio 6 (6-20) Glucose Level 120 mg/dL (70-99) Lactic Acid Level 5.3 mmol/L (0.4-2.0) Calcium Level 9.1 mg/dL (8.5-10.1) Phosphorus Level 10.3 mg/dL (2.6-4.7) Magnesium Level 2.1 mg/dL (1.8-2.4) Total Bilirubin 2.4 mg/dL (0.2-1.0) Aspartate Amino Transf (AST/SGOT) 260 U/L (15-37) Alanine Aminotransferase (ALT/SGPT) 79 U/L (16-63) Alkaline Phosphatase 360 U/L (46-116) Ammonia 26 mcmol/L (11-34) Total Protein 5.1 g/dL (6.4-8.2) Albumin 1.5 g/dL (3.4-5.0) Albumin/Globulin Ratio 0.4 (1.0-1.7) Random Vancomycin Level 15.3 mcg/mL Glucose (Fingerstick) 68 mg/dL (70-99) 94 mg/dL (70-99) Urine Collection Type U cath Urine Color Yellow Urine Clarity Cloudy Urine pH 6.0 Urine Specific [place] 1.015 Urine Protein >=300 mg/dL (NEG-TRACE) Urine Glucose (UA) Negative mg/dL (NEG) Urine Ketones (Stick) Negative mg/dL (NEG) Urine Blood Small (NEG) Urine Nitrite Negative (NEG) Urine Bilirubin Negative (NEG) Urine Urobilinogen Dipstick 0.2 mg/dL (0.2 mg/dL) Urine Leukocyte Esterase Negative (NEG) Urine RBC Rare /HPF (0-2) Urine WBC 0 /HPF (0-4) Urine Transitional Epithelial Cells Few /LPF Urine Bacteria 0 /HPF (0-FEW) Test 01/19/19 17:50 01/19/19 21:53 01/20/19 05:30 Glucose (Fingerstick) 127 mg/dL (70-99) Hemoglobin 8.6 g/dL (13.0-17.5) 7.8 g/dL (13.0-17.5) Creatine Kinase 63 U/L (39-308) Laboratory Tests Test 01/19/19 08:47 01/19/19 12:07 01/19/19 15:30 01/19/19 17:50 Glucose (Fingerstick) 68 mg/dL (70-99) 94 mg/dL (70-99) 127 mg/dL (70-99) Urine Collection Type U cath Urine Color Yellow Urine Clarity Cloudy Urine pH 6.0 Urine Specific [place] 1.015 Urine Protein >=300 mg/dL (NEG-TRACE) Urine Glucose (UA) Negative mg/dL (NEG) Urine Ketones (Stick) Negative mg/dL (NEG) Urine Blood Small (NEG) Urine Nitrite Negative (NEG) Urine Bilirubin Negative (NEG) Urine Urobilinogen Dipstick 0.2 mg/dL (0.2 mg/dL) Urine Leukocyte Esterase Negative (NEG) Urine RBC Rare /HPF (0-2) Urine WBC 0 /HPF (0-4) Urine Transitional Epithelial Cells Few /LPF Urine Bacteria 0 /HPF (0-FEW) Test 01/19/19 21:53 01/20/19 05:30 Hemoglobin 8.6 g/dL (13.0-17.5) 7.8 g/dL (13.0-17.5) Creatine Kinase 63 U/L (39-308) Medications Active Scripts Medications Dose Route/Sig Max Daily Dose Days Date Category Dose Instructions [calcium carbon] 01/14/19 Reported Triamcinolone Acetonide 0.5% Cream (Triamcinolone Acetonide) 15 Gm Cream..g. 1 [place] TP BID 01/14/19 Reported Renvela (Sevelamer Carbonate) 800 Mg Tablet 2 Tab PO TID 01/14/19 Reported Protonix (Pantoprazole Sodium) 40 Mg Granpkt.dr 40 Mg PO DAILY 01/14/19 Reported Calcium Carbonate 500 Mg Tablet 5,000 Mg PO TIDWMEALS 01/14/19 Reported Skin Treatment (Ammonium Lactate) 225 Gm Lotion 225 Gm TP BID 01/14/19 Reported [place] 5-325 Tablet (Acetaminophen/Hydrocodone Bitart) 1 Each Tablet 1-2 Each PO PRN Q6HRS PRN 08/25/18 Rx as needed for pain Aspirin 81 Mg Tab.chew 1 Tab PO DAILY 04/20/18 Reported Atorvastatin Calcium 20 Mg Tablet 1 Tab PO QHS 04/20/18 Reported Sodium Bicarbonate 650 Mg Tablet 1,950 Mg PO TIDWMEALS 11/23/17 Reported Comments cxr reviewed, 1. A left jugular dialysis type catheter has been inserted extending into the superior aspect of the right atrium. 2. No other significant change since earlier in the day. ct reviewed, 1. Slightly suboptimal PE study due to contrast bolus timing. No central or segmental PE. Evaluation of distal most subsegmental pulmonary arteries is limited. 2. No pneumonia or imaging evidence of acute pulmonary infarct. 3. 5 mm nodular opacity in the right upper lobe. Follow-up CT chest in 6 months without IV contrast recommended. Impression . IMPRESSION: 1. Acute respiratory failure, multifactorial. 2. Hypotension. gib, septic shock, no pulmonary embolism. 3. Aortic stenosis. 4. Renal failure, on peritoneal dialysis. 5. Peripheral vascular disease, status post aortobilateral iliac stent graft. 6. hematochezia, upper vs lower GIB, ? ischemic colitis, vs others 7. Coagulopathy. 8. Metabolic toxic encephalopathy. 9. bacteremia, gpc 10. Gastroesophageal reflux. 12. Metabolic acidosis secondary to hypoperfusion, possibly sepsis. 13. 5 mm nodular opacity in the right upper lobe Plan . PLAN: 1. IV fluids. add protonix gtt, gi on case 2. Pressors to keep map >65, would need central line for pressors. change solucortef to 50 q 8 hrs 3. Follow Cardiology input. 4. CTA no PE. 5. antibiotics per ID 6. BD 7. Dialysis per nephro prognosis guarded discussed w ARCHANA Potter MD Jan 20, 2019 06:51
[2019-01-20] MEDS: MIDODRINE 5 MG TABLET PO SCH ×3 (07:00→17:17)
[2019-01-20] MEDS ORDERED: MAGNESIUM CITRATE 296 ML SOLUTION. PO ONE (07:15)
[2019-01-20] MEDS: IPRATRPIUM/ALBUTEROL 0.5/2.5MG 3 ML NEBU. NEB SCH ×4 (07:50→19:52)
[2019-01-20] MEDS: SODIUM BICARBONATE 650 MG TABLET. PO SCH ×3 (08:00→17:00)
[2019-01-20] MEDS: CALCIUM CARBONATE 500 MG TABLET PO SCH ×3 (08:00→17:00)
[2019-01-20] MEDS: SEVELAMER CARBONATE 800 MG TABLET. PO SCH ×3 (09:00→21:22)
[2019-01-20] MEDS: TRIAMCINOLONE ACETONIDE 0.1% TOPICAL CREAM 15GM TUBE. TP SCH ×2 (09:00→21:00)
[2019-01-20] MEDS: GENTAMICIN 0.1% TOPICAL OINTMENT 15GM TUBE. TP SCH (09:00)
[2019-01-20] MEDS: LACTOBACILLUS RHAMNOSUS GG 1 CAPSULE. PO SCH ×2 (09:00→21:22)
[2019-01-20] MEDS: ASPIRIN CHEWABLE 81 MG TABLET. PO SCH (09:00)
--- NOTE | 2019-01-20 09:03 | PDOC ---
Infectious Disease Note Subjective Subjective Tolerated PD. Hypotensive, Levophed down to 16 mcg, still on vasopressin as well. No fevers last 24 hours + bloody stools per RN Denies SOA/CP/N/V/D/pain/chills/aches ROS ROS per HPI otherwise neg Vital Sign Vital Signs Vital Signs Date Time Temp Pulse Resp B/P (MAP) Pulse Ox O2 Delivery O2 Flow Rate FiO2 01/20/19 08:00 Room Air 01/20/19 07:51 100 01/20/19 07:00 100 15 117/63 (81) 01/20/19 03:00 98.3 98.3 01/19/19 08:00 2.0 Physical Exam PHYSICAL EXAM GENERAL: Propped up in bed, more alert HEENT: No conjunctival petechia. Oral cavity dry, missing teeth. NECK: Supple. LUNGS: Clear bilaterally anteriorly. HEART: S1, S2. Loud systolic murmur. ABDOMEN: Soft and nontender. PD cath, left side EXTREMITIES: No edema, no cyanosis. DERM: Warm, dry, no generalized rash. NEUROLOGIC: Alert, speech somewhat garbled LIJ/temp HDC (01/18) Labs Lab Laboratory Tests Test 01/19/19 12:07 01/19/19 15:30 01/19/19 17:50 01/19/19 21:53 Glucose (Fingerstick) 94 mg/dL (70-99) 127 mg/dL (70-99) Urine Collection Type U cath Urine Color Yellow Urine Clarity Cloudy Urine pH 6.0 Urine Specific [place] 1.015 Urine Protein >=300 mg/dL (NEG-TRACE) Urine Glucose (UA) Negative mg/dL (NEG) Urine Ketones (Stick) Negative mg/dL (NEG) Urine Blood Small (NEG) Urine Nitrite Negative (NEG) Urine Bilirubin Negative (NEG) Urine Urobilinogen Dipstick 0.2 mg/dL (0.2 mg/dL) Urine Leukocyte Esterase Negative (NEG) Urine RBC Rare /HPF (0-2) Urine WBC 0 /HPF (0-4) Urine Transitional Epithelial Cells Few /LPF Urine Bacteria 0 /HPF (0-FEW) Hemoglobin 8.6 g/dL (13.0-17.5) Test 01/20/19 05:30 Hemoglobin 7.8 g/dL (13.0-17.5) Creatine Kinase 63 U/L (39-308) Micro 01/19. Blood cultures in process 01/17. BLOOD CULTURE Final GRAM POSITIVE COCCI IN CLUSTERS, SUGGESTIVE OF STAPH, IN 4 OF 4 BOTTLES, DRAWN ON 01/17/19. Objective Assessment Septic shock from GPC bacteremia (4 of 4 bottles) 01/17/2019,source ?? repeat BC from 01/19 in process -BC negative 01/14/2019 Hypotension POA appears multifactorial with underlying severe aortic stenosis, end-stage renal disease on PD. Failed midodrine treatment. Leukocytosis, trending upwards -CT Chest/abdo and pelvis with contrast - unrevealing -BC GPC 01/17 Lactic acidosis Hematochezia End-stage renal disease, on PD; s/p temp HDC line placement, 01/18. -Peritoneal dialysate, WBC 3. culture no growth Hyperlipidemia. Metabolic acidosis. Chronic liver disease, hyperammonemia, transaminitis AAA, status post stent. Hypoglycemia. Protein-calorie malnutrition. Plan Plan of Care Continue dapto (01/19), Zyvox (01/19) Zosyn and micafungin Probiotics Awaiting GPC ID/susceptibilities BC from 01/19 in process No surgical recs Supportive care GI following, bowel prep JOANNA , Cardiology following CBC D/W RN Condition critical SUBLETTE,JIL Guevara APRN Jan 20, 2019 09:03
[2019-01-20] MEDS: IV NORMAL SALINE 1000ML BAG 1,000 ML IV SCH ×2 (09:27→21:27)
[2019-01-20] MEDS: PANTOPRAZOLE SODIUM IV DRIP 80 MG in IV NORMAL SALINE 100ML 100 ML IV SCH ×2 (09:28→15:42)
[2019-01-20] MEDS: AMMONIUM LACTATE 12% TOPICAL LOTION 226GM BOTTLE. TP SCH ×2 (09:28→21:00)
--- NOTE | 2019-01-20 09:35 | PDOC ---
GI PROGRESS NOTES Date Date/Time DATE: 01/20/19 TIME: 09:29 Subjective Subjective confused but awake- denies abd pain- but having mat hematochezia since yesterday afternoon- bloody BM with clots. Hgb has dropped overnight as well Objective Vitals Vital Signs Date Time Temp Pulse Resp B/P (MAP) Pulse Ox O2 Delivery O2 Flow Rate FiO2 01/20/19 08:00 100 15 113/63 (80) 100 Room Air 01/20/19 08:00 Room Air 01/20/19 07:51 100 Room Air 01/20/19 07:00 100 15 117/63 (81) 100 Room Air 01/20/19 06:00 96 11 109/60 (76) 100 Room Air 01/20/19 05:00 100 13 112/66 (81) 100 Room Air 01/20/19 04:00 100 11 104/58 (73) 100 Room Air 01/20/19 03:40 Room Air 01/20/19 03:00 98.3 102 18 101/53 (69) 100 Room Air 98.3 01/20/19 01:00 103 16 103/56 (72) 100 Room Air 01/20/19 00:15 Room Air 01/20/19 00:00 103 16 117/47 (70) 100 Room Air 01/19/19 23:00 103 16 109/58 (75) 100 Room Air 01/19/19 22:00 103 16 82/50 (61) 100 Room Air 01/19/19 21:00 97 16 76/48 (57) 100 Room Air 01/19/19 20:26 95 Room Air 01/19/19 20:10 Room Air 01/19/19 20:00 98 14 102/52 (69) 99 Room Air 01/19/19 19:00 97.2 104 20 102/40 (60) 100 Room Air 97.2 01/19/19 18:00 98 16 108/56 (73) 100 Room Air 01/19/19 17:48 100 106/55 01/19/19 17:00 99 15 111/56 (74) 100 Room Air 01/19/19 16:07 99 Room Air 01/19/19 16:00 Room Air 01/19/19 16:00 103 15 109/52 (71) 100 Room Air 01/19/19 15:00 95 13 117/52 (73) 100 Room Air 01/19/19 14:00 92 17 119/50 (73) 99 Room Air 01/19/19 13:00 101 18 145/103 (117) 100 Room Air 01/19/19 12:04 97 106/53 01/19/19 12:00 Room Air 01/19/19 12:00 97.0 97 12 106/53 (70) 100 Room Air 97.0 01/19/19 11:27 99 Room Air 01/19/19 11:00 95 15 91/54 (66) 99 Room Air 01/19/19 10:00 97 15 105/58 (74) 99 Room Air Labs Labs Laboratory Tests Test 01/19/19 12:07 01/19/19 15:30 01/19/19 17:50 01/19/19 21:53 Glucose (Fingerstick) 94 mg/dL (70-99) 127 mg/dL (70-99) Urine Collection Type U cath Urine Color Yellow Urine Clarity Cloudy Urine pH 6.0 Urine Specific [place] 1.015 Urine Protein >=300 mg/dL (NEG-TRACE) Urine Glucose (UA) Negative mg/dL (NEG) Urine Ketones (Stick) Negative mg/dL (NEG) Urine Blood Small (NEG) Urine Nitrite Negative (NEG) Urine Bilirubin Negative (NEG) Urine Urobilinogen Dipstick 0.2 mg/dL (0.2 mg/dL) Urine Leukocyte Esterase Negative (NEG) Urine RBC Rare /HPF (0-2) Urine WBC 0 /HPF (0-4) Urine Transitional Epithelial Cells Few /LPF Urine Bacteria 0 /HPF (0-FEW) Hemoglobin 8.6 g/dL (13.0-17.5) Test 01/20/19 05:30 Hemoglobin 7.8 g/dL (13.0-17.5) Creatine Kinase 63 U/L (39-308) Physical Exam Physical Exam Awake but confused\ chest- few rhonchi heart- tachy Abd- soft NONTENDER no masses Assessment Assessment Hematochezia since yesterday afternoon- mostly likely lower- not sure if he has ever had GI bleed before or if he has had colonoscopy. High lactic acid over last 2 days with sepsis, CRF and known severe vascular disease- at risk for ischemic colitis or enteritis but could also have diverticulosis, polyps or occult CA, peptic ulcers etc Plan Plan Monitor and transfuse with PRBC if further drop in Hgb will put on liquid diet and give mag citrate- considering bowel prep but with numerous medical issues and palliative care involvement, will wait to hear from family before proceeding LURDES DE LUNA MD Jan 20, 2019 09:35
[2019-01-20 10:17] LABS: BASO % 0 % (0-3); EOS # 0.1 x10^3/uL (0.0-0.7); EOS % 0 % (0-3); HEMATOCRIT 22.9 % (39.0-53.0); HEMOGLOBIN 7.4 g/dL (13.0-17.5); LYMPH # 1.7 x10^3/uL (1.0-4.8); LYMPH % 6 % (24-48); MEAN CORPUSCULAR HEMOGLOBIN 33 pg (25-35); MEAN CORPUSCULAR HGB CONC 32 g/dL (31-37); MEAN CORPUSCULAR VOLUME 102 fL (79-100); MONO # 2.2 x10^3/uL (0.0-1.1); MONO % 8 % (0-9); NEUT # 24.6 x10^3uL (1.8-7.7); NEUT % 86 % (31-73); PLATELET COUNT 86 x10^3/uL (140-400); RED BLOOD COUNT 2.25 x10^6/uL (4.30-5.70); RED CELL DISTRIBUTION WIDTH 18.5 % (11.5-14.5); WHITE BLOOD COUNT 28.7 x10^3/uL (4.0-11.0)
--- NOTE | 2019-01-20 10:48 | PDOC ---
PROGRESS NOTES Chief Complaint Chief Complaint Hypotension - improving on 2 pressors Gram positive sepsis GI Bleed -01/19 Lactic acid elevation without evidence of toxicity Severe hypoglycemia Dizziness Leukocytosis - trending up Anemia of chronic disease Nausea and vomiting History of aortic stenosis: Being considered for TAVR reportedly not a candidate due to moderate reading via JOANNA. Severe per f/u TTE Metabolic acidosis Elevated troponin: peaked at 0.2, demand mediated, type 2 with above culprits. no CP nor SOA Coagulopathy: INR 2.2. Macrocytic anemia ESRD: PD - Creatinine elevated moderate to severe Protein malnutrition CAD: stents in the past, clinically stable. Hx of HTN Hx of AAA with repair History of Present Illness History of Present Illness Patient was seen and examined in the ICU. Patient remains on vasopressin and levophed, slowly titrating down, SBP 76-117. Patient has significant amount of bright red blood per rectum overnight per nurse, GI following, possible scope. Patient is clinically improving and awake. He is able to answer questions. Discussed case with RN. Blood cultures positive for gram positive cocci. WBC elevated at 28.7 Vitals Vitals Vital Signs Date Time Temp Pulse Resp B/P (MAP) Pulse Ox O2 Delivery O2 Flow Rate FiO2 01/20/19 10:00 101 16 95/65 (75) 100 Room Air 01/20/19 03:00 98.3 98.3 01/19/19 08:00 2.0 Physical Exam Physical Exam GENERAL: Propped up in bed, more alert HEENT: No conjunctival petechia. Oral cavity dry, missing teeth. NECK: Supple. LUNGS: Clear bilaterally anteriorly. HEART: S1, S2. Loud systolic murmur. ABDOMEN: Soft and nontender. PD cath, left side EXTREMITIES: No edema, no cyanosis. DERM: Warm, dry, no generalized rash. NEUROLOGIC: Alert, speech somewhat garbled [facility]J/temp HDC (01/18) General: Alert, mild distress, Other (patient able to verbalize) Heart: Regular rate, Other (4/6 systolic murmur) Lungs: Crackles Abdomen: Normal bowel sounds, Soft, No masses, Other (bright red blood per rectum) Extremities: No clubbing, No cyanosis, No edema Skin: No rashes, No significant lesion Labs LABS Laboratory Tests Test 01/19/19 12:07 01/19/19 15:30 01/19/19 17:50 01/19/19 21:53 Glucose (Fingerstick) 94 mg/dL (70-99) 127 mg/dL (70-99) Urine Collection Type U cath Urine Color Yellow Urine Clarity Cloudy Urine pH 6.0 Urine Specific [place] 1.015 Urine Protein >=300 mg/dL (NEG-TRACE) Urine Glucose (UA) Negative mg/dL (NEG) Urine Ketones (Stick) Negative mg/dL (NEG) Urine Blood Small (NEG) Urine Nitrite Negative (NEG) Urine Bilirubin Negative (NEG) Urine Urobilinogen Dipstick 0.2 mg/dL (0.2 mg/dL) Urine Leukocyte Esterase Negative (NEG) Urine RBC Rare /HPF (0-2) Urine WBC 0 /HPF (0-4) Urine Transitional Epithelial Cells Few /LPF Urine Bacteria 0 /HPF (0-FEW) Hemoglobin 8.6 g/dL (13.0-17.5) Test 01/20/19 05:30 01/20/19 10:00 Hemoglobin 7.8 g/dL (13.0-17.5) 7.4 g/dL (13.0-17.5) Creatine Kinase 63 U/L (39-308) White Blood Count 28.7 x10^3/uL (4.0-11.0) Red Blood Count 2.25 x10^6/uL (4.30-5.70) Hematocrit 22.9 % (39.0-53.0) Mean Corpuscular Volume 102 fL (79-100) Mean Corpuscular Hemoglobin 33 pg (25-35) Mean Corpuscular Hemoglobin Concent 32 g/dL (31-37) Red Cell Distribution Width 18.5 % (11.5-14.5) Platelet Count 86 x10^3/uL (140-400) Neutrophils (%) (Auto) 86 % (31-73) Lymphocytes (%) (Auto) 6 % (24-48) Monocytes (%) (Auto) 8 % (0-9) Eosinophils (%) (Auto) 0 % (0-3) Basophils (%) (Auto) 0 % (0-3) Neutrophils # (Auto) 24.6 x10^3uL (1.8-7.7) Lymphocytes # (Auto) 1.7 x10^3/uL (1.0-4.8) Monocytes # (Auto) 2.2 x10^3/uL (0.0-1.1) Eosinophils # (Auto) 0.1 x10^3/uL (0.0-0.7) Basophils # (Auto) 0.0 x10^3/uL (0.0-0.2) Review of Systems Review of Systems Reports hematochezia Denies abdominal pain Denies nausea Denies vomiting Denies chest pain Denies shortness of breath Assessment and Plan Assessmemt and Plan Problems Medical Problems: (1) Chronic kidney disease with end stage renal failure on dialysis Status: Acute (2) Generalized weakness Status: Acute (3) Hypotension Status: Acute (4) Nausea and vomiting Status: Acute Assessment: Hypotension - improving on 2 pressors Gram positive sepsis GI Bleed -01/19 Severe aortic stenosis Lactic acid elevation without evidence of toxicity Severe hypoglycemia Dizziness Leukocytosis - trending up Anemia of chronic disease Nausea and vomiting History of aortic stenosis: Being considered for TAVR reportedly not a candidate due to moderate reading via JOANNA. Severe per f/u TTE Metabolic acidosis Elevated troponin: peaked at 0.2, demand mediated, type 2 with above culprits. no CP nor SOA Coagulopathy: INR 2.2. Macrocytic anemia ESRD: PD - Creatinine elevated moderate to severe Protein malnutrition CAD: stents in the past, clinically stable. Hx of HTN Hx of AAA with repair Plan: Continue daptomycin, micafungin, linezolid, and zosyn, ID following (vancomycin DC'ed) - blood cultures + for gram positive cocci in all 4 bottles Cardiology following, possible JOANNA on Monday for severe aortic stenosis Appreciate GI input, continue protonix drip, monitor Hgb (currently 7.4 01/20- consider transfusion) Monitor respiratory status Wean off pressors Appreciate Pulm and Heme/Onc input Continue PD - appreciate Nephrology input Palliative care consulted Comment Review of Relevant I have reviewed the following items ethan (where applicable) has been applied. Labs Laboratory Tests Test 01/18/19 11:05 01/18/19 11:27 01/18/19 13:20 01/18/19 14:07 Glucose (Fingerstick) 33 mg/dL (70-99) 144 mg/dL (70-99) 70 mg/dL (70-99) Uric Acid 8.9 mg/dL (3.5-7.2) Hepatitis A IgM Antibody Nonreactive (Nonreactive) Hepatitis B Surface Antigen Nonreactive (Nonreactive) Hepatitis B Core IgM Antibody Nonreactive (Nonreactive) Hepatitis C IgG Antibody Nonreactive (Nonreactive) HIV (1&2) Antibody Screen Nonreactive (Nonreactive) Test 01/18/19 15:24 01/18/19 17:30 01/18/19 18:22 01/18/19 21:54 Glucose (Fingerstick) 58 mg/dL (70-99) 69 mg/dL (70-99) 139 mg/dL (70-99) 136 mg/dL (70-99) Test 01/19/19 04:00 01/19/19 08:47 01/19/19 12:07 01/19/19 15:30 White Blood Count 32.0 x10^3/uL (4.0-11.0) Red Blood Count 3.10 x10^6/uL (4.30-5.70) Hemoglobin 10.3 g/dL (13.0-17.5) Hematocrit 31.7 % (39.0-53.0) Mean Corpuscular Volume 103 fL (79-100) Mean Corpuscular Hemoglobin 33 pg (25-35) Mean Corpuscular Hemoglobin Concent 33 g/dL (31-37) Red Cell Distribution Width 17.9 % (11.5-14.5) Platelet Count 120 x10^3/uL (140-400) Neutrophils (%) (Auto) 72 % (31-73) Lymphocytes (%) (Auto) 9 % (24-48) Monocytes (%) (Auto) 18 % (0-9) Eosinophils (%) (Auto) 1 % (0-3) Basophils (%) (Auto) 0 % (0-3) Neutrophils # (Auto) 23.1 x10^3uL (1.8-7.7) Lymphocytes # (Auto) 2.9 x10^3/uL (1.0-4.8) Monocytes # (Auto) 5.7 x10^3/uL (0.0-1.1) Eosinophils # (Auto) 0.2 x10^3/uL (0.0-0.7) Basophils # (Auto) 0.1 x10^3/uL (0.0-0.2) Prothrombin Time 31.1 SEC (11.7-14.0) Prothromb Time International Ratio 3.0 (0.8-1.1) Sodium Level 136 mmol/L (136-145) Potassium Level 3.6 mmol/L (3.5-5.1) Chloride Level 97 mmol/L (98-107) Carbon Dioxide Level 20 mmol/L (21-32) Anion Gap 19 (6-14) Blood Urea Nitrogen 78 mg/dL (8-26) Creatinine 12.5 mg/dL (0.7-1.3) Estimated GFR (Cockcroft-Gault) 3.9 BUN/Creatinine Ratio 6 (6-20) Glucose Level 120 mg/dL (70-99) Lactic Acid Level 5.3 mmol/L (0.4-2.0) Calcium Level 9.1 mg/dL (8.5-10.1) Phosphorus Level 10.3 mg/dL (2.6-4.7) Magnesium Level 2.1 mg/dL (1.8-2.4) Total Bilirubin 2.4 mg/dL (0.2-1.0) Aspartate Amino Transf (AST/SGOT) 260 U/L (15-37) Alanine Aminotransferase (ALT/SGPT) 79 U/L (16-63) Alkaline Phosphatase 360 U/L (46-116) Ammonia 26 mcmol/L (11-34) Total Protein 5.1 g/dL (6.4-8.2) Albumin 1.5 g/dL (3.4-5.0) Albumin/Globulin Ratio 0.4 (1.0-1.7) Random Vancomycin Level 15.3 mcg/mL Glucose (Fingerstick) 68 mg/dL (70-99) 94 mg/dL (70-99) Urine Collection Type U cath Urine Color Yellow Urine Clarity Cloudy Urine pH 6.0 Urine Specific [place] 1.015 Urine Protein >=300 mg/dL (NEG-TRACE) Urine Glucose (UA) Negative mg/dL (NEG) Urine Ketones (Stick) Negative mg/dL (NEG) Urine Blood Small (NEG) Urine Nitrite Negative (NEG) Urine Bilirubin Negative (NEG) Urine Urobilinogen Dipstick 0.2 mg/dL (0.2 mg/dL) Urine Leukocyte Esterase Negative (NEG) Urine RBC Rare /HPF (0-2) Urine WBC 0 /HPF (0-4) Urine Transitional Epithelial Cells Few /LPF Urine Bacteria 0 /HPF (0-FEW) Test 01/19/19 17:50 01/19/19 21:53 01/20/19 05:30 01/20/19 10:00 Glucose (Fingerstick) 127 mg/dL (70-99) Hemoglobin 8.6 g/dL (13.0-17.5) 7.8 g/dL (13.0-17.5) 7.4 g/dL (13.0-17.5) Creatine Kinase 63 U/L (39-308) White Blood Count 28.7 x10^3/uL (4.0-11.0) Red Blood Count 2.25 x10^6/uL (4.30-5.70) Hematocrit 22.9 % (39.0-53.0) Mean Corpuscular Volume 102 fL (79-100) Mean Corpuscular Hemoglobin 33 pg (25-35) Mean Corpuscular Hemoglobin Concent 32 g/dL (31-37) Red Cell Distribution Width 18.5 % (11.5-14.5) Platelet Count 86 x10^3/uL (140-400) Neutrophils (%) (Auto) 86 % (31-73) Lymphocytes (%) (Auto) 6 % (24-48) Monocytes (%) (Auto) 8 % (0-9) Eosinophils (%) (Auto) 0 % (0-3) Basophils (%) (Auto) 0 % (0-3) Neutrophils # (Auto) 24.6 x10^3uL (1.8-7.7) Lymphocytes # (Auto) 1.7 x10^3/uL (1.0-4.8) Monocytes # (Auto) 2.2 x10^3/uL (0.0-1.1) Eosinophils # (Auto) 0.1 x10^3/uL (0.0-0.7) Basophils # (Auto) 0.0 x10^3/uL (0.0-0.2) Laboratory Tests Test 01/19/19 12:07 01/19/19 15:30 01/19/19 17:50 01/19/19 21:53 Glucose (Fingerstick) 94 mg/dL (70-99) 127 mg/dL (70-99) Urine Collection Type U cath Urine Color Yellow Urine Clarity Cloudy Urine pH 6.0 Urine Specific [place] 1.015 Urine Protein >=300 mg/dL (NEG-TRACE) Urine Glucose (UA) Negative mg/dL (NEG) Urine Ketones (Stick) Negative mg/dL (NEG) Urine Blood Small (NEG) Urine Nitrite Negative (NEG) Urine Bilirubin Negative (NEG) Urine Urobilinogen Dipstick 0.2 mg/dL (0.2 mg/dL) Urine Leukocyte Esterase Negative (NEG) Urine RBC Rare /HPF (0-2) Urine WBC 0 /HPF (0-4) Urine Transitional Epithelial Cells Few /LPF Urine Bacteria 0 /HPF (0-FEW) Hemoglobin 8.6 g/dL (13.0-17.5) Test 01/20/19 05:30 01/20/19 10:00 Hemoglobin 7.8 g/dL (13.0-17.5) 7.4 g/dL (13.0-17.5) Creatine Kinase 63 U/L (39-308) White Blood Count 28.7 x10^3/uL (4.0-11.0) Red Blood Count 2.25 x10^6/uL (4.30-5.70) Hematocrit 22.9 % (39.0-53.0) Mean Corpuscular Volume 102 fL (79-100) Mean Corpuscular Hemoglobin 33 pg (25-35) Mean Corpuscular Hemoglobin Concent 32 g/dL (31-37) Red Cell Distribution Width 18.5 % (11.5-14.5) Platelet Count 86 x10^3/uL (140-400) Neutrophils (%) (Auto) 86 % (31-73) Lymphocytes (%) (Auto) 6 % (24-48) Monocytes (%) (Auto) 8 % (0-9) Eosinophils (%) (Auto) 0 % (0-3) Basophils (%) (Auto) 0 % (0-3) Neutrophils # (Auto) 24.6 x10^3uL (1.8-7.7) Lymphocytes # (Auto) 1.7 x10^3/uL (1.0-4.8) Monocytes # (Auto) 2.2 x10^3/uL (0.0-1.1) Eosinophils # (Auto) 0.1 x10^3/uL (0.0-0.7) Basophils # (Auto) 0.0 x10^3/uL (0.0-0.2) Microbiology 01/19/19 Blood Culture - Preliminary, Resulted NO GROWTH AFTER 1 DAY 01/15/19 Anaerobic/Aerobic Culture, Resulted Pending 01/15/19 Anaerobic Culture Result 1 (LAURIE), Resulted Pending 01/15/19 Aerobic Culture - Final, Resulted 01/15/19 Aerobic Culture Result 1 (LAURIE) - Final, Resulted 01/15/19 Gram Stain - Final, Resulted 01/15/19 Gram Stain Result 1 (LAURIE) - Final, Resulted 01/15/19 Gram Stain Result 2 (LAURIE) - Final, Resulted Medications Current Medications Ondansetron HCl (Zofran) 4 mg 1X ONCE IM ; Start 01/14/19 at 15:00; Stop at 15:01; Status Cancel Ondansetron HCl (Zofran) 4 mg 1X ONCE IM ; Start 01/14/19 at 15:45; Stop at 15:46; Status Cancel Ondansetron HCl (Zofran) 4 mg 1X ONCE IV Last administered on 01/14/19at 15:47; Start 01/14/19 at 15:45; Stop 01/14/19 at 15:46; Status DC Gentamicin Sulfate (Garamycin) 1 olu DAILY TP ; Start 01/15/19 at 09:00; Stop 01/15/19 at 13:52; Status DC Lactic Acid (Lac-Hydrin) 1 olu BID TP Last administered on 01/20/19at 09:28; Start 01/15/19 at 10:00 Aspirin (Children'S Aspirin) 81 mg DAILY PO Last administered on 01/19/19at 08:33 ; Start 01/15/19 at 10:00 Atorvastatin Calcium (Lipitor) 20 mg QHS PO Last administered on 01/17/19at 21:06 ; Start 01/15/19 at 21:00; Stop 01/18/19 at 16:53; Status DC Calcium Carbonate/ Glycine (Oscal) 500 mg TIDWMEALS PO Last administered on 01/19at 17:04; Start 01/15/19 at 12:00 Acetaminophen/ Hydrocodone Bitart (Lortab 5/325) 1 tab PRN Q6HRS PRN PO MODERATE TO SEVERE PAIN Last administered on 01/16/19 20:25; Start 01/15/19 at 08 :45 Sevelamer Carbonate (Renvela) 1,600 mg TID PO Last administered on 01/19/19 21: 36; Start 01/15/19 at 09:00 Sodium Bicarbonate (Sodium Bicarbonate) 1,950 mg TIDWMEALS PO Last administered on 01/19/19 17:06; Start 01/15/19 at 12:00 Pantoprazole Sodium (Protonix) 40 mg DAILYAC PO Last administered on 01/19/19 08:33; Start 01/15/19 at 10:00; Stop 01/20/19 at 08:12; Status DC Triamcinolone Acetonide (Kenalog) 1 olu BID TP Last administered on 01/19/19 21 :37; Start 01/15/19 at 10:00 Albuterol/ Ipratropium (Duoneb) 3 ml RTQID NEB Last administered on 01/20/19 07:50; Start 01/15/19 at 12:00 Acetaminophen (Tylenol) 1,000 mg PRN Q6HRS PRN PO mild pain Last administered on 01/16/19 09:50; Start 01/15/19 at 11:15 Midodrine (Proamatine) 2.5 mg [id number] PO Last administered on 01/16/19 09:50; Start 01/15/19 at 14:00; Stop 01/16/19 at 10:34; Status DC Gentamicin Sulfate (Garamycin) 1 olu DAILY TP Last administered on 01/17/19 18: 46; Start 01/16/19 at 09:00 Midodrine (Proamatine) 5 mg [id number] PO Last administered on 01/19/19 17:48; Start 01/16/19 at 13:00 Lactulose (Lactulose) 20 gm TID PO Last administered on 01/17/19 20:35; Start 01/17/19 at 14:15; Stop 01/18/19 at 11:06; Status DC Norepinephrine Bitartrate 250 ml @ 1.875 mls/ hr CONT PRN IV SEE I/O RECORD Last administered on 01/20/19 04:56; Start 01/17/19 at 14:30 Dextrose (Dextrose 50%-Water Syringe) 25 gm 1X ONCE IV Last administered on 01/17/19at 14:45; Start 01/17/19 at 14:45; Stop 01/17/19 at 14:46; Status DC Dextrose (Dextrose 50%-Water Syringe) 25 gm 1X ONCE IV Last administered on 01/17/19at 15:15; Start 01/17/19 at 15:30; Stop 01/17/19 at 15:31; Status DC Piperacillin Sod/ Tazobactam Sod (Zosyn Per Pharmacy) 1 each PRN DAILY PRN MC SEE COMMENTS; Start 01/17/19 at 16:00 Piperacillin Sod/ Tazobactam Sod 2.25 gm/Sodium Chloride 50 ml @ 100 mls/hr Q8HRS IV Last administered on 01/20/19at 05:34; Start 01/17/19 at 17:00 Dextrose/Sodium Chloride 1,000 ml @ 50 mls/hr Q20H IV Last administered on 01/19at 08:37; Start 01/17/19 at 16:30 Dextrose (Dextrose 50%-Water Syringe) 25 gm 1X ONCE IV Last administered on 01/17/19at 17:14; Start 01/17/19 at 17:15; Stop 01/17/19 at 17:16; Status DC Vancomycin HCl (Vanco Per Pharmacy) 1 each PRN DAILY PRN MC SEE COMMENTS Last administered on 01/19/19at 11:09; Start 01/17/19 at 18:00; Stop 01/19/19 at 15:35; Status DC Sodium Chloride 1,000 ml @ 1,000 mls/hr 1X ONCE IV Last administered on at 17:00; Start 01/17/19 at 18:00; Stop 01/17/19 at 18:59; Status DC Vancomycin HCl 2 gm/Sodium Chloride 500 ml @ 250 mls/hr 1X ONCE IV Last administered on 01/17/19at 18:50; Start 01/17/19 at 18:00; Stop 01/17/19 at 19:59; Status DC Micafungin Sodium 100 mg/Dextrose 100 ml @ 100 mls/hr Q24H IV Last administered on 01/19/19at 20:25; Start 01/17/19 at 20:00 Sodium Chloride 1,000 ml @ 100 mls/hr Q10H IV Last administered on 01/20/19at 09:27; Start 01/18/19 at 06:45 Dextrose (Dextrose 50%-Water Syringe) 25 gm 1X ONCE IV Last administered on 01/18/19at 07:00; Start 01/18/19 at 07:00; Stop 01/18/19 at 07:08; Status DC Iohexol (Omnipaque 300 Mg/ml) 75 ml 1X ONCE IV ; Start 01/18/19 at 08:15; Stop 01/18/19 at 08:16; Status DC Info (CONTRAST GIVEN -- Rx MONITORING) 1 each PRN DAILY PRN MC SEE COMMENTS; Start 01/18/19 at 08:15; Stop 01/18/19 at 11:56; Status DC Fentanyl Citrate (Fentanyl 2ml Vial) 50 mcg PRN Q2HR PRN IV PAIN Last administered on 01/18/19at 10:07; Start 01/18/19 at 09:30 Midazolam HCl (Versed) 5 mg 1X ONCE IV Last administered on 01/18/19at 10:05; Start 01/18/19 at 09:30; Stop 01/18/19 at 09:31; Status DC Midazolam HCl (Versed) 5 mg STK-MED ONCE .ROUTE ; Start 01/18/19 at 09:25; Stop 01/18/19 at 09:26; Status DC Fentanyl Citrate (Fentanyl 2ml Vial) 100 mcg STK-MED ONCE .ROUTE ; Start at 09:25; Stop 01/18/19 at 09:26; Status DC Sodium Chloride 500 ml @ 500 mls/hr 1X ONCE IV Last administered on 01/18/19at 10:34; Start 01/18/19 at 10:15; Stop 01/18/19 at 11:14; Status DC Dobutamine HCl/ Dextrose 250 ml @ 5.939 mls/ hr CONT PRN IV SEE I/O RECORD Last administered on 01/18/19at 10:34; Start 01/18/19 at 10:15; Stop 01/18/19 at 12: 59; Status DC Ondansetron HCl (Zofran) 4 mg PRN Q6HRS PRN IV NAUSEA/VOMITING Last administered on 01/18/19at 11:10; Start 01/18/19 at 11:00 Lactulose (Lactulose) 20 gm PRN TID PRN PO confusion/elevated ammonia; Start at 11:15 Dextrose (Dextrose 50%-Water Syringe) 25 gm STK-MED ONCE IV ; Start 01/18/19 at 11:08; Stop 01/18/19 at 11:10; Status DC Dextrose (Dextrose 50%-Water Syringe) 25 gm 1X ONCE IV Last administered on 01/18/19at 11:13; Start 01/18/19 at 11:15; Stop 01/18/19 at 11:16; Status DC Sodium Chloride 500 ml @ 500 mls/hr 1X ONCE IV Last administered on 01/18/19at 11:28; Start 01/18/19 at 11:30; Stop 01/18/19 at 12:29; Status DC Lactobacillus Rhamnosus (Culturelle) 1 cap BID PO Last administered on at 21:36; Start 01/18/19 at 21:00 Iohexol (Omnipaque 350 Mg/ml) 90 ml 1X ONCE IV Last administered on 01/18/19at 15:10; Start 01/18/19 at 12:00; Stop 01/18/19 at 12:01; Status DC Info (CONTRAST GIVEN -- Rx MONITORING) 1 each PRN DAILY PRN MC SEE COMMENTS; Start 01/18/19 at 12:00; Stop 01/20/19 at 11:59 Sodium Chloride 500 ml @ 500 mls/hr 1X ONCE IV Last administered on 01/18/19at 12:13; Start 01/18/19 at 12:30; Stop 01/18/19 at 13:29; Status DC Vasopressin 40 unit/Dextrose 102 ml @ 6 mls/hr CONT PRN IV SEE I/O RECORD Last administered on 01/19/19at 22:00; Start 01/18/19 at 13:00 Dextrose (Dextrose 50%-Water Syringe) 25 gm 1X ONCE IV Last administered on 01/18/19at 15:45; Start 01/18/19 at 15:45; Stop 01/18/19 at 15:46; Status DC Lidocaine/Sodium Bicarbonate (Buffered Lidocaine 1%) 3 ml STK-MED ONCE .ROUTE ; Start 01/18/19 at 15:39; Stop 01/18/19 at 15:40; Status DC Lidocaine/Sodium Bicarbonate (Buffered Lidocaine 1%) 3 ml 1X ONCE INJ Last administered on 01/18/19at 15:45; Start 01/18/19 at 15:45; Stop 01/18/19 at 15:46; Status DC Lidocaine/Sodium Bicarbonate (Buffered Lidocaine 1%) 3 ml STK-MED ONCE .ROUTE ; Start 01/18/19 at 15:39; Stop 01/18/19 at 15:40; Status DC Iohexol (Omnipaque 350 Mg/ml) 100 ml STK-MED ONCE .ROUTE ; Start 01/18/19 at 17: 00; Stop 01/18/19 at 17:01; Status DC Dextrose (Dextrose 50%-Water Syringe) 25 gm 1X ONCE IV Last administered on 01/18/19at 17:45; Start 01/18/19 at 17:45; Stop 01/18/19 at 17:46; Status DC Vancomycin HCl (Vancomycin Random Level) 1 each 1X ONCE MC ; Start 01/19/19 at 06:00; Stop 01/19/19 at 15:35; Status DC Sodium Chloride 250 ml @ 250 mls/hr 1X ONCE IV Last administered on 01/19/19at 09:40; Start 01/19/19 at 09:45; Stop 01/19/19 at 10:44; Status DC Hydrocortisone Sodium Succinate (Solu-CORTEF) 100 mg Q8HRS IV Last administered on 01/20/19at 05:36; Start 01/19/19 at 10:00; Stop 01/20/19 at 10:30 ; Status DC Vancomycin HCl 1.25 gm/Sodium Chloride 250 ml @ 167 mls/hr Q48H IV Last administered on 01/19/19at 11:23; Start 01/19/19 at 12:00; Stop 01/20/19 at 09:38; Status DC Linezolid/Dextrose 300 ml @ 300 mls/hr Q12HR IV Last administered on at 09:30; Start 01/19/19 at 15:00 Daptomycin 470 mg/ Sodium Chloride 50 ml @ 100 mls/hr Q48H IV Last administered on 01/19/19at 17:04; Start 01/19/19 at 16:00 Magnesium Citrate (Citroma) 296 ml 1X ONCE PO Last administered on 01/20/19at 09:27; Start 01/20/19 at 07:15; Stop 01/20/19 at 07:16; Status DC Pantoprazole Sodium 80 mg/ Sodium Chloride 100 ml @ 10 mls/hr Q10H IV Last administered on 01/20/19at 09:28; Start 01/20/19 at 09:00 Hydrocortisone Sodium Succinate (Solu-CORTEF) 50 mg Q8HRS IV ; Start 01/20/19 at 14:00 Active Scripts Active [place] 5-325 Tablet (Acetaminophen/Hydrocodone Bitart) 1 Each Tablet 1-2 Each PO PRN Q6HRS PRN as needed for pain Reported [calcium carbon] Triamcinolone Acetonide 0.5% Cream (Triamcinolone Acetonide) 15 Gm Cream..g. 1 Olu TP BID Renvela (Sevelamer Carbonate) 800 Mg Tablet 2 Tab PO TID Protonix (Pantoprazole Sodium) 40 Mg Granpkt.dr 40 Mg PO DAILY Calcium Carbonate 500 Mg Tablet 5,000 Mg PO TIDWMEALS Skin Treatment (Ammonium Lactate) 225 Gm Lotion 225 Gm TP BID Aspirin 81 Mg Tab.chew 1 Tab PO DAILY Atorvastatin Calcium 20 Mg Tablet 1 Tab PO QHS Sodium Bicarbonate 650 Mg Tablet 1,950 Mg PO TIDWMEALS Vitals/I & O Vital Sign - Last 24 Hours 01/19/19 01/19/19 01/19/19 01/19/19 11:00 11:27 12:00 12:00 Temp 97.0 97.0 Pulse 95 97 Resp 15 12 B/P (MAP) 91/54 (66) 106/53 (70) Pulse Ox 99 99 100 O2 Delivery Room Air Room Air Room Air Room Air 01/19/19 01/19/19 01/19/19 01/19/19 12:04 13:00 14:00 15:00 Pulse 97 101 92 95 Resp 18 17 13 B/P (MAP) 106/53 145/103 (117) 119/50 (73) 117/52 (73) Pulse Ox 100 99 100 O2 Delivery Room Air Room Air Room Air 01/19/19 01/19/19 01/19/19 01/19/19 16:00 16:00 16:07 17:00 Pulse 103 99 Resp 15 15 B/P (MAP) 109/52 (71) 111/56 (74) Pulse Ox 100 99 100 O2 Delivery Room Air Room Air Room Air Room Air 01/19/19 01/19/19 01/19/19 01/19/19 17:48 18:00 19:00 20:00 Temp 97.2 97.2 Pulse 100 98 104 98 Resp 16 20 14 B/P (MAP) 106/55 108/56 (73) 102/40 (60) 102/52 (69) Pulse Ox 100 100 99 O2 Delivery Room Air Room Air Room Air 01/19/19 01/19/19 01/19/19 01/19/19 20:10 20:26 21:00 22:00 Pulse 97 103 Resp 16 16 B/P (MAP) 76/48 (57) 82/50 (61) Pulse Ox 95 100 100 O2 Delivery Room Air Room Air Room Air Room Air 01/19/19 01/20/19 01/20/19 01/20/19 23:00 00:00 00:15 01:00 Pulse 103 103 103 Resp 16 16 16 B/P (MAP) 109/58 (75) 117/47 (70) 103/56 (72) Pulse Ox 100 100 100 O2 Delivery Room Air Room Air Room Air Room Air 01/20/19 01/20/19 01/20/19 01/20/19 03:00 03:40 04:00 05:00 Temp 98.3 98.3 Pulse 102 100 100 Resp 18 11 13 B/P (MAP) 101/53 (69) 104/58 (73) 112/66 (81) Pulse Ox 100 100 100 O2 Delivery Room Air Room Air Room Air Room Air 01/20/19 01/20/19 01/20/19 01/20/19 06:00 07:00 07:51 08:00 Pulse 96 100 Resp 11 15 B/P (MAP) 109/60 (76) 117/63 (81) Pulse Ox 100 100 100 O2 Delivery Room Air Room Air Room Air Room Air 01/20/19 01/20/19 01/20/19 08:00 09:00 10:00 Pulse 100 100 101 Resp 15 14 16 B/P (MAP) 113/63 (80) 119/65 (83) 95/65 (75) Pulse Ox 100 100 100 O2 Delivery Room Air Room Air Room Air Intake and Output 01/19/19 01/19/19 01/20/19 15:00 23:00 07:00 Intake Total 650 ml 3463 ml 1794 ml Balance 650 ml 3463 ml 1794 ml Nutrition Consultation Dietary Evaluation: Recommendations by RD: Increase Calorie Intake, Protein supplementation Comments: Recommend vanilla Nepro milk shake @ lunch for increased calorie and protein intake as pt. has diminished appetite Expected Outcomes/Goals: P.O. intake to meet >75% estimated needs Malnutrition Findings: Body Fat Depletion (Non Severe: Mild Depletion Weight Status: Overweight SIMONE BAIRD III DO Jan 20, 2019 10:48
--- NOTE | 2019-01-20 11:21 | PDOC ---
SUBJECTIVE ROS propped up in bed, Hematochezia since yesterday afternoon, No plan for Scope currently Titrating down pressors , IV Boluses prn OBJECTIVE Vital Signs Vital Signs Date Time Temp Pulse Resp B/P (MAP) Pulse Ox O2 Delivery O2 Flow Rate FiO2 01/20/19 10:00 101 16 95/65 (75) 100 Room Air 01/20/19 03:00 98.3 98.3 01/19/19 08:00 2.0 I & 0 Intake and Output 01/20/19 07:00 Intake Total 5907 ml Balance 5907 ml Intake Oral 600 ml IV Total 5307 ml # Bowel Movements 4 PHYSICAL EXAM Physical Exam GEN: NAD HEEN: OM moist NECK: Supple CVS: S1S2 , Murmur ++ RESP: CTA Bilat, No use of acc Muscles GI: BS + ve, NT, PD catheter in Place : No CVA tenderness, No Suprapubic Tenderness, No [place] Skin No rash DIAGNOSIS/ASSESSMENT Assessment & Plan ESRD- On PD since Jun [address] Tomlinson no peritonitis, No Vol Overload Continue as per Home prescription Avoid Mag citrate in Renal failure Hypotension- has been hospitalized and worked up at [facility] in past as well CT with contrast no acute findings Septic shock, GRAM POSITIVE COCCI IN CLUSTERS, SUGGESTIVE OF STAPH,? source Aortic stenosis - Card on board -JOANNA on monday to rule out endocarditis Aortoiiliac stent graft is identified with the ione aorta measuring 4.1 x 4.3 Hematochezia - GI Consulted- mostly likely lower Anemia- Drop in Hgb sec to GI bleed Hgb > 7 Dw RN and family at bedside COMMENT/RELEVANT DATA Meds Current Medications Medications (Trade) Dose Ordered Sig/Conrad Start Time Stop Time Status Last Admin Dose Admin Acetaminophen (Tylenol) 1,000 mg PRN Q6HRS PRN 01/15/19 11:15 01/16/19 09:50 1,000 MG Acetaminophen/ Hydrocodone Bitart (Lortab 5/325) 1 tab PRN Q6HRS PRN 01/15/19 08:45 01/16/19 20:25 1 TAB Albuterol/ Ipratropium (Duoneb) 3 ml RTQID 01/15/19 12:00 01/20/19 07:50 3 ML Aspirin (Children'S Aspirin) 81 mg DAILY 01/15/19 10:00 01/19/19 08:33 81 MG Atorvastatin Calcium (Lipitor) 20 mg QHS 01/15/19 21:00 01/18/19 16:53 DC 01/17/19 21:06 20 MG Calcium Carbonate/ Glycine (Oscal) 500 mg TIDWMEALS 01/15/19 12:00 01/19/19 17:04 500 MG Daptomycin 470 mg/ Sodium Chloride 50 ml @ 100 mls/hr Q48H 01/19/19 16:00 01/19/19 17:04 100 MLS/HR Dextrose (Dextrose 50%-Water Syringe) 25 gm 1X ONCE 01/18/19 17:45 01/18/19 17:46 DC 01/18/19 17:45 25 GM Dextrose/Sodium Chloride 1,000 ml @ 50 mls/hr Q20H 01/17/19 16:30 01/19/19 08:37 50 MLS/HR Dobutamine HCl/ Dextrose 250 ml @ 5.939 mls/ hr CONT PRN 01/18/19 10:15 01/18/19 12:59 DC 01/18/19 10:34 11.877 MLS/HR Fentanyl Citrate (Fentanyl 2ml Vial) 100 mcg STK-MED ONCE 01/18/19 09:25 01/18/19 09:26 DC Gentamicin Sulfate (Garamycin) 1 betty DAILY 01/16/19 09:00 01/17/19 18:46 1 BETTY Hydrocortisone Sodium Succinate (Solu-CORTEF) 50 mg Q8HRS 01/20/19 14:00 Info (CONTRAST GIVEN -- Rx MONITORING) 1 each PRN DAILY PRN 01/18/19 12:00 01/20/19 11:59 Iohexol (Omnipaque 300 Mg/ml) 75 ml 1X ONCE 01/18/19 08:15 01/18/19 08:16 DC Iohexol (Omnipaque 350 Mg/ml) 100 ml STK-MED ONCE 01/18/19 17:00 01/18/19 17:01 DC Lactic Acid (Lac-Hydrin) 1 betty BID 01/15/19 10:00 01/20/19 09:28 1 BETTY Lactobacillus Rhamnosus (Culturelle) 1 cap BID 01/18/19 21:00 01/19/19 21:36 1 CAP Lactulose (Lactulose) 20 gm PRN TID PRN 01/18/19 11:15 Lidocaine/Sodium Bicarbonate (Buffered Lidocaine 1%) 3 ml STK-MED ONCE 01/18/19 15:39 01/18/19 15:40 DC Linezolid/Dextrose 300 ml @ 300 mls/hr Q12HR 01/19/19 15:00 01/20/19 09:30 300 MLS/HR Magnesium Citrate (Citroma) 296 ml 1X ONCE 01/20/19 07:15 01/20/19 07:16 DC 01/20/19 09:27 296 ML Micafungin Sodium 100 mg/Dextrose 100 ml @ 100 mls/hr Q24H 01/17/19 20:00 01/19/19 20:25 100 MLS/HR Midazolam HCl (Versed) 5 mg STK-MED ONCE 01/18/19 09:25 01/18/19 09:26 DC Midodrine (Proamatine) 5 mg [id number] 01/16/19 13:00 01/19/19 17:48 5 MG Norepinephrine Bitartrate 250 ml @ 1.875 mls/ hr CONT PRN 01/17/19 14:30 01/20/19 04:56 37.5 MLS/HR Ondansetron HCl (Zofran) 4 mg PRN Q6HRS PRN 01/18/19 11:00 01/18/19 11:10 4 MG Pantoprazole Sodium (Protonix) 40 mg DAILYAC 01/15/19 10:00 01/20/19 08:12 DC 01/19/19 08:33 40 MG Pantoprazole Sodium 80 mg/ Sodium Chloride 100 ml @ 10 mls/hr Q10H 01/20/19 09:00 01/20/19 09:28 10 MLS/HR Piperacillin Sod/ Tazobactam Sod (Zosyn Per Pharmacy) 1 each PRN DAILY PRN 01/17/19 16:00 Piperacillin Sod/ Tazobactam Sod 2.25 gm/Sodium Chloride 50 ml @ 100 mls/hr Q8HRS 01/17/19 17:00 01/20/19 05:34 100 MLS/HR Sevelamer Carbonate (Renvela) 1,600 mg TID 01/15/19 09:00 01/19/19 21:36 1,600 MG Sodium Bicarbonate (Sodium Bicarbonate) 1,950 mg TIDWMEALS 01/15/19 12:00 01/19/19 17:06 1,950 MG Sodium Chloride 250 ml @ 250 mls/hr 1X ONCE 01/19/19 09:45 01/19/19 10:44 DC 01/19/19 09:40 250 MLS/HR Triamcinolone Acetonide (Kenalog) 1 betty BID 01/15/19 10:00 01/19/19 21:37 1 BETTY Vancomycin HCl (Vanco Per Pharmacy) 1 each PRN DAILY PRN 01/17/19 18:00 01/19/19 15:35 DC 01/19/19 11:09 1 EACH Vancomycin HCl (Vancomycin Random Level) 1 each 1X ONCE 01/19/19 06:00 01/19/19 15:35 DC Vancomycin HCl 1.25 gm/Sodium Chloride 250 ml @ 167 mls/hr Q48H 01/19/19 12:00 01/20/19 09:38 DC 01/19/19 11:23 167 MLS/HR Vancomycin HCl 2 gm/Sodium Chloride 500 ml @ 250 mls/hr 1X ONCE 01/17/19 18:00 01/17/19 19:59 DC 01/17/19 18:50 250 MLS/HR Vasopressin 40 unit/Dextrose 102 ml @ 6 mls/hr CONT PRN 01/18/19 13:00 01/19/19 22:00 6 MLS/HR Lab Laboratory Tests Test 01/19/19 12:07 01/19/19 15:30 01/19/19 17:50 01/19/19 21:53 Glucose (Fingerstick) 94 mg/dL (70-99) 127 mg/dL (70-99) Urine Collection Type U cath Urine Color Yellow Urine Clarity Cloudy Urine pH 6.0 Urine Specific [place] 1.015 Urine Protein >=300 mg/dL (NEG-TRACE) Urine Glucose (UA) Negative mg/dL (NEG) Urine Ketones (Stick) Negative mg/dL (NEG) Urine Blood Small (NEG) Urine Nitrite Negative (NEG) Urine Bilirubin Negative (NEG) Urine Urobilinogen Dipstick 0.2 mg/dL (0.2 mg/dL) Urine Leukocyte Esterase Negative (NEG) Urine RBC Rare /HPF (0-2) Urine WBC 0 /HPF (0-4) Urine Transitional Epithelial Cells Few /LPF Urine Bacteria 0 /HPF (0-FEW) Hemoglobin 8.6 g/dL (13.0-17.5) Test 01/20/19 05:30 01/20/19 10:00 Hemoglobin 7.8 g/dL (13.0-17.5) 7.4 g/dL (13.0-17.5) Creatine Kinase 63 U/L (39-308) White Blood Count 28.7 x10^3/uL (4.0-11.0) Red Blood Count 2.25 x10^6/uL (4.30-5.70) Hematocrit 22.9 % (39.0-53.0) Mean Corpuscular Volume 102 fL (79-100) Mean Corpuscular Hemoglobin 33 pg (25-35) Mean Corpuscular Hemoglobin Concent 32 g/dL (31-37) Red Cell Distribution Width 18.5 % (11.5-14.5) Platelet Count 86 x10^3/uL (140-400) Neutrophils (%) (Auto) 86 % (31-73) Lymphocytes (%) (Auto) 6 % (24-48) Monocytes (%) (Auto) 8 % (0-9) Eosinophils (%) (Auto) 0 % (0-3) Basophils (%) (Auto) 0 % (0-3) Neutrophils # (Auto) 24.6 x10^3uL (1.8-7.7) Lymphocytes # (Auto) 1.7 x10^3/uL (1.0-4.8) Monocytes # (Auto) 2.2 x10^3/uL (0.0-1.1) Eosinophils # (Auto) 0.1 x10^3/uL (0.0-0.7) Basophils # (Auto) 0.0 x10^3/uL (0.0-0.2) Results All relevant outside records, renal labs, imaging studies, telemetry/EKG's were reviewed. JUDSON GUZMAN MD Jan 20, 2019 11:21
--- NOTE | 2019-01-20 13:17 | PDOC ---
Infectious Disease Note Subjective: Subjective Tolerated PD. Hypotensive, Levophed down to 16 mcg, still on vasopressin as well. No fevers last 24 hours + bloody stools per RN Denies SOA/CP/N/V/D/pain/chills/aches ROS: ROS Negative except for above. Vital Signs: Vital Signs Vital Signs Date Time Temp Pulse Resp B/P (MAP) Pulse Ox O2 Delivery O2 Flow Rate FiO2 01/20/19 12:00 Room Air 01/20/19 11:19 100 01/20/19 11:00 102 13 107/50 (69) 01/20/19 03:00 98.3 98.3 01/19/19 08:00 2.0 Physical Exam: PHYSICAL EXAM GENERAL: Propped up in bed, more alert HEENT: No conjunctival petechia. Oral cavity dry, missing teeth. NECK: Supple. LUNGS: Clear bilaterally anteriorly. HEART: S1, S2. Loud systolic murmur. ABDOMEN: Soft and nontender. PD cath, left side EXTREMITIES: No edema, no cyanosis. DERM: Warm, dry, no generalized rash. NEUROLOGIC: Alert, speech somewhat garbled LIJ/temp HDC (01/18) Medications: Inpatient Meds: Current Medications Medications (Trade) Dose Ordered Sig/Conrad Start Time Stop Time Status Last Admin Dose Admin Acetaminophen (Tylenol) 1,000 mg PRN Q6HRS PRN 01/15/19 11:15 01/16/19 09:50 1,000 MG Acetaminophen/ Hydrocodone Bitart (Lortab 5/325) 1 tab PRN Q6HRS PRN 01/15/19 08:45 01/16/19 20:25 1 TAB Albuterol/ Ipratropium (Duoneb) 3 ml RTQID 01/15/19 12:00 01/20/19 11:18 3 ML Aspirin (Children'S Aspirin) 81 mg DAILY 01/15/19 10:00 01/19/19 08:33 81 MG Atorvastatin Calcium (Lipitor) 20 mg QHS 01/15/19 21:00 01/18/19 16:53 DC 01/17/19 21:06 20 MG Calcium Carbonate/ Glycine (Oscal) 500 mg TIDWMEALS 01/15/19 12:00 01/19/19 17:04 500 MG Daptomycin 470 mg/ Sodium Chloride 50 ml @ 100 mls/hr Q48H 01/19/19 16:00 01/19/19 17:04 100 MLS/HR Dextrose (Dextrose 50%-Water Syringe) 25 gm 1X ONCE 01/18/19 17:45 01/18/19 17:46 DC 01/18/19 17:45 25 GM Dextrose/Sodium Chloride 1,000 ml @ 50 mls/hr Q20H 01/17/19 16:30 01/19/19 08:37 50 MLS/HR Dobutamine HCl/ Dextrose 250 ml @ 5.939 mls/ hr CONT PRN 01/18/19 10:15 01/18/19 12:59 DC 01/18/19 10:34 11.877 MLS/HR Fentanyl Citrate (Fentanyl 2ml Vial) 100 mcg STK-MED ONCE 01/18/19 09:25 01/18/19 09:26 DC Gentamicin Sulfate (Garamycin) 1 betty DAILY 01/16/19 09:00 01/17/19 18:46 1 BETTY Hydrocortisone Sodium Succinate (Solu-CORTEF) 50 mg Q8HRS 01/20/19 14:00 Info (CONTRAST GIVEN -- Rx MONITORING) 1 each PRN DAILY PRN 01/18/19 12:00 01/20/19 11:59 DC Iohexol (Omnipaque 300 Mg/ml) 75 ml 1X ONCE 01/18/19 08:15 01/18/19 08:16 DC Iohexol (Omnipaque 350 Mg/ml) 100 ml STK-MED ONCE 01/18/19 17:00 01/18/19 17:01 DC Lactic Acid (Lac-Hydrin) 1 betty BID 01/15/19 10:00 01/20/19 09:28 1 BETTY Lactobacillus Rhamnosus (Culturelle) 1 cap BID 01/18/19 21:00 01/19/19 21:36 1 CAP Lactulose (Lactulose) 20 gm PRN TID PRN 01/18/19 11:15 Lidocaine/Sodium Bicarbonate (Buffered Lidocaine 1%) 3 ml STK-MED ONCE 01/18/19 15:39 01/18/19 15:40 DC Linezolid/Dextrose 300 ml @ 300 mls/hr Q12HR 01/19/19 15:00 01/20/19 09:30 300 MLS/HR Magnesium Citrate (Citroma) 296 ml 1X ONCE 01/20/19 07:15 01/20/19 07:16 DC 01/20/19 09:27 296 ML Micafungin Sodium 100 mg/Dextrose 100 ml @ 100 mls/hr Q24H 01/17/19 20:00 01/19/19 20:25 100 MLS/HR Midazolam HCl (Versed) 5 mg STK-MED ONCE 01/18/19 09:25 01/18/19 09:26 DC Midodrine (Proamatine) 5 mg QII841 01/16/19 13:00 01/19/19 17:48 5 MG Norepinephrine Bitartrate 250 ml @ 1.875 mls/ hr CONT PRN 01/17/19 14:30 01/20/19 04:56 37.5 MLS/HR Ondansetron HCl (Zofran) 4 mg PRN Q6HRS PRN 01/18/19 11:00 01/18/19 11:10 4 MG Pantoprazole Sodium (Protonix) 40 mg DAILYAC 01/15/19 10:00 01/20/19 08:12 DC 01/19/19 08:33 40 MG Pantoprazole Sodium 80 mg/ Sodium Chloride 100 ml @ 10 mls/hr Q10H 01/20/19 09:00 01/20/19 09:28 10 MLS/HR Piperacillin Sod/ Tazobactam Sod (Zosyn Per Pharmacy) 1 each PRN DAILY PRN 01/17/19 16:00 Piperacillin Sod/ Tazobactam Sod 2.25 gm/Sodium Chloride 50 ml @ 100 mls/hr Q8HRS 01/17/19 17:00 01/20/19 05:34 100 MLS/HR Sevelamer Carbonate (Renvela) 1,600 mg TID 01/15/19 09:00 01/19/19 21:36 1,600 MG Sodium Bicarbonate (Sodium Bicarbonate) 1,950 mg TIDWMEALS 01/15/19 12:00 01/19/19 17:06 1,950 MG Sodium Chloride 250 ml @ 250 mls/hr 1X ONCE 01/19/19 09:45 01/19/19 10:44 DC 01/19/19 09:40 250 MLS/HR Triamcinolone Acetonide (Kenalog) 1 betty BID 01/15/19 10:00 01/19/19 21:37 1 BETTY Vancomycin HCl (Vanco Per Pharmacy) 1 each PRN DAILY PRN 01/17/19 18:00 01/19/19 15:35 DC 01/19/19 11:09 1 EACH Vancomycin HCl (Vancomycin Random Level) 1 each 1X ONCE 01/19/19 06:00 01/19/19 15:35 DC Vancomycin HCl 1.25 gm/Sodium Chloride 250 ml @ 167 mls/hr Q48H 01/19/19 12:00 01/20/19 09:38 DC 01/19/19 11:23 167 MLS/HR Vancomycin HCl 2 gm/Sodium Chloride 500 ml @ 250 mls/hr 1X ONCE 01/17/19 18:00 01/17/19 19:59 DC 01/17/19 18:50 250 MLS/HR Vasopressin 40 unit/Dextrose 102 ml @ 6 mls/hr CONT PRN 01/18/19 13:00 01/19/19 22:00 6 MLS/HR Labs: Lab Laboratory Tests Test 01/19/19 15:30 01/19/19 17:50 01/19/19 21:53 01/20/19 05:30 Urine Collection Type U cath Urine Color Yellow Urine Clarity Cloudy Urine pH 6.0 Urine Specific [place] 1.015 Urine Protein >=300 mg/dL (NEG-TRACE) Urine Glucose (UA) Negative mg/dL (NEG) Urine Ketones (Stick) Negative mg/dL (NEG) Urine Blood Small (NEG) Urine Nitrite Negative (NEG) Urine Bilirubin Negative (NEG) Urine Urobilinogen Dipstick 0.2 mg/dL (0.2 mg/dL) Urine Leukocyte Esterase Negative (NEG) Urine RBC Rare /HPF (0-2) Urine WBC 0 /HPF (0-4) Urine Transitional Epithelial Cells Few /LPF Urine Bacteria 0 /HPF (0-FEW) Glucose (Fingerstick) 127 mg/dL (70-99) Hemoglobin 8.6 g/dL (13.0-17.5) 7.8 g/dL (13.0-17.5) Creatine Kinase 63 U/L (39-308) Test 01/20/19 10:00 White Blood Count 28.7 x10^3/uL (4.0-11.0) Red Blood Count 2.25 x10^6/uL (4.30-5.70) Hemoglobin 7.4 g/dL (13.0-17.5) Hematocrit 22.9 % (39.0-53.0) Mean Corpuscular Volume 102 fL (79-100) Mean Corpuscular Hemoglobin 33 pg (25-35) Mean Corpuscular Hemoglobin Concent 32 g/dL (31-37) Red Cell Distribution Width 18.5 % (11.5-14.5) Platelet Count 86 x10^3/uL (140-400) Neutrophils (%) (Auto) 86 % (31-73) Lymphocytes (%) (Auto) 6 % (24-48) Monocytes (%) (Auto) 8 % (0-9) Eosinophils (%) (Auto) 0 % (0-3) Basophils (%) (Auto) 0 % (0-3) Neutrophils # (Auto) 24.6 x10^3uL (1.8-7.7) Lymphocytes # (Auto) 1.7 x10^3/uL (1.0-4.8) Monocytes # (Auto) 2.2 x10^3/uL (0.0-1.1) Eosinophils # (Auto) 0.1 x10^3/uL (0.0-0.7) Basophils # (Auto) 0.0 x10^3/uL (0.0-0.2) Objective: Assessment: Septic shock from GPC bacteremia 01/17/2019,source ?? BC negative 01/14/2019 Hypotension POA appears multifactorial with underlying severe aortic stenosis, end-stage renal disease on PD. Failed midodrine treatment. Leukocytosis, trending upwards -CT Chest/abdo and pelvis with contrast - unrevealing -BC GPC reported this am Lactic acidosis, End-stage renal disease, on PD; s/p temp HDC line placement, 01/18. -Peritoneal dialysate, WBC 3. culture no growth Hyperlipidemia. Metabolic acidosis. Chronic liver disease, hyperammonemia, transaminitis AAA, status post stent. Hypoglycemia. Protein-calorie malnutrition. Plan: Plan of Care Continue dapto (01/19), Zyvox (01/19) Zosyn and micafungin Probiotics Awaiting GPC ID/susceptibilities BC from 01/19 in process No surgical recs Supportive care GI following, bowel prep JOANNA , Cardiology following CBC D/W RN Condition critical Patient seen, examined, I agree with above Assessment and plan. d/w Sons at bedside Chart reviewed from [facility] He was admitted with hypotension last month there W/U including infectious was neg including uc,bc JOANNA was negative for any vegetation KAJAL CHOW MD Jan 20, 2019 13:17
[2019-01-20] MEDS: VASOPRESSIN 40 UNIT in IV DEXTROSE 5% 100ML 100 ML IV PRN (15:38)
--- NOTE | 2019-01-20 18:05 | PDOC ---
GI PROGRESS NOTES Date Date/Time DATE: 01/20/19 TIME: 18:03 Subjective Subjective continued with some hematochezia - maybe slowing some this afternoon- I discussed issues with family Hgb dropped to 6.8 and is getting transfusions Objective Vitals Vital Signs Date Time Temp Pulse Resp B/P (MAP) Pulse Ox O2 Delivery O2 Flow Rate FiO2 01/20/19 17:51 94.3 98 12 107/56 94.3 01/20/19 17:00 101 13 117/62 (80) 100 Room Air 01/20/19 16:45 94.2 100 15 89/53 94.2 01/20/19 16:30 94.2 103 16 116/57 94.2 01/20/19 16:28 94.3 104 16 134/66 94.3 01/20/19 16:00 Room Air 01/20/19 16:00 103 16 120/66 (84) 100 Room Air 01/20/19 15:25 94.3 97 14 86/49 94.3 01/20/19 15:10 94.0 96 16 64/46 94.0 01/20/19 15:01 Room Air 01/20/19 15:00 97 15 84/45 (58) 100 Room Air 01/20/19 14:00 92 14 91/47 (62) 100 Room Air 01/20/19 13:00 96 10 178/95 (122) 100 Room Air 01/20/19 12:00 Room Air 01/20/19 12:00 95.0 98 15 97/52 (67) 99 Room Air 95.0 01/20/19 11:19 100 Room Air 01/20/19 11:00 102 13 107/50 (69) 100 Room Air 01/20/19 10:00 101 16 95/65 (75) 100 Room Air 01/20/19 09:00 100 14 119/65 (83) 100 Room Air 01/20/19 08:00 100 15 113/63 (80) 100 Room Air 01/20/19 08:00 Room Air 01/20/19 07:51 100 Room Air 01/20/19 07:00 100 15 117/63 (81) 100 Room Air 01/20/19 06:00 96 11 109/60 (76) 100 Room Air 01/20/19 05:00 100 13 112/66 (81) 100 Room Air 01/20/19 04:00 100 11 104/58 (73) 100 Room Air 01/20/19 03:40 Room Air 01/20/19 03:00 98.3 102 18 101/53 (69) 100 Room Air 98.3 01/20/19 01:00 103 16 103/56 (72) 100 Room Air 01/20/19 00:15 Room Air 01/20/19 00:00 103 16 117/47 (70) 100 Room Air 01/19/19 23:00 103 16 109/58 (75) 100 Room Air 01/19/19 22:00 103 16 82/50 (61) 100 Room Air 01/19/19 21:00 97 16 76/48 (57) 100 Room Air 01/19/19 20:26 95 Room Air 01/19/19 20:10 Room Air 01/19/19 20:00 98 14 102/52 (69) 99 Room Air 01/19/19 19:00 97.2 104 20 102/40 (60) 100 Room Air 97.2 Labs Labs Laboratory Tests Test 01/19/19 21:53 01/20/19 05:30 01/20/19 10:00 01/20/19 13:30 Hemoglobin 8.6 g/dL (13.0-17.5) 7.8 g/dL (13.0-17.5) 7.4 g/dL (13.0-17.5) 6.7 g/dL (13.0-17.5) Creatine Kinase 63 U/L (39-308) White Blood Count 28.7 x10^3/uL (4.0-11.0) Red Blood Count 2.25 x10^6/uL (4.30-5.70) Hematocrit 22.9 % (39.0-53.0) Mean Corpuscular Volume 102 fL (79-100) Mean Corpuscular Hemoglobin 33 pg (25-35) Mean Corpuscular Hemoglobin Concent 32 g/dL (31-37) Red Cell Distribution Width 18.5 % (11.5-14.5) Platelet Count 86 x10^3/uL (140-400) Neutrophils (%) (Auto) 86 % (31-73) Lymphocytes (%) (Auto) 6 % (24-48) Monocytes (%) (Auto) 8 % (0-9) Eosinophils (%) (Auto) 0 % (0-3) Basophils (%) (Auto) 0 % (0-3) Neutrophils # (Auto) 24.6 x10^3uL (1.8-7.7) Lymphocytes # (Auto) 1.7 x10^3/uL (1.0-4.8) Monocytes # (Auto) 2.2 x10^3/uL (0.0-1.1) Eosinophils # (Auto) 0.1 x10^3/uL (0.0-0.7) Basophils # (Auto) 0.0 x10^3/uL (0.0-0.2) Physical Exam Physical Exam Awake but confused\ chest- few rhonchi heart- tachy Abd- soft NONTENDER no masses Assessment Assessment Hematochezia since yesterday afternoon- mostly likely lower- not sure if he has ever had GI bleed before or if he has had colonoscopy. High lactic acid over last 2 days with sepsis, CRF and known severe vascular disease- at risk for ischemic colitis or enteritis but could also have diverticulosis, polyps or occult CA, peptic ulcers etc Plan Plan Monitor and transfuse with PRBC if further drop in Hgb Due to continued bleeding, I will plan for EGD and colonoscopy with Dr. Zavala tomorrow LURDES DE LUNA MD Jan 20, 2019 18:05
[2019-01-20] MEDS ORDERED: PEG 3350/NA SULF,BICARB,CL/KCL 4,000 ML SOLUTION. PO ONE (19:00)
[2019-01-20] MEDS: MICAFUNGIN 100 MG in IV DEXTROSE 5% 100ML 100 ML IV SCH (21:23)
[2019-01-21] VITALS (27 sets, daily range): BP systolic 72–120; BP diastolic 39–84
[2019-01-21] MEDS: HYDROCORTISONE SOD SUCC/PF 100 MG/2 ML VIAL. IV SCH ×3 (06:04→21:45)
[2019-01-21] MEDS: PIPERACILLIN/TAZOBACTAM 2.25 GM in IV NORMAL SALINE 50ML 50 ML IV SCH ×3 (06:04→21:45)
[2019-01-21] MEDS: PANTOPRAZOLE SODIUM IV DRIP 80 MG in IV NORMAL SALINE 100ML 100 ML IV SCH ×2 (06:05→15:27)
[2019-01-21] MEDS: MIDODRINE 5 MG TABLET PO SCH ×3 (06:05→15:41)
--- NOTE | 2019-01-21 07:34 | PDOC ---
Infectious Disease Note Subjective Subjective Better but constipated -drinking Golyte No fevers last 24 hours + bloody stools per RN Denies SOA/CP/N/V/D/pain/chills/aches ROS ROS o/w neg Vital Sign Vital Signs Vital Signs Date Time Temp Pulse Resp B/P (MAP) Pulse Ox O2 Delivery O2 Flow Rate FiO2 01/21/19 06:45 98 115/58 (77) 01/21/19 06:02 10 100 Room Air 01/21/19 04:15 97.1 97.1 Physical Exam PHYSICAL EXAM GENERAL: Propped up in bed, more alert HEENT: No conjunctival petechia. Oral cavity dry, missing teeth. NECK: Supple. LUNGS: Clear bilaterally anteriorly. HEART: S1, S2. Loud systolic murmur. ABDOMEN: Soft/distended and nontender. PD cath, left side EXTREMITIES: No edema, no cyanosis. DERM: Warm, dry, no generalized rash. NEUROLOGIC: Alert, speech somewhat garbled LIJ/temp HDC (01/18) Labs Lab Laboratory Tests Test 01/20/19 10:00 01/20/19 13:30 01/20/19 23:19 01/20/19 23:20 White Blood Count 28.7 x10^3/uL (4.0-11.0) Red Blood Count 2.25 x10^6/uL (4.30-5.70) Hemoglobin 7.4 g/dL (13.0-17.5) 6.7 g/dL (13.0-17.5) 8.2 g/dL (13.0-17.5) Hematocrit 22.9 % (39.0-53.0) Mean Corpuscular Volume 102 fL (79-100) Mean Corpuscular Hemoglobin 33 pg (25-35) Mean Corpuscular Hemoglobin Concent 32 g/dL (31-37) Red Cell Distribution Width 18.5 % (11.5-14.5) Platelet Count 86 x10^3/uL (140-400) Neutrophils (%) (Auto) 86 % (31-73) Lymphocytes (%) (Auto) 6 % (24-48) Monocytes (%) (Auto) 8 % (0-9) Eosinophils (%) (Auto) 0 % (0-3) Basophils (%) (Auto) 0 % (0-3) Neutrophils # (Auto) 24.6 x10^3uL (1.8-7.7) Lymphocytes # (Auto) 1.7 x10^3/uL (1.0-4.8) Monocytes # (Auto) 2.2 x10^3/uL (0.0-1.1) Eosinophils # (Auto) 0.1 x10^3/uL (0.0-0.7) Basophils # (Auto) 0.0 x10^3/uL (0.0-0.2) Glucose (Fingerstick) 154 mg/dL (70-99) Test 01/21/19 05:55 Hemoglobin 8.4 g/dL (13.0-17.5) Micro Microbiology 01/19/19 Blood Culture - Preliminary, Resulted NO GROWTH AFTER 1 DAY 01/15/19 Anaerobic/Aerobic Culture, Resulted Pending 01/15/19 Anaerobic Culture Result 1 (LAURIE), Resulted Pending 01/15/19 Aerobic Culture - Final, Resulted 01/15/19 Aerobic Culture Result 1 (LAURIE) - Final, Resulted 01/15/19 Gram Stain - Final, Resulted 01/15/19 Gram Stain Result 1 (LAURIE) - Final, Resulted 01/15/19 Gram Stain Result 2 (LAURIE) - Final, Resulted Objective Assessment Septic shock from GPC bacteremia (4 of 4 bottles) 01/17/2019,source ?? repeat BC from 01/19 in process on 17 of Levophed -BC negative 01/14/2019 Hypotension POA appears multifactorial with underlying severe aortic stenosis, end-stage renal disease on PD. Failed midodrine treatment. Leukocytosis, trending upwards - better but on Hydrocortisone and S/p PRBCs -CT Chest/abdo and pelvis with contrast - unrevealing -BC GPC 01/17 Lactic acidosis Hematochezia - s/p PRBCs 01/20 End-stage renal disease, on PD; s/p temp HDC line placement, 01/18. -Peritoneal dialysate, WBC 3. culture no growth Hyperlipidemia. Metabolic acidosis. Chronic liver disease, hyperammonemia, transaminitis AAA, status post stent. Hypoglycemia. Protein-calorie malnutrition. Plan Plan of Care Continue dapto (01/19), Zyvox (01/19) Zosyn and micafungin Probiotics Awaiting GPC ID/susceptibilities BC from 01/19 in process No surgical recs Supportive care GI following, bowel prep JOANNA , Cardiology following CBC D/W RN Condition critical Patient seen, examined, I agree with above Assessment and plan. d/w Sons at bedside Chart reviewed from [facility] He was admitted with hypotension last month there W/U including infectious was neg including uc,bc JOANNA was negative for any vegetation LARRY FRANCES MD Jan 21, 2019 07:34
[2019-01-21] MEDS: SODIUM BICARBONATE 650 MG TABLET. PO SCH ×3 (08:00→15:41)
[2019-01-21] MEDS: CALCIUM CARBONATE 500 MG TABLET PO SCH ×3 (08:00→15:41)
[2019-01-21] MEDS: ASPIRIN CHEWABLE 81 MG TABLET. PO SCH (08:40)
[2019-01-21] MEDS: LACTOBACILLUS RHAMNOSUS GG 1 CAPSULE. PO SCH ×2 (08:40→20:31)
[2019-01-21] MEDS: SEVELAMER CARBONATE 800 MG TABLET. PO SCH ×3 (08:40→20:31)
[2019-01-21] MEDS: AMMONIUM LACTATE 12% TOPICAL LOTION 226GM BOTTLE. TP SCH ×2 (08:41→20:37)
[2019-01-21] MEDS: TRIAMCINOLONE ACETONIDE 0.1% TOPICAL CREAM 15GM TUBE. TP SCH ×2 (08:41→20:37)
[2019-01-21] MEDS: NOREPINEPHRIN 8MG/250ML PREMIX 250 ML IV PRN ×2 (08:44→15:29)
[2019-01-21] MEDS: VASOPRESSIN 40 UNIT in IV DEXTROSE 5% 100ML 100 ML IV PRN (08:48)
[2019-01-21] MEDS: IPRATRPIUM/ALBUTEROL 0.5/2.5MG 3 ML NEBU. NEB SCH ×4 (08:48→20:04)
--- NOTE | 2019-01-21 09:47 | PDOC ---
Subjective: Subjective: "I'm not sick!" Objective: Objective: D/w RN/ICU staff - "dark red stool" overnight, confused, hasn't really touched [facility], cardiology holding on JOANNA for now considering marginal BP on pressors. Vital Signs: Vital Signs Date Time Temp Pulse Resp B/P (MAP) Pulse Ox O2 Delivery O2 Flow Rate FiO2 01/21/19 08:48 100 Room Air 01/21/19 06:45 98 115/58 (77) 01/21/19 06:02 10 01/21/19 04:15 97.1 97.1 Labs: Laboratory Tests Test 01/20/19 10:00 01/20/19 13:30 01/20/19 23:19 01/20/19 23:20 White Blood Count 28.7 x10^3/uL Red Blood Count 2.25 x10^6/uL Hemoglobin 7.4 g/dL 6.7 g/dL 8.2 g/dL Hematocrit 22.9 % Mean Corpuscular Volume 102 fL Mean Corpuscular Hemoglobin 33 pg Mean Corpuscular Hemoglobin Concent 32 g/dL Red Cell Distribution Width 18.5 % Platelet Count 86 x10^3/uL Neutrophils (%) (Auto) 86 % Lymphocytes (%) (Auto) 6 % Monocytes (%) (Auto) 8 % Eosinophils (%) (Auto) 0 % Basophils (%) (Auto) 0 % Neutrophils # (Auto) 24.6 x10^3uL Lymphocytes # (Auto) 1.7 x10^3/uL Monocytes # (Auto) 2.2 x10^3/uL Eosinophils # (Auto) 0.1 x10^3/uL Basophils # (Auto) 0.0 x10^3/uL Glucose (Fingerstick) 154 mg/dL Test 01/21/19 05:55 Hemoglobin 8.4 g/dL PE: GEN: ill LUNGS: room air HEART: tachycardic +murm ABD: soft, non-tender, occasional gurgle NEURO/PSYCH: confused A/P: Hematochezia, anemia Gram + cocci bacteremia, leukocytosis Hypotension, ESRD on PD Chronic liver disease - ?DALTON ?alcohol -- Will hold on EGD/colonoscopy for now - might not do well w/ sedation considering hypotension, etc. Called to RN - can discuss with family when they are here later. INA DAHL Jan 21, 2019 09:47
--- NOTE | 2019-01-21 10:54 | PDOC2 ---
PALLIATIVE CARE Palliative Care Note Palliative Care Patient confused. Spoke with Pat . Unable to come to family meeting today. INA BLANCO Jan 21, 2019 10:54
--- NOTE | 2019-01-21 10:58 | PDOC ---
PROGRESS NOTES Chief Complaint Chief Complaint Hypotension - improving on 2 pressors Gram positive sepsis GI Bleed -01/19 Lactic acid elevation without evidence of toxicity Severe hypoglycemia Dizziness Leukocytosis - trending up Anemia of chronic disease Nausea and vomiting History of aortic stenosis: Being considered for TAVR reportedly not a candidate due to moderate reading via JOANNA. Severe per f/u TTE Metabolic acidosis Elevated troponin: peaked at 0.2, demand mediated, type 2 with above culprits. no CP nor SOA Coagulopathy: INR 2.2. Macrocytic anemia ESRD: PD - Creatinine elevated moderate to severe Protein malnutrition CAD: stents in the past, clinically stable. Hx of HTN Hx of AAA with repair History of Present Illness History of Present Illness Patient was seen and examined in the ICU. Patient remains on vasopressin and levophed, slowly titrating down, SBP 76-117. Patient has significant amount of bright red blood per rectum 01/19per nurse, GI following, possible scope. Patient is clinically improving and awake. He is able to answer questions. Discussed case with RN. Blood cultures positive for gram positive cocci. WBC elevated at 28.7 37 min cc time Vitals Vitals Vital Signs Date Time Temp Pulse Resp B/P (MAP) Pulse Ox O2 Delivery O2 Flow Rate FiO2 01/21/19 10:00 95 20 104/53 (70) 100 Room Air 01/21/19 07:01 97.6 97.6 Physical Exam Physical Exam GENERAL: Propped up in bed, more alert HEENT: No conjunctival petechia. Oral cavity dry, missing teeth. NECK: Supple. LUNGS: Clear bilaterally anteriorly. HEART: S1, S2. Loud systolic murmur. ABDOMEN: Soft/distended and nontender. PD cath, left side EXTREMITIES: No edema, no cyanosis. DERM: Warm, dry, no generalized rash. NEUROLOGIC: Alert, speech somewhat garbled LIJ/temp HDC (01/18) General: Alert, Cooperative, mild distress, Other (patient able to verbalize) Heart: Regular rate, Other (/6 systolic murmur) Lungs: Crackles Abdomen: Normal bowel sounds, Soft, No masses, Other (bright red blood per rectum) Extremities: No clubbing, No cyanosis, No edema Skin: No rashes, No significant lesion Labs LABS Indication:soa; eval for pe; Omni 350, 85ml TECHNIQUE: CT angiogram of the chest with IV contrast with multiplanar MIP reformats. COMPARISON:CT of chest from the same day earlier FINDINGS: Suboptimal PE study due to contrast bolus timing. No central or segmental filling defects in the pulmonary arteries. Evaluation of distal most subsegmental arteries is limited. No large saddle embolus. Mild atherosclerotic disease of the aortic arch and descending aorta. Heart is normal in size. No pericardial or pleural effusion. Coronary artery calcifications. Delayed that trace amount of emphysema is seen in the right neck base, nonspecific. No enlarged axillary, mediastinal or hilar adenopathy. Central airways are patent. Scattered bilateral calcified granulomas. Calcified pleural plaque is seen in the posterior right lower lobe with bibasilar dependent atelectasis. 5 mm subpleural nodular opacity in the right upper lobe (series 3 image 60). Please see dictation on CT abdomen pelvis from the same day for abdominal findings. No suspicious bony lesion. Right IJ catheter is seen with its tip in the SVC. IMPRESSION: 1. Slightly suboptimal PE study due to contrast bolus timing. No central or segmental PE. Evaluation of distal most subsegmental pulmonary arteries is limited. 2. No pneumonia or imaging evidence of acute pulmonary infarct. 3. 5 mm nodular opacity in the right upper lobe. Follow-up CT chest in 6 months without IV contrast recommended. Electronically signed by: Dallin Hathaway DO (01/18/2019 3:49 PM) [id number] DICTATED and SIGNED BY: DALLIN HATHAWAY DO DATE: 01/18/19 1549 Laboratory Tests Test 01/20/19 13:30 01/20/19 23:19 01/20/19 23:20 01/21/19 05:55 Hemoglobin 6.7 g/dL (13.0-17.5) 8.2 g/dL (13.0-17.5) 8.4 g/dL (13.0-17.5) Glucose (Fingerstick) 154 mg/dL (70-99) Assessment and Plan Assessmemt and Plan Problems Medical Problems: (1) Chronic kidney disease with end stage renal failure on dialysis Status: Acute (2) Generalized weakness Status: Acute (3) Hypotension Status: Acute (4) Nausea and vomiting Status: Acute Comment Review of Relevant I have reviewed the following items ethan (where applicable) has been applied. Labs Laboratory Tests Test 01/19/19 12:07 01/19/19 15:30 01/19/19 17:50 01/19/19 21:53 Glucose (Fingerstick) 94 mg/dL (70-99) 127 mg/dL (70-99) Urine Collection Type U cath Urine Color Yellow Urine Clarity Cloudy Urine pH 6.0 Urine Specific [place] 1.015 Urine Protein >=300 mg/dL (NEG-TRACE) Urine Glucose (UA) Negative mg/dL (NEG) Urine Ketones (Stick) Negative mg/dL (NEG) Urine Blood Small (NEG) Urine Nitrite Negative (NEG) Urine Bilirubin Negative (NEG) Urine Urobilinogen Dipstick 0.2 mg/dL (0.2 mg/dL) Urine Leukocyte Esterase Negative (NEG) Urine RBC Rare /HPF (0-2) Urine WBC 0 /HPF (0-4) Urine Transitional Epithelial Cells Few /LPF Urine Bacteria 0 /HPF (0-FEW) Hemoglobin 8.6 g/dL (13.0-17.5) Test 01/20/19 05:30 01/20/19 10:00 01/20/19 13:30 01/20/19 23:19 Hemoglobin 7.8 g/dL (13.0-17.5) 7.4 g/dL (13.0-17.5) 6.7 g/dL (13.0-17.5) 8.2 g/dL (13.0-17.5) Creatine Kinase 63 U/L (39-308) White Blood Count 28.7 x10^3/uL (4.0-11.0) Red Blood Count 2.25 x10^6/uL (4.30-5.70) Hematocrit 22.9 % (39.0-53.0) Mean Corpuscular Volume 102 fL (79-100) Mean Corpuscular Hemoglobin 33 pg (25-35) Mean Corpuscular Hemoglobin Concent 32 g/dL (31-37) Red Cell Distribution Width 18.5 % (11.5-14.5) Platelet Count 86 x10^3/uL (140-400) Neutrophils (%) (Auto) 86 % (31-73) Lymphocytes (%) (Auto) 6 % (24-48) Monocytes (%) (Auto) 8 % (0-9) Eosinophils (%) (Auto) 0 % (0-3) Basophils (%) (Auto) 0 % (0-3) Neutrophils # (Auto) 24.6 x10^3uL (1.8-7.7) Lymphocytes # (Auto) 1.7 x10^3/uL (1.0-4.8) Monocytes # (Auto) 2.2 x10^3/uL (0.0-1.1) Eosinophils # (Auto) 0.1 x10^3/uL (0.0-0.7) Basophils # (Auto) 0.0 x10^3/uL (0.0-0.2) Test 01/20/19 23:20 01/21/19 05:55 Glucose (Fingerstick) 154 mg/dL (70-99) Hemoglobin 8.4 g/dL (13.0-17.5) Laboratory Tests Test 01/20/19 13:30 01/20/19 23:19 01/20/19 23:20 01/21/19 05:55 Hemoglobin 6.7 g/dL (13.0-17.5) 8.2 g/dL (13.0-17.5) 8.4 g/dL (13.0-17.5) Glucose (Fingerstick) 154 mg/dL (70-99) Microbiology 01/19/19 Blood Culture - Preliminary, Resulted NO GROWTH AFTER 2 DAYS 01/15/19 Anaerobic/Aerobic Culture, Resulted Pending 01/15/19 Anaerobic Culture Result 1 (LAURIE), Resulted Pending 01/15/19 Aerobic Culture - Final, Resulted 01/15/19 Aerobic Culture Result 1 (LAURIE) - Final, Resulted 01/15/19 Gram Stain - Final, Resulted 01/15/19 Gram Stain Result 1 (LAURIE) - Final, Resulted 01/15/19 Gram Stain Result 2 (LAURIE) - Final, Resulted Medications Current Medications Ondansetron HCl (Zofran) 4 mg 1X ONCE IM ; Start 01/14/19 at 15:00; Stop at 15:01; Status Cancel Ondansetron HCl (Zofran) 4 mg 1X ONCE IM ; Start 01/14/19 at 15:45; Stop at 15:46; Status Cancel Ondansetron HCl (Zofran) 4 mg 1X ONCE IV Last administered on 01/14/19at 15:47; Start 01/14/19 at 15:45; Stop 01/14/19 at 15:46; Status DC Gentamicin Sulfate (Garamycin) 1 betty DAILY TP ; Start 01/15/19 at 09:00; Stop 01/15/19 at 13:52; Status DC Lactic Acid (Lac-Hydrin) 1 betty BID TP Last administered on 01/21/19 08:41; Start 01/15/19 at 10:00 Aspirin (Children'S Aspirin) 81 mg DAILY PO Last administered on 01/19/19 08:33 ; Start 01/15/19 at 10:00 Atorvastatin Calcium (Lipitor) 20 mg QHS PO Last administered on 01/17/19 21:06 ; Start 01/15/19 at 21:00; Stop 01/18/19 at 16:53; Status DC Calcium Carbonate/ Glycine (Oscal) 500 mg TIDWMEALS PO Last administered on 01/19 17:04; Start 01/15/19 at 12:00 Acetaminophen/ Hydrocodone Bitart (Lortab 5/325) 1 tab PRN Q6HRS PRN PO MODERATE TO SEVERE PAIN Last administered on 01/16/19 20:25; Start 01/15/19 at 08 :45 Sevelamer Carbonate (Renvela) 1,600 mg TID PO Last administered on 01/20/19 21 :22; Start 01/15/19 at 09:00 Sodium Bicarbonate (Sodium Bicarbonate) 1,950 mg TIDWMEALS PO Last administered on 01/19/19 17:06; Start 01/15/19 at 12:00 Pantoprazole Sodium (Protonix) 40 mg DAILYAC PO Last administered on 01/19/19 08:33; Start 01/15/19 at 10:00; Stop 01/20/19 at 08:12; Status DC Triamcinolone Acetonide (Kenalog) 1 betty BID TP Last administered on 01/21/19 08:41; Start 01/15/19 at 10:00 Albuterol/ Ipratropium (Duoneb) 3 ml RTQID NEB Last administered on 01/21/19 08:48; Start 01/15/19 at 12:00 Acetaminophen (Tylenol) 1,000 mg PRN Q6HRS PRN PO HEADACHE/TEMP Last administered on 01/16/19 09:50; Start 01/15/19 at 11:15 Midodrine (Proamatine) 2.5 mg [id number] PO Last administered on 01/16/19at 09:50; Start 01/15/19 at 14:00; Stop 01/16/19 at 10:34; Status DC Gentamicin Sulfate (Garamycin) 1 betty DAILY TP Last administered on 01/17/19at 18: 46; Start 01/16/19 at 09:00 Midodrine (Proamatine) 5 mg [id number] PO Last administered on 01/21/19at 06:05; Start 01/16/19 at 13:00 Lactulose (Lactulose) 20 gm TID PO Last administered on 01/17/19at 20:35; Start 01/17/19 at 14:15; Stop 01/18/19 at 11:06; Status DC Norepinephrine Bitartrate 250 ml @ 1.875 mls/ hr CONT PRN IV SEE I/O RECORD Last administered on 01/21/19at 08:44; Start 01/17/19 at 14:30 Dextrose (Dextrose 50%-Water Syringe) 25 gm 1X ONCE IV Last administered on 01/17/19at 14:45; Start 01/17/19 at 14:45; Stop 01/17/19 at 14:46; Status DC Dextrose (Dextrose 50%-Water Syringe) 25 gm 1X ONCE IV Last administered on 01/17/19at 15:15; Start 01/17/19 at 15:30; Stop 01/17/19 at 15:31; Status DC Piperacillin Sod/ Tazobactam Sod (Zosyn Per Pharmacy) 1 each PRN DAILY PRN MC SEE COMMENTS; Start 01/17/19 at 16:00 Piperacillin Sod/ Tazobactam Sod 2.25 gm/Sodium Chloride 50 ml @ 100 mls/hr Q8HRS IV Last administered on 01/21/19at 06:04; Start 01/17/19 at 17:00 Dextrose/Sodium Chloride 1,000 ml @ 50 mls/hr Q20H IV Last administered on 01/19at 08:37; Start 01/17/19 at 16:30; Stop 01/21/19 at 03:05; Status DC Dextrose (Dextrose 50%-Water Syringe) 25 gm 1X ONCE IV Last administered on 01/17/19at 17:14; Start 01/17/19 at 17:15; Stop 01/17/19 at 17:16; Status DC Vancomycin HCl (Vanco Per Pharmacy) 1 each PRN DAILY PRN MC SEE COMMENTS Last administered on 01/19/19at 11:09; Start 01/17/19 at 18:00; Stop 01/19/19 at 15:35; Status DC Sodium Chloride 1,000 ml @ 1,000 mls/hr 1X ONCE IV Last administered on at 17:00; Start 01/17/19 at 18:00; Stop 01/17/19 at 18:59; Status DC Vancomycin HCl 2 gm/Sodium Chloride 500 ml @ 250 mls/hr 1X ONCE IV Last administered on 01/17/19at 18:50; Start 01/17/19 at 18:00; Stop 01/17/19 at 19:59; Status DC Micafungin Sodium 100 mg/Dextrose 100 ml @ 100 mls/hr Q24H IV Last administered on 01/20/19at 21:23; Start 01/17/19 at 20:00 Sodium Chloride 1,000 ml @ 100 mls/hr Q10H IV Last administered on 01/20/19at 21:27; Start 01/18/19 at 06:45 Dextrose (Dextrose 50%-Water Syringe) 25 gm 1X ONCE IV Last administered on 01/18/19at 07:00; Start 01/18/19 at 07:00; Stop 01/18/19 at 07:08; Status DC Iohexol (Omnipaque 300 Mg/ml) 75 ml 1X ONCE IV ; Start 01/18/19 at 08:15; Stop 01/18/19 at 08:16; Status DC Info (CONTRAST GIVEN -- Rx MONITORING) 1 each PRN DAILY PRN MC SEE COMMENTS; Start 01/18/19 at 08:15; Stop 01/18/19 at 11:56; Status DC Fentanyl Citrate (Fentanyl 2ml Vial) 50 mcg PRN Q2HR PRN IV PAIN Last administered on 01/18/19at 10:07; Start 01/18/19 at 09:30 Midazolam HCl (Versed) 5 mg 1X ONCE IV Last administered on 01/18/19at 10:05; Start 01/18/19 at 09:30; Stop 01/18/19 at 09:31; Status DC Midazolam HCl (Versed) 5 mg STK-MED ONCE .ROUTE ; Start 01/18/19 at 09:25; Stop 01/18/19 at 09:26; Status DC Fentanyl Citrate (Fentanyl 2ml Vial) 100 mcg STK-MED ONCE .ROUTE ; Start at 09:25; Stop 01/18/19 at 09:26; Status DC Sodium Chloride 500 ml @ 500 mls/hr 1X ONCE IV Last administered on 01/18/19at 10:34; Start 01/18/19 at 10:15; Stop 01/18/19 at 11:14; Status DC Dobutamine HCl/ Dextrose 250 ml @ 5.939 mls/ hr CONT PRN IV SEE I/O RECORD Last administered on 01/18/19at 10:34; Start 01/18/19 at 10:15; Stop 01/18/19 at 12: 59; Status DC Ondansetron HCl (Zofran) 4 mg PRN Q6HRS PRN IV NAUSEA/VOMITING Last administered on 01/18/19at 11:10; Start 01/18/19 at 11:00 Lactulose (Lactulose) 20 gm PRN TID PRN PO confusion/elevated ammonia; Start at 11:15 Dextrose (Dextrose 50%-Water Syringe) 25 gm STK-MED ONCE IV ; Start 01/18/19 at 11:08; Stop 01/18/19 at 11:10; Status DC Dextrose (Dextrose 50%-Water Syringe) 25 gm 1X ONCE IV Last administered on 01/18/19at 11:13; Start 01/18/19 at 11:15; Stop 01/18/19 at 11:16; Status DC Sodium Chloride 500 ml @ 500 mls/hr 1X ONCE IV Last administered on 01/18/19 11:28; Start 01/18/19 at 11:30; Stop 01/18/19 at 12:29; Status DC Lactobacillus Rhamnosus (Culturelle) 1 cap BID PO Last administered on at 21:22; Start 01/18/19 at 21:00 Iohexol (Omnipaque 350 Mg/ml) 90 ml 1X ONCE IV Last administered on 01/18/19at 15:10; Start 01/18/19 at 12:00; Stop 01/18/19 at 12:01; Status DC Info (CONTRAST GIVEN -- Rx MONITORING) 1 each PRN DAILY PRN MC SEE COMMENTS; Start 01/18/19 at 12:00; Stop 01/20/19 at 11:59; Status DC Sodium Chloride 500 ml @ 500 mls/hr 1X ONCE IV Last administered on 01/18/19at 12:13; Start 01/18/19 at 12:30; Stop 01/18/19 at 13:29; Status DC Vasopressin 40 unit/Dextrose 102 ml @ 6 mls/hr CONT PRN IV SEE I/O RECORD Last administered on 01/21/19at 08:48; Start 01/18/19 at 13:00 Dextrose (Dextrose 50%-Water Syringe) 25 gm 1X ONCE IV Last administered on 01/18/19at 15:45; Start 01/18/19 at 15:45; Stop 01/18/19 at 15:46; Status DC Lidocaine/Sodium Bicarbonate (Buffered Lidocaine 1%) 3 ml STK-MED ONCE .ROUTE ; Start 01/18/19 at 15:39; Stop 01/18/19 at 15:40; Status DC Lidocaine/Sodium Bicarbonate (Buffered Lidocaine 1%) 3 ml 1X ONCE INJ Last administered on 01/18/19at 15:45; Start 01/18/19 at 15:45; Stop 01/18/19 at 15:46; Status DC Lidocaine/Sodium Bicarbonate (Buffered Lidocaine 1%) 3 ml STK-MED ONCE .ROUTE ; Start 01/18/19 at 15:39; Stop 01/18/19 at 15:40; Status DC Iohexol (Omnipaque 350 Mg/ml) 100 ml STK-MED ONCE .ROUTE ; Start 01/18/19 at 17: 00; Stop 01/18/19 at 17:01; Status DC Dextrose (Dextrose 50%-Water Syringe) 25 gm 1X ONCE IV Last administered on 01/18/19at 17:45; Start 01/18/19 at 17:45; Stop 01/18/19 at 17:46; Status DC Vancomycin HCl (Vancomycin Random Level) 1 each 1X ONCE MC ; Start 01/19/19 at 06:00; Stop 01/19/19 at 15:35; Status DC Sodium Chloride 250 ml @ 250 mls/hr 1X ONCE IV Last administered on 01/19/19at 09:40; Start 01/19/19 at 09:45; Stop 01/19/19 at 10:44; Status DC Hydrocortisone Sodium Succinate (Solu-CORTEF) 100 mg Q8HRS IV Last administered on 01/20/19 05:36; Start 01/19/19 at 10:00; Stop 01/20/19 at 10:30 ; Status DC Vancomycin HCl 1.25 gm/Sodium Chloride 250 ml @ 167 mls/hr Q48H IV Last administered on 01/19/19at 11:23; Start 01/19/19 at 12:00; Stop 01/20/19 at 09:38; Status DC Linezolid/Dextrose 300 ml @ 300 mls/hr Q12HR IV Last administered on at 08:41; Start 01/19/19 at 15:00 Daptomycin 470 mg/ Sodium Chloride 50 ml @ 100 mls/hr Q48H IV Last administered on 01/19/19at 17:04; Start 01/19/19 at 16:00 Magnesium Citrate (Citroma) 296 ml 1X ONCE PO Last administered on 01/20/19 09:27; Start 01/20/19 at 07:15; Stop 01/20/19 at 07:16; Status DC Pantoprazole Sodium 80 mg/ Sodium Chloride 100 ml @ 10 mls/hr Q10H IV Last administered on 01/21/19at 06:05; Start 01/20/19 at 09:00 Hydrocortisone Sodium Succinate (Solu-CORTEF) 50 mg Q8HRS IV Last administered on 01/21/19 06:04; Start 01/20/19 at 14:00 Sodium Cl/Sod Bicarb/Potass Cl/ PEG (Golytely) 4,000 ml 1X ONCE PO Last administered on 01/20/19 21:27; Start 01/20/19 at 19:00; Stop 01/20/19 at 19:01 ; Status DC Active Scripts Active [place] 5-325 Tablet (Acetaminophen/Hydrocodone Bitart) 1 Each Tablet 1-2 Each PO PRN Q6HRS PRN as needed for pain Reported [calcium carbon] Triamcinolone Acetonide 0.5% Cream (Triamcinolone Acetonide) 15 Gm Cream..g. 1 Betty TP BID Renvela (Sevelamer Carbonate) 800 Mg Tablet 2 Tab PO TID Protonix (Pantoprazole Sodium) 40 Mg Granpkt.dr 40 Mg PO DAILY Calcium Carbonate 500 Mg Tablet 5,000 Mg PO TIDWMEALS Skin Treatment (Ammonium Lactate) 225 Gm Lotion 225 Gm TP BID Aspirin 81 Mg Tab.chew 1 Tab PO DAILY Atorvastatin Calcium 20 Mg Tablet 1 Tab PO QHS Sodium Bicarbonate 650 Mg Tablet 1,950 Mg PO TIDWMEALS Vitals/I & O Vital Sign - Last 24 Hours 01/20/19 01/20/19 01/20/19 01/20/19 11:00 11:19 12:00 12:00 Temp 95.0 95.0 Pulse 102 98 Resp 13 15 B/P (MAP) 107/50 (69) 97/52 (67) Pulse Ox 100 100 99 O2 Delivery Room Air Room Air Room Air Room Air 01/20/19 01/20/19 01/20/19 01/20/19 13:00 14:00 15:00 15:01 Pulse 96 92 97 Resp 10 14 15 B/P (MAP) 178/95 (122) 91/47 (62) 84/45 (58) Pulse Ox 100 100 100 O2 Delivery Room Air Room Air Room Air Room Air 01/20/19 01/20/19 01/20/19 01/20/19 15:10 15:25 16:00 16:00 Temp 94.0 94.3 94.0 94.3 Pulse 96 97 103 Resp 16 14 16 B/P (MAP) 64/46 86/49 120/66 (84) Pulse Ox 100 O2 Delivery Room Air Room Air 01/20/19 01/20/19 01/20/19 01/20/19 16:28 16:30 16:45 17:00 Temp 94.3 94.2 94.2 94.3 94.2 94.2 Pulse 104 103 100 101 Resp 16 16 15 13 B/P (MAP) 134/66 116/57 89/53 117/62 (80) Pulse Ox 100 O2 Delivery Room Air 01/20/19 01/20/19 01/20/19 01/20/19 17:51 18:00 19:00 19:36 Temp 94.3 97.2 94.3 97.2 Pulse 98 93 98 Resp 12 12 16 B/P (MAP) 107/56 112/52 (72) 112/50 (70) Pulse Ox 100 100 96 O2 Delivery Room Air Room Air Room Air 01/20/19 01/20/19 01/20/19 01/20/19 20:00 20:00 21:00 21:00 Pulse 97 98 102 Resp 17 12 16 B/P (MAP) 105/55 (72) 85/66 (72) 95/52 (66) Pulse Ox 100 100 100 O2 Delivery Room Air Room Air Room Air Room Air 01/20/19 01/20/19 01/21/19 01/21/19 22:00 23:03 00:00 00:00 Temp 97.1 97.1 Pulse 98 101 102 Resp 16 10 11 B/P (MAP) 107/51 (69) 94/49 (64) 81/48 (59) Pulse Ox 100 100 100 O2 Delivery Room Air Room Air Room Air Room Air 01/21/19 01/21/19 01/21/19 01/21/19 01:00 02:00 03:00 04:00 Pulse 98 96 100 98 Resp 10 12 10 11 B/P (MAP) 94/47 (63) 91/50 (64) 94/49 (64) 72/43 (53) Pulse Ox 100 100 100 100 O2 Delivery Room Air Room Air Room Air Room Air 01/21/19 01/21/19 01/21/19 01/21/19 04:00 04:15 05:00 06:02 Temp 97.1 97.1 Pulse 97 95 96 Resp 10 10 10 B/P (MAP) 105/55 (72) 110/65 (80) 103/58 (73) Pulse Ox 100 100 100 O2 Delivery Room Air Room Air Room Air Room Air 01/21/19 01/21/19 01/21/19 01/21/19 06:05 06:30 06:45 07:01 Temp 97.6 97.6 Pulse 96 98 98 95 Resp 20 B/P (MAP) 103/58 74/39 (51) 115/58 (77) 119/59 (79) Pulse Ox 100 O2 Delivery Room Air 01/21/19 01/21/19 01/21/19 01/21/19 08:00 08:00 08:48 09:00 Pulse 96 95 Resp 20 20 B/P (MAP) 116/57 (76) 114/60 (78) Pulse Ox 100 100 100 O2 Delivery Room Air Room Air Room Air Room Air 01/21/19 10:00 Pulse 95 Resp 20 B/P (MAP) 104/53 (70) Pulse Ox 100 O2 Delivery Room Air Intake and Output 01/20/19 01/20/19 01/21/19 14:59 22:59 06:59 Intake Total 350 ml 2214 ml 2620 ml Balance 350 ml 2214 ml 2620 ml Nutrition Consultation Dietary Evaluation: Recommendations by RD: Increase Calorie Intake, Protein supplementation Comments: Recommend vanilla [place]ro milk shake @ lunch for increased calorie and protein intake as pt. has diminished appetite Expected Outcomes/Goals: P.O. intake to meet >75% estimated needs Malnutrition Findings: Body Fat Depletion (Non Severe: Mild Depletion Weight Status: Overweight LOLITA BLANC MD Jan 21, 2019 10:58
--- NOTE | 2019-01-21 11:04 | PDOC ---
PULMONARY PROGRESS NOTES Subjective on levo, vaso,iv fluid, has bloody stool, lethargic, Vitals Vital Signs Date Time Temp Pulse Resp B/P (MAP) Pulse Ox O2 Delivery O2 Flow Rate FiO2 01/21/19 10:00 95 20 104/53 (70) 100 Room Air 01/21/19 07:01 97.6 97.6 Comments ros as mentioned as above, discussed w rn, other sys otherwise neg General: Alert HEENT: Other (nc at perrl nose throat clear neck no lad, no thyromegaly) Lungs: Clear Cardiovascular: S1, S2 Abdomen: Soft, Non-tender Neuro Exam: Alert Extremities: No Edema Skin: Warm Labs Laboratory Tests Test 01/19/19 12:07 01/19/19 15:30 01/19/19 17:50 01/19/19 21:53 Glucose (Fingerstick) 94 mg/dL (70-99) 127 mg/dL (70-99) Urine Collection Type U cath Urine Color Yellow Urine Clarity Cloudy Urine pH 6.0 Urine Specific [place] 1.015 Urine Protein >=300 mg/dL (NEG-TRACE) Urine Glucose (UA) Negative mg/dL (NEG) Urine Ketones (Stick) Negative mg/dL (NEG) Urine Blood Small (NEG) Urine Nitrite Negative (NEG) Urine Bilirubin Negative (NEG) Urine Urobilinogen Dipstick 0.2 mg/dL (0.2 mg/dL) Urine Leukocyte Esterase Negative (NEG) Urine RBC Rare /HPF (0-2) Urine WBC 0 /HPF (0-4) Urine Transitional Epithelial Cells Few /LPF Urine Bacteria 0 /HPF (0-FEW) Hemoglobin 8.6 g/dL (13.0-17.5) Test 01/20/19 05:30 01/20/19 10:00 01/20/19 13:30 01/20/19 23:19 Hemoglobin 7.8 g/dL (13.0-17.5) 7.4 g/dL (13.0-17.5) 6.7 g/dL (13.0-17.5) 8.2 g/dL (13.0-17.5) Creatine Kinase 63 U/L (39-308) White Blood Count 28.7 x10^3/uL (4.0-11.0) Red Blood Count 2.25 x10^6/uL (4.30-5.70) Hematocrit 22.9 % (39.0-53.0) Mean Corpuscular Volume 102 fL (79-100) Mean Corpuscular Hemoglobin 33 pg (25-35) Mean Corpuscular Hemoglobin Concent 32 g/dL (31-37) Red Cell Distribution Width 18.5 % (11.5-14.5) Platelet Count 86 x10^3/uL (140-400) Neutrophils (%) (Auto) 86 % (31-73) Lymphocytes (%) (Auto) 6 % (24-48) Monocytes (%) (Auto) 8 % (0-9) Eosinophils (%) (Auto) 0 % (0-3) Basophils (%) (Auto) 0 % (0-3) Neutrophils # (Auto) 24.6 x10^3uL (1.8-7.7) Lymphocytes # (Auto) 1.7 x10^3/uL (1.0-4.8) Monocytes # (Auto) 2.2 x10^3/uL (0.0-1.1) Eosinophils # (Auto) 0.1 x10^3/uL (0.0-0.7) Basophils # (Auto) 0.0 x10^3/uL (0.0-0.2) Test 01/20/19 23:20 01/21/19 05:55 Glucose (Fingerstick) 154 mg/dL (70-99) Hemoglobin 8.4 g/dL (13.0-17.5) Laboratory Tests Test 01/20/19 13:30 01/20/19 23:19 01/20/19 23:20 01/21/19 05:55 Hemoglobin 6.7 g/dL (13.0-17.5) 8.2 g/dL (13.0-17.5) 8.4 g/dL (13.0-17.5) Glucose (Fingerstick) 154 mg/dL (70-99) Medications Active Scripts Medications Dose Route/Sig Max Daily Dose Days Date Category Dose Instructions [calcium carbon] 01/14/19 Reported Triamcinolone Acetonide 0.5% Cream (Triamcinolone Acetonide) 15 Gm Cream..g. 1 [place] TP BID 01/14/19 Reported Renvela (Sevelamer Carbonate) 800 Mg Tablet 2 Tab PO TID 01/14/19 Reported Protonix (Pantoprazole Sodium) 40 Mg Granpkt.dr 40 Mg PO DAILY 01/14/19 Reported Calcium Carbonate 500 Mg Tablet 5,000 Mg PO TIDWMEALS 01/14/19 Reported Skin Treatment (Ammonium Lactate) 225 Gm Lotion 225 Gm TP BID 01/14/19 Reported [place] 5-325 Tablet (Acetaminophen/Hydrocodone Bitart) 1 Each Tablet 1-2 Each PO PRN Q6HRS PRN 08/25/18 Rx as needed for pain Aspirin 81 Mg Tab.chew 1 Tab PO DAILY 04/20/18 Reported Atorvastatin Calcium 20 Mg Tablet 1 Tab PO QHS 04/20/18 Reported Sodium Bicarbonate 650 Mg Tablet 1,950 Mg PO TIDWMEALS 11/23/17 Reported Comments cxr reviewed, 1. A left jugular dialysis type catheter has been inserted extending into the superior aspect of the right atrium. 2. No other significant change since earlier in the day. ct reviewed, 1. Slightly suboptimal PE study due to contrast bolus timing. No central or segmental PE. Evaluation of distal most subsegmental pulmonary arteries is limited. 2. No pneumonia or imaging evidence of acute pulmonary infarct. 3. 5 mm nodular opacity in the right upper lobe. Follow-up CT chest in 6 months without IV contrast recommended. Impression . 1. Acute respiratory failure, multifactorial. 2. Hypotension. likely septic/ hypovolemic shock, no pulmonary embolism. 3. Aortic stenosis. 4. Renal failure, on peritoneal dialysis. 5. Peripheral vascular disease, status post aortobilateral iliac stent graft. 6. hematochezia, upper vs lower GIB, ? ischemic colitis, vs others , awaiting procedures 7. Coagulopathy. 8. Metabolic toxic encephalopathy. 9. bacteremia, gpc 10. Gastroesophageal reflux. 12. Metabolic acidosis secondary to hypoperfusion, possibly sepsis. 13. 5 mm nodular opacity in the right upper lobe Plan . 1. IV fluids. PRN PRBC,protonix gtt, gi on case, HYDROCORTISONE 2. Pressors to keep map >65, 3. Follow Cardiology input. 4. CTA no PE. 5. antibiotics per ID 6. BD 7. Dialysis per nephro 8. Await EGD/ COLONOSCOPY prognosis guarded 9. f/u CXR in poonam booth rn/ cct 30 min KARLA STEVEN MD Jan 21, 2019 11:04
--- NOTE | 2019-01-21 11:07 | PDOC ---
Renal-Progress Notes Subjective Notes Notes NO NEW COMPLAINTS History of Present Illness Hx of present illness STABLE Vitals Vitals Vital Signs Date Time Temp Pulse Resp B/P (MAP) Pulse Ox O2 Delivery O2 Flow Rate FiO2 01/21/19 10:00 95 20 104/53 (70) 100 Room Air 01/21/19 07:01 97.6 97.6 Weight Weight [ ] I.O. Intake and Output Intake and Output 01/21/19 07:00 Intake Total 5184 ml Balance 5184 ml Intake Oral 500 ml IV Total 4584 ml Blood Product IV Normal Saline Flush 100 ml # Bowel Movements 10 Labs Labs Laboratory Tests Test 01/20/19 13:30 01/20/19 23:19 01/20/19 23:20 01/21/19 05:55 Hemoglobin 6.7 g/dL (13.0-17.5) 8.2 g/dL (13.0-17.5) 8.4 g/dL (13.0-17.5) Glucose (Fingerstick) 154 mg/dL (70-99) Micro Micro Microbiology 01/19/19 Blood Culture - Preliminary, Resulted NO GROWTH AFTER 2 DAYS 01/15/19 Anaerobic/Aerobic Culture, Resulted Pending 01/15/19 Anaerobic Culture Result 1 (LAURIE), Resulted Pending 01/15/19 Aerobic Culture - Final, Resulted 01/15/19 Aerobic Culture Result 1 (LAURIE) - Final, Resulted 01/15/19 Gram Stain - Final, Resulted 01/15/19 Gram Stain Result 1 (LAURIE) - Final, Resulted 01/15/19 Gram Stain Result 2 (LAURIE) - Final, Resulted Review of Systems Constitutional: yes: alert, oriented Ears/Nose/Throat: Yes: no symptom reported Eyes: Yes: no symptom reported Pulmonary: Yes no symptom reported Cardiovascular: Yes no symptom reported Gastrointestional: Yes: hematochezia Genitourinary: Yes: no symptom reported Musculoskeletal: Yes: no symptom reported, muscle stiffness Skin: Yes no symptom reported Psychiatric/Neurological: Yes: no symptom reported Endocrine: Yes: no symptom reported Hematologic/Lymphatic: Yes: no symptom reported Physical Exam General Appearance: no apparent distress Skin: warm Respiratory: bilateral CTA Heart: S1S2 Abdomen: soft, bowel sounds present Genitourinary: bladder flat Neurology: alert, follow commands Assessment Assessment IMP ESRD HYPOTENSION AORTIC STENOSIS SEPSIS ANEMIA HEMATOCHEZIA PLAN GI W/U PRBC NEEDED ARANESP CONT WITH CCPD CONT MIDODRINE WILL FOLLOW TEAGAN GAMEZ MD Jan 21, 2019 11:07
[2019-01-21 12:16] LABS: KAPPA FREE 789.7 mg/L (3.3-19.4); KAPPA LAMBDA RATIO 3.51 (0.26-1.65); LAMBDA FREE 224.8 mg/L (5.7-26.3)
--- NOTE | 2019-01-21 12:35 | PDOC ---
CARDIOLOGY PROGRESS NOTE SUBJECTIVE: No new events. Denies any chest pain or dyspnea. He is sleepy. OBJECTIVE: Vital SIgns: Vital Signs Date Time Temp Pulse Resp B/P (MAP) Pulse Ox O2 Delivery O2 Flow Rate FiO2 01/21/19 11:00 96 20 92/52 (65) 100 Room Air 01/21/19 07:01 97.6 97.6 Objective: He is somnolent but arousable 5/6 severe as murmur, diminished S2. No new murmurs abd soft no edema. ext cool to touch. CURRENT MEDICATIONS: asa, levophed and vasopressin DIAGNOSTIC TESTING: Hgb 6.7, improved INR 3.0 ASSESSMENT: 1. Severe 2. Critical illness with stress induced GIB, septic shock PLAN: 1. Continue supportive care with pressors and antibiotics. Will defer JOANNA today as it will not change mgmt acutely. Will wait till patient more stable. 2. Discussed with family at bedside and RN. 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 Thanks. CARISSA URBINA MD Jan 21, 2019 12:35
[2019-01-21] MEDS: GENTAMICIN 0.1% TOPICAL OINTMENT 15GM TUBE. TP SCH (12:53)
[2019-01-21] MEDS: IV NORMAL SALINE 1000ML BAG 1,000 ML IV SCH ×2 (12:54→13:22)
--- NOTE | 2019-01-21 14:20 | NUR ---
SS following up with discharge planning. Pt continues in ICU on room air. No PT/OT at this time. Palliative Care Consulted. SS spoke with Palliative Care RN and was notified that pt's family cancelled the family meeting. SS will continue to follow for discharge planning.
[2019-01-21] MEDS: rifAXIMin 550 MG TABLET PO SCH ×2 (15:27→20:37)
[2019-01-21] MEDS: DAPTOmycin (GENERIC) IVPB 470 MG in IV NORMAL SALINE 50ML 50 ML IV SCH (15:28)
--- NOTE | 2019-01-21 16:45 | PDOC ---
PROGRESS NOTES Subjective Subjective HPI - f/u of Monoclonal gammopathy of undetermined significance and hypotension ROS - hypotensive, more responsive Objective Objective Vital Signs Date Time Temp Pulse Resp B/P (MAP) Pulse Ox O2 Delivery O2 Flow Rate FiO2 01/21/19 16:00 Room Air 01/21/19 16:00 97.4 105 17 90/57 (68) 100 97.4 01/19/19 08:00 2.0 Intake and Output 01/21/19 06:59 Intake Total 5184 ml Balance 5184 ml Intake Oral 500 ml IV Total 4584 ml Blood Product IV Normal Saline Flush 100 ml # Bowel Movements 10 Physical Exam Heart: Normal S1, Normal S2 General: No acute distress Lungs: Clear to auscultation Assessment Assessment Problems Medical Problems: (1) Chronic kidney disease with end stage renal failure on dialysis Status: Acute (2) Generalized weakness Status: Acute (3) Hypotension Status: Acute (4) Nausea and vomiting Status: Acute IMPRESSION AND PLAN: 1. Monoclonal gammopathy of undetermined significance. He has had elevated kappa and lambda light chains since 10/11/2017. The kappa light chains have improved since then with an improvement in the ratio as noted on 06/18/2018. He has also had a bone marrow biopsy on 11/23/2017 that revealed 3% monoclonal plasma cell population and minute CD5 positive monoclonal B cell population by flow cytometry, suggestive of plasma cell dyscrasia or B-cell lymphoproliferative disorder such as chronic lymphocytic leukemia or small lymphocytic lymphoma. However, this is only a minute and indolent. I discussed with the pathologist, Dr. Zhao Desouza, who mentioned that there was no evidence of amyloidosis on histologic examination. -Serum kappa-lambda free light chains were elevated on 10/11/2017 with a kappa light chains at 776 and lambda light chains at 58.6 with a kappa lambda ratio of 13.21. -Followup kappa light chains on 11/20/2017 revealed the kappa light chains had improved down to 91.05 and lambda light chain at 5.92 with a ratio of 15.38. -Tre[place]or light chains on 06/18/2018 were stable at 118.65 with a ratio of 11.04, which was better than before. Serum protein electrophoresis had not revealed any paraprotein. Skeletal survey on 11/23/2017 was negative for lytic lesions. - [place]or light chains on 01/18/19 is 789.7, lambda light chains 224.8, with ratio 3.51, much better than before. Hence no need for bone marrow bx at this time as they have improved. 2. End-stage renal disease. He is on hemodialysis. 3. Hypotension. Continue management in the ICU. Comment Review of Relevant I have reviewed the following items ethan (where applicable) has been applied. Labs Laboratory Tests Test 01/19/19 17:50 01/19/19 21:53 01/20/19 05:30 01/20/19 10:00 Glucose (Fingerstick) 127 mg/dL (70-99) Hemoglobin 8.6 g/dL (13.0-17.5) 7.8 g/dL (13.0-17.5) 7.4 g/dL (13.0-17.5) Creatine Kinase 63 U/L (39-308) White Blood Count 28.7 x10^3/uL (4.0-11.0) Red Blood Count 2.25 x10^6/uL (4.30-5.70) Hematocrit 22.9 % (39.0-53.0) Mean Corpuscular Volume 102 fL (79-100) Mean Corpuscular Hemoglobin 33 pg (25-35) Mean Corpuscular Hemoglobin Concent 32 g/dL (31-37) Red Cell Distribution Width 18.5 % (11.5-14.5) Platelet Count 86 x10^3/uL (140-400) Neutrophils (%) (Auto) 86 % (31-73) Lymphocytes (%) (Auto) 6 % (24-48) Monocytes (%) (Auto) 8 % (0-9) Eosinophils (%) (Auto) 0 % (0-3) Basophils (%) (Auto) 0 % (0-3) Neutrophils # (Auto) 24.6 x10^3uL (1.8-7.7) Lymphocytes # (Auto) 1.7 x10^3/uL (1.0-4.8) Monocytes # (Auto) 2.2 x10^3/uL (0.0-1.1) Eosinophils # (Auto) 0.1 x10^3/uL (0.0-0.7) Basophils # (Auto) 0.0 x10^3/uL (0.0-0.2) Test 01/20/19 13:30 01/20/19 23:19 01/20/19 23:20 01/21/19 05:55 Hemoglobin 6.7 g/dL (13.0-17.5) 8.2 g/dL (13.0-17.5) 8.4 g/dL (13.0-17.5) Glucose (Fingerstick) 154 mg/dL (70-99) Laboratory Tests Test 01/20/19 23:19 01/20/19 23:20 01/21/19 05:55 Hemoglobin 8.2 g/dL (13.0-17.5) 8.4 g/dL (13.0-17.5) Glucose (Fingerstick) 154 mg/dL (70-99) Microbiology 01/19/19 Blood Culture - Preliminary, Resulted NO GROWTH AFTER 2 DAYS 01/15/19 Anaerobic/Aerobic Culture, Resulted Pending 01/15/19 Anaerobic Culture Result 1 (LAURIE), Resulted Pending 01/15/19 Aerobic Culture - Final, Resulted 01/15/19 Aerobic Culture Result 1 (LAURIE) - Final, Resulted 01/15/19 Gram Stain - Final, Resulted 01/15/19 Gram Stain Result 1 (LAURIE) - Final, Resulted 01/15/19 Gram Stain Result 2 (LAURIE) - Final, Resulted Medications Current Medications Ondansetron HCl (Zofran) 4 mg 1X ONCE IM ; Start 01/14/19 at 15:00; Stop at 15:01; Status Cancel Ondansetron HCl (Zofran) 4 mg 1X ONCE IM ; Start 01/14/19 at 15:45; Stop at 15:46; Status Cancel Ondansetron HCl (Zofran) 4 mg 1X ONCE IV Last administered on 01/14/19at 15:47; Start 01/14/19 at 15:45; Stop 01/14/19 at 15:46; Status DC Gentamicin Sulfate (Garamycin) 1 olu DAILY TP ; Start 01/15/19 at 09:00; Stop 01/15/19 at 13:52; Status DC Lactic Acid (Lac-Hydrin) 1 olu BID TP Last administered on 01/21/19at 08:41; Start 01/15/19 at 10:00 Aspirin (Children'S Aspirin) 81 mg DAILY PO Last administered on 01/19/19 08:33 ; Start 01/15/19 at 10:00 Atorvastatin Calcium (Lipitor) 20 mg QHS PO Last administered on 01/17/19 21:06 ; Start 01/15/19 at 21:00; Stop 01/18/19 at 16:53; Status DC Calcium Carbonate/ Glycine (Oscal) 500 mg TIDWMEALS PO Last administered on 01/19 17:04; Start 01/15/19 at 12:00 Acetaminophen/ Hydrocodone Bitart (Lortab 5/325) 1 tab PRN Q6HRS PRN PO MODERATE TO SEVERE PAIN Last administered on 01/16/19 20:25; Start 01/15/19 at 08 :45 Sevelamer Carbonate (Renvela) 1,600 mg TID PO Last administered on 01/20/19 21 :22; Start 01/15/19 at 09:00 Sodium Bicarbonate (Sodium Bicarbonate) 1,950 mg TIDWMEALS PO Last administered on 01/19/19 17:06; Start 01/15/19 at 12:00 Pantoprazole Sodium (Protonix) 40 mg DAILYAC PO Last administered on 01/19/19 08:33; Start 01/15/19 at 10:00; Stop 01/20/19 at 08:12; Status DC Triamcinolone Acetonide (Kenalog) 1 olu BID TP Last administered on 01/21/19 08:41; Start 01/15/19 at 10:00 Albuterol/ Ipratropium (Duoneb) 3 ml RTQID NEB Last administered on 01/21/19 12:59; Start 01/15/19 at 12:00 Acetaminophen (Tylenol) 1,000 mg PRN Q6HRS PRN PO HEADACHE/TEMP Last administered on 01/16/19 09:50; Start 01/15/19 at 11:15 Midodrine (Proamatine) 2.5 mg [id number] PO Last administered on 01/16/19 09:50; Start 01/15/19 at 14:00; Stop 01/16/19 at 10:34; Status DC Gentamicin Sulfate (Garamycin) 1 olu DAILY TP Last administered on 01/21/19 12 :53; Start 01/16/19 at 09:00 Midodrine (Proamatine) 5 mg [id number] PO Last administered on 01/21/19 06:05; Start 01/16/19 at 13:00 Lactulose (Lactulose) 20 gm TID PO Last administered on 01/17/19at 20:35; Start 01/17/19 at 14:15; Stop 01/18/19 at 11:06; Status DC Norepinephrine Bitartrate 250 ml @ 1.875 mls/ hr CONT PRN IV SEE I/O RECORD Last administered on 01/21/19at 15:29; Start 01/17/19 at 14:30 Dextrose (Dextrose 50%-Water Syringe) 25 gm 1X ONCE IV Last administered on 14:45; Start 01/17/19 at 14:45; Stop 01/17/19 at 14:46; Status DC Dextrose (Dextrose 50%-Water Syringe) 25 gm 1X ONCE IV Last administered on 01/17/19at 15:15; Start 01/17/19 at 15:30; Stop 01/17/19 at 15:31; Status DC Piperacillin Sod/ Tazobactam Sod (Zosyn Per Pharmacy) 1 each PRN DAILY PRN MC SEE COMMENTS; Start 01/17/19 at 16:00 Piperacillin Sod/ Tazobactam Sod 2.25 gm/Sodium Chloride 50 ml @ 100 mls/hr Q8HRS IV Last administered on 01/21/19at 13:01; Start 01/17/19 at 17:00 Dextrose/Sodium Chloride 1,000 ml @ 50 mls/hr Q20H IV Last administered on 01/19 08:37; Start 01/17/19 at 16:30; Stop 01/21/19 at 03:05; Status DC Dextrose (Dextrose 50%-Water Syringe) 25 gm 1X ONCE IV Last administered on 01/17/19at 17:14; Start 01/17/19 at 17:15; Stop 01/17/19 at 17:16; Status DC Vancomycin HCl (Vanco Per Pharmacy) 1 each PRN DAILY PRN MC SEE COMMENTS Last administered on 01/19/19 11:09; Start 01/17/19 at 18:00; Stop 01/19/19 at 15:35; Status DC Sodium Chloride 1,000 ml @ 1,000 mls/hr 1X ONCE IV Last administered on 3/7/ 19at 17:00; Start 01/17/19 at 18:00; Stop 01/17/19 at 18:59; Status DC Vancomycin HCl 2 gm/Sodium Chloride 500 ml @ 250 mls/hr 1X ONCE IV Last administered on 01/17/19at 18:50; Start 01/17/19 at 18:00; Stop 01/17/19 at 19:59; Status DC Micafungin Sodium 100 mg/Dextrose 100 ml @ 100 mls/hr Q24H IV Last administered on 01/20/19at 21:23; Start 01/17/19 at 20:00 Sodium Chloride 1,000 ml @ 100 mls/hr Q10H IV Last administered on 01/21/19at 12:54; Start 01/18/19 at 06:45 Dextrose (Dextrose 50%-Water Syringe) 25 gm 1X ONCE IV Last administered on 07:00; Start 01/18/19 at 07:00; Stop 01/18/19 at 07:08; Status DC Iohexol (Omnipaque 300 Mg/ml) 75 ml 1X ONCE IV Last administered on 01/18/19at 08:15; Start 01/18/19 at 08:15; Stop 01/18/19 at 08:16; Status DC Info (CONTRAST GIVEN -- Rx MONITORING) 1 each PRN DAILY PRN MC SEE COMMENTS; Start 01/18/19 at 08:15; Stop 01/18/19 at 11:56; Status DC Fentanyl Citrate (Fentanyl 2ml Vial) 50 mcg PRN Q2HR PRN IV PAIN Last administered on 01/18/19at 10:07; Start 01/18/19 at 09:30 Midazolam HCl (Versed) 5 mg 1X ONCE IV Last administered on 01/18/19at 10:05; Start 01/18/19 at 09:30; Stop 01/18/19 at 09:31; Status DC Midazolam HCl (Versed) 5 mg STK-MED ONCE .ROUTE ; Start 01/18/19 at 09:25; Stop 01/18/19 at 09:26; Status DC Fentanyl Citrate (Fentanyl 2ml Vial) 100 mcg STK-MED ONCE .ROUTE ; Start at 09:25; Stop 01/18/19 at 09:26; Status DC Sodium Chloride 500 ml @ 500 mls/hr 1X ONCE IV Last administered on 01/18/19at 10:34; Start 01/18/19 at 10:15; Stop 01/18/19 at 11:14; Status DC Dobutamine HCl/ Dextrose 250 ml @ 5.939 mls/ hr CONT PRN IV SEE I/O RECORD Last administered on 01/18/19at 10:34; Start 01/18/19 at 10:15; Stop 01/18/19 at 12: 59; Status DC Ondansetron HCl (Zofran) 4 mg PRN Q6HRS PRN IV NAUSEA/VOMITING Last administered on 01/18/19at 11:10; Start 01/18/19 at 11:00 Lactulose (Lactulose) 20 gm PRN TID PRN PO confusion/elevated ammonia; Start at 11:15 Dextrose (Dextrose 50%-Water Syringe) 25 gm STK-MED ONCE IV ; Start 01/18/19 at 11:08; Stop 01/18/19 at 11:10; Status DC Dextrose (Dextrose 50%-Water Syringe) 25 gm 1X ONCE IV Last administered on 01/18/19at 11:13; Start 01/18/19 at 11:15; Stop 01/18/19 at 11:16; Status DC Sodium Chloride 500 ml @ 500 mls/hr 1X ONCE IV Last administered on 01/18/19 11:28; Start 01/18/19 at 11:30; Stop 01/18/19 at 12:29; Status DC Lactobacillus Rhamnosus (Culturelle) 1 cap BID PO Last administered on at 21:22; Start 01/18/19 at 21:00 Iohexol (Omnipaque 350 Mg/ml) 90 ml 1X ONCE IV Last administered on 01/18/19at 15:10; Start 01/18/19 at 12:00; Stop 01/18/19 at 12:01; Status DC Info (CONTRAST GIVEN -- Rx MONITORING) 1 each PRN DAILY PRN MC SEE COMMENTS; Start 01/18/19 at 12:00; Stop 01/20/19 at 11:59; Status DC Sodium Chloride 500 ml @ 500 mls/hr 1X ONCE IV Last administered on 01/18/19at 12:13; Start 01/18/19 at 12:30; Stop 01/18/19 at 13:29; Status DC Vasopressin 40 unit/Dextrose 102 ml @ 6 mls/hr CONT PRN IV SEE I/O RECORD Last administered on 01/21/19at 08:48; Start 01/18/19 at 13:00 Dextrose (Dextrose 50%-Water Syringe) 25 gm 1X ONCE IV Last administered on 01/18/19at 15:45; Start 01/18/19 at 15:45; Stop 01/18/19 at 15:46; Status DC Lidocaine/Sodium Bicarbonate (Buffered Lidocaine 1%) 3 ml STK-MED ONCE .ROUTE ; Start 01/18/19 at 15:39; Stop 01/18/19 at 15:40; Status DC Lidocaine/Sodium Bicarbonate (Buffered Lidocaine 1%) 3 ml 1X ONCE INJ Last administered on 01/18/19at 15:45; Start 01/18/19 at 15:45; Stop 01/18/19 at 15:46; Status DC Lidocaine/Sodium Bicarbonate (Buffered Lidocaine 1%) 3 ml STK-MED ONCE .ROUTE ; Start 01/18/19 at 15:39; Stop 01/18/19 at 15:40; Status DC Iohexol (Omnipaque 350 Mg/ml) 100 ml STK-MED ONCE .ROUTE ; Start 01/18/19 at 17: 00; Stop 01/18/19 at 17:01; Status DC Dextrose (Dextrose 50%-Water Syringe) 25 gm 1X ONCE IV Last administered on 01/18/19at 17:45; Start 01/18/19 at 17:45; Stop 01/18/19 at 17:46; Status DC Vancomycin HCl (Vancomycin Random Level) 1 each 1X ONCE MC ; Start 01/19/19 at 06:00; Stop 01/19/19 at 15:35; Status DC Sodium Chloride 250 ml @ 250 mls/hr 1X ONCE IV Last administered on 01/19/19at 09:40; Start 01/19/19 at 09:45; Stop 01/19/19 at 10:44; Status DC Hydrocortisone Sodium Succinate (Solu-CORTEF) 100 mg Q8HRS IV Last administered on 01/20/19at 05:36; Start 01/19/19 at 10:00; Stop 01/20/19 at 10:30 ; Status DC Vancomycin HCl 1.25 gm/Sodium Chloride 250 ml @ 167 mls/hr Q48H IV Last administered on 01/19/19 11:23; Start 01/19/19 at 12:00; Stop 01/20/19 at 09:38; Status DC Linezolid/Dextrose 300 ml @ 300 mls/hr Q12HR IV Last administered on at 08:41; Start 01/19/19 at 15:00 Daptomycin 470 mg/ Sodium Chloride 50 ml @ 100 mls/hr Q48H IV Last administered on 01/21/19at 15:28; Start 01/19/19 at 16:00 Magnesium Citrate (Citroma) 296 ml 1X ONCE PO Last administered on 01/20/19 09:27; Start 01/20/19 at 07:15; Stop 01/20/19 at 07:16; Status DC Pantoprazole Sodium 80 mg/ Sodium Chloride 100 ml @ 10 mls/hr Q10H IV Last administered on 01/21/19at 15:27; Start 01/20/19 at 09:00 Hydrocortisone Sodium Succinate (Solu-CORTEF) 50 mg Q8HRS IV Last administered on 01/21/19at 13:07; Start 01/20/19 at 14:00 Sodium Cl/Sod Bicarb/Potass Cl/ PEG (Golytely) 4,000 ml 1X ONCE PO Last administered on 01/20/19 21:27; Start 01/20/19 at 19:00; Stop 01/20/19 at 19:01 ; Status DC Darbepoetin Les (Aranesp) 60 mcg [id number] SQ ; Start 01/21/19 at 21:00 Rifaximin (Xifaxan) 550 mg Q12HR PO Last administered on 01/21/19at 15:27; Start 01/21/19 at 15:00 Active Scripts Active [place] 5-325 Tablet (Acetaminophen/Hydrocodone Bitart) 1 Each Tablet 1-2 Each PO PRN Q6HRS PRN as needed for pain Reported [calcium carbon] Triamcinolone Acetonide 0.5% Cream (Triamcinolone Acetonide) 15 Gm Cream..g. 1 Olu TP BID Renvela (Sevelamer Carbonate) 800 Mg Tablet 2 Tab PO TID Protonix (Pantoprazole Sodium) 40 Mg Granpkt.dr 40 Mg PO DAILY Calcium Carbonate 500 Mg Tablet 5,000 Mg PO TIDWMEALS Skin Treatment (Ammonium Lactate) 225 Gm Lotion 225 Gm TP BID Aspirin 81 Mg Tab.chew 1 Tab PO DAILY Atorvastatin Calcium 20 Mg Tablet 1 Tab PO QHS Sodium Bicarbonate 650 Mg Tablet 1,950 Mg PO TIDWMEALS Vitals/I & O Vital Sign - Last 24 Hours 01/20/19 01/20/19 01/20/19 01/20/19 16:45 17:00 17:51 18:00 Temp 94.2 94.3 94.2 94.3 Pulse 100 101 98 93 Resp 15 13 12 12 B/P (MAP) 89/53 117/62 (80) 107/56 112/52 (72) Pulse Ox 100 100 O2 Delivery Room Air Room Air 01/20/19 01/20/19 01/20/19 01/20/19 19:00 19:36 20:00 20:00 Temp 97.2 97.2 Pulse 98 97 Resp 16 17 B/P (MAP) 112/50 (70) 105/55 (72) Pulse Ox 100 96 100 O2 Delivery Room Air Room Air Room Air Room Air 01/20/19 01/20/19 01/20/19 01/20/19 21:00 21:00 22:00 23:03 Pulse 98 102 98 101 Resp 12 16 16 10 B/P (MAP) 85/66 (72) 95/52 (66) 107/51 (69) 94/49 (64) Pulse Ox 100 100 100 100 O2 Delivery Room Air Room Air Room Air Room Air 01/21/19 01/21/19 01/21/19 01/21/19 00:00 00:00 01:00 02:00 Temp 97.1 97.1 Pulse 102 98 96 Resp 11 10 12 B/P (MAP) 81/48 (59) 94/47 (63) 91/50 (64) Pulse Ox 100 100 100 O2 Delivery Room Air Room Air Room Air Room Air 01/21/19 01/21/19 01/21/19 01/21/19 03:00 04:00 04:00 04:15 Temp 97.1 97.1 Pulse 100 98 97 Resp 10 11 10 B/P (MAP) 94/49 (64) 72/43 (53) 105/55 (72) Pulse Ox 100 100 100 O2 Delivery Room Air Room Air Room Air Room Air 01/21/19 01/21/19 01/21/19 01/21/19 05:00 06:02 06:05 06:30 Pulse 95 96 96 98 Resp 10 10 B/P (MAP) 110/65 (80) 103/58 (73) 103/58 74/39 (51) Pulse Ox 100 100 O2 Delivery Room Air Room Air 01/21/19 01/21/19 01/21/19 01/21/19 06:45 07:01 08:00 08:00 Temp 97.6 97.6 Pulse 98 95 96 Resp 20 20 B/P (MAP) 115/58 (77) 119/59 (79) 116/57 (76) Pulse Ox 100 100 O2 Delivery Room Air Room Air Room Air 01/21/19 01/21/19 01/21/19 01/21/19 08:48 09:00 10:00 11:00 Pulse 95 95 96 Resp 20 20 20 B/P (MAP) 114/60 (78) 104/53 (70) 92/52 (65) Pulse Ox 100 100 100 100 O2 Delivery Room Air Room Air Room Air Room Air 01/21/19 01/21/19 01/21/19 01/21/19 12:00 12:00 13:00 13:00 Temp 97.0 97.0 Pulse 94 102 Resp 17 20 B/P (MAP) 86/47 (60) 95/61 (72) Pulse Ox 100 100 100 O2 Delivery Room Air Room Air Room Air Room Air 01/21/19 01/21/19 01/21/19 01/21/19 14:00 15:00 16:00 16:00 Temp 97.4 97.4 Pulse 103 103 105 Resp 17 17 17 B/P (MAP) 97/58 (71) 92/58 (69) 90/57 (68) Pulse Ox 100 100 100 O2 Delivery Room Air Room Air Room Air Room Air Intake and Output 01/20/19 01/20/19 01/21/19 14:59 22:59 06:59 Intake Total 350 ml 2214 ml 2620 ml Balance 350 ml 2214 ml 2620 ml Nutrition Consultation Dietary Evaluation: Recommendations by RD: Increase Calorie Intake, Protein supplementation Comments: Recommend vanilla Nepro milk shake @ lunch for increased calorie and protein intake as pt. has diminished appetite Expected Outcomes/Goals: P.O. intake to meet >75% estimated needs Malnutrition Findings: Body Fat Depletion (Non Severe: Mild Depletion Weight Status: Overweight CRICKET ECHOLS MD Jan 21, 2019 16:45
--- NOTE | 2019-01-21 18:24 | NUR ---
pt had a dark red, [place]is color with a few small clots bowel movement. small in amount. pt cleansed. pt denies pain or discomfort.
[2019-01-21] MEDS: MICAFUNGIN 100 MG in IV DEXTROSE 5% 100ML 100 ML IV SCH (20:29)
[2019-01-21] MEDS ORDERED: DARBEPOETIN ALFA 60 MCG/0.3 ML DISP.SYRIN. SQ SCH (21:00)
[2019-01-22] VITALS (27 sets, daily range): BP systolic 76–135; BP diastolic 44–94
[2019-01-22] MEDS: NOREPINEPHRIN 8MG/250ML PREMIX 250 ML IV PRN ×2 (00:13→08:18)
[2019-01-22] MEDS: IV NORMAL SALINE 1000ML BAG 1,000 ML IV SCH (00:15)
[2019-01-22] MEDS: PANTOPRAZOLE SODIUM IV DRIP 80 MG in IV NORMAL SALINE 100ML 100 ML IV SCH ×3 (00:31→18:32)
[2019-01-22] MEDS: VASOPRESSIN 40 UNIT in IV DEXTROSE 5% 100ML 100 ML IV PRN ×2 (02:50→18:48)
[2019-01-22 05:40] LABS: HEMATOCRIT 22.8 % (39.0-53.0); HEMOGLOBIN 7.2 g/dL (13.0-17.5); RED BLOOD COUNT 2.3 x10^6/uL (4.30-5.70); RED CELL DISTRIBUTION WIDTH 18.5 % (11.5-14.5); WHITE BLOOD COUNT 30.7 x10^3/uL (4.0-11.0)
[2019-01-22 05:45] LABS: CALCIUM 8.8 mg/dL (8.5-10.1); CREATININE 9.4 mg/dL (0.7-1.3); GFR 5.5; POTASSIUM 3.5 mmol/L (3.5-5.1)
[2019-01-22] MEDS ORDERED: DEXTROSE 50% 25 GM / 50ML DISP.SYRIN. IV ONE (05:50)
[2019-01-22] MEDS: PIPERACILLIN/TAZOBACTAM 2.25 GM in IV NORMAL SALINE 50ML 50 ML IV SCH ×3 (06:14→21:52)
[2019-01-22] MEDS: HYDROCORTISONE SOD SUCC/PF 100 MG/2 ML VIAL. IV SCH ×3 (06:15→21:51)
[2019-01-22] MEDS: DEXTROSE 50% 25 GM / 50ML DISP.SYRIN. IV PRN ×4 (06:22→17:12)
--- NOTE | 2019-01-22 06:26 | PDOC ---
Infectious Disease Note Subjective Subjective No fevers last 24 hours + bloody stools/clot times one overnight per RN Less responsive Vital Sign Vital Signs Vital Signs Date Time Temp Pulse Resp B/P (MAP) Pulse Ox O2 Delivery O2 Flow Rate FiO2 01/22/19 04:00 Room Air 01/22/19 03:00 103 11 116/76 (89) 99 01/22/19 00:00 98.2 98.2 Physical Exam PHYSICAL EXAM GENERAL: In bed, arousable HEENT: No conjunctival petechia. Oral cavity dry NECK: Supple. LUNGS: Clear bilaterally anteriorly. HEART: S1, S2. Loud systolic murmur. ABDOMEN: Soft/distended and nontender. PD cath, left side EXTREMITIES: No edema, no cyanosis. DERM: Warm, dry, no generalized rash. NEUROLOGIC: Alert, speech somewhat garbled LIJ/temp HDC (01/18) Labs Lab Laboratory Tests Test 01/22/19 05:00 White Blood Count 30.7 x10^3/uL (4.0-11.0) Red Blood Count 2.30 x10^6/uL (4.30-5.70) Hemoglobin 7.2 g/dL (13.0-17.5) Hematocrit 22.8 % (39.0-53.0) Mean Corpuscular Volume 99 fL (79-100) Mean Corpuscular Hemoglobin 31 pg (25-35) Mean Corpuscular Hemoglobin Concent 32 g/dL (31-37) Red Cell Distribution Width 18.5 % (11.5-14.5) Platelet Count 58 x10^3/uL (140-400) Sodium Level 138 mmol/L (136-145) Potassium Level 3.5 mmol/L (3.5-5.1) Chloride Level 102 mmol/L (98-107) Carbon Dioxide Level 12 mmol/L (21-32) Anion Gap 24 (6-14) Blood Urea Nitrogen 66 mg/dL (8-26) Creatinine 9.4 mg/dL (0.7-1.3) Estimated GFR (Cockcroft-Gault) 5.5 Glucose Level 32 mg/dL (70-99) Calcium Level 8.8 mg/dL (8.5-10.1) Micro Microbiology 01/19/19 Blood Culture - Preliminary, Resulted NO GROWTH AFTER 1 DAY 01/15/19 Anaerobic/Aerobic Culture, Resulted Pending 01/15/19 Anaerobic Culture Result 1 (LAURIE), Resulted Pending 01/15/19 Aerobic Culture - Final, Resulted 01/15/19 Aerobic Culture Result 1 (LAURIE) - Final, Resulted 01/15/19 Gram Stain - Final, Resulted 01/15/19 Gram Stain Result 1 (LAURIE) - Final, Resulted 01/15/19 Gram Stain Result 2 (LAURIE) - Final, Resulted Objective Assessment Septic shock from GPC bacteremia (4 of 4 bottles) 01/17/2019,source ?? repeat BC from 01/19 in process neg so far on 17 of Levophed still -BC negative 01/14/2019 Hypotension POA appears multifactorial with underlying severe aortic stenosis, end-stage renal disease on PD. Failed midodrine treatment. Leukocytosis, mild increase - but on Hydrocortisone and S/p PRBCs 01/21 and hypoglycemia -CT Chest/abdo and pelvis with contrast - unrevealing -BC GPC 01/17 Lactic acidosis Hematochezia - s/p PRBCs 01/20 and 01/21 End-stage renal disease, on PD; s/p temp HDC line placement, 01/18. -Peritoneal dialysate, WBC 3. culture no growth Hyperlipidemia. Metabolic acidosis. Chronic liver disease, hyperammonemia, transaminitis AAA, status post stent. Hypoglycemia. Protein-calorie malnutrition. Plan Plan of Care Continue dapto (01/19), Zyvox (01/19) Zosyn and micafungin Probiotics Awaiting GPC ID/susceptibilities BC from 01/19 in process - neg so far No surgical recs Supportive care GI following, bowel prep when stable per GI JOANNA when stable per Cardiology CBC D/W RN Condition critical Chart reviewed previously from [facility] by Dr. Tomlinson He was admitted with hypotension last month there W/U including infectious was neg including uc,bc JOANNA was negative for any vegetation LARRY FRANCES MD Jan 22, 2019 06:26
--- NOTE | 2019-01-22 07:48 | RAD ---
Portable chest, 01/22/2019: HISTORY: Congestive heart failure Comparison is made to a study from 01/18/2019. A left jugular dialysis type catheter extends into the superior vena cava. The heart size is normal. There is calcific plaquing of the aorta. Scattered calcified granulomata are present in the lungs. There are a few scattered parenchymal scars. No acute infiltrate is seen. There is no evidence of pleural fluid. Moderate scattered degenerative changes are present in the spine. IMPRESSION: No acute cardiopulmonary abnormality is detected with no significant change since 01/18/2019. Electronically signed by: Jorge A Cordova MD (01/22/2019 7:45 AM) [facility]
[2019-01-22] MEDS: CALCIUM CARBONATE 500 MG TABLET PO SCH ×3 (08:00→17:00)
[2019-01-22] MEDS: SODIUM BICARBONATE 650 MG TABLET. PO SCH ×3 (08:00→17:00)
[2019-01-22] MEDS: IPRATRPIUM/ALBUTEROL 0.5/2.5MG 3 ML NEBU. NEB SCH ×4 (08:36→19:26)
[2019-01-22] MEDS: TRIAMCINOLONE ACETONIDE 0.1% TOPICAL CREAM 15GM TUBE. TP SCH ×2 (09:00→21:48)
[2019-01-22] MEDS: GENTAMICIN 0.1% TOPICAL OINTMENT 15GM TUBE. TP SCH (09:00)
[2019-01-22] MEDS: SEVELAMER CARBONATE 800 MG TABLET. PO SCH ×3 (09:00→21:48)
[2019-01-22] MEDS: LACTOBACILLUS RHAMNOSUS GG 1 CAPSULE. PO SCH ×2 (09:00→21:48)
[2019-01-22] MEDS: rifAXIMin 550 MG TABLET PO SCH ×2 (09:00→21:48)
[2019-01-22] MEDS: AMMONIUM LACTATE 12% TOPICAL LOTION 226GM BOTTLE. TP SCH ×2 (09:00→21:48)
[2019-01-22] MEDS ORDERED: IV DEXTROSE 5 %-0.45 % NACL 1,000 ML IV SCH (09:45)
--- NOTE | 2019-01-22 10:13 | PDOC ---
CARDIOLOGY PROGRESS NOTE SUBJECTIVE: Patient was less responsive today when he was seen. He denied any current chest pain, heart palpitations, shortness of breath, or dizziness. He was tachycardic overnight w/ HR ranging from 100-105 and was tachycardic while I was in the room w/ a HR of 104. His nurse stated he had blood in his stool x1 overnight. He also was hypoglycemic when blood sugar was checked this morning w/ no change in responsiveness when sugars normalized per nurse. OBJECTIVE: Vital SIgns: Vital Signs Date Time Temp Pulse Resp B/P (MAP) Pulse Ox O2 Delivery O2 Flow Rate FiO2 01/22/19 08:37 98 Room Air 01/22/19 06:00 98 14 110/63 (79) 01/22/19 04:00 98.5 98.5 I & O Intake and Output 01/22/19 06:59 Intake Total 3245 ml Balance 3245 ml Intake Oral 180 ml IV Total 3065 ml # Bowel Movements 2 Objective: HEART: Tachycardic w/ a systolic murmur heard loudest over apex 3/6 LUNGS: Decreased breath sounds hear throughout Abdomen: Distended, TTP in all quadrants, BS+ EXTREMITIES: 2/4 pulses present, 2+ pitting edema in his LE at the level of his ankle CURRENT MEDICATIONS: No changes in pressors. On levophed IVF DIAGNOSTIC TESTING: Hgb 7.6 Plt less than 70 WBC persistently elevated ASSESSMENT: 1. Septic Shock - Secondary to bacteremia of unknown source 2. Severe aortic stenosis 3. Anemia - (Ddx - stress induced ulcer bleed, hemolysis, DIC) 4. Possible DIC due to #1 PLAN: 1. Supportive care for hypotension. 2. With regards to plans for JOANNA, given his shock he would be at high risk for cardiac arrest from hypotension after anesthesia induction. If JOANNA is absolutely needed, then will discuss high risk nature with patient and family and proceed as indicated. If there is valvular abscess, that would be an indication for open valve replacement, which given the patient's debility, I am unsure he would survive. Therefore, if patient is not improving, ruling out aortic root abscess would be an indication for JOANNA or could consider CT of the aorta with contrast. Critically ill. Supportive care. CARISSA URBINA MD Jan 22, 2019 10:13
--- NOTE | 2019-01-22 10:42 | PDOC ---
Renal-Progress Notes Subjective Notes Notes CONFUSED History of Present Illness Hx of present illness NOT ANY BETTER Vitals Vitals Vital Signs Date Time Temp Pulse Resp B/P (MAP) Pulse Ox O2 Delivery O2 Flow Rate FiO2 01/22/19 08:37 98 Room Air 01/22/19 08:00 2.0 01/22/19 06:00 98 14 110/63 (79) 01/22/19 04:00 98.5 98.5 Weight Weight [ ] I.O. Intake and Output Intake and Output 01/22/19 06:59 Intake Total 3245 ml Balance 3245 ml Intake Oral 180 ml IV Total 3065 ml # Bowel Movements 2 Labs Labs Laboratory Tests Test 01/22/19 05:00 01/22/19 05:49 01/22/19 06:20 01/22/19 08:08 White Blood Count 30.7 x10^3/uL (4.0-11.0) Red Blood Count 2.30 x10^6/uL (4.30-5.70) Hemoglobin 7.2 g/dL (13.0-17.5) Hematocrit 22.8 % (39.0-53.0) Mean Corpuscular Volume 99 fL (79-100) Mean Corpuscular Hemoglobin 31 pg (25-35) Mean Corpuscular Hemoglobin Concent 32 g/dL (31-37) Red Cell Distribution Width 18.5 % (11.5-14.5) Platelet Count 58 x10^3/uL (140-400) Sodium Level 138 mmol/L (136-145) Potassium Level 3.5 mmol/L (3.5-5.1) Chloride Level 102 mmol/L (98-107) Carbon Dioxide Level 12 mmol/L (21-32) Anion Gap 24 (6-14) Blood Urea Nitrogen 66 mg/dL (8-26) Creatinine 9.4 mg/dL (0.7-1.3) Estimated GFR (Cockcroft-Gault) 5.5 Glucose Level 32 mg/dL (70-99) Calcium Level 8.8 mg/dL (8.5-10.1) Glucose (Fingerstick) 26 mg/dL (70-99) 71 mg/dL (70-99) 37 mg/dL (70-99) Test 01/22/19 08:30 01/22/19 08:32 Glucose Level 112 mg/dL (70-99) Glucose (Fingerstick) 94 mg/dL (70-99) Micro Micro Microbiology 01/19/19 Blood Culture - Preliminary, Resulted NO GROWTH AFTER 3 DAYS 01/15/19 Anaerobic/Aerobic Culture - Final, Complete 01/15/19 Anaerobic Culture Result 1 (LAURIE) - Final, Complete 01/15/19 Aerobic Culture - Final, Complete 01/15/19 Aerobic Culture Result 1 (LAURIE) - Final, Complete 01/15/19 Gram Stain - Final, Complete 01/15/19 Gram Stain Result 1 (LAURIE) - Final, Complete 01/15/19 Gram Stain Result 2 (LAURIE) - Final, Complete Review of Systems Constitutional: yes: alert, other (CONFUSED) Physical Exam General Appearance: no apparent distress Skin: warm Respiratory: bilateral CTA Heart: S1S2 Abdomen: soft, bowel sounds present Genitourinary: bladder flat Neurology: alert, follow commands Assessment Assessment IMP ESRD HYPOTENSION AORTIC STENOSIS SEPSIS ANEMIA HEMATOCHEZIA LEUCOCYTOSIS PLAN GI W/U PRBC NEEDED ARANESP CONT WITH CCPD CONT MIDODRINE WILL FOLLOW TEAGAN GAMEZ MD Jan 22, 2019 10:42
--- NOTE | 2019-01-22 11:14 | PDOC ---
PROGRESS NOTES Chief Complaint Chief Complaint Hypotension - improving on 2 pressors Gram positive sepsi /septic/ hypovolemic shock, no pulmonary embolism.no tamponade GI Bleed -01/19 Lactic acid elevation without evidence of toxicity Severe hypoglycemia Dizziness Leukocytosis - trending up Anemia of chronic disease Nausea and vomiting History of aortic stenosis: Being considered for TAVR , not a candidate due to moderate reading via JOANNA. Severe per f/u TTE Metabolic acidosis Elevated troponin: peaked at 0.2, demand mediated, type 2 with above culprits. no CP nor SOA Coagulopathy: INR 2.2. Macrocytic anemia ESRD: PD - Creatinine elevated moderate to severe Protein malnutrition CAD: stents in the past, clinically stable. Hx of HTN Hx of AAA with repair pat consulted/ START PALLIATIVE MEASURES, VERY POOR PROGNOSIS 36 MIN CC TIME, PT CARE COORDINATION/PAT CONSULT History of Present Illness History of Present Illness Patient was seen and examined in the ICU. Patient remains on vasopressin and levophed, slowly titrating down, SBP 76-117. Patient has significant amount of bright red blood per rectum 01/19per nurse, GI following, possible scope. Patient is clinically improving and awake. He is able to answer questions. Discussed case with RN. Blood cultures positive for gram positive cocci. WBC elevated at 28.7 37 min cc time Vitals Vitals Vital Signs Date Time Temp Pulse Resp B/P (MAP) Pulse Ox O2 Delivery O2 Flow Rate FiO2 01/22/19 08:37 98 Room Air 01/22/19 08:00 2.0 01/22/19 06:00 98 14 110/63 (79) 01/22/19 04:00 98.5 98.5 Physical Exam Physical Exam GENERAL: In bed, arousable HEENT: No conjunctival petechia. Oral cavity dry NECK: Supple. LUNGS: Clear bilaterally anteriorly. HEART: S1, S2. Loud systolic murmur. ABDOMEN: Soft/distended and nontender. PD cath, left side EXTREMITIES: No edema, no cyanosis. DERM: Warm, dry, no generalized rash. NEUROLOGIC: Alert, speech somewhat garbled LIJ/temp HDC (01/18) General: Alert, Cooperative, mild distress, Other (patient able to verbalize) Heart: Normal S1, Normal S2, Other (GR 4/6 CAMILA) Lungs: Clear Abdomen: Normal bowel sounds, Soft, No masses, Other (bright red blood per rectum) Extremities: No clubbing, No cyanosis, No edema Skin: No rashes, No significant lesion Labs LABS Laboratory Tests Test 01/22/19 05:00 01/22/19 05:49 01/22/19 06:20 01/22/19 08:08 White Blood Count 30.7 x10^3/uL (4.0-11.0) Red Blood Count 2.30 x10^6/uL (4.30-5.70) Hemoglobin 7.2 g/dL (13.0-17.5) Hematocrit 22.8 % (39.0-53.0) Mean Corpuscular Volume 99 fL (79-100) Mean Corpuscular Hemoglobin 31 pg (25-35) Mean Corpuscular Hemoglobin Concent 32 g/dL (31-37) Red Cell Distribution Width 18.5 % (11.5-14.5) Platelet Count 58 x10^3/uL (140-400) Sodium Level 138 mmol/L (136-145) Potassium Level 3.5 mmol/L (3.5-5.1) Chloride Level 102 mmol/L (98-107) Carbon Dioxide Level 12 mmol/L (21-32) Anion Gap 24 (6-14) Blood Urea Nitrogen 66 mg/dL (8-26) Creatinine 9.4 mg/dL (0.7-1.3) Estimated GFR (Cockcroft-Gault) 5.5 Glucose Level 32 mg/dL (70-99) Calcium Level 8.8 mg/dL (8.5-10.1) Glucose (Fingerstick) 26 mg/dL (70-99) 71 mg/dL (70-99) 37 mg/dL (70-99) Test 01/22/19 08:30 01/22/19 08:32 Glucose Level 112 mg/dL (70-99) Glucose (Fingerstick) 94 mg/dL (70-99) Assessment and Plan Assessmemt and Plan Problems Medical Problems: (1) Chronic kidney disease with end stage renal failure on dialysis Status: Acute (2) Generalized weakness Status: Acute (3) Hypotension Status: Acute (4) Nausea and vomiting Status: Acute Comment Review of Relevant I have reviewed the following items ethan (where applicable) has been applied. Labs Laboratory Tests Test 01/20/19 13:30 01/20/19 23:19 01/20/19 23:20 01/21/19 05:55 Hemoglobin 6.7 g/dL (13.0-17.5) 8.2 g/dL (13.0-17.5) 8.4 g/dL (13.0-17.5) Glucose (Fingerstick) 154 mg/dL (70-99) Test 01/22/19 05:00 01/22/19 05:49 01/22/19 06:20 01/22/19 08:08 White Blood Count 30.7 x10^3/uL (4.0-11.0) Red Blood Count 2.30 x10^6/uL (4.30-5.70) Hemoglobin 7.2 g/dL (13.0-17.5) Hematocrit 22.8 % (39.0-53.0) Mean Corpuscular Volume 99 fL (79-100) Mean Corpuscular Hemoglobin 31 pg (25-35) Mean Corpuscular Hemoglobin Concent 32 g/dL (31-37) Red Cell Distribution Width 18.5 % (11.5-14.5) Platelet Count 58 x10^3/uL (140-400) Sodium Level 138 mmol/L (136-145) Potassium Level 3.5 mmol/L (3.5-5.1) Chloride Level 102 mmol/L (98-107) Carbon Dioxide Level 12 mmol/L (21-32) Anion Gap 24 (6-14) Blood Urea Nitrogen 66 mg/dL (8-26) Creatinine 9.4 mg/dL (0.7-1.3) Estimated GFR (Cockcroft-Gault) 5.5 Glucose Level 32 mg/dL (70-99) Calcium Level 8.8 mg/dL (8.5-10.1) Glucose (Fingerstick) 26 mg/dL (70-99) 71 mg/dL (70-99) 37 mg/dL (70-99) Test 01/22/19 08:30 01/22/19 08:32 Glucose Level 112 mg/dL (70-99) Glucose (Fingerstick) 94 mg/dL (70-99) Laboratory Tests Test 01/22/19 05:00 01/22/19 05:49 01/22/19 06:20 01/22/19 08:08 White Blood Count 30.7 x10^3/uL (4.0-11.0) Red Blood Count 2.30 x10^6/uL (4.30-5.70) Hemoglobin 7.2 g/dL (13.0-17.5) Hematocrit 22.8 % (39.0-53.0) Mean Corpuscular Volume 99 fL (79-100) Mean Corpuscular Hemoglobin 31 pg (25-35) Mean Corpuscular Hemoglobin Concent 32 g/dL (31-37) Red Cell Distribution Width 18.5 % (11.5-14.5) Platelet Count 58 x10^3/uL (140-400) Sodium Level 138 mmol/L (136-145) Potassium Level 3.5 mmol/L (3.5-5.1) Chloride Level 102 mmol/L (98-107) Carbon Dioxide Level 12 mmol/L (21-32) Anion Gap 24 (6-14) Blood Urea Nitrogen 66 mg/dL (8-26) Creatinine 9.4 mg/dL (0.7-1.3) Estimated GFR (Cockcroft-Gault) 5.5 Glucose Level 32 mg/dL (70-99) Calcium Level 8.8 mg/dL (8.5-10.1) Glucose (Fingerstick) 26 mg/dL (70-99) 71 mg/dL (70-99) 37 mg/dL (70-99) Test 01/22/19 08:30 01/22/19 08:32 Glucose Level 112 mg/dL (70-99) Glucose (Fingerstick) 94 mg/dL (70-99) Microbiology 01/19/19 Blood Culture - Preliminary, Resulted NO GROWTH AFTER 3 DAYS 01/15/19 Anaerobic/Aerobic Culture - Final, Complete 01/15/19 Anaerobic Culture Result 1 (LAURIE) - Final, Complete 01/15/19 Aerobic Culture - Final, Complete 01/15/19 Aerobic Culture Result 1 (LAURIE) - Final, Complete 01/15/19 Gram Stain - Final, Complete 01/15/19 Gram Stain Result 1 (LAURIE) - Final, Complete 01/15/19 Gram Stain Result 2 (LAURIE) - Final, Complete Medications Current Medications Ondansetron HCl (Zofran) 4 mg 1X ONCE IM ; Start 01/14/19 at 15:00; Stop at 15:01; Status Cancel Ondansetron HCl (Zofran) 4 mg 1X ONCE IM ; Start 01/14/19 at 15:45; Stop at 15:46; Status Cancel Ondansetron HCl (Zofran) 4 mg 1X ONCE IV Last administered on 01/14/19 15:47; Start 01/14/19 at 15:45; Stop 01/14/19 at 15:46; Status DC Gentamicin Sulfate (Garamycin) 1 olu DAILY TP ; Start 01/15/19 at 09:00; Stop 01/15/19 at 13:52; Status DC Lactic Acid (Lac-Hydrin) 1 olu BID TP Last administered on 01/21/19 20:37; Start 01/15/19 at 10:00 Aspirin (Children'S Aspirin) 81 mg DAILY PO Last administered on 01/19/19 08:33 ; Start 01/15/19 at 10:00 Atorvastatin Calcium (Lipitor) 20 mg QHS PO Last administered on 01/17/19 21:06 ; Start 01/15/19 at 21:00; Stop 01/18/19 at 16:53; Status DC Calcium Carbonate/ Glycine (Oscal) 500 mg TIDWMEALS PO Last administered on 01/19 17:04; Start 01/15/19 at 12:00 Acetaminophen/ Hydrocodone Bitart (Lortab 5/325) 1 tab PRN Q6HRS PRN PO MODERATE TO SEVERE PAIN Last administered on 01/16/19 20:25; Start 01/15/19 at 08 :45 Sevelamer Carbonate (Renvela) 1,600 mg TID PO Last administered on 01/21/19 20 :31; Start 01/15/19 at 09:00 Sodium Bicarbonate (Sodium Bicarbonate) 1,950 mg TIDWMEALS PO Last administered on 01/19/19 17:06; Start 01/15/19 at 12:00 Pantoprazole Sodium (Protonix) 40 mg DAILYAC PO Last administered on 01/19/19 08:33; Start 01/15/19 at 10:00; Stop 01/20/19 at 08:12; Status DC Triamcinolone Acetonide (Kenalog) 1 olu BID TP Last administered on 01/21/19 20:37; Start 01/15/19 at 10:00 Albuterol/ Ipratropium (Duoneb) 3 ml RTQID NEB Last administered on 01/22/19 08:36; Start 01/15/19 at 12:00 Acetaminophen (Tylenol) 1,000 mg PRN Q6HRS PRN PO HEADACHE/TEMP Last administered on 01/16/19 09:50; Start 01/15/19 at 11:15 Midodrine (Proamatine) 2.5 mg [id number] PO Last administered on 01/16/19at 09:50; Start 01/15/19 at 14:00; Stop 01/16/19 at 10:34; Status DC Gentamicin Sulfate (Garamycin) 1 olu DAILY TP Last administered on 01/21/19 12 :53; Start 01/16/19 at 09:00 Midodrine (Proamatine) 5 mg [id number] PO Last administered on 01/21/19 06:05; Start 01/16/19 at 13:00 Lactulose (Lactulose) 20 gm TID PO Last administered on 01/17/19at 20:35; Start 01/17/19 at 14:15; Stop 01/18/19 at 11:06; Status DC Norepinephrine Bitartrate 250 ml @ 1.875 mls/ hr CONT PRN IV SEE I/O RECORD Last administered on 01/22/19at 08:18; Start 01/17/19 at 14:30 Dextrose (Dextrose 50%-Water Syringe) 25 gm 1X ONCE IV Last administered on 14:45; Start 01/17/19 at 14:45; Stop 01/17/19 at 14:46; Status DC Dextrose (Dextrose 50%-Water Syringe) 25 gm 1X ONCE IV Last administered on 15:15; Start 01/17/19 at 15:30; Stop 01/17/19 at 15:31; Status DC Piperacillin Sod/ Tazobactam Sod (Zosyn Per Pharmacy) 1 each PRN DAILY PRN MC SEE COMMENTS; Start 01/17/19 at 16:00 Piperacillin Sod/ Tazobactam Sod 2.25 gm/Sodium Chloride 50 ml @ 100 mls/hr Q8HRS IV Last administered on 3/12/19at 06:14; Start 01/17/19 at 17:00 Dextrose/Sodium Chloride 1,000 ml @ 50 mls/hr Q20H IV Last administered on 01/19at 08:37; Start 01/17/19 at 16:30; Stop 01/21/19 at 03:05; Status DC Dextrose (Dextrose 50%-Water Syringe) 25 gm 1X ONCE IV Last administered on 01/17/19at 17:14; Start 01/17/19 at 17:15; Stop 01/17/19 at 17:16; Status DC Vancomycin HCl (Vanco Per Pharmacy) 1 each PRN DAILY PRN MC SEE COMMENTS Last administered on 01/19/19at 11:09; Start 01/17/19 at 18:00; Stop 01/19/19 at 15:35; Status DC Sodium Chloride 1,000 ml @ 1,000 mls/hr 1X ONCE IV Last administered on at 17:00; Start 01/17/19 at 18:00; Stop 01/17/19 at 18:59; Status DC Vancomycin HCl 2 gm/Sodium Chloride 500 ml @ 250 mls/hr 1X ONCE IV Last administered on 01/17/19at 18:50; Start 01/17/19 at 18:00; Stop 01/17/19 at 19:59; Status DC Micafungin Sodium 100 mg/Dextrose 100 ml @ 100 mls/hr Q24H IV Last administered on 01/21/19at 20:29; Start 01/17/19 at 20:00 Sodium Chloride 1,000 ml @ 100 mls/hr Q10H IV Last administered on 01/22/19at 00:15; Start 01/18/19 at 06:45 Dextrose (Dextrose 50%-Water Syringe) 25 gm 1X ONCE IV Last administered on 01/18/19at 07:00; Start 01/18/19 at 07:00; Stop 01/18/19 at 07:08; Status DC Iohexol (Omnipaque 300 Mg/ml) 75 ml 1X ONCE IV Last administered on 01/18/19at 08:15; Start 01/18/19 at 08:15; Stop 01/18/19 at 08:16; Status DC Info (CONTRAST GIVEN -- Rx MONITORING) 1 each PRN DAILY PRN MC SEE COMMENTS; Start 01/18/19 at 08:15; Stop 01/18/19 at 11:56; Status DC Fentanyl Citrate (Fentanyl 2ml Vial) 50 mcg PRN Q2HR PRN IV PAIN Last administered on 01/18/19 10:07; Start 01/18/19 at 09:30 Midazolam HCl (Versed) 5 mg 1X ONCE IV Last administered on 01/18/19 10:05; Start 01/18/19 at 09:30; Stop 01/18/19 at 09:31; Status DC Midazolam HCl (Versed) 5 mg STK-MED ONCE .ROUTE ; Start 01/18/19 at 09:25; Stop 01/18/19 at 09:26; Status DC Fentanyl Citrate (Fentanyl 2ml Vial) 100 mcg STK-MED ONCE .ROUTE ; Start at 09:25; Stop 01/18/19 at 09:26; Status DC Sodium Chloride 500 ml @ 500 mls/hr 1X ONCE IV Last administered on 01/18/19at 10:34; Start 01/18/19 at 10:15; Stop 01/18/19 at 11:14; Status DC Dobutamine HCl/ Dextrose 250 ml @ 5.939 mls/ hr CONT PRN IV SEE I/O RECORD Last administered on 01/18/19at 10:34; Start 01/18/19 at 10:15; Stop 01/18/19 at 12: 59; Status DC Ondansetron HCl (Zofran) 4 mg PRN Q6HRS PRN IV NAUSEA/VOMITING Last administered on 01/18/19at 11:10; Start 01/18/19 at 11:00 Lactulose (Lactulose) 20 gm PRN TID PRN PO confusion/elevated ammonia; Start at 11:15 Dextrose (Dextrose 50%-Water Syringe) 25 gm STK-MED ONCE IV ; Start 01/18/19 at 11:08; Stop 01/18/19 at 11:10; Status DC Dextrose (Dextrose 50%-Water Syringe) 25 gm 1X ONCE IV Last administered on 01/18/19at 11:13; Start 01/18/19 at 11:15; Stop 01/18/19 at 11:16; Status DC Sodium Chloride 500 ml @ 500 mls/hr 1X ONCE IV Last administered on 01/18/19at 11:28; Start 01/18/19 at 11:30; Stop 01/18/19 at 12:29; Status DC Lactobacillus Rhamnosus (Culturelle) 1 cap BID PO Last administered on at 20:31; Start 01/18/19 at 21:00 Iohexol (Omnipaque 350 Mg/ml) 90 ml 1X ONCE IV Last administered on 01/18/19at 15:10; Start 01/18/19 at 12:00; Stop 01/18/19 at 12:01; Status DC Info (CONTRAST GIVEN -- Rx MONITORING) 1 each PRN DAILY PRN MC SEE COMMENTS; Start 01/18/19 at 12:00; Stop 01/20/19 at 11:59; Status DC Sodium Chloride 500 ml @ 500 mls/hr 1X ONCE IV Last administered on 01/18/19at 12:13; Start 01/18/19 at 12:30; Stop 01/18/19 at 13:29; Status DC Vasopressin 40 unit/Dextrose 102 ml @ 6 mls/hr CONT PRN IV SEE I/O RECORD Last administered on 01/22/19at 02:50; Start 01/18/19 at 13:00 Dextrose (Dextrose 50%-Water Syringe) 25 gm 1X ONCE IV Last administered on 01/18/19at 15:45; Start 01/18/19 at 15:45; Stop 01/18/19 at 15:46; Status DC Lidocaine/Sodium Bicarbonate (Buffered Lidocaine 1%) 3 ml STK-MED ONCE .ROUTE ; Start 01/18/19 at 15:39; Stop 01/18/19 at 15:40; Status DC Lidocaine/Sodium Bicarbonate (Buffered Lidocaine 1%) 3 ml 1X ONCE INJ Last administered on 01/18/19at 15:45; Start 01/18/19 at 15:45; Stop 01/18/19 at 15:46; Status DC Lidocaine/Sodium Bicarbonate (Buffered Lidocaine 1%) 3 ml STK-MED ONCE .ROUTE ; Start 01/18/19 at 15:39; Stop 01/18/19 at 15:40; Status DC Iohexol (Omnipaque 350 Mg/ml) 100 ml STK-MED ONCE .ROUTE ; Start 01/18/19 at 17: 00; Stop 01/18/19 at 17:01; Status DC Dextrose (Dextrose 50%-Water Syringe) 25 gm 1X ONCE IV Last administered on 01/18/19at 17:45; Start 01/18/19 at 17:45; Stop 01/18/19 at 17:46; Status DC Vancomycin HCl (Vancomycin Random Level) 1 each 1X ONCE MC ; Start 01/19/19 at 06:00; Stop 01/19/19 at 15:35; Status DC Sodium Chloride 250 ml @ 250 mls/hr 1X ONCE IV Last administered on 01/19/19at 09:40; Start 01/19/19 at 09:45; Stop 01/19/19 at 10:44; Status DC Hydrocortisone Sodium Succinate (Solu-CORTEF) 100 mg Q8HRS IV Last administered on 01/20/19at 05:36; Start 01/19/19 at 10:00; Stop 01/20/19 at 10:30 ; Status DC Vancomycin HCl 1.25 gm/Sodium Chloride 250 ml @ 167 mls/hr Q48H IV Last administered on 01/19/19at 11:23; Start 01/19/19 at 12:00; Stop 01/20/19 at 09:38; Status DC Linezolid/Dextrose 300 ml @ 300 mls/hr Q12HR IV Last administered on at 08:51; Start 01/19/19 at 15:00 Daptomycin 470 mg/ Sodium Chloride 50 ml @ 100 mls/hr Q48H IV Last administered on 01/21/19at 15:28; Start 01/19/19 at 16:00 Magnesium Citrate (Citroma) 296 ml 1X ONCE PO Last administered on 01/20/19at 09:27; Start 01/20/19 at 07:15; Stop 01/20/19 at 07:16; Status DC Pantoprazole Sodium 80 mg/ Sodium Chloride 100 ml @ 10 mls/hr Q10H IV Last administered on 01/22/19at 09:18; Start 01/20/19 at 09:00 Hydrocortisone Sodium Succinate (Solu-CORTEF) 50 mg Q8HRS IV Last administered on 01/22/19at 06:15; Start 01/20/19 at 14:00 Sodium Cl/Sod Bicarb/Potass Cl/ PEG (Golytely) 4,000 ml 1X ONCE PO Last administered on 01/20/19at 21:27; Start 01/20/19 at 19:00; Stop 01/20/19 at 19:01 ; Status DC Darbepoetin Les (Aranesp) 60 mcg [id number] SQ Last administered on 01/21/19at 20 :29; Start 01/21/19 at 21:00 Rifaximin (Xifaxan) 550 mg Q12HR PO Last administered on 01/21/19at 20:37; Start 01/21/19 at 15:00 Dextrose (Dextrose 50%-Water Syringe) 25 gm STK-MED ONCE IV ; Start 01/22/19 at 05:50; Stop 01/22/19 at 05:51; Status DC Dextrose (Dextrose 50%-Water Syringe) 25 gm PRN Q15MIN PRN IV Hypoglycemia Last administered on 01/22/19at 08:11; Start 01/22/19 at 06:15 Dextrose/Sodium Chloride 1,000 ml @ 40 mls/hr Q24H IV Last administered on 10/31at 09:57; Start 01/22/19 at 09:45 Active Scripts Active [place] 5-325 Tablet (Acetaminophen/Hydrocodone Bitart) 1 Each Tablet 1-2 Each PO PRN Q6HRS PRN as needed for pain Reported [calcium carbon] Triamcinolone Acetonide 0.5% Cream (Triamcinolone Acetonide) 15 Gm Cream..g. 1 Olu TP BID Renvela (Sevelamer Carbonate) 800 Mg Tablet 2 Tab PO TID Protonix (Pantoprazole Sodium) 40 Mg Granpkt.dr 40 Mg PO DAILY Calcium Carbonate 500 Mg Tablet 5,000 Mg PO TIDWMEALS Skin Treatment (Ammonium Lactate) 225 Gm Lotion 225 Gm TP BID Aspirin 81 Mg Tab.chew 1 Tab PO DAILY Atorvastatin Calcium 20 Mg Tablet 1 Tab PO QHS Sodium Bicarbonate 650 Mg Tablet 1,950 Mg PO TIDWMEALS Vitals/I & O Vital Sign - Last 24 Hours 01/21/19 01/21/19 01/21/19 01/21/19 12:00 12:00 13:00 13:00 Temp 97.0 97.0 Pulse 94 102 Resp 17 20 B/P (MAP) 86/47 (60) 95/61 (72) Pulse Ox 100 100 100 O2 Delivery Room Air Room Air Room Air Room Air 01/21/19 01/21/19 01/21/19 01/21/19 14:00 15:00 16:00 16:00 Temp 97.4 97.4 Pulse 103 103 105 Resp 17 17 17 B/P (MAP) 97/58 (71) 92/58 (69) 90/57 (68) Pulse Ox 100 100 100 O2 Delivery Room Air Room Air Room Air Room Air 01/21/19 01/21/19 01/21/19 01/21/19 17:00 17:27 18:00 19:00 Temp 98.5 98.5 Pulse 102 100 104 Resp 16 16 17 B/P (MAP) 120/84 (96) 90/47 (61) 96/50 (65) Pulse Ox 100 99 100 100 O2 Delivery Room Air Room Air Room Air Room Air 01/21/19 01/21/19 01/21/19 01/21/19 20:00 20:00 20:04 21:00 Pulse 105 106 Resp 16 18 B/P (MAP) 74/55 (61) 101/48 (65) Pulse Ox 100 100 100 O2 Delivery Room Air Room Air Room Air Room Air 01/21/19 01/21/19 01/21/19 01/22/19 22:00 23:00 23:59 00:00 Temp 98.2 98.2 Pulse 108 106 106 Resp 15 14 15 B/P (MAP) 80/61 (67) 108/82 (91) 118/49 (72) Pulse Ox 100 100 100 O2 Delivery Room Air Room Air Room Air Room Air 01/22/19 01/22/19 01/22/19 01/22/19 01:00 02:00 03:00 04:00 Pulse 102 104 103 Resp 10 6 11 B/P (MAP) 124/63 (83) 112/58 (76) 116/76 (89) Pulse Ox 100 100 99 O2 Delivery Room Air Room Air Room Air Room Air 01/22/19 01/22/19 01/22/19 01/22/19 04:00 05:00 06:00 08:00 Temp 98.5 98.5 Pulse 102 100 98 Resp 13 14 14 B/P (MAP) 115/94 (101) 99/47 (64) 110/63 (79) Pulse Ox 100 99 98 O2 Delivery Room Air Room Air Room Air Room Air O2 Flow Rate 2.0 01/22/19 08:37 Pulse Ox 98 O2 Delivery Room Air Intake and Output 01/21/19 01/21/19 01/22/19 15:00 23:00 07:00 Intake Total 380 ml 1634 ml 1181 ml Balance 380 ml 1634 ml 1181 ml Nutrition Consultation Dietary Evaluation: Recommendations by RD: Increase Calorie Intake, Protein supplementation Comments: added ensure clear to clear liquid diet for additional 240 kcal, 8 g protein/ serving Recommend Advance to renal diet with vanilla Nepro shake when able Expected Outcomes/Goals: P.O. intake to meet >75% estimated needs Malnutrition Findings: Body Fat Depletion (Non Severe: Mild Depletion Weight Status: Overweight LOLITA BLANC MD Jan 22, 2019 11:14
--- NOTE | 2019-01-22 11:21 | PDOC ---
PULMONARY PROGRESS NOTES Subjective remains on on levo, vaso,no dose change no soa, Vitals Vital Signs Date Time Temp Pulse Resp B/P (MAP) Pulse Ox O2 Delivery O2 Flow Rate FiO2 01/22/19 08:37 98 Room Air 01/22/19 08:00 2.0 01/22/19 06:00 98 14 110/63 (79) 01/22/19 04:00 98.5 98.5 Comments ros as mentioned as above, discussed w rn, other sys otherwise neg General: Alert, No acute distress HEENT: Other (nc at perrl nose throat clear neck no lad, no thyromegaly) Lungs: Clear Cardiovascular: S1, S2 Abdomen: Soft, Non-tender Neuro Exam: Alert Extremities: No Edema Skin: Warm Labs Laboratory Tests Test 01/20/19 13:30 01/20/19 23:19 01/20/19 23:20 01/21/19 05:55 Hemoglobin 6.7 g/dL (13.0-17.5) 8.2 g/dL (13.0-17.5) 8.4 g/dL (13.0-17.5) Glucose (Fingerstick) 154 mg/dL (70-99) Test 01/22/19 05:00 01/22/19 05:49 01/22/19 06:20 01/22/19 08:08 White Blood Count 30.7 x10^3/uL (4.0-11.0) Red Blood Count 2.30 x10^6/uL (4.30-5.70) Hemoglobin 7.2 g/dL (13.0-17.5) Hematocrit 22.8 % (39.0-53.0) Mean Corpuscular Volume 99 fL (79-100) Mean Corpuscular Hemoglobin 31 pg (25-35) Mean Corpuscular Hemoglobin Concent 32 g/dL (31-37) Red Cell Distribution Width 18.5 % (11.5-14.5) Platelet Count 58 x10^3/uL (140-400) Sodium Level 138 mmol/L (136-145) Potassium Level 3.5 mmol/L (3.5-5.1) Chloride Level 102 mmol/L (98-107) Carbon Dioxide Level 12 mmol/L (21-32) Anion Gap 24 (6-14) Blood Urea Nitrogen 66 mg/dL (8-26) Creatinine 9.4 mg/dL (0.7-1.3) Estimated GFR (Cockcroft-Gault) 5.5 Glucose Level 32 mg/dL (70-99) Calcium Level 8.8 mg/dL (8.5-10.1) Glucose (Fingerstick) 26 mg/dL (70-99) 71 mg/dL (70-99) 37 mg/dL (70-99) Test 01/22/19 08:30 01/22/19 08:32 Glucose Level 112 mg/dL (70-99) Glucose (Fingerstick) 94 mg/dL (70-99) Laboratory Tests Test 01/22/19 05:00 01/22/19 05:49 01/22/19 06:20 01/22/19 08:08 White Blood Count 30.7 x10^3/uL (4.0-11.0) Red Blood Count 2.30 x10^6/uL (4.30-5.70) Hemoglobin 7.2 g/dL (13.0-17.5) Hematocrit 22.8 % (39.0-53.0) Mean Corpuscular Volume 99 fL (79-100) Mean Corpuscular Hemoglobin 31 pg (25-35) Mean Corpuscular Hemoglobin Concent 32 g/dL (31-37) Red Cell Distribution Width 18.5 % (11.5-14.5) Platelet Count 58 x10^3/uL (140-400) Sodium Level 138 mmol/L (136-145) Potassium Level 3.5 mmol/L (3.5-5.1) Chloride Level 102 mmol/L (98-107) Carbon Dioxide Level 12 mmol/L (21-32) Anion Gap 24 (6-14) Blood Urea Nitrogen 66 mg/dL (8-26) Creatinine 9.4 mg/dL (0.7-1.3) Estimated GFR (Cockcroft-Gault) 5.5 Glucose Level 32 mg/dL (70-99) Calcium Level 8.8 mg/dL (8.5-10.1) Glucose (Fingerstick) 26 mg/dL (70-99) 71 mg/dL (70-99) 37 mg/dL (70-99) Test 01/22/19 08:30 01/22/19 08:32 Glucose Level 112 mg/dL (70-99) Glucose (Fingerstick) 94 mg/dL (70-99) Medications Active Scripts Medications Dose Route/Sig Max Daily Dose Days Date Category Dose Instructions [calcium carbon] 01/14/19 Reported Triamcinolone Acetonide 0.5% Cream (Triamcinolone Acetonide) 15 Gm Cream..g. 1 Olu TP BID 01/14/19 Reported Renvela (Sevelamer Carbonate) 800 Mg Tablet 2 Tab PO TID 01/14/19 Reported Protonix (Pantoprazole Sodium) 40 Mg Granpkt.dr 40 Mg PO DAILY 01/14/19 Reported Calcium Carbonate 500 Mg Tablet 5,000 Mg PO TIDWMEALS 01/14/19 Reported Skin Treatment (Ammonium Lactate) 225 Gm Lotion 225 Gm TP BID 01/14/19 Reported [place] 5-325 Tablet (Acetaminophen/Hydrocodone Bitart) 1 Each Tablet 1-2 Each PO PRN Q6HRS PRN 08/25/18 Rx as needed for pain Aspirin 81 Mg Tab.chew 1 Tab PO DAILY 04/20/18 Reported Atorvastatin Calcium 20 Mg Tablet 1 Tab PO QHS 04/20/18 Reported Sodium Bicarbonate 650 Mg Tablet 1,950 Mg PO TIDWMEALS 11/23/17 Reported Comments cxr reviewed, 01/[address] reviewed, 1. Slightly suboptimal PE study due to contrast bolus timing. No central or segmental PE. Evaluation of distal most subsegmental pulmonary arteries is limited. 2. No pneumonia or imaging evidence of acute pulmonary infarct. 3. 5 mm nodular opacity in the right upper lobe. Follow-up CT chest in 6 months without IV contrast recommended. Impression . 1. Acute respiratory failure, multifactorial. 2. Hypotension. likely septic/ hypovolemic shock, no pulmonary embolism.no temponade 3. Septic shock from GPC bacteremia (4 of 4 bottles) 01/17/2019,source ?? repeat BC from 01/19 in process neg so far , cxr clear 4. Renal failure, on peritoneal dialysis. 5. Peripheral vascular disease, status post aortobilateral iliac stent graft. 6. hematochezia, upper vs lower GIB, ? ischemic colitis, vs others , awaiting procedures 7. Coagulopathy. 8. Metabolic toxic encephalopathy. 9. bacteremia, gpc 10. Gastroesophageal reflux. 12. Metabolic acidosis secondary to hypoperfusion, possibly sepsis. 13. 5 mm nodular opacity in the right upper lobe 14. Anemia Plan . 1. IV fluids. PRN PRBC,protonix gtt, gi on case, HYDROCORTISONE. shock persists. Consider PRBC to see improvement. 2. Pressors to keep map >65, 3. Follow Cardiology input. 4. CTA no PE. 5. antibiotics per ID , follow all cultures 6. BD 7. Dialysis per nephro 8. EGD/ COLONOSCOPY on hold for now prognosis guarded discussed w KARLA Mccarthy MD Jan 22, 2019 11:20
--- NOTE | 2019-01-22 12:00 | NUR ---
Pt has remained lethargic, will open eyes to voice and answer simple questions with one word. Remains on Levo and Vaso with BP's lower 100. No stools today. Family at bedside. Questions answered best poss. No fever. Unable to give PO meds at this time. All lines intact.
--- NOTE | 2019-01-22 13:32 | PDOC ---
Objective: Objective: D/w RN - dark red stool last night, another transfusion planned, mental status the same. Vital Signs: Vital Signs Date Time Temp Pulse Resp B/P (MAP) Pulse Ox O2 Delivery O2 Flow Rate FiO2 01/22/19 12:28 98 Room Air 01/22/19 08:00 2.0 01/22/19 06:00 98 14 110/63 (79) 01/22/19 04:00 98.5 98.5 Labs: Laboratory Tests Test 01/22/19 05:00 01/22/19 05:49 01/22/19 06:20 01/22/19 08:08 White Blood Count 30.7 x10^3/uL Red Blood Count 2.30 x10^6/uL Hemoglobin 7.2 g/dL Hematocrit 22.8 % Mean Corpuscular Volume 99 fL Mean Corpuscular Hemoglobin 31 pg Mean Corpuscular Hemoglobin Concent 32 g/dL Red Cell Distribution Width 18.5 % Platelet Count 58 x10^3/uL Sodium Level 138 mmol/L Potassium Level 3.5 mmol/L Chloride Level 102 mmol/L Carbon Dioxide Level 12 mmol/L Anion Gap 24 Blood Urea Nitrogen 66 mg/dL Creatinine 9.4 mg/dL Estimated GFR (Cockcroft-Gault) 5.5 Glucose Level 32 mg/dL Calcium Level 8.8 mg/dL Glucose (Fingerstick) 26 mg/dL 71 mg/dL 37 mg/dL Test 01/22/19 08:30 01/22/19 08:32 01/22/19 11:34 01/22/19 11:39 Glucose Level 112 mg/dL Glucose (Fingerstick) 94 mg/dL 51 mg/dL 50 mg/dL BLOOD CULTURE LC Preliminary Preliminary report BLD CULT RESULT 1 Preliminary Gram positive cocci Imaging: CXR IMPRESSION: No acute cardiopulmonary abnormality is detected with no significant change since 01/18/2019. PE: GEN: NAD LUNGS: CTAB HEART: RRR ABD: soft NEURO/PSYCH: sleeping, confused A/P: Hematochezia/melena, anemia Bacteremia, hypotension, , ESRD on PD, encephalopathy Chronic liver disease -- Continue support per GI. INA DAHL Jan 22, 2019 13:32
[2019-01-22] MEDS: ASPIRIN CHEWABLE 81 MG TABLET. PO SCH (14:58)
[2019-01-22] MEDS: MIDODRINE 5 MG TABLET PO SCH ×3 (14:59→17:49)
--- NOTE | 2019-01-22 16:16 | PDOC2 ---
PALLIATIVE CARE Palliative Care Note Palliative Care Consult requested by Dr. Brown to address goals of care Patient confused. Unable to participate in conversation. Met with Sigrid-, sons Shankar, Uriah and Ernie. Reviewed current medical assessment Hypotension - improving on 2 pressors Gram positive sepsi /septic/ hypovolemic shock, no pulmonary embolism.no tamponade GI Bleed -01/19 Lactic acid elevation without evidence of toxicity Severe hypoglycemia Dizziness Leukocytosis - trending up Anemia of chronic disease Nausea and vomiting History of aortic stenosis: Being considered for TAVR reportedly not a candidate due to moderate reading via JOANNA. Severe per f/u TTE Metabolic acidosis Elevated troponin: peaked at 0.2, demand mediated, type 2 with above culprits. no CP nor SOA Coagulopathy: INR 2.2. Macrocytic anemia ESRD: PD - Creatinine elevated moderate to severe Protein malnutrition CAD: stents in the past, clinically stable. Hx of HTN Hx of AAA with repair 2 pressors Protonix gtt. RBC's today. Patient had falls at home--uses a cane. Decline since November--3 hospitalizations. Discussed options for care; family wishes to continue current treatment plan. They understand that he is seriously ill and would have a long recovery. Confirmed DNR/DNI. Understand that without this attempt he likely would . Patient has a Living Will. will bring to copy and place on chart. They have never had any other conversations about his wishes at EOL per and sons. 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 Kennel Aide. Rosemarie: very important to patient Plan: Continue current treatment plan. Will have further discussion as need and again end of the week. DNR/DNI INA BLANCO Jan 22, 2019 16:16
--- NOTE | 2019-01-22 17:00 | NUR ---
Attempted to sit pt upright to facilitate assessment of swallow and to maybe talk with his family, but BP down in the 60's. Back to 20 degrees. !UPRBC given today w/o diff. No stools today. Pall meeting . Pt remains DNR/DNI. on room air. Levo gtt changed to double concentration and that is reason for rate change. Glucose level dropped three times today and required 3 seperate amps D50. D10 IV infusing now. Earlier was D51/2NS and also tried D5W infusion.
[2019-01-22] MEDS ORDERED: IV DEXTROSE 10% 1,000 ML IV SCH (18:00)
[2019-01-22] MEDS: NOREPINEPHRINE VIAL 16 MG in IV NORMAL SALINE 250ML 250 ML IV PRN (19:12)
[2019-01-22] MEDS: MICAFUNGIN 100 MG in IV DEXTROSE 5% 100ML 100 ML IV SCH (21:47)
[2019-01-23] VITALS (14 sets, daily range): BP systolic 0–129; BP diastolic 0–90
[2019-01-23] MEDS: PANTOPRAZOLE SODIUM IV DRIP 80 MG in IV NORMAL SALINE 100ML 100 ML IV SCH (03:59)
[2019-01-23] MEDS: NOREPINEPHRINE VIAL 16 MG in IV NORMAL SALINE 250ML 250 ML IV PRN ×2 (04:00→07:32)
[2019-01-23] MEDS: DEXTROSE 50% 25 GM / 50ML DISP.SYRIN. IV PRN ×2 (05:55→09:22)
[2019-01-23] MEDS: PIPERACILLIN/TAZOBACTAM 2.25 GM in IV NORMAL SALINE 50ML 50 ML IV SCH (05:56)
[2019-01-23] MEDS: HYDROCORTISONE SOD SUCC/PF 100 MG/2 ML VIAL. IV SCH (06:00)
[2019-01-23 06:20] LABS: BASO # 0.1 x10^3/uL (0.0-0.2); BASO % 0 % (0-3); EOS # 0.1 x10^3/uL (0.0-0.7); EOS % 0 % (0-3); HEMATOCRIT 24.9 % (39.0-53.0); LYMPH # 1.9 x10^3/uL (1.0-4.8); LYMPH % 7 % (24-48); MEAN CORPUSCULAR HEMOGLOBIN 32 pg (25-35); MEAN CORPUSCULAR HGB CONC 32 g/dL (31-37); MEAN CORPUSCULAR VOLUME 98 fL (79-100); MONO # 1.1 x10^3/uL (0.0-1.1); MONO % 4 % (0-9); NEUT # 25.9 x10^3uL (1.8-7.7); NEUT % 89 % (31-73); PLATELET COUNT 35 x10^3/uL (140-400); RED BLOOD COUNT 2.54 x10^6/uL (4.30-5.70); RED CELL DISTRIBUTION WIDTH 17.1 % (11.5-14.5); WHITE BLOOD COUNT 29.1 x10^3/uL (4.0-11.0)
[2019-01-23 06:58] LABS: GFR 5.8; POTASSIUM 3.6 mmol/L (3.5-5.1)
[2019-01-23 07:24] LABS: CALCIUM 8.3 mg/dL (8.5-10.1)
--- NOTE | 2019-01-23 08:07 | PDOC ---
Provider Note Provider Note S: No new events. Received prbc's yesterday Still on pressors. Mentation poor. O: HR 100, BP 90/50 on 2 pressors still normal heart tones, murmur still persists. clear lungs anteriorly 2+ edema to the broderick Labs reviewed ?DIC, plts continue to decrease Hypoglycemia persists Impression: 1. Septic shock 2. Severe 3. Severe metabolic and hematologic deragements Plan 1. Supportive care from CV standpoint. Will follow along with you. CARISSA URBINA MD Jan 23, 2019 08:07
--- NOTE | 2019-01-23 08:52 | PDOC ---
Infectious Disease Note Subjective Subjective No fevers last 24 hours responds to yes and no, mumbles ROS ROS no n/v/d/fever Vital Sign Vital Signs Vital Signs Date Time Temp Pulse Resp B/P (MAP) Pulse Ox O2 Delivery O2 Flow Rate FiO2 01/23/19 06:00 90 15 101/57 (72) 99 01/23/19 04:00 99.0 99.0 01/23/19 04:00 Room Air 01/22/19 16:00 2.0 Physical Exam PHYSICAL EXAM GENERAL: In bed, arousable HEENT: No conjunctival petechia. Oral cavity dry NECK: Supple. LUNGS: Clear bilaterally anteriorly. HEART: S1, S2. Loud systolic murmur. ABDOMEN: Soft/distended and nontender. PD cath, left side EXTREMITIES: No edema, no cyanosis. DERM: Warm, dry, no generalized rash. NEUROLOGIC: Alert, speech somewhat garbled LIJ/temp HDC (01/18) Labs Lab Laboratory Tests Test 01/22/19 11:34 01/22/19 11:35 01/22/19 11:39 01/22/19 17:03 Glucose (Fingerstick) 51 mg/dL (70-99) 50 mg/dL (70-99) 27 mg/dL (70-99) Glucose Level 54 mg/dL (70-99) Test 01/22/19 17:25 01/22/19 17:42 01/23/19 05:52 01/23/19 05:55 Glucose Level 39 mg/dL (70-99) 55 mg/dL (70-99) Glucose (Fingerstick) 81 mg/dL (70-99) 47 mg/dL (70-99) White Blood Count 29.1 x10^3/uL (4.0-11.0) Red Blood Count 2.54 x10^6/uL (4.30-5.70) Hemoglobin 8.0 g/dL (13.0-17.5) Hematocrit 24.9 % (39.0-53.0) Mean Corpuscular Volume 98 fL (79-100) Mean Corpuscular Hemoglobin 32 pg (25-35) Mean Corpuscular Hemoglobin Concent 32 g/dL (31-37) Red Cell Distribution Width 17.1 % (11.5-14.5) Platelet Count 35 x10^3/uL (140-400) Neutrophils (%) (Auto) 89 % (31-73) Lymphocytes (%) (Auto) 7 % (24-48) Monocytes (%) (Auto) 4 % (0-9) Eosinophils (%) (Auto) 0 % (0-3) Basophils (%) (Auto) 0 % (0-3) Neutrophils # (Auto) 25.9 x10^3uL (1.8-7.7) Lymphocytes # (Auto) 1.9 x10^3/uL (1.0-4.8) Monocytes # (Auto) 1.1 x10^3/uL (0.0-1.1) Eosinophils # (Auto) 0.1 x10^3/uL (0.0-0.7) Basophils # (Auto) 0.1 x10^3/uL (0.0-0.2) Sodium Level 138 mmol/L (136-145) Potassium Level 3.6 mmol/L (3.5-5.1) Chloride Level 103 mmol/L (98-107) Carbon Dioxide Level 12 mmol/L (21-32) Anion Gap 23 (6-14) Blood Urea Nitrogen 57 mg/dL (8-26) Creatinine 9.0 mg/dL (0.7-1.3) Estimated GFR (Cockcroft-Gault) 5.8 Calcium Level 8.3 mg/dL (8.5-10.1) Test 01/23/19 06:18 Glucose (Fingerstick) 128 mg/dL (70-99) Micro BLOOD CULTURE LC Final Final report BLD CULT RESULT 1 Final Comment Staphylococcus epidermidis Recovered from aerobic bottle only. Based on resistance to oxacillin this isolate would be resistant to all currently available beta-lactam antimicrobial agents, with the exception of the newer cephalosporins with anti-MRSA activity, such as Ceftaroline ANTIMICROBIAL SUSCEPTIBILITY Final Comment S = Susceptible; I = Intermediate; R = Resistant P = Positive; N = Negative MICS are expressed in micrograms per mL Antibiotic RSLT#1 RSLT#2 RSLT#3 RSLT#4 Ciprofloxacin S<=0.5 Clindamycin S<=0.25 Erythromycin R>=8 Gentamicin S<=0.5 Levofloxacin S =0.25 Linezolid S =2 Nitrofurantoin S<=16 Oxacillin R>=4 Penicillin R>=0.5 Quinupristin/Dalfopristin S<=0.25 Rifampin S<=0.5 Tetracycline I =8 Trimethoprim/Sulfa R>=320 Objective Assessment Septic shock from GPC bacteremia (4 of 4 bottles) 01/17/2019,source ?? repeat BC from 01/19 in process neg so far on 17 of Levophed still -BC negative 01/14/2019 Hypotension POA appears multifactorial with underlying severe aortic stenosis, end-stage renal disease on PD. Failed midodrine treatment. Leukocytosis, mild increase - but on Hydrocortisone and S/p PRBCs 01/21 and hypoglycemia -CT Chest/abdo and pelvis with contrast - unrevealing -BC GPC 01/17 Lactic acidosis Hematochezia - s/p PRBCs 01/20 and 01/21 End-stage renal disease, on PD; s/p temp HDC line placement, 01/18. -Peritoneal dialysate, WBC 3. culture no growth Hyperlipidemia. Metabolic acidosis. Chronic liver disease, hyperammonemia, transaminitis AAA, status post stent. Hypoglycemia. Protein-calorie malnutrition. Plan Plan of Care Continue dapto (01/19), Zyvox (01/19) Zosyn and micafungin Probiotics Awaiting GPC ID/susceptibilities BC from 01/19 in process - neg so far No surgical recs Supportive care GI following, bowel prep when stable per GI CBC D/W RN Condition critical Chart reviewed previously from [facility] by Dr. Chow He was admitted with hypotension last month there W/U including infectious was neg including uc,bc JOANNA was negative for any vegetation RAFA CHOW MD Jan 23, 2019 08:52
[2019-01-23] MEDS: IPRATRPIUM/ALBUTEROL 0.5/2.5MG 3 ML NEBU. NEB SCH (08:53)
[2019-01-23] MEDS ORDERED: IV NORMAL SALINE 500ML BAG 500 ML IV ONE (09:15)
--- NOTE | 2019-01-23 10:04 | NUR ---
CVP reading 6. Called DR donis and order for 500NS bolus taken. Pt seems more restless today. BS 52 so D50 amp repeated. D10 infusing. Family 3 sons called in to check on pt. Status given, No stools thru night. Dr Delong paged to report plt ct 35. No active bleeding noted.
--- NOTE | 2019-01-23 10:15 | NUR ---
Pt more restless Unable to obtain O2 sat. ABG requested stat.Son Sabi notified of change, They are coming. Placed on 5l n/c.
[2019-01-23] MEDS: VASOPRESSIN 40 UNIT in IV DEXTROSE 5% 100ML 100 ML IV PRN (10:18)
--- NOTE | 2019-01-23 10:20 | NUR ---
Pt with agonal resp now and deidre 34 on monitor.
--- NOTE | 2019-01-23 10:20 | NUR ---
Pt much more restless and unable to obtain O2 sat. Called Shankar to update on worsening condition.e coming in.
--- NOTE | 2019-01-23 10:32 | PDOC ---
PULMONARY PROGRESS NOTES Subjective remains on on levo, vaso,no dose change no soa, more lethargic Vitals Vital Signs Date Time Temp Pulse Resp B/P (MAP) Pulse Ox O2 Delivery O2 Flow Rate FiO2 01/23/19 08:53 98 Room Air 01/23/19 06:00 90 15 101/57 (72) 01/23/19 04:00 99.0 99.0 01/22/19 16:00 2.0 Comments ros as mentioned as above, discussed w rn, other sys otherwise neg General: Lethargic HEENT: Other (nc at perrl nose throat clear neck no lad, no thyromegaly) Lungs: Clear Cardiovascular: S1, S2 Abdomen: Soft, Non-tender Extremities: Other (1+edema) Skin: Warm Labs Laboratory Tests Test 01/22/19 05:00 01/22/19 05:49 01/22/19 06:20 01/22/19 08:08 White Blood Count 30.7 x10^3/uL (4.0-11.0) Red Blood Count 2.30 x10^6/uL (4.30-5.70) Hemoglobin 7.2 g/dL (13.0-17.5) Hematocrit 22.8 % (39.0-53.0) Mean Corpuscular Volume 99 fL (79-100) Mean Corpuscular Hemoglobin 31 pg (25-35) Mean Corpuscular Hemoglobin Concent 32 g/dL (31-37) Red Cell Distribution Width 18.5 % (11.5-14.5) Platelet Count 58 x10^3/uL (140-400) Sodium Level 138 mmol/L (136-145) Potassium Level 3.5 mmol/L (3.5-5.1) Chloride Level 102 mmol/L (98-107) Carbon Dioxide Level 12 mmol/L (21-32) Anion Gap 24 (6-14) Blood Urea Nitrogen 66 mg/dL (8-26) Creatinine 9.4 mg/dL (0.7-1.3) Estimated GFR (Cockcroft-Gault) 5.5 Glucose Level 32 mg/dL (70-99) Calcium Level 8.8 mg/dL (8.5-10.1) Glucose (Fingerstick) 26 mg/dL (70-99) 71 mg/dL (70-99) 37 mg/dL (70-99) Test 01/22/19 08:30 01/22/19 08:32 01/22/19 11:34 01/22/19 11:35 Glucose Level 112 mg/dL (70-99) 54 mg/dL (70-99) Glucose (Fingerstick) 94 mg/dL (70-99) 51 mg/dL (70-99) Test 01/22/19 11:39 01/22/19 17:03 01/22/19 17:25 01/22/19 17:42 Glucose (Fingerstick) 50 mg/dL (70-99) 27 mg/dL (70-99) 81 mg/dL (70-99) Glucose Level 39 mg/dL (70-99) Test 01/23/19 05:52 01/23/19 05:55 01/23/19 06:18 01/23/19 09:19 Glucose (Fingerstick) 47 mg/dL (70-99) 128 mg/dL (70-99) 52 mg/dL (70-99) White Blood Count 29.1 x10^3/uL (4.0-11.0) Red Blood Count 2.54 x10^6/uL (4.30-5.70) Hemoglobin 8.0 g/dL (13.0-17.5) Hematocrit 24.9 % (39.0-53.0) Mean Corpuscular Volume 98 fL (79-100) Mean Corpuscular Hemoglobin 32 pg (25-35) Mean Corpuscular Hemoglobin Concent 32 g/dL (31-37) Red Cell Distribution Width 17.1 % (11.5-14.5) Platelet Count 35 x10^3/uL (140-400) Neutrophils (%) (Auto) 89 % (31-73) Lymphocytes (%) (Auto) 7 % (24-48) Monocytes (%) (Auto) 4 % (0-9) Eosinophils (%) (Auto) 0 % (0-3) Basophils (%) (Auto) 0 % (0-3) Neutrophils # (Auto) 25.9 x10^3uL (1.8-7.7) Lymphocytes # (Auto) 1.9 x10^3/uL (1.0-4.8) Monocytes # (Auto) 1.1 x10^3/uL (0.0-1.1) Eosinophils # (Auto) 0.1 x10^3/uL (0.0-0.7) Basophils # (Auto) 0.1 x10^3/uL (0.0-0.2) Sodium Level 138 mmol/L (136-145) Potassium Level 3.6 mmol/L (3.5-5.1) Chloride Level 103 mmol/L (98-107) Carbon Dioxide Level 12 mmol/L (21-32) Anion Gap 23 (6-14) Blood Urea Nitrogen 57 mg/dL (8-26) Creatinine 9.0 mg/dL (0.7-1.3) Estimated GFR (Cockcroft-Gault) 5.8 Glucose Level 55 mg/dL (70-99) Calcium Level 8.3 mg/dL (8.5-10.1) Laboratory Tests Test 01/22/19 11:34 01/22/19 11:35 01/22/19 11:39 01/22/19 17:03 Glucose (Fingerstick) 51 mg/dL (70-99) 50 mg/dL (70-99) 27 mg/dL (70-99) Glucose Level 54 mg/dL (70-99) Test 01/22/19 17:25 01/22/19 17:42 01/23/19 05:52 01/23/19 05:55 Glucose Level 39 mg/dL (70-99) 55 mg/dL (70-99) Glucose (Fingerstick) 81 mg/dL (70-99) 47 mg/dL (70-99) White Blood Count 29.1 x10^3/uL (4.0-11.0) Red Blood Count 2.54 x10^6/uL (4.30-5.70) Hemoglobin 8.0 g/dL (13.0-17.5) Hematocrit 24.9 % (39.0-53.0) Mean Corpuscular Volume 98 fL (79-100) Mean Corpuscular Hemoglobin 32 pg (25-35) Mean Corpuscular Hemoglobin Concent 32 g/dL (31-37) Red Cell Distribution Width 17.1 % (11.5-14.5) Platelet Count 35 x10^3/uL (140-400) Neutrophils (%) (Auto) 89 % (31-73) Lymphocytes (%) (Auto) 7 % (24-48) Monocytes (%) (Auto) 4 % (0-9) Eosinophils (%) (Auto) 0 % (0-3) Basophils (%) (Auto) 0 % (0-3) Neutrophils # (Auto) 25.9 x10^3uL (1.8-7.7) Lymphocytes # (Auto) 1.9 x10^3/uL (1.0-4.8) Monocytes # (Auto) 1.1 x10^3/uL (0.0-1.1) Eosinophils # (Auto) 0.1 x10^3/uL (0.0-0.7) Basophils # (Auto) 0.1 x10^3/uL (0.0-0.2) Sodium Level 138 mmol/L (136-145) Potassium Level 3.6 mmol/L (3.5-5.1) Chloride Level 103 mmol/L (98-107) Carbon Dioxide Level 12 mmol/L (21-32) Anion Gap 23 (6-14) Blood Urea Nitrogen 57 mg/dL (8-26) Creatinine 9.0 mg/dL (0.7-1.3) Estimated GFR (Cockcroft-Gault) 5.8 Calcium Level 8.3 mg/dL (8.5-10.1) Test 01/23/19 06:18 01/23/19 09:19 Glucose (Fingerstick) 128 mg/dL (70-99) 52 mg/dL (70-99) Medications Active Scripts Medications Dose Route/Sig Max Daily Dose Days Date Category Dose Instructions [calcium carbon] 01/14/19 Reported Triamcinolone Acetonide 0.5% Cream (Triamcinolone Acetonide) 15 Gm Cream..g. 1 Olu TP BID 01/14/19 Reported Renvela (Sevelamer Carbonate) 800 Mg Tablet 2 Tab PO TID 01/14/19 Reported Protonix (Pantoprazole Sodium) 40 Mg Granpkt.dr 40 Mg PO DAILY 01/14/19 Reported Calcium Carbonate 500 Mg Tablet 5,000 Mg PO TIDWMEALS 01/14/19 Reported Skin Treatment (Ammonium Lactate) 225 Gm Lotion 225 Gm TP BID 01/14/19 Reported [place] 5-325 Tablet (Acetaminophen/Hydrocodone Bitart) 1 Each Tablet 1-2 Each PO PRN Q6HRS PRN 08/25/18 Rx as needed for pain Aspirin 81 Mg Tab.chew 1 Tab PO DAILY 04/20/18 Reported Atorvastatin Calcium 20 Mg Tablet 1 Tab PO QHS 04/20/18 Reported Sodium Bicarbonate 650 Mg Tablet 1,950 Mg PO TIDWMEALS 11/23/17 Reported Comments cxr reviewed, 01/[address] reviewed, 1. Slightly suboptimal PE study due to contrast bolus timing. No central or segmental PE. Evaluation of distal most subsegmental pulmonary arteries is limited. 2. No pneumonia or imaging evidence of acute pulmonary infarct. 3. 5 mm nodular opacity in the right upper lobe. Follow-up CT chest in 6 months without IV contrast recommended. Impression . 1. Acute respiratory failure, multifactorial. 2. Hypotension. likely septic/ hypovolemic shock, no pulmonary embolism.no temponade 3. Septic shock from GPC bacteremia (4 of 4 bottles) 01/17/2019,source ?? repeat BC from 01/19 in process neg so far , cxr clear 4. Renal failure, on peritoneal dialysis. 5. Peripheral vascular disease, status post aortobilateral iliac stent graft. 6. hematochezia, upper vs lower GIB, ? ischemic colitis, vs others , no procedures 7. Coagulopathy. 8. Metabolic toxic encephalopathy. 9. bacteremia, gpc 10. Gastroesophageal reflux. 12. Metabolic acidosis secondary to hypoperfusion, possibly sepsis. 13. 5 mm nodular opacity in the right upper lobe 14. Anemia 15. hypoglycemia/ encephalopathy, check ABG Plan . 1. IV fluids. PRN PRBC,protonix gtt, gi on case, HYDROCORTISONE. shock persists. s/p 1 unit PRBC 2. Pressors to keep map >65, 3. Follow Cardiology input. 4. CTA no PE. 5. antibiotics per ID , follow all cultures 6. BD 7. Dialysis per nephro 8. EGD/ COLONOSCOPY on hold for now 9. Monitor BS 10. ABG today prognosis guarded discussed w KARLA Mccarthy MD Jan 23, 2019 10:32
--- NOTE | 2019-01-23 10:55 | NUR ---
Pt at [address]. Family on way.
--- NOTE | 2019-01-23 12:04 | PDOC ---
PROGRESS NOTES Chief Complaint Chief Complaint PT THIS AM, COMFORTABLE AT PASSING Hypotension - Gram positive sepsi /septic/ hypovolemic shock, no pulmonary embolism.no tamponade GI Bleed -01/19 Lactic acid elevation without evidence of toxicity Severe hypoglycemia Dizziness Leukocytosis - trending up Anemia of chronic disease Nausea and vomiting HYPOGLYCEMIA, ON IV DEXTROSE History of aortic stenosis: Being considered for TAVR , not a candidate due to moderate reading via JOANNA. Severe per f/u TTE Metabolic acidosis Elevated troponin: peaked at 0.2, demand mediated, type 2 with above culprits. no CP nor SOA Coagulopathy: INR 2.2. Macrocytic anemia ESRD: PD - Creatinine elevated moderate to severe Protein malnutrition CAD: stents in the past, clinically stable. Hx of HTN Hx of AAA with repair pat consulted/ START PALLIATIVE MEASURES, VERY POOR PROGNOSIS 36 D/C PLANNING, COORDINATION //COORDINATION CARE CERTIFICATE/ History of Present Illness History of Present Illness Patient was seen and examined in the ICU. Patient remains on vasopressin and levophed, slowly titrating down, SBP 76-117. Patient has significant amount of bright red blood per rectum 01/19per nurse, GI following, possible scope. Patient is clinically improving and awake. He is able to answer questions. Discussed case with RN. Blood cultures positive for gram positive cocci. WBC elevated at 28.7 37 min cc time Vitals Vitals Vital Signs Date Time Temp Pulse Resp B/P (MAP) Pulse Ox O2 Delivery O2 Flow Rate FiO2 01/23/19 08:53 98 Room Air 01/23/19 06:00 90 15 101/57 (72) 01/23/19 04:00 99.0 99.0 01/22/19 16:00 2.0 Physical Exam Physical Exam GENERAL: In bed, arousable HEENT: No conjunctival petechia. Oral cavity dry NECK: Supple. LUNGS: Clear bilaterally anteriorly. HEART: S1, S2. Loud systolic murmur. ABDOMEN: Soft/distended and nontender. PD cath, left side EXTREMITIES: No edema, no cyanosis. DERM: Warm, dry, no generalized rash. NEUROLOGIC: Alert, speech somewhat garbled LIJ/temp HDC (01/18) General: Alert, Cooperative, mild distress, Other (patient able to verbalize) Heart: Normal S1, Normal S2, Other (GR 4/6 CAMILA) Lungs: Clear Abdomen: Normal bowel sounds, Soft, No masses, Other (bright red blood per rectum) Extremities: No clubbing, No cyanosis, No edema Skin: No rashes, No significant lesion Labs LABS Laboratory Tests Test 01/22/19 17:03 01/22/19 17:25 01/22/19 17:42 01/23/19 05:52 Glucose (Fingerstick) 27 mg/dL (70-99) 81 mg/dL (70-99) 47 mg/dL (70-99) Glucose Level 39 mg/dL (70-99) Test 01/23/19 05:55 01/23/19 06:18 01/23/19 09:19 White Blood Count 29.1 x10^3/uL (4.0-11.0) Red Blood Count 2.54 x10^6/uL (4.30-5.70) Hemoglobin 8.0 g/dL (13.0-17.5) Hematocrit 24.9 % (39.0-53.0) Mean Corpuscular Volume 98 fL (79-100) Mean Corpuscular Hemoglobin 32 pg (25-35) Mean Corpuscular Hemoglobin Concent 32 g/dL (31-37) Red Cell Distribution Width 17.1 % (11.5-14.5) Platelet Count 35 x10^3/uL (140-400) Neutrophils (%) (Auto) 89 % (31-73) Lymphocytes (%) (Auto) 7 % (24-48) Monocytes (%) (Auto) 4 % (0-9) Eosinophils (%) (Auto) 0 % (0-3) Basophils (%) (Auto) 0 % (0-3) Neutrophils # (Auto) 25.9 x10^3uL (1.8-7.7) Lymphocytes # (Auto) 1.9 x10^3/uL (1.0-4.8) Monocytes # (Auto) 1.1 x10^3/uL (0.0-1.1) Eosinophils # (Auto) 0.1 x10^3/uL (0.0-0.7) Basophils # (Auto) 0.1 x10^3/uL (0.0-0.2) Sodium Level 138 mmol/L (136-145) Potassium Level 3.6 mmol/L (3.5-5.1) Chloride Level 103 mmol/L (98-107) Carbon Dioxide Level 12 mmol/L (21-32) Anion Gap 23 (6-14) Blood Urea Nitrogen 57 mg/dL (8-26) Creatinine 9.0 mg/dL (0.7-1.3) Estimated GFR (Cockcroft-Gault) 5.8 Glucose Level 55 mg/dL (70-99) Calcium Level 8.3 mg/dL (8.5-10.1) Glucose (Fingerstick) 128 mg/dL (70-99) 52 mg/dL (70-99) Assessment and Plan Assessmemt and Plan Problems Medical Problems: (1) Chronic kidney disease with end stage renal failure on dialysis Status: Acute (2) Generalized weakness Status: Acute (3) Hypotension Status: Acute (4) Nausea and vomiting Status: Acute Comment Review of Relevant I have reviewed the following items ethan (where applicable) has been applied. Labs Laboratory Tests Test 01/22/19 05:00 01/22/19 05:49 01/22/19 06:20 01/22/19 08:08 White Blood Count 30.7 x10^3/uL (4.0-11.0) Red Blood Count 2.30 x10^6/uL (4.30-5.70) Hemoglobin 7.2 g/dL (13.0-17.5) Hematocrit 22.8 % (39.0-53.0) Mean Corpuscular Volume 99 fL (79-100) Mean Corpuscular Hemoglobin 31 pg (25-35) Mean Corpuscular Hemoglobin Concent 32 g/dL (31-37) Red Cell Distribution Width 18.5 % (11.5-14.5) Platelet Count 58 x10^3/uL (140-400) Sodium Level 138 mmol/L (136-145) Potassium Level 3.5 mmol/L (3.5-5.1) Chloride Level 102 mmol/L (98-107) Carbon Dioxide Level 12 mmol/L (21-32) Anion Gap 24 (6-14) Blood Urea Nitrogen 66 mg/dL (8-26) Creatinine 9.4 mg/dL (0.7-1.3) Estimated GFR (Cockcroft-Gault) 5.5 Glucose Level 32 mg/dL (70-99) Calcium Level 8.8 mg/dL (8.5-10.1) Glucose (Fingerstick) 26 mg/dL (70-99) 71 mg/dL (70-99) 37 mg/dL (70-99) Test 01/22/19 08:30 01/22/19 08:32 01/22/19 11:34 01/22/19 11:35 Glucose Level 112 mg/dL (70-99) 54 mg/dL (70-99) Glucose (Fingerstick) 94 mg/dL (70-99) 51 mg/dL (70-99) Test 01/22/19 11:39 01/22/19 17:03 01/22/19 17:25 01/22/19 17:42 Glucose (Fingerstick) 50 mg/dL (70-99) 27 mg/dL (70-99) 81 mg/dL (70-99) Glucose Level 39 mg/dL (70-99) Test 01/23/19 05:52 01/23/19 05:55 01/23/19 06:18 01/23/19 09:19 Glucose (Fingerstick) 47 mg/dL (70-99) 128 mg/dL (70-99) 52 mg/dL (70-99) White Blood Count 29.1 x10^3/uL (4.0-11.0) Red Blood Count 2.54 x10^6/uL (4.30-5.70) Hemoglobin 8.0 g/dL (13.0-17.5) Hematocrit 24.9 % (39.0-53.0) Mean Corpuscular Volume 98 fL (79-100) Mean Corpuscular Hemoglobin 32 pg (25-35) Mean Corpuscular Hemoglobin Concent 32 g/dL (31-37) Red Cell Distribution Width 17.1 % (11.5-14.5) Platelet Count 35 x10^3/uL (140-400) Neutrophils (%) (Auto) 89 % (31-73) Lymphocytes (%) (Auto) 7 % (24-48) Monocytes (%) (Auto) 4 % (0-9) Eosinophils (%) (Auto) 0 % (0-3) Basophils (%) (Auto) 0 % (0-3) Neutrophils # (Auto) 25.9 x10^3uL (1.8-7.7) Lymphocytes # (Auto) 1.9 x10^3/uL (1.0-4.8) Monocytes # (Auto) 1.1 x10^3/uL (0.0-1.1) Eosinophils # (Auto) 0.1 x10^3/uL (0.0-0.7) Basophils # (Auto) 0.1 x10^3/uL (0.0-0.2) Sodium Level 138 mmol/L (136-145) Potassium Level 3.6 mmol/L (3.5-5.1) Chloride Level 103 mmol/L (98-107) Carbon Dioxide Level 12 mmol/L (21-32) Anion Gap 23 (6-14) Blood Urea Nitrogen 57 mg/dL (8-26) Creatinine 9.0 mg/dL (0.7-1.3) Estimated GFR (Cockcroft-Gault) 5.8 Glucose Level 55 mg/dL (70-99) Calcium Level 8.3 mg/dL (8.5-10.1) Laboratory Tests Test 01/22/19 17:03 01/22/19 17:25 01/22/19 17:42 01/23/19 05:52 Glucose (Fingerstick) 27 mg/dL (70-99) 81 mg/dL (70-99) 47 mg/dL (70-99) Glucose Level 39 mg/dL (70-99) Test 01/23/19 05:55 01/23/19 06:18 01/23/19 09:19 White Blood Count 29.1 x10^3/uL (4.0-11.0) Red Blood Count 2.54 x10^6/uL (4.30-5.70) Hemoglobin 8.0 g/dL (13.0-17.5) Hematocrit 24.9 % (39.0-53.0) Mean Corpuscular Volume 98 fL (79-100) Mean Corpuscular Hemoglobin 32 pg (25-35) Mean Corpuscular Hemoglobin Concent 32 g/dL (31-37) Red Cell Distribution Width 17.1 % (11.5-14.5) Platelet Count 35 x10^3/uL (140-400) Neutrophils (%) (Auto) 89 % (31-73) Lymphocytes (%) (Auto) 7 % (24-48) Monocytes (%) (Auto) 4 % (0-9) Eosinophils (%) (Auto) 0 % (0-3) Basophils (%) (Auto) 0 % (0-3) Neutrophils # (Auto) 25.9 x10^3uL (1.8-7.7) Lymphocytes # (Auto) 1.9 x10^3/uL (1.0-4.8) Monocytes # (Auto) 1.1 x10^3/uL (0.0-1.1) Eosinophils # (Auto) 0.1 x10^3/uL (0.0-0.7) Basophils # (Auto) 0.1 x10^3/uL (0.0-0.2) Sodium Level 138 mmol/L (136-145) Potassium Level 3.6 mmol/L (3.5-5.1) Chloride Level 103 mmol/L (98-107) Carbon Dioxide Level 12 mmol/L (21-32) Anion Gap 23 (6-14) Blood Urea Nitrogen 57 mg/dL (8-26) Creatinine 9.0 mg/dL (0.7-1.3) Estimated GFR (Cockcroft-Gault) 5.8 Glucose Level 55 mg/dL (70-99) Calcium Level 8.3 mg/dL (8.5-10.1) Glucose (Fingerstick) 128 mg/dL (70-99) 52 mg/dL (70-99) Microbiology 01/19/19 Blood Culture - Preliminary, Resulted NO GROWTH AFTER 4 DAYS 01/15/19 Anaerobic/Aerobic Culture - Final, Complete 01/15/19 Anaerobic Culture Result 1 (LAURIE) - Final, Complete 01/15/19 Aerobic Culture - Final, Complete 01/15/19 Aerobic Culture Result 1 (LAURIE) - Final, Complete 01/15/19 Gram Stain - Final, Complete 01/15/19 Gram Stain Result 1 (LAURIE) - Final, Complete 01/15/19 Gram Stain Result 2 (LAURIE) - Final, Complete Medications Current Medications Ondansetron HCl (Zofran) 4 mg 1X ONCE IM ; Start 01/14/19 at 15:00; Stop at 15:01; Status Cancel Ondansetron HCl (Zofran) 4 mg 1X ONCE IM ; Start 01/14/19 at 15:45; Stop at 15:46; Status Cancel Ondansetron HCl (Zofran) 4 mg 1X ONCE IV Last administered on 01/14/19 15:47; Start 01/14/19 at 15:45; Stop 01/14/19 at 15:46; Status DC Gentamicin Sulfate (Garamycin) 1 olu DAILY TP ; Start 01/15/19 at 09:00; Stop 01/15/19 at 13:52; Status DC Lactic Acid (Lac-Hydrin) 1 olu BID TP Last administered on 01/22/19 21:48; Start 01/15/19 at 10:00 Aspirin (Children'S Aspirin) 81 mg DAILY PO Last administered on 01/22/19 14: 58; Start 01/15/19 at 10:00 Atorvastatin Calcium (Lipitor) 20 mg QHS PO Last administered on 01/17/19 21:06 ; Start 01/15/19 at 21:00; Stop 01/18/19 at 16:53; Status DC Calcium Carbonate/ Glycine (Oscal) 500 mg TIDWMEALS PO Last administered on 01/19 17:04; Start 01/15/19 at 12:00 Acetaminophen/ Hydrocodone Bitart (Lortab 5/325) 1 tab PRN Q6HRS PRN PO MODERATE TO SEVERE PAIN Last administered on 01/16/19 20:25; Start 01/15/19 at 08 :45 Sevelamer Carbonate (Renvela) 1,600 mg TID PO Last administered on 01/22/19 21 :48; Start 01/15/19 at 09:00 Sodium Bicarbonate (Sodium Bicarbonate) 1,950 mg TIDWMEALS PO Last administered on 01/19/19 17:06; Start 01/15/19 at 12:00 Pantoprazole Sodium (Protonix) 40 mg DAILYAC PO Last administered on 01/19/19 08:33; Start 01/15/19 at 10:00; Stop 01/20/19 at 08:12; Status DC Triamcinolone Acetonide (Kenalog) 1 olu BID TP Last administered on 01/22/19 21:48; Start 01/15/19 at 10:00 Albuterol/ Ipratropium (Duoneb) 3 ml RTQID NEB Last administered on 01/23/19 08:53; Start 01/15/19 at 12:00 Acetaminophen (Tylenol) 1,000 mg PRN Q6HRS PRN PO HEADACHE/TEMP Last administered on 01/16/19 09:50; Start 01/15/19 at 11:15 Midodrine (Proamatine) 2.5 mg [id number] PO Last administered on 01/16/19 09:50; Start 01/15/19 at 14:00; Stop 01/16/19 at 10:34; Status DC Gentamicin Sulfate (Garamycin) 1 olu DAILY TP Last administered on 01/21/19 12 :53; Start 01/16/19 at 09:00 Midodrine (Proamatine) 5 mg [id number] PO Last administered on 01/22/19 16:52; Start 01/16/19 at 13:00 Lactulose (Lactulose) 20 gm TID PO Last administered on 01/17/19at 20:35; Start 01/17/19 at 14:15; Stop 01/18/19 at 11:06; Status DC Norepinephrine Bitartrate 250 ml @ 1.875 mls/ hr CONT PRN IV SEE I/O RECORD Last administered on 01/22/19at 08:18; Start 01/17/19 at 14:30; Stop 01/22/19 at 14:22; Status DC Dextrose (Dextrose 50%-Water Syringe) 25 gm 1X ONCE IV Last administered on 01/17/19at 14:45; Start 01/17/19 at 14:45; Stop 01/17/19 at 14:46; Status DC Dextrose (Dextrose 50%-Water Syringe) 25 gm 1X ONCE IV Last administered on 01/17/19at 15:15; Start 01/17/19 at 15:30; Stop 01/17/19 at 15:31; Status DC Piperacillin Sod/ Tazobactam Sod (Zosyn Per Pharmacy) 1 each PRN DAILY PRN MC SEE COMMENTS; Start 01/17/19 at 16:00 Piperacillin Sod/ Tazobactam Sod 2.25 gm/Sodium Chloride 50 ml @ 100 mls/hr Q8HRS IV Last administered on 01/23/19at 05:56; Start 01/17/19 at 17:00 Dextrose/Sodium Chloride 1,000 ml @ 50 mls/hr Q20H IV Last administered on 01/19at 08:37; Start 01/17/19 at 16:30; Stop 01/21/19 at 03:05; Status DC Dextrose (Dextrose 50%-Water Syringe) 25 gm 1X ONCE IV Last administered on 01/17/19at 17:14; Start 01/17/19 at 17:15; Stop 01/17/19 at 17:16; Status DC Vancomycin HCl (Vanco Per Pharmacy) 1 each PRN DAILY PRN MC SEE COMMENTS Last administered on 01/19/19at 11:09; Start 01/17/19 at 18:00; Stop 01/19/19 at 15:35; Status DC Sodium Chloride 1,000 ml @ 1,000 mls/hr 1X ONCE IV Last administered on at 17:00; Start 01/17/19 at 18:00; Stop 01/17/19 at 18:59; Status DC Vancomycin HCl 2 gm/Sodium Chloride 500 ml @ 250 mls/hr 1X ONCE IV Last administered on 01/17/19at 18:50; Start 01/17/19 at 18:00; Stop 01/17/19 at 19:59; Status DC Micafungin Sodium 100 mg/Dextrose 100 ml @ 100 mls/hr Q24H IV Last administered on 01/22/19at 21:47; Start 01/17/19 at 20:00 Sodium Chloride 1,000 ml @ 100 mls/hr Q10H IV Last administered on 01/22/19at 00:15; Start 01/18/19 at 06:45; Stop 01/22/19 at 19:44; Status DC Dextrose (Dextrose 50%-Water Syringe) 25 gm 1X ONCE IV Last administered on 01/18/19at 07:00; Start 01/18/19 at 07:00; Stop 01/18/19 at 07:08; Status DC Iohexol (Omnipaque 300 Mg/ml) 75 ml 1X ONCE IV Last administered on 01/18/19at 08:15; Start 01/18/19 at 08:15; Stop 01/18/19 at 08:16; Status DC Info (CONTRAST GIVEN -- Rx MONITORING) 1 each PRN DAILY PRN MC SEE COMMENTS; Start 01/18/19 at 08:15; Stop 01/18/19 at 11:56; Status DC Fentanyl Citrate (Fentanyl 2ml Vial) 50 mcg PRN Q2HR PRN IV PAIN Last administered on 01/18/19 10:07; Start 01/18/19 at 09:30 Midazolam HCl (Versed) 5 mg 1X ONCE IV Last administered on 01/18/19at 10:05; Start 01/18/19 at 09:30; Stop 01/18/19 at 09:31; Status DC Midazolam HCl (Versed) 5 mg STK-MED ONCE .ROUTE ; Start 01/18/19 at 09:25; Stop 01/18/19 at 09:26; Status DC Fentanyl Citrate (Fentanyl 2ml Vial) 100 mcg STK-MED ONCE .ROUTE ; Start at 09:25; Stop 01/18/19 at 09:26; Status DC Sodium Chloride 500 ml @ 500 mls/hr 1X ONCE IV Last administered on 01/18/19at 10:34; Start 01/18/19 at 10:15; Stop 01/18/19 at 11:14; Status DC Dobutamine HCl/ Dextrose 250 ml @ 5.939 mls/ hr CONT PRN IV SEE I/O RECORD Last administered on 01/18/19at 10:34; Start 01/18/19 at 10:15; Stop 01/18/19 at 12: 59; Status DC Ondansetron HCl (Zofran) 4 mg PRN Q6HRS PRN IV NAUSEA/VOMITING Last administered on 01/18/19at 11:10; Start 01/18/19 at 11:00 Lactulose (Lactulose) 20 gm PRN TID PRN PO confusion/elevated ammonia; Start at 11:15 Dextrose (Dextrose 50%-Water Syringe) 25 gm STK-MED ONCE IV ; Start 01/18/19 at 11:08; Stop 01/18/19 at 11:10; Status DC Dextrose (Dextrose 50%-Water Syringe) 25 gm 1X ONCE IV Last administered on 01/18/19at 11:13; Start 01/18/19 at 11:15; Stop 01/18/19 at 11:16; Status DC Sodium Chloride 500 ml @ 500 mls/hr 1X ONCE IV Last administered on 01/18/19at 11:28; Start 01/18/19 at 11:30; Stop 01/18/19 at 12:29; Status DC Lactobacillus Rhamnosus (Culturelle) 1 cap BID PO Last administered on at 21:48; Start 01/18/19 at 21:00 Iohexol (Omnipaque 350 Mg/ml) 90 ml 1X ONCE IV Last administered on 01/18/19at 15:10; Start 01/18/19 at 12:00; Stop 01/18/19 at 12:01; Status DC Info (CONTRAST GIVEN -- Rx MONITORING) 1 each PRN DAILY PRN SEE COMMENTS; Start 01/18/19 at 12:00; Stop 01/20/19 at 11:59; Status DC Sodium Chloride 500 ml @ 500 mls/hr 1X ONCE IV Last administered on 01/18/19at 12:13; Start 01/18/19 at 12:30; Stop 01/18/19 at 13:29; Status DC Vasopressin 40 unit/Dextrose 102 ml @ 6 mls/hr CONT PRN IV SEE I/O RECORD Last administered on 01/23/19at 10:18; Start 01/18/19 at 13:00 Dextrose (Dextrose 50%-Water Syringe) 25 gm 1X ONCE IV Last administered on 01/18/19at 15:45; Start 01/18/19 at 15:45; Stop 01/18/19 at 15:46; Status DC Lidocaine/Sodium Bicarbonate (Buffered Lidocaine 1%) 3 ml STK-MED ONCE .ROUTE ; Start 01/18/19 at 15:39; Stop 01/18/19 at 15:40; Status DC Lidocaine/Sodium Bicarbonate (Buffered Lidocaine 1%) 3 ml 1X ONCE INJ Last administered on 01/18/19at 15:45; Start 01/18/19 at 15:45; Stop 01/18/19 at 15:46; Status DC Lidocaine/Sodium Bicarbonate (Buffered Lidocaine 1%) 3 ml STK-MED ONCE .ROUTE ; Start 01/18/19 at 15:39; Stop 01/18/19 at 15:40; Status DC Iohexol (Omnipaque 350 Mg/ml) 100 ml STK-MED ONCE .ROUTE ; Start 01/18/19 at 17: 00; Stop 01/18/19 at 17:01; Status DC Dextrose (Dextrose 50%-Water Syringe) 25 gm 1X ONCE IV Last administered on 01/18/19at 17:45; Start 01/18/19 at 17:45; Stop 01/18/19 at 17:46; Status DC Vancomycin HCl (Vancomycin Random Level) 1 each 1X ONCE MC ; Start 01/19/19 at 06:00; Stop 01/19/19 at 15:35; Status DC Sodium Chloride 250 ml @ 250 mls/hr 1X ONCE IV Last administered on 01/19/19at 09:40; Start 01/19/19 at 09:45; Stop 01/19/19 at 10:44; Status DC Hydrocortisone Sodium Succinate (Solu-CORTEF) 100 mg Q8HRS IV Last administered on 01/20/19at 05:36; Start 01/19/19 at 10:00; Stop 01/20/19 at 10:30 ; Status DC Vancomycin HCl 1.25 gm/Sodium Chloride 250 ml @ 167 mls/hr Q48H IV Last administered on 01/19/19at 11:23; Start 01/19/19 at 12:00; Stop 01/20/19 at 09:38; Status DC Linezolid/Dextrose 300 ml @ 300 mls/hr Q12HR IV Last administered on at 09:23; Start 01/19/19 at 15:00 Daptomycin 470 mg/ Sodium Chloride 50 ml @ 100 mls/hr Q48H IV Last administered on 01/21/19at 15:28; Start 01/19/19 at 16:00 Magnesium Citrate (Citroma) 296 ml 1X ONCE PO Last administered on 01/20/19at 09:27; Start 01/20/19 at 07:15; Stop 01/20/19 at 07:16; Status DC Pantoprazole Sodium 80 mg/ Sodium Chloride 100 ml @ 10 mls/hr Q10H IV Last administered on 01/23/19at 03:59; Start 01/20/19 at 09:00 Hydrocortisone Sodium Succinate (Solu-CORTEF) 50 mg Q8HRS IV Last administered on 01/23/19at 06:00; Start 01/20/19 at 14:00 Sodium Cl/Sod Bicarb/Potass Cl/ PEG (Golytely) 4,000 ml 1X ONCE PO Last administered on 01/20/19at 21:27; Start 01/20/19 at 19:00; Stop 01/20/19 at 19:01 ; Status DC Darbepoetin Les (Aranesp) 60 mcg [id number] SQ Last administered on 01/21/19at 20 :29; Start 01/21/19 at 21:00 Rifaximin (Xifaxan) 550 mg Q12HR PO Last administered on 01/22/19at 21:48; Start 01/21/19 at 15:00 Dextrose (Dextrose 50%-Water Syringe) 25 gm STK-MED ONCE IV ; Start 01/22/19 at 05:50; Stop 01/22/19 at 05:51; Status DC Dextrose (Dextrose 50%-Water Syringe) 25 gm PRN Q15MIN PRN IV Hypoglycemia Last administered on 01/23/19at 09:22; Start 01/22/19 at 06:15 Dextrose/Sodium Chloride 1,000 ml @ 40 mls/hr Q24H IV Last administered on 10/31at 09:57; Start 01/22/19 at 09:45; Stop 01/22/19 at 19:44; Status DC Norepinephrine Bitartrate 16 mg/ Sodium Chloride 266 ml @ 15.93 mls/ hr CONT PRN IV SEE I/O RECORD Last administered on 01/23/19at 07:32; Start 01/22/19 at 14 :30 Dextrose 1,000 ml @ 50 mls/hr Q20H IV Last administered on 01/22/19at 18:02; Start 01/22/19 at 18:00 Sodium Chloride 500 ml @ 500 mls/hr 1X ONCE IV Last administered on at 09:23; Start 01/23/19 at 09:15; Stop 01/23/19 at 10:14; Status DC Active Scripts Active Annona 5-325 Tablet (Acetaminophen/Hydrocodone Bitart) 1 Each Tablet 1-2 Each PO PRN Q6HRS PRN as needed for pain Reported [calcium carbon] Triamcinolone Acetonide 0.5% Cream (Triamcinolone Acetonide) 15 Gm Cream..g. 1 Olu TP BID Renvela (Sevelamer Carbonate) 800 Mg Tablet 2 Tab PO TID Protonix (Pantoprazole Sodium) 40 Mg Granpkt.dr 40 Mg PO DAILY Calcium Carbonate 500 Mg Tablet 5,000 Mg PO TIDWMEALS Skin Treatment (Ammonium Lactate) 225 Gm Lotion 225 Gm TP BID Aspirin 81 Mg Tab.chew 1 Tab PO DAILY Atorvastatin Calcium 20 Mg Tablet 1 Tab PO QHS Sodium Bicarbonate 650 Mg Tablet 1,950 Mg PO TIDWMEALS Vitals/I & O Vital Sign - Last 24 Hours 01/22/19 01/22/19 01/22/19 01/22/19 12:28 13:00 14:00 14:34 Temp 97.8 97.8 Pulse 95 96 97 Resp 16 16 B/P (MAP) 102/51 (68) 86/50 (62) 100/49 Pulse Ox 98 98 O2 Delivery Room Air Room Air Room Air 01/22/19 01/22/19 01/22/19 01/22/19 14:45 14:59 15:00 15:35 Temp 97.3 97.3 97.3 97.3 Pulse 94 95 94 94 Resp 24 16 24 B/P (MAP) 135/83 105/83 87/47 (60) 80/50 O2 Delivery Room Air 01/22/19 01/22/19 01/22/19 01/22/19 16:00 16:00 16:50 16:52 Pulse 92 82 Resp 16 B/P (MAP) 76/51 (59) 90/50 Pulse Ox 98 100 O2 Delivery Room Air Room Air Room Air O2 Flow Rate 2.0 01/22/19 01/22/19 01/22/19 01/22/19 17:00 18:00 19:00 19:26 Temp 97.2 97.2 Pulse 88 92 96 Resp 16 16 15 B/P (MAP) 80/44 (56) 88/48 (61) 87/73 (78) Pulse Ox 98 98 100 O2 Delivery Room Air Room Air 01/22/19 01/22/19 01/22/19 01/22/19 20:00 20:00 21:00 22:00 Pulse 98 97 98 Resp 13 14 14 B/P (MAP) 108/62 (77) 99/53 (68) 120/61 (80) Pulse Ox 98 98 98 O2 Delivery Room Air 01/22/19 01/22/19 01/23/19 01/23/19 23:00 23:59 00:00 01:00 Temp 100.0 100.0 Pulse 100 98 97 Resp 14 15 14 B/P (MAP) 127/62 (83) 129/90 (103) 104/65 (78) Pulse Ox 100 100 100 O2 Delivery Room Air 01/23/19 01/23/19 01/23/19 01/23/19 02:00 03:00 04:00 04:00 Temp 99.0 99.0 Pulse 96 94 93 Resp 15 20 15 B/P (MAP) 90/56 (67) 89/55 (66) 115/50 (71) Pulse Ox 100 99 100 O2 Delivery Room Air 01/23/19 01/23/19 01/23/19 05:00 06:00 08:53 Pulse 96 90 Resp 18 15 B/P (MAP) 77/45 (56) 101/57 (72) Pulse Ox 99 99 98 O2 Delivery Room Air Intake and Output 01/22/19 01/22/19 01/23/19 15:00 23:00 07:00 Intake Total 1160 ml 772 ml 1822 ml Balance 1160 ml 772 ml 1822 ml Nutrition Consultation Dietary Evaluation: Recommendations by RD: Increase Calorie Intake, Protein supplementation Comments: added ensure clear to clear liquid diet for additional 240 kcal, 8 g protein/ serving Recommend Advance to renal diet with vanilla Zakiaro shake when able Expected Outcomes/Goals: P.O. intake to meet >75% estimated needs Malnutrition Findings: Body Fat Depletion (Non Severe: Mild Depletion Weight Status: Overweight LOLITA BLANC MD Jan 23, 2019 12:04
--- NOTE | 2019-01-23 13:50 | PDOC3 ---
Discharge Summary Date of Admission: Jan 14, 2019 Date of Discharge: Jan 23, 2019 Follow-Up: Other () Admitting Diagnosis comment: /HOSPITAL SUMMARY========= Chief Complaint PT THIS AM, COMFORTABLE AT PASSING Hypotension -SEC SEPTIC SHOCK Gram positive sepsi /septic/ hypovolemic shock, no pulmonary embolism.no tamponade GI Bleed -01/19 Lactic acid elevation without evidence of toxicity Severe hypoglycemia Leukocytosis - Anemia of chronic disease Nausea and vomiting HYPOGLYCEMIA, ON IV DEXTROSE History of aortic stenosis: Being considered for TAVR , not a candidate due to moderate reading via JOANNA. Severe per f/u TTE Metabolic acidosis Elevated troponin: peaked at 0.2, demand mediated, type 2 with above culprits. no CP nor SOA Coagulopathy: INR 2.2. Macrocytic anemia ESRD: PD - Creatinine elevated moderate to severe Protein malnutrition CAD: stents in the past, Hx of HTN Hx of AAA with repair pat consulted/ START PALLIATIVE MEASURES, VERY POOR PROGNOSIS 36 D/C PLANNING, COORDINATION //COORDINATION CARE CERTIFICATE/ History of Present Illness History of Present Illness Patient was seen and examined in the ICU. Patient remains on vasopressin and levophed, slowly titrating down, SBP 76-117. Patient has significant amount of bright red blood per rectum 01/19per nurse, GI following, possible scope. Patient is clinically improving and awake. He is able to answer questions. Discussed case with RN. Blood cultures positive for gram positive cocci. WBC elevated at 28.7 FINAL DIAGNOSIS Problems Medical Problems: (1) Chronic kidney disease with end stage renal failure on dialysis Status: Acute (2) Generalized weakness Status: Acute (3) Hypotension Status: Acute (4) Nausea and vomiting Status: Acute Brief Hospital Course Mr. Benson is a 73 old [sex] who presented with [ ] CONDITION AT DISCHARGE: / Discharge Medications Current Medications Ondansetron HCl (Zofran) 4 mg 1X ONCE IM ; Start 01/14/19 at 15:00; Stop at 15:01; Status Cancel Ondansetron HCl (Zofran) 4 mg 1X ONCE IM ; Start 01/14/19 at 15:45; Stop at 15:46; Status Cancel Ondansetron HCl (Zofran) 4 mg 1X ONCE IV Last administered on 01/14/19at 15:47; Start 01/14/19 at 15:45; Stop 01/14/19 at 15:46; Status DC Gentamicin Sulfate (Garamycin) 1 olu DAILY TP ; Start 01/15/19 at 09:00; Stop 01/15/19 at 13:52; Status DC Lactic Acid (Lac-Hydrin) 1 olu BID TP Last administered on 01/22/19 21:48; Start 01/15/19 at 10:00 Aspirin (Children'S Aspirin) 81 mg DAILY PO Last administered on 01/22/19 14: 58; Start 01/15/19 at 10:00 Atorvastatin Calcium (Lipitor) 20 mg QHS PO Last administered on 01/17/19 21:06 ; Start 01/15/19 at 21:00; Stop 01/18/19 at 16:53; Status DC Calcium Carbonate/ Glycine (Oscal) 500 mg TIDWMEALS PO Last administered on 01/19 17:04; Start 01/15/19 at 12:00 Acetaminophen/ Hydrocodone Bitart (Lortab 5/325) 1 tab PRN Q6HRS PRN PO MODERATE TO SEVERE PAIN Last administered on 01/16/19 20:25; Start 01/15/19 at 08 :45 Sevelamer Carbonate (Renvela) 1,600 mg TID PO Last administered on 01/22/19 21 :48; Start 01/15/19 at 09:00 Sodium Bicarbonate (Sodium Bicarbonate) 1,950 mg TIDWMEALS PO Last administered on 01/19/19 17:06; Start 01/15/19 at 12:00 Pantoprazole Sodium (Protonix) 40 mg DAILYAC PO Last administered on 01/19/19 08:33; Start 01/15/19 at 10:00; Stop 01/20/19 at 08:12; Status DC Triamcinolone Acetonide (Kenalog) 1 olu BID TP Last administered on 01/22/19 21:48; Start 01/15/19 at 10:00 Albuterol/ Ipratropium (Duoneb) 3 ml RTQID NEB Last administered on 01/23/19 08:53; Start 01/15/19 at 12:00 Acetaminophen (Tylenol) 1,000 mg PRN Q6HRS PRN PO HEADACHE/TEMP Last administered on 01/16/19 09:50; Start 01/15/19 at 11:15 Midodrine (Proamatine) 2.5 mg [id number] PO Last administered on 01/16/19at 09:50; Start 01/15/19 at 14:00; Stop 01/16/19 at 10:34; Status DC Gentamicin Sulfate (Garamycin) 1 olu DAILY TP Last administered on 01/21/19 12 :53; Start 01/16/19 at 09:00 Midodrine (Proamatine) 5 mg [id number] PO Last administered on 01/22/19 16:52; Start 01/16/19 at 13:00 Lactulose (Lactulose) 20 gm TID PO Last administered on 01/17/19at 20:35; Start 01/17/19 at 14:15; Stop 01/18/19 at 11:06; Status DC Norepinephrine Bitartrate 250 ml @ 1.875 mls/ hr CONT PRN IV SEE I/O RECORD Last administered on 01/22/19at 08:18; Start 01/17/19 at 14:30; Stop 01/22/19 at 14:22; Status DC Dextrose (Dextrose 50%-Water Syringe) 25 gm 1X ONCE IV Last administered on 01/17/19at 14:45; Start 01/17/19 at 14:45; Stop 01/17/19 at 14:46; Status DC Dextrose (Dextrose 50%-Water Syringe) 25 gm 1X ONCE IV Last administered on 01/17/19at 15:15; Start 01/17/19 at 15:30; Stop 01/17/19 at 15:31; Status DC Piperacillin Sod/ Tazobactam Sod (Zosyn Per Pharmacy) 1 each PRN DAILY PRN MC SEE COMMENTS; Start 01/17/19 at 16:00 Piperacillin Sod/ Tazobactam Sod 2.25 gm/Sodium Chloride 50 ml @ 100 mls/hr Q8HRS IV Last administered on 01/23/19at 05:56; Start 01/17/19 at 17:00 Dextrose/Sodium Chloride 1,000 ml @ 50 mls/hr Q20H IV Last administered on 01/19at 08:37; Start 01/17/19 at 16:30; Stop 01/21/19 at 03:05; Status DC Dextrose (Dextrose 50%-Water Syringe) 25 gm 1X ONCE IV Last administered on 01/17/19at 17:14; Start 01/17/19 at 17:15; Stop 01/17/19 at 17:16; Status DC Vancomycin HCl (Vanco Per Pharmacy) 1 each PRN DAILY PRN MC SEE COMMENTS Last administered on 01/19/19at 11:09; Start 01/17/19 at 18:00; Stop 01/19/19 at 15:35; Status DC Sodium Chloride 1,000 ml @ 1,000 mls/hr 1X ONCE IV Last administered on at 17:00; Start 01/17/19 at 18:00; Stop 01/17/19 at 18:59; Status DC Vancomycin HCl 2 gm/Sodium Chloride 500 ml @ 250 mls/hr 1X ONCE IV Last administered on 01/17/19at 18:50; Start 01/17/19 at 18:00; Stop 01/17/19 at 19:59; Status DC Micafungin Sodium 100 mg/Dextrose 100 ml @ 100 mls/hr Q24H IV Last administered on 01/22/19at 21:47; Start 01/17/19 at 20:00 Sodium Chloride 1,000 ml @ 100 mls/hr Q10H IV Last administered on 01/22/19at 00:15; Start 01/18/19 at 06:45; Stop 01/22/19 at 19:44; Status DC Dextrose (Dextrose 50%-Water Syringe) 25 gm 1X ONCE IV Last administered on 01/18/19at 07:00; Start 01/18/19 at 07:00; Stop 01/18/19 at 07:08; Status DC Iohexol (Omnipaque 300 Mg/ml) 75 ml 1X ONCE IV Last administered on 01/18/19at 08:15; Start 01/18/19 at 08:15; Stop 01/18/19 at 08:16; Status DC Info (CONTRAST GIVEN -- Rx MONITORING) 1 each PRN DAILY PRN MC SEE COMMENTS; Start 01/18/19 at 08:15; Stop 01/18/19 at 11:56; Status DC Fentanyl Citrate (Fentanyl 2ml Vial) 50 mcg PRN Q2HR PRN IV PAIN Last administered on 01/18/19at 10:07; Start 01/18/19 at 09:30 Midazolam HCl (Versed) 5 mg 1X ONCE IV Last administered on 01/18/19at 10:05; Start 01/18/19 at 09:30; Stop 01/18/19 at 09:31; Status DC Midazolam HCl (Versed) 5 mg STK-MED ONCE .ROUTE ; Start 01/18/19 at 09:25; Stop 01/18/19 at 09:26; Status DC Fentanyl Citrate (Fentanyl 2ml Vial) 100 mcg STK-MED ONCE .ROUTE ; Start at 09:25; Stop 01/18/19 at 09:26; Status DC Sodium Chloride 500 ml @ 500 mls/hr 1X ONCE IV Last administered on 01/18/19at 10:34; Start 01/18/19 at 10:15; Stop 01/18/19 at 11:14; Status DC Dobutamine HCl/ Dextrose 250 ml @ 5.939 mls/ hr CONT PRN IV SEE I/O RECORD Last administered on 01/18/19at 10:34; Start 01/18/19 at 10:15; Stop 01/18/19 at 12: 59; Status DC Ondansetron HCl (Zofran) 4 mg PRN Q6HRS PRN IV NAUSEA/VOMITING Last administered on 01/18/19at 11:10; Start 01/18/19 at 11:00 Lactulose (Lactulose) 20 gm PRN TID PRN PO confusion/elevated ammonia; Start at 11:15 Dextrose (Dextrose 50%-Water Syringe) 25 gm STK-MED ONCE IV ; Start 01/18/19 at 11:08; Stop 01/18/19 at 11:10; Status DC Dextrose (Dextrose 50%-Water Syringe) 25 gm 1X ONCE IV Last administered on 01/18/19at 11:13; Start 01/18/19 at 11:15; Stop 01/18/19 at 11:16; Status DC Sodium Chloride 500 ml @ 500 mls/hr 1X ONCE IV Last administered on 01/18/19at 11:28; Start 01/18/19 at 11:30; Stop 01/18/19 at 12:29; Status DC Lactobacillus Rhamnosus (Culturelle) 1 cap BID PO Last administered on at 21:48; Start 01/18/19 at 21:00 Iohexol (Omnipaque 350 Mg/ml) 90 ml 1X ONCE IV Last administered on 01/18/19at 15:10; Start 01/18/19 at 12:00; Stop 01/18/19 at 12:01; Status DC Info (CONTRAST GIVEN -- Rx MONITORING) 1 each PRN DAILY PRN MC SEE COMMENTS; Start 01/18/19 at 12:00; Stop 01/20/19 at 11:59; Status DC Sodium Chloride 500 ml @ 500 mls/hr 1X ONCE IV Last administered on 01/18/19at 12:13; Start 01/18/19 at 12:30; Stop 01/18/19 at 13:29; Status DC Vasopressin 40 unit/Dextrose 102 ml @ 6 mls/hr CONT PRN IV SEE I/O RECORD Last administered on 01/23/19at 10:18; Start 01/18/19 at 13:00 Dextrose (Dextrose 50%-Water Syringe) 25 gm 1X ONCE IV Last administered on 01/18/19at 15:45; Start 01/18/19 at 15:45; Stop 01/18/19 at 15:46; Status DC Lidocaine/Sodium Bicarbonate (Buffered Lidocaine 1%) 3 ml STK-MED ONCE .ROUTE ; Start 01/18/19 at 15:39; Stop 01/18/19 at 15:40; Status DC Lidocaine/Sodium Bicarbonate (Buffered Lidocaine 1%) 3 ml 1X ONCE INJ Last administered on 01/18/19at 15:45; Start 01/18/19 at 15:45; Stop 01/18/19 at 15:46; Status DC Lidocaine/Sodium Bicarbonate (Buffered Lidocaine 1%) 3 ml STK-MED ONCE .ROUTE ; Start 01/18/19 at 15:39; Stop 01/18/19 at 15:40; Status DC Iohexol (Omnipaque 350 Mg/ml) 100 ml STK-MED ONCE .ROUTE ; Start 01/18/19 at 17: 00; Stop 01/18/19 at 17:01; Status DC Dextrose (Dextrose 50%-Water Syringe) 25 gm 1X ONCE IV Last administered on 01/18/19at 17:45; Start 01/18/19 at 17:45; Stop 01/18/19 at 17:46; Status DC Vancomycin HCl (Vancomycin Random Level) 1 each 1X ONCE MC ; Start 01/19/19 at 06:00; Stop 01/19/19 at 15:35; Status DC Sodium Chloride 250 ml @ 250 mls/hr 1X ONCE IV Last administered on 01/19/19at 09:40; Start 01/19/19 at 09:45; Stop 01/19/19 at 10:44; Status DC Hydrocortisone Sodium Succinate (Solu-CORTEF) 100 mg Q8HRS IV Last administered on 01/20/19at 05:36; Start 01/19/19 at 10:00; Stop 01/20/19 at 10:30 ; Status DC Vancomycin HCl 1.25 gm/Sodium Chloride 250 ml @ 167 mls/hr Q48H IV Last administered on 01/19/19 11:23; Start 01/19/19 at 12:00; Stop 01/20/19 at 09:38; Status DC Linezolid/Dextrose 300 ml @ 300 mls/hr Q12HR IV Last administered on 09:23; Start 01/19/19 at 15:00 Daptomycin 470 mg/ Sodium Chloride 50 ml @ 100 mls/hr Q48H IV Last administered on 01/21/19at 15:28; Start 01/19/19 at 16:00 Magnesium Citrate (Citroma) 296 ml 1X ONCE PO Last administered on 01/20/19at 09:27; Start 01/20/19 at 07:15; Stop 01/20/19 at 07:16; Status DC Pantoprazole Sodium 80 mg/ Sodium Chloride 100 ml @ 10 mls/hr Q10H IV Last administered on 01/23/19at 03:59; Start 01/20/19 at 09:00 Hydrocortisone Sodium Succinate (Solu-CORTEF) 50 mg Q8HRS IV Last administered on 01/23/19 06:00; Start 01/20/19 at 14:00 Sodium Cl/Sod Bicarb/Potass Cl/ PEG (Golytely) 4,000 ml 1X ONCE PO Last administered on 01/20/19at 21:27; Start 01/20/19 at 19:00; Stop 01/20/19 at 19:01 ; Status DC Darbepoetin Les (Aranesp) 60 mcg [id number] SQ Last administered on 01/21/19at 20 :29; Start 01/21/19 at 21:00 Rifaximin (Xifaxan) 550 mg Q12HR PO Last administered on 01/22/19at 21:48; Start 01/21/19 at 15:00 Dextrose (Dextrose 50%-Water Syringe) 25 gm STK-MED ONCE IV ; Start 01/22/19 at 05:50; Stop 01/22/19 at 05:51; Status DC Dextrose (Dextrose 50%-Water Syringe) 25 gm PRN Q15MIN PRN IV Hypoglycemia Last administered on 01/23/19at 09:22; Start 01/22/19 at 06:15 Dextrose/Sodium Chloride 1,000 ml @ 40 mls/hr Q24H IV Last administered on 10/31at 09:57; Start 01/22/19 at 09:45; Stop 01/22/19 at 19:44; Status DC Norepinephrine Bitartrate 16 mg/ Sodium Chloride 266 ml @ 15.93 mls/ hr CONT PRN IV SEE I/O RECORD Last administered on 01/23/19at 07:32; Start 01/22/19 at 14 :30 Dextrose 1,000 ml @ 50 mls/hr Q20H IV Last administered on 01/22/19at 18:02; Start 01/22/19 at 18:00 Sodium Chloride 500 ml @ 500 mls/hr 1X ONCE IV Last administered on 09:23; Start 01/23/19 at 09:15; Stop 01/23/19 at 10:14; Status DC Active Scripts Active Scandia 5-325 Tablet (Acetaminophen/Hydrocodone Bitart) 1 Each Tablet 1-2 Each PO PRN Q6HRS PRN as needed for pain Reported [calcium carbon] Triamcinolone Acetonide 0.5% Cream (Triamcinolone Acetonide) 15 Gm Cream..g. 1 Olu TP BID Renvela (Sevelamer Carbonate) 800 Mg Tablet 2 Tab PO TID Protonix (Pantoprazole Sodium) 40 Mg Granpkt.dr 40 Mg PO DAILY Calcium Carbonate 500 Mg Tablet 5,000 Mg PO TIDWMEALS Skin Treatment (Ammonium Lactate) 225 Gm Lotion 225 Gm TP BID Aspirin 81 Mg Tab.chew 1 Tab PO DAILY Atorvastatin Calcium 20 Mg Tablet 1 Tab PO QHS Sodium Bicarbonate 650 Mg Tablet 1,950 Mg PO TIDWMEALS Vital Signs Vital Signs Date Time Temp Pulse Resp B/P (MAP) Pulse Ox O2 Delivery O2 Flow Rate FiO2 01/23/19 10:55 0 0 0/0 (0) 01/23/19 08:53 98 Room Air 01/23/19 08:30 97.0 97.0 01/22/19 16:00 2.0 Labs Laboratory Tests Test 01/22/19 05:00 01/22/19 05:49 01/22/19 06:20 01/22/19 08:08 White Blood Count 30.7 x10^3/uL (4.0-11.0) Red Blood Count 2.30 x10^6/uL (4.30-5.70) Hemoglobin 7.2 g/dL (13.0-17.5) Hematocrit 22.8 % (39.0-53.0) Mean Corpuscular Volume 99 fL (79-100) Mean Corpuscular Hemoglobin 31 pg (25-35) Mean Corpuscular Hemoglobin Concent 32 g/dL (31-37) Red Cell Distribution Width 18.5 % (11.5-14.5) Platelet Count 58 x10^3/uL (140-400) Sodium Level 138 mmol/L (136-145) Potassium Level 3.5 mmol/L (3.5-5.1) Chloride Level 102 mmol/L (98-107) Carbon Dioxide Level 12 mmol/L (21-32) Anion Gap 24 (6-14) Blood Urea Nitrogen 66 mg/dL (8-26) Creatinine 9.4 mg/dL (0.7-1.3) Estimated GFR (Cockcroft-Gault) 5.5 Glucose Level 32 mg/dL (70-99) Calcium Level 8.8 mg/dL (8.5-10.1) Glucose (Fingerstick) 26 mg/dL (70-99) 71 mg/dL (70-99) 37 mg/dL (70-99) Test 01/22/19 08:30 01/22/19 08:32 01/22/19 11:34 01/22/19 11:35 Glucose Level 112 mg/dL (70-99) 54 mg/dL (70-99) Glucose (Fingerstick) 94 mg/dL (70-99) 51 mg/dL (70-99) Test 01/22/19 11:39 01/22/19 17:03 01/22/19 17:25 01/22/19 17:42 Glucose (Fingerstick) 50 mg/dL (70-99) 27 mg/dL (70-99) 81 mg/dL (70-99) Glucose Level 39 mg/dL (70-99) Test 01/23/19 05:52 01/23/19 05:55 01/23/19 06:18 01/23/19 09:19 Glucose (Fingerstick) 47 mg/dL (70-99) 128 mg/dL (70-99) 52 mg/dL (70-99) White Blood Count 29.1 x10^3/uL (4.0-11.0) Red Blood Count 2.54 x10^6/uL (4.30-5.70) Hemoglobin 8.0 g/dL (13.0-17.5) Hematocrit 24.9 % (39.0-53.0) Mean Corpuscular Volume 98 fL (79-100) Mean Corpuscular Hemoglobin 32 pg (25-35) Mean Corpuscular Hemoglobin Concent 32 g/dL (31-37) Red Cell Distribution Width 17.1 % (11.5-14.5) Platelet Count 35 x10^3/uL (140-400) Neutrophils (%) (Auto) 89 % (31-73) Lymphocytes (%) (Auto) 7 % (24-48) Monocytes (%) (Auto) 4 % (0-9) Eosinophils (%) (Auto) 0 % (0-3) Basophils (%) (Auto) 0 % (0-3) Neutrophils # (Auto) 25.9 x10^3uL (1.8-7.7) Lymphocytes # (Auto) 1.9 x10^3/uL (1.0-4.8) Monocytes # (Auto) 1.1 x10^3/uL (0.0-1.1) Eosinophils # (Auto) 0.1 x10^3/uL (0.0-0.7) Basophils # (Auto) 0.1 x10^3/uL (0.0-0.2) Sodium Level 138 mmol/L (136-145) Potassium Level 3.6 mmol/L (3.5-5.1) Chloride Level 103 mmol/L (98-107) Carbon Dioxide Level 12 mmol/L (21-32) Anion Gap 23 (6-14) Blood Urea Nitrogen 57 mg/dL (8-26) Creatinine 9.0 mg/dL (0.7-1.3) Estimated GFR (Cockcroft-Gault) 5.8 Glucose Level 55 mg/dL (70-99) Calcium Level 8.3 mg/dL (8.5-10.1) Laboratory Tests Test 01/22/19 17:03 01/22/19 17:25 01/22/19 17:42 01/23/19 05:52 Glucose (Fingerstick) 27 mg/dL (70-99) 81 mg/dL (70-99) 47 mg/dL (70-99) Glucose Level 39 mg/dL (70-99) Test 01/23/19 05:55 01/23/19 06:18 01/23/19 09:19 White Blood Count 29.1 x10^3/uL (4.0-11.0) Red Blood Count 2.54 x10^6/uL (4.30-5.70) Hemoglobin 8.0 g/dL (13.0-17.5) Hematocrit 24.9 % (39.0-53.0) Mean Corpuscular Volume 98 fL (79-100) Mean Corpuscular Hemoglobin 32 pg (25-35) Mean Corpuscular Hemoglobin Concent 32 g/dL (31-37) Red Cell Distribution Width 17.1 % (11.5-14.5) Platelet Count 35 x10^3/uL (140-400) Neutrophils (%) (Auto) 89 % (31-73) Lymphocytes (%) (Auto) 7 % (24-48) Monocytes (%) (Auto) 4 % (0-9) Eosinophils (%) (Auto) 0 % (0-3) Basophils (%) (Auto) 0 % (0-3) Neutrophils # (Auto) 25.9 x10^3uL (1.8-7.7) Lymphocytes # (Auto) 1.9 x10^3/uL (1.0-4.8) Monocytes # (Auto) 1.1 x10^3/uL (0.0-1.1) Eosinophils # (Auto) 0.1 x10^3/uL (0.0-0.7) Basophils # (Auto) 0.1 x10^3/uL (0.0-0.2) Sodium Level 138 mmol/L (136-145) Potassium Level 3.6 mmol/L (3.5-5.1) Chloride Level 103 mmol/L (98-107) Carbon Dioxide Level 12 mmol/L (21-32) Anion Gap 23 (6-14) Blood Urea Nitrogen 57 mg/dL (8-26) Creatinine 9.0 mg/dL (0.7-1.3) Estimated GFR (Cockcroft-Gault) 5.8 Glucose Level 55 mg/dL (70-99) Calcium Level 8.3 mg/dL (8.5-10.1) Glucose (Fingerstick) 128 mg/dL (70-99) 52 mg/dL (70-99) Allergies Allergies Coded Allergies Type Severity Reaction Last Updated Verified No Known Drug Allergies 04/23/18 No Disposition/Orders: Other () LOLITA BLANC MD Jan 23, 2019 13:50
--- NOTE | 2019-01-23 15:00 | NUR ---
Post mortem care done. Family had not chosen home at time of their leaving. Instructions given to call nursing Research And Development Specialist with that info when they decided. Number given to [place] son. They took watch, dentures, glasses and clothes with them. Pt had no jewelry on. Family appreciative of care given. Per [facility], no eye or tissue donor., Body to morgue
== END 2019-01-23 10:55 | disposition expired | DRG 871 ==
LOC: ER 14:28 → 5 NORTH 15:16 → 1 WEST ICU 01-17 15:11
PROVIDERS: ADMIT Internal Medicine; ATTEND Internal Medicine
PROC: 02HV33Z Insertion of Infusion Device into Superior Vena Cava, Percutaneous Approach (ICD-10-PCS; 2019-01-18)
PROC: B548ZZA Ultrasonography of Superior Vena Cava, Guidance (ICD-10-PCS; 2019-01-18)
PROC: 30233N1 Transfusion of Nonautologous Red Blood Cells into Peripheral Vein, Percutaneous Approach (ICD-10-PCS; principal; 2019-01-20)
PROC: 3E1M39Z Irrigation of Peritoneal Cavity using Dialysate, Percutaneous Approach (ICD-10-PCS; 2019-01-20)
DX: A41.9 Sepsis, unspecified organism (principal); N18.6 End stage renal disease; R65.21 Severe sepsis with septic shock; E43 Unspecified severe protein-calorie malnutrition; J96.00 Acute respiratory failure, unspecified whether with hypoxia or hypercapnia; G92 Toxic encephalopathy; E87.2 Acidosis; D68.9 Coagulation defect, unspecified; I12.0 Hypertensive chronic kidney disease with stage 5 chronic kidney disease or end stage renal disease; N25.81 Secondary hyperparathyroidism of renal origin; K62.5 Hemorrhage of anus and rectum; R57.1 Hypovolemic shock; I25.10 Atherosclerotic heart disease of native coronary artery without angina pectoris; I95.9 Hypotension, unspecified; K80.20 Calculus of gallbladder without cholecystitis without obstruction; D72.829 Elevated white blood cell count, unspecified; R42 Dizziness and giddiness; I71.4 Abdominal aortic aneurysm, without rupture; E78.5 Hyperlipidemia, unspecified; Z83.3 Family history of diabetes mellitus; E78.00 Pure hypercholesterolemia, unspecified; K21.9 Gastro-esophageal reflux disease without esophagitis; E16.2 Hypoglycemia, unspecified; I35.0 Nonrheumatic aortic (valve) stenosis; Z66 Do not resuscitate; I73.9 Peripheral vascular disease, unspecified; D47.2 Monoclonal gammopathy; I95.1 Orthostatic hypotension; K74.60 Unspecified cirrhosis of liver; D63.1 Anemia in chronic kidney disease; D69.6 Thrombocytopenia, unspecified; K75.81 Nonalcoholic steatohepatitis (NASH); K59.00 Constipation, unspecified; I27.20 Pulmonary hypertension, unspecified; G47.33 Obstructive sleep apnea (adult) (pediatric); D53.9 Nutritional anemia, unspecified; M19.90 Unspecified osteoarthritis, unspecified site; I25.2 Old myocardial infarction; Z95.5 Presence of coronary angioplasty implant and graft; Z99.2 Dependence on renal dialysis; Z82.49 Family history of ischemic heart disease and other diseases of the circulatory system; Z90.49 Acquired absence of other specified parts of digestive tract; Z86.79 Personal history of other diseases of the circulatory system; Z87.891 Personal history of nicotine dependence; Z79.82 Long term (current) use of aspirin; Z68.28 Body mass index [BMI] 28.0-28.9, adult
CPT/HCPCS: 36415; 36556; 36600; 71045; 71260; 71275; 74150; 74177; 76700; 76937; 80048; 80053; 80202; 81001; 82140; 82533; 82550; 82553; 82805; 82947; 82962; 83520; 83540; 83550; 83605; 83615; 83690; 83735; 83880; 84100; 84145; 84484; 84550; 85007; 85018; 85025; 85027; 85610; 86703; 86705; 86709; 86803; 86850; 86900; 86901; 86920; 87040; 87071; 87075; 87077; 87205; 87340; 89050; 93005; 93306; 94640; 94760; 96374; C1892; C9113; J0878; J0881; J1250; J1720; J2020; J2248; J2250; J2405; J2543; J3010; J3370; J3490; J7030; J7040; J7042; J7050; J7620; P9016; Q9967; 83516; 92610; 99285-25